=== PATIENT | female | born 1940 | race Two or more races ===

== ENCOUNTER → 2020-07-21 09:06 | Outpatient (BNVA) | payer MEDICARE, SELFPAY | PROVIDERS: PCP Internal Medicine; Referring Provider Internal Medicine; Visit Provider Nurse Practitioner | DX: Z13.89 Encounter for screening for other disorder (principal) | CPT/HCPCS: Q3014 ==

== ENCOUNTER → 2020-09-18 08:57 | Outpatient (BNVA) | payer MEDICARE, SELFPAY | PROVIDERS: PCP Internal Medicine; Visit Provider Nurse Practitioner | DX: Z76.89 Persons encountering health services in other specified circumstances (principal) | CPT/HCPCS: Q3014 ==

== ENCOUNTER → 2020-11-06 09:00 | Outpatient (BNVA) | payer MEDICARE, SELFPAY | PROVIDERS: PCP Internal Medicine; Visit Provider Nurse Practitioner | DX: K58.2 Mixed irritable bowel syndrome (principal); R11.2 Nausea with vomiting, unspecified; R10.9 Unspecified abdominal pain; R14.0 Abdominal distension (gaseous); K21.9 Gastro-esophageal reflux disease without esophagitis | CPT/HCPCS: Q3014 ==

== ENCOUNTER → 2021-04-21 08:30 | Outpatient (BNVA) | payer MEDICARE, SELFPAY | PROVIDERS: PCP Internal Medicine; Referring Provider Internal Medicine; Visit Provider Nurse Practitioner | DX: K58.2 Mixed irritable bowel syndrome (principal); K21.9 Gastro-esophageal reflux disease without esophagitis; R10.9 Unspecified abdominal pain; R11.2 Nausea with vomiting, unspecified; R14.0 Abdominal distension (gaseous); R19.00 Intra-abdominal and pelvic swelling, mass and lump, unspecified site | CPT/HCPCS: 99212 ==

== ENCOUNTER 2021-05-06 08:28 | Outpatient (REF) | payer MEDICARE, SELFPAY ==
--- NOTE | ~2021-05-06 | US_ITS ---
EXAMINATION: US ABDOMEN COMPLETE CLINICAL INFORMATION: Abdominal pain. COMPARISON: Most recent abdominal ultrasound dated 01/12/2020. TECHNIQUE: Real-time imaging of the abdominal viscera. FINDINGS: PANCREAS: Normal. ABDOMINAL AORTA: The proximal, mid, and distal segments are normal in caliber. INFERIOR VENA CAVA: Visualized portions are normal. LIVER: The liver is normal in size. The liver contour is normal. There is diffuse increased liver parenchymal echogenicity, consistent with hepatic steatosis. No focal hepatic lesion. There is no intrahepatic biliary duct dilatation seen. GALLBLADDER: Normal. The gallbladder is physiologically distended without evidence of stones, sludge, polyps, wall thickening or pericholecystic fluid. COMMON BILE DUCT: Normal in caliber measuring 0.3 cm in diameter. RIGHT KIDNEY: Normal. No hydronephrosis. No renal calculi or focal parenchymal lesions. The kidney measures 9.8 cm in maximum dimension. LEFT KIDNEY: Upper pole simple-appearing cyst measuring 1.5 cm. Findings are not clinically significant and no follow-up imaging is recommended. This is unchanged when compared to the prior examination. Left midpole stone measuring 0.3 cm, not seen on the prior examination. No left-sided hydronephrosis. The kidney measures 10.3 cm in maximum dimension. SPLEEN: Normal. The spleen measures 10.8 cm in maximum dimension. FREE FLUID: None. US/US abdomen complete IMPRESSION: 1. No cholelithiasis, gallbladder wall thickening, or pericholecystic free fluid to suggest acute cholecystitis. 2. Left midpole renal stone measuring 0.3 cm, not seen on the prior examination. No hydronephrosis.
== END 2021-05-06 08:29 | disposition home or self-care (01) ==
LOC: HO.US 08:28
PROVIDERS: PCP Internal Medicine; Visit Provider Nurse Practitioner
DX: R10.9 Unspecified abdominal pain (principal); N20.0 Calculus of kidney
CPT/HCPCS: 76700

== ENCOUNTER 2021-07-08 02:52 | Emergency (ER) | payer MEDICARE, SELFPAY ==
--- NOTE | ~2021-07-08 | XR_ITS ---
EXAMINATION: XR CHEST CLINICAL INFORMATION: Shortness of breath COMPARISON: 07/27/2019 TECHNIQUE: Frontal view of the chest was obtained. FINDINGS: Normal symmetric lung volumes. No parenchymal consolidation. No pleural effusion. No pneumothorax. Cardiomediastinal silhouette and pulmonary vascularity are within normal limits. No acute osseous abnormalities. XR/XR chest 1V IMPRESSION: Unremarkable examination.
[2021-07-08 03:07] VITALS: BMI 27.9
--- NOTE | 2021-07-08 03:19 | ECG_ITS ---
Test Reason : BACK PAIN Blood Pressure : / mmHG Vent. Rate : 062 BPM Atrial Rate : 062 BPM P-R Int : 152 ms QRS Dur : 074 ms QT Int : 426 ms P-R-T Axes : 059 031 036 degrees QTc Int : 432 ms Normal sinus rhythm Normal ECG When compared with ECG of 27-JUL-2019 09:15, No significant change was found Referred By: Cheryl Pink Electronically Signed By:Faraz Wheeler
[2021-07-08 03:30] VITALS: BP 180/64; PULSE 79; RESP 16; TEMP 36.6; O2SAT 99
--- NOTE | 2021-07-08 03:38 | ED_ITS ---
HPI - General Adult General Chief complaint: General Medical Stated complaint: back pain Time Seen by Provider: 07/08/21 03:15 History of Present Illness HPI narrative: Patient is a 80-year-old female presents today with having shortness of breath. Patient has no history of coronary artery disease. No history of diabetes, hypertension, high cholesterol. No smoking. Patient initially presented with shortness of breath. Then Topamax has no shortness of breath. Patient denies any focal weakness. Denies any change in smell or taste. Positive coughing. Patient states she had her COVID vaccine. Patient denies any abdominal pain. Any focal weakness. No history of heart attacks in the past. No history of blood clots in the past. Related Data Home Medications Medication Instructions Recorded Confirmed albuterol sulfate 90 mcg/actuation 0 mcg INHALATION 09/18/20 aerosol inhaler amlodipine 5 mg tablet 5 mg PO DAILY 09/18/20 aspirin 81 mg tablet,delayed 81 mg PO BEDTIME 09/18/20 release atorvastatin 80 mg tablet 80 mg PO DAILY 09/18/20 blood pressure test kit-large #1 ea 09/18/20 calcium carbonate 600 mg (1,500 1 tab PO 09/18/20 mg)-vitamin D3 400 unit tablet cholecalciferol (vitamin D3) 25 25 mcg PO DAILY 09/18/20 mcg (1,000 unit) tablet cromolyn 4 % eye drops 1 drp OPHTHALMIC (EYE) QID 09/18/20 fluticasone 500 mcg-salmeterol 50 1 ea INHALATION BID 09/18/20 mcg/dose blistr powdr for inhalation fluticasone propionate 50 0 mcg INTRANASAL 09/18/20 mcg/actuation nasal spray,suspension hydrochlorothiazide 25 mg tablet 25 mg PO DAILY 09/18/20 loratadine 10 mg tablet 10 mg PO QAM 09/18/20 metformin 500 mg tablet,extended 1,000 mg PO QAM 09/18/20 release 24 hr metoprolol succinate 100 mg 100 mg PO DAILY 09/18/20 tablet,extended release 24 hr montelukast 10 mg tablet 10 mg PO BEDTIME 09/18/20 tolterodine 4 mg capsule,extended 4 mg PO DAILY 09/18/20 release 24 hr tramadol 50 mg tablet 50 mg PO Q6H PRN 09/18/20 valsartan 320 mg tablet 320 mg PO QAM 09/18/20 Previous Rx's Medication Instructions Recorded methylcellulose (laxative) 500 mg 1,000 mg PO BID 30 Days #120 tab 11/06/20 tablet (Fiber Laxative (methylcellulose)) sucralfate 1 gram tablet (Carafate) 3 g PO .daily @noon #60 tab 04/07/21 dexlansoprazole 60 mg 60 mg PO QPM #30 cap 06/22/21 capsule,biphase delayed release (Dexilant) Allergies Allergy/AdvReac Type Severity Reaction Status Date / Time nortriptyline AdvReac Rash Verified 11/06/20 09:01 Review of Systems Review of Systems: Positive shortness of breath Yes all other systems are reviewed and are negative [facility] Past Medical History Attestation statement: The following information was validated with the patient. Surgical History Hx of colonoscopy Hx of endoscopy Hx of hysterectomy Family History Family History Mother Diabetes Heart problem Asthma Father Diabetes Depression Maternal Grandfather Stomach cancer Family/Other Colon cancer Brother COVID-19 Social History Social History Alcohol intake: current Alcohol intake frequency: does not drink Second Hand Smoke Exposure: No Advance Directives: No Advance Directives Information Provided: No Physical Exam Vital Signs: Vital Signs: Last Vital Signs Temp 97.3 F 07/08/21 04:12 Pulse 62 07/08/21 04:12 Resp 15 07/08/21 04:12 BP 162/72 H 07/08/21 04:12 Pulse Ox 98 07/08/21 04:12 BMI result Body Mass Index 27.9 Appearance: Alert. Oriented X3. No acute distress. Eyes: Pupils equal, round and reactive to light. ENT: Pharynx normal. Neck: Normal inspection. Neck supple. No lymph nodes noted. No crepitus CVS: Normal heart rate and rhythm. Pulses normal. Normal S1 and S2 Respiratory: No respiratory distress. Breath sounds normal. No Wheezing. No rales Abdomen: Soft and nontender. No rigidity. No distention. good BS x4 Skin: Skin warm and dry. Normal skin color. Normal skin turgor. Extremities: No lower extremity edema. Neurovascular intact to all extremities. No Lacerations. No Rash Neuro: Oriented X 3. No motor deficit. No sensory deficit. Moving all extermities. No slurred speech Medical Decision Making MDM Narrative Medical decision making narrative: Patient's EKG showed a sinus pattern heart rate is 75 CT cares QT within normal limits is no acute ST segment elevation noted. Patient's pain is atypical. Cardiac enzyme was negative. No significant risk factors. Even with patient's age being 80 on likely secondary ACS. Heart score is less than 3. Patient's D-dimer was negative. In the setting of low risk patient unlikely to have PE. Patient's chest x-ray did not show any focal infiltrate. Will discharge patient home. In stable condition. Lab Data Result diagrams: 07/08/21 04:04 07/08/21 04:04 Labs: Lab Results 07/08/21 07/08/21 07/08/21 Range/Units 04:04 04:04 04:04 WBC 8.5 (4.8-10.8) X10*3/uL RBC 4.97 (4.20-5.50) X10*6/uL Hgb 14.6 (12.0-16.0) g/dl Hct 43.6 (37.0-47.0) % MCV 87.7 (80.0-98.0) fL MCH 29.4 (27.0-33.0) pg MCHC 33.5 (31.0-35.0) g/dl RDW 13.3 (11.0-16.0) % Plt Count 234 (160-400) X10*3/uL MPV 10.0 (9.4-12.3) fL Immature Gran % (Auto) 0.4 (0.0-0.4) % Neut % (Auto) 64.4 (45-73) % Lymph % (Auto) 21.8 (20-40) % [place] % (Auto) 9.2 (2-11) % Eos % (Auto) 3.8 (0-4) % Baso % (Auto) 0.4 (0-2) % Lymph # (Auto) 1.9 (1.2-4.9) X10*3/uL [place] # (Auto) 0.8 (0.1-1.2) X10*3/uL Eos # (Auto) 0.3 (0.0-0.4) X10*3/uL Baso # (Auto) 0.0 (0.0-0.2) X10*3/uL Abs Immat Gran (auto) 0.03 (0.00-0.03) X10*3/uL Absolute Neuts (auto) 5.5 (2.0-8.3) x10*3/uL Absolute Nucleated RBC 0.000 (0.0-0.012) X10*3/uL Nucleated RBC % (auto) 0.0 (0.0-0.2) /100WBC D-Dimer High Sensitivty < 150 NG/ML Sodium 141 (135-145) mmol/L Potassium 4.1 (3.3-5.1) mmol/L Chloride 105 (96-108) mmol/L Carbon Dioxide 27 (22-29) mmol/L Anion Gap 13 (12-20) BUN 12 (9-16) mg/dL Creatinine 0.81 (0.5-1.4) mg/dL Estim Creat Clear Calc 49.3 Estimated GFR > 60 Random Glucose 183 H (60-115) mg/dL Calcium 9.9 (8.4-10.2) mg/dL Troponin I High Sens (<3.5-17.0) ng/L 07/08/21 Range/Units 04:04 WBC (4.8-10.8) X10*3/uL RBC (4.20-5.50) X10*6/uL Hgb (12.0-16.0) g/dl Hct (37.0-47.0) % MCV (80.0-98.0) fL MCH (27.0-33.0) pg MCHC (31.0-35.0) g/dl RDW (11.0-16.0) % Plt Count (160-400) X10*3/uL MPV (9.4-12.3) fL Immature Gran % (Auto) (0.0-0.4) % Neut % (Auto) (45-73) % Lymph % (Auto) (20-40) % [place] % (Auto) (2-11) % Eos % (Auto) (0-4) % Baso % (Auto) (0-2) % Lymph # (Auto) (1.2-4.9) X10*3/uL [place] # (Auto) (0.1-1.2) X10*3/uL Eos # (Auto) (0.0-0.4) X10*3/uL Baso # (Auto) (0.0-0.2) X10*3/uL Abs Immat Gran (auto) (0.00-0.03) X10*3/uL Absolute Neuts (auto) (2.0-8.3) x10*3/uL Absolute Nucleated RBC (0.0-0.012) X10*3/uL Nucleated RBC % (auto) (0.0-0.2) /100WBC D-Dimer High Sensitivty NG/ML Sodium (135-145) mmol/L Potassium (3.3-5.1) mmol/L Chloride (96-108) mmol/L Carbon Dioxide (22-29) mmol/L Anion Gap (12-20) BUN (9-16) mg/dL Creatinine (0.5-1.4) mg/dL Estim Creat Clear Calc Estimated GFR Random Glucose (60-115) mg/dL Calcium (8.4-10.2) mg/dL Troponin I High Sens < 3.5 (<3.5-17.0) ng/L Discharge Plan Discharge Clinical Impression: Chest pain Patient Disposition: Home, Self-Care Instructions: Chest Pain (ED) Prescriptions: No Action sucralfate [Carafate] 1 gram tablet 3 g PO .daily @noon Qty: 60 RF: 1 Dexilant 60 mg capsule,biphase delayed releas 60 mg PO QPM Qty: 30 RF: 1 Fiber Laxative (methylcellulo) 500 mg tablet 1,000 mg PO BID 30 Days Qty: 120 RF: 6 Referrals: Physician,None [Physician] - 2 days
[2021-07-08 04:09] LABS: Basophils Percent Auto 0.4 % (0-2); Eosinophils Absolute Auto 0.3 X10*3/uL (0.0-0.4); Eosinophils Percent Auto 3.8 % (0-4); Hematocrit 43.6 % (37.0-47.0); Hemoglobin 14.6 g/dl (12.0-16.0); Imm Gran Abs Auto 0.03 X10*3/uL (0.00-0.03); Imm Gran Pct Auto 0.4 % (0.0-0.4); Lymphocytes Absolute Auto 1.9 X10*3/uL (1.2-4.9); Lymphocytes Percent Auto 21.8 % (20-40); MANUAL DIFF FLAG NO; Mean Corpuscular HGB Conc 33.5 g/dl (31.0-35.0); Mean Corpuscular Hemoglobin 29.4 pg (27.0-33.0); Mean Corpuscular Volume 87.7 fL (80.0-98.0); Monocytes Absolute Auto 0.8 X10*3/uL (0.1-1.2); Monocytes Percent Auto 9.2 % (2-11); Neutrophils Absolute Auto 5.5 x10*3/uL (2.0-8.3); Neutrophils Percent Auto 64.4 % (45-73); Platelet Count 234 X10*3/uL (160-400); Red Blood Count 4.97 X10*6/uL (4.20-5.50); Red Cell Distribution Width 13.3 % (11.0-16.0); White Blood Count 8.5 X10*3/uL (4.8-10.8)
[2021-07-08 04:12] VITALS: BP 162/72; PULSE 62; RESP 15; TEMP 36.3; O2SAT 98
[2021-07-08 04:28] LABS: Troponin-I High Sensitivity < 3.5 ng/L (<3.5-17.0)
[2021-07-08 04:30] LABS: Anion Gap 13 (12-20); Blood Urea Nitrogen 12 mg/dL (9-16); Calcium 9.9 mg/dL (8.4-10.2); Carbon Dioxide 27 mmol/L (22-29); Chloride 105 mmol/L (96-108); Creatinine Clr Calc Pharmacy 49.3; Estimated Glomerular Filt Rate > 60; Glucose Random 183 mg/dL (60-115); Potassium 4.1 mmol/L (3.3-5.1); Sodium 141 mmol/L (135-145)
[2021-07-08 04:33] LABS: D Dimer High Sensitivity < 150 NG/ML
--- NOTE | 2021-07-08 05:11 | PC.NURSE ---
I assumed care of this patient upon her arrival with EMS. Since that time she has remained alert and oriented x 3, without chest pain, RR WNL and non-labored resp's, speaking in full sentences. She has remained calm, cooperative and able to evrbalize her needs to staff effectively. SHe has been dischared at this time and she vebalizes an understanding of all DC orders. She ambulated out of the department to the waiting room - independently and steadily - to where her son is waiting for her.
== END 2021-07-08 05:14 | disposition home or self-care (01) ==
LOC: HO.ED 04:49
PROVIDERS: Emergency Provider Emergency Medicine Emergency Medical Services; PCP Internal Medicine
DX: R07.9 Chest pain, unspecified (principal); I25.10 Atherosclerotic heart disease of native coronary artery without angina pectoris
CPT/HCPCS: 36415; 71045; 80048; 84484; 85025; 85379; 93005; 99283; 99284

== ENCOUNTER 2021-08-03 15:00 | Emergency (ER) | payer MEDICARE, SELFPAY ==
--- NOTE | ~2021-08-03 | CT_ITS ---
EXAMINATION: CT ABDOMEN AND PELVIS WITH CONTRAST CLINICAL INFORMATION: mid abd pain etiology? COMPARISON: 02/05/2017 TECHNIQUE: Multidetector volumetric imaging was performed from the superior aspect of the liver through the pubic symphysis following administration of 85 mL Omnipaque 300 intravenous contrast. Sagittal and coronal reformatted images were obtained on the technologist workstation.. This CT examination was performed using dose optimization techniques as appropriate, variously including the following: *Automated exposure control *Adjustment of mA and/or kV according to patient size (this includes techniques or standardized protocols for targeted exams where dose is matched to indication/reason for exam; i.e. extremities or head) *Use of iterative reconstruction technique DLP: 582 mGy-cm FINDINGS: LUNG BASES: Linear scarring or atelectasis bilaterally. Thickening of the distal esophagus incidentally noted. Mild esophagitis cannot be excluded with this appearance LIVER, GALLBLADDER, AND BILIARY TREE: Liver demonstrates mild diffuse fatty infiltration but no focal hepatic lesion nor biliary ductal dilatation. The gallbladder is unremarkable with no evidence of radiopaque gallstones, gallbladder wall thickening, or obvious pericholecystic inflammatory changes. PANCREAS: Unremarkable. SPLEEN: Mildly enlarged measuring 13.5 cm in length ADRENAL GLANDS: Unremarkable. KIDNEYS AND URETERS: Low-attenuation 1.5 cm lesion in the upper pole of the left kidney has been present on prior studies. This measures more than simple fluid density currently. I'm uncertain if this is related to hyperdense/hemorrhagic cysts. This appeared more simple cystic on the ultrasound. Kidneys are otherwise normal in size, shape, and attenuation. No hydronephrosis, hydroureter, or calculi seen. No perinephric stranding. BLADDER: Unremarkable. GASTROINTESTINAL TRACT: Scattered colonic diverticulosis but no evidence for diverticulitis. Normal-appearing appendix in the right lower quadrant. Visualized small bowel unremarkable ABDOMINAL WALL: No significant hernia is appreciated. LYMPHOVASCULAR STRUCTURES: Vascular calcification within the aorta iliac system PELVIC VISCERA: Presumably surgically absent OSSEOUS STRUCTURES: Unremarkable. CT/CT abdomen pelvis w con IMPRESSION: Mild nonspecific thickening of the distal esophagus could be seen in the setting of underlying esophagitis and this could be clinically correlated. Stomach is decompressed and otherwise similar in appearance to the prior 2017 study. Mild chronic appearing changes otherwise as described above.
[2021-08-03 15:10] VITALS: BP 140/78; PULSE 91; O2SAT 98
[2021-08-03 15:50] VITALS: BP 99/78; PULSE 92; RESP 18; TEMP 37.6; O2SAT 97; BMI 27.9
--- NOTE | 2021-08-03 15:55 | ECG_ITS ---
Test Reason : ABDOMINAL PAIN Blood Pressure : / mmHG Vent. Rate : 086 BPM Atrial Rate : 086 BPM P-R Int : 132 ms QRS Dur : 084 ms QT Int : 374 ms P-R-T Axes : 046 011 015 degrees QTc Int : 447 ms Sinus rhythm with occasional Premature ventricular complexes Nonspecific ST and T wave abnormality Abnormal ECG When compared with ECG of 08-JUL-2021 03:41, Premature ventricular complexes are now Present Nonspecific T wave abnormality now evident in Lateral leads Referred By: Generic ED Physician Electronically Signed By:TAYLOR BROUSSARD MD
[2021-08-03 17:15] LABS: MANUAL DIFF FLAG NO
[2021-08-03 17:19] LABS: Basophils Percent Auto 0.2 % (0-2); Hematocrit 44.1 % (37.0-47.0); Imm Gran Abs Auto 0.02 X10*3/uL (0.00-0.03); Imm Gran Pct Auto 0.5 % (0.0-0.4); Lymphocytes Absolute Auto 0.8 X10*3/uL (1.2-4.9); Lymphocytes Percent Auto 18.7 % (20-40); Mean Corpuscular Hemoglobin 29.4 pg (27.0-33.0); Mean Corpuscular Volume 86.3 fL (80.0-98.0); Mean Platelet Volume 10.1 fL (9.4-12.3); Monocytes Absolute Auto 0.3 X10*3/uL (0.1-1.2); Monocytes Percent Auto 6.2 % (2-11); Neutrophils Percent Auto 74.4 % (45-73); Platelet Count 156 X10*3/uL (160-400); Red Blood Count 5.11 X10*6/uL (4.20-5.50); Red Cell Distribution Width 13.4 % (11.0-16.0)
[2021-08-03 17:34] LABS: Alanine Aminotransferase 33 U/L (0-31); Albumin Level 4.1 g/dL (3.5-5.0); Alkaline Phosphatase 70 U/L (39-117); Anion Gap 11 (12-20); Aspartate Amino Transferase 38 U/L (5-31); Bilirubin Total 0.8 mg/dL (0.0-1.0); Blood Urea Nitrogen 11 mg/dL (9-16); Calcium 9.2 mg/dL (8.4-10.2); Carbon Dioxide 29 mmol/L (22-29); Chloride 102 mmol/L (96-108); Creatinine Clr Calc Pharmacy 43.9; Estimated Glomerular Filt Rate 60; Glucose Random 130 mg/dL (60-115); Lipase 47 U/L (8-78); Potassium 3.7 mmol/L (3.3-5.1); Sodium 138 mmol/L (135-145); Total Protein 6.8 g/dL (6.5-8.0)
--- NOTE | 2021-08-03 20:01 | ED_ITS ---
HPI - Abdominal Pain General Chief Complaint: Abdominal Pain Stated Complaint: DIZZY,ABD PAIN X'S 3 DAYS,FULLY VACC PER EMS Time Seen by Provider: 08/03/21 20:01 Source: patient Mode of arrival: ambulatory Limitations: no limitations History of Present Illness HPI narrative: Patient with chronic gastritis on Dexilant 60 mg daily complaining of epigastric pain for last 4- 5 days slight nausea history of same for long time off and on , no melena no vomiting no fever or chills no urinary complaint no fever Related Data Home Medications Medication Instructions Recorded Confirmed albuterol sulfate 90 mcg/actuation 0 mcg INHALATION 09/18/20 aerosol inhaler amlodipine 5 mg tablet 5 mg PO DAILY 09/18/20 aspirin 81 mg tablet,delayed 81 mg PO BEDTIME 09/18/20 release atorvastatin 80 mg tablet 80 mg PO DAILY 09/18/20 blood pressure test kit-large #1 ea 09/18/20 calcium carbonate 600 mg-vitamin 1 tab PO 09/18/20 D3 10 mcg (400 unit) tablet cholecalciferol (vitamin D3) 25 25 mcg PO DAILY 09/18/20 mcg (1,000 unit) tablet cromolyn 4 % eye drops 1 drp OPHTHALMIC (EYE) QID 09/18/20 fluticasone 500 mcg-salmeterol 50 1 ea INHALATION BID 09/18/20 mcg/dose blistr powdr for inhalation fluticasone propionate 50 0 mcg INTRANASAL 09/18/20 mcg/actuation nasal spray,suspension hydrochlorothiazide 25 mg tablet 25 mg PO DAILY 09/18/20 loratadine 10 mg tablet 10 mg PO QAM 09/18/20 metformin 500 mg tablet,extended 1,000 mg PO QAM 09/18/20 release 24 hr metoprolol succinate 100 mg 100 mg PO DAILY 09/18/20 tablet,extended release 24 hr montelukast 10 mg tablet 10 mg PO BEDTIME 09/18/20 tolterodine 4 mg capsule,extended 4 mg PO DAILY 09/18/20 release 24 hr tramadol 50 mg tablet 50 mg PO Q6H PRN 09/18/20 valsartan 320 mg tablet 320 mg PO QAM 09/18/20 Previous Rx's Medication Instructions Recorded methylcellulose (laxative) 500 mg 1,000 mg PO BID 30 Days #120 tab 11/06/20 tablet (Fiber Laxative (methylcellulose)) sucralfate 1 gram tablet (Carafate) 3 g PO .daily @noon #60 tab 04/07/21 dexlansoprazole 60 mg 60 mg PO QPM #30 cap 06/22/21 capsule,biphase delayed release (Dexilant) sucralfate 1 gram tablet 1 g PO TID #90 tab 08/03/21 Allergies Allergy/AdvReac Type Severity Reaction Status Date / Time nortriptyline AdvReac Rash Verified 11/06/20 09:01 Review of Systems Review of Systems Yes all other systems are reviewed and are negative Physical Exam Vital Signs: Vital Signs: Last Vital Signs Temp 99.6 F 08/03/21 15:50 Pulse 92 08/03/21 15:50 Resp 18 08/03/21 15:50 BP 99/78 08/03/21 15:50 Pulse Ox 97 08/03/21 15:50 BMI result Body Mass Index 27.9 Appearance: Alert. Oriented X3. No acute distress. Eyes: No pallor or icterus ENT: Pharynx normal. Oral Mucosa moist Neck: Normal inspection. Neck supple. CVS: Normal heart rate and rhythm. Pulses normal. Respiratory: No respiratory distress. Equal air entry bilateral, no wh eezing/rales/rhonchi Abdomen: Soft , epigastric tenderness no rebound tenderness or guarding Bowel sounds are present, no mass palpable, no CVA tenderness Skin: Skin warm and dry. Normal skin color. Normal skin turgor. Extremities: No lower extremity edema. No calf tenderness Neuro: Oriented X 3. MDM - Abdominal Pain MDM Narrative Medical decision making narrative: Patient with chronic gastritis already been followed by GI never had endoscopy in the past advised to have endoscopy vitals are stable advised to continue Dexilant and add sucralfate Lab Data Attestation: I reviewed the patient's lab results. Result diagrams: 08/03/21 16:53 08/03/21 16:53 Labs: Lab Results 08/03/21 08/03/21 08/03/21 Range/Units 16:53 16:53 20:21 WBC 4.0 L (4.8-10.8) X10*3/uL RBC 5.11 (4.20-5.50) X10*6/uL Hgb 15.0 (12.0-16.0) g/dl Hct 44.1 (37.0-47.0) % MCV 86.3 (80.0-98.0) fL MCH 29.4 (27.0-33.0) pg MCHC 34.0 (31.0-35.0) g/dl RDW 13.4 (11.0-16.0) % Plt Count 156 L D (160-400) X10*3/uL MPV 10.1 (9.4-12.3) fL Immature Gran % (Auto) 0.5 H (0.0-0.4) % Neut % (Auto) 74.4 H (45-73) % Lymph % (Auto) 18.7 L (20-40) % [place] % (Auto) 6.2 (2-11) % Eos % (Auto) 0.0 (0-4) % Baso % (Auto) 0.2 (0-2) % Lymph # (Auto) 0.8 L (1.2-4.9) X10*3/uL [place] # (Auto) 0.3 (0.1-1.2) X10*3/uL Eos # (Auto) 0.0 (0.0-0.4) X10*3/uL Baso # (Auto) 0.0 (0.0-0.2) X10*3/uL Abs Immat Gran (auto) 0.02 (0.00-0.03) X10*3/uL Absolute Neuts (auto) 3.0 (2.0-8.3) x10*3/uL Absolute Nucleated RBC 0.000 (0.0-0.012) X10*3/uL Nucleated RBC % (auto) 0.0 (0.0-0.2) /100WBC Sodium 138 (135-145) mmol/L Potassium 3.7 (3.3-5.1) mmol/L Chloride 102 (96-108) mmol/L Carbon Dioxide 29 (22-29) mmol/L Anion Gap 11 L (12-20) BUN 11 (9-16) mg/dL Creatinine 0.91 (0.5-1.4) mg/dL Estim Creat Clear Calc 43.9 Estimated GFR 60 Random Glucose 130 H (60-115) mg/dL Calcium 9.2 D (8.4-10.2) mg/dL Total Bilirubin 0.8 (0.0-1.0) mg/dL AST 38 H (5-31) U/L ALT 33 H (0-31) U/L Alkaline Phosphatase 70 (39-117) U/L Total Protein 6.8 (6.5-8.0) g/dL Albumin 4.1 (3.5-5.0) g/dL Lipase 47 (8-78) U/L Urine Color YELLOW Urine Appearance CLEAR Urine pH 6.0 (5.0-8.0) Ur Specific [place] 1.025 (1.005-1.025) Urine Protein TRACE (NEG-TRACE) MG/DL Urine Glucose (UA) NEG (NEG) MG/DL Urine Ketones 15 (NEG) MG/DL Urine Blood 3+ H (NEG) Urine Nitrite NEG (NEG) Ur Leukocyte Esterase NEG (NEG) Urine RBC 5-9 H (0) /HPF Urine WBC 0-2 (0-4) /HPF Ur Squamous Epith Cells 1+ /LPF Urine Bacteria TRACE /LPF Urine Mucus 1+ /LPF Discharge Plan Discharge Clinical Impression: GERD (gastroesophageal reflux disease) Qualifiers: Esophagitis presence: with esophagitis Esophagitis bleeding: without hemorrhage Qualified Code(s): K21.00 - Gastro-esophageal reflux disease with esophagitis, without bleeding Patient Disposition: Home, Self-Care Instructions: Gastroesophageal Reflux Disease (ED) Additional Instructions: Continue Dexilant Avoid fried food 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 Start taking sucralfate half an hour before meals Prescriptions: New sucralfate 1 gram tablet 1 g PO TID Qty: 90 RF: 0 No Action sucralfate [Carafate] 1 gram tablet 3 g PO .daily @noon Qty: 60 RF: 1 Dexilant 60 mg capsule,biphase delayed releas 60 mg PO QPM Qty: 30 RF: 1 Fiber Laxative (methylcellulo) 500 mg tablet 1,000 mg PO BID 30 Days Qty: 120 RF: 6 Referrals: Aren Slater MD [Physician] - 2 weeks Interventions: ED Discharge Assessment Last Done: 08/03/21 22:37 Discharge Date/Time: 08/03/21 22:38 [facility] Past Medical History Surgical History Hx of colonoscopy Hx of endoscopy Hx of hysterectomy Family History Family History Mother Diabetes Heart problem Asthma Father Diabetes Depression Maternal Grandfather Stomach cancer Family/Other Colon cancer Brother COVID-19 Social History Social History Alcohol intake: current Alcohol intake frequency: does not drink Second Hand Smoke Exposure: No Advance Directives: No Advance Directives Information Provided: No
[2021-08-03 20:27] LABS: Appearance Urine CLEAR; Color Urine YELLOW; Glucose Urine UA NEG (NEG); Leukocyte Esterase Urine NEG (NEG); Nitrite Urine NEG (NEG); Specific Gravity - Urine 1.025 (1.005-1.025); UACC Culture Trigger NO; Urine Blood 3+ (NEG); Urine Ketones 15 MG/DL (NEG); Urine Protein TRACE MG/DL (NEG-TRACE)
[2021-08-03] MEDS: ondansetron HCL 4 MG/2 ML VIAL IVPUSH (20:32)
[2021-08-03] MEDS: 0.9 % Sodium Chloride 1,000 ML 999 ML IV (20:34)
[2021-08-03] MEDS: Famotidine/PF 20 MG/2 ML VIAL IVPUSH (20:34)
[2021-08-03 20:38] LABS: Bacteria Urine TRACE /LPF; Mucus Urine 1+ /LPF; Squamous Epithelial Cell Urine 1+ /LPF; WBC Urine 0-2 /HPF (0-4)
[2021-08-03] MEDS: iohexoL 350 MG/ML 100 ML INFUS..BTL IV (20:56)
== END 2021-08-03 22:38 | disposition home or self-care (01) ==
PROVIDERS: Emergency Provider Internal Medicine; PCP Internal Medicine
DX: K21.00 Gastro-esophageal reflux disease with esophagitis, without bleeding (principal); R10.13 Epigastric pain; Z79.02 Long term (current) use of antithrombotics/antiplatelets; Z79.82 Long term (current) use of aspirin; Z79.899 Other long term (current) drug therapy
CPT/HCPCS: 36415; 74177; 80053; 81001; 83690; 85025; 93005; 96361; 96374; 96375; 99284; J2405; Q9967

== ENCOUNTER → 2021-12-15 08:04 | Outpatient (BNVA) | payer MEDICARE, SELFPAY | PROVIDERS: PCP Internal Medicine; Referring Provider Internal Medicine; Visit Provider Nurse Practitioner | DX: K21.00 Gastro-esophageal reflux disease with esophagitis, without bleeding (principal); K58.2 Mixed irritable bowel syndrome; R14.0 Abdominal distension (gaseous); R11.2 Nausea with vomiting, unspecified; R10.9 Unspecified abdominal pain; R19.00 Intra-abdominal and pelvic swelling, mass and lump, unspecified site | CPT/HCPCS: 99212 ==

== ENCOUNTER → 2022-01-15 08:19 | Outpatient (BNVA) | payer MEDICARE, SELFPAY | PROVIDERS: PCP Internal Medicine; Visit Provider Nurse Practitioner | DX: K21.00 Gastro-esophageal reflux disease with esophagitis, without bleeding (principal); K58.2 Mixed irritable bowel syndrome; R10.9 Unspecified abdominal pain; R11.2 Nausea with vomiting, unspecified; R74.01 Elevation of levels of liver transaminase levels; R14.0 Abdominal distension (gaseous) | CPT/HCPCS: 99212 ==

== ENCOUNTER → 2022-05-11 08:01 | Outpatient (REF) | payer MEDICARE, SELFPAY ==
--- NOTE | ~2022-05-11 | NM_ITS ---
EXAMINATION: ND RADIONUCLIDE SOLID FOOD GASTRIC EMPTYING 4-HOUR STUDY CLINICAL INFORMATION: Unspecified abdominal pain. COMPARISON: None TECHNIQUE: A standard meal consisting of 4 oz of Egg Beaters brand tagged with 817 microcuries Tc-99m Sulfur Colloid, 8 oz water and 2 slices of toast with jelly was administered orally to the patient. Images were obtained using a dual head gamma camera in the anterior and posterior projections over of the stomach immediately post ingestion and at hourly intervals up to 4 hours post ingestion. The anterior and posterior counts at each time interval were averaged using the geometric mean and expressed as percentage of the immediate post ingestion counts. FINDINGS: There is good visualization of activity in the stomach immediately post ingestion. As the study progresses, there is good clearance of activity from the stomach and visualization of progressively increasing small bowel activity. By the end of the study, there is almost no retention noted in the stomach. Retention in the stomach at each time interval was: 1 hour 78% (normal 37%-90%) 2 hours 73% (normal 30%-60%) 3 hours 60% 4 hours 56% (normal 0%-10%) NM/ND gastric emptying study IMPRESSION: Normal 4-hour solid food gastric emptying study.
== END ==
LOC: HO.NUCMED 08:01
PROVIDERS: Visit Provider Nurse Practitioner
DX: R10.9 Unspecified abdominal pain (principal)
CPT/HCPCS: 78264; A9541

== ENCOUNTER → 2022-07-30 07:53 | Outpatient (BNVA) | payer MEDICARE, SELFPAY | PROVIDERS: PCP Internal Medicine; Visit Provider Nurse Practitioner | DX: K58.2 Mixed irritable bowel syndrome (principal) | CPT/HCPCS: 99212 ==

== ENCOUNTER 2022-08-12 08:44 | Outpatient (REF) | payer MEDICARE, SELFPAY ==
[2022-08-12 08:52] LABS: MANUAL DIFF FLAG NO
[2022-08-12 09:53] LABS: Basophils Percent Auto 0.4 % (0-2); Eosinophils Absolute Auto 0.2 X10*3/uL (0.0-0.4); Eosinophils Percent Auto 2.8 % (0-4); Hematocrit 42.1 % (37.0-47.0); Hemoglobin 13.7 g/dl (12.0-16.0); Imm Gran Abs Auto 0.03 X10*3/uL (0.00-0.03); Imm Gran Pct Auto 0.4 % (0.0-0.4); Lymphocytes Absolute Auto 1.6 X10*3/uL (1.2-4.9); Lymphocytes Percent Auto 21.9 % (20-40); Mean Corpuscular HGB Conc 32.5 g/dl (31.0-35.0); Mean Corpuscular Hemoglobin 28.7 pg (27.0-33.0); Mean Corpuscular Volume 88.3 fL (80.0-98.0); Mean Platelet Volume 10.8 fL (9.4-12.3); Monocytes Absolute Auto 0.5 X10*3/uL (0.1-1.2); Monocytes Percent Auto 6.9 % (2-11); Neutrophils Absolute Auto 4.9 x10*3/uL (2.0-8.3); Neutrophils Percent Auto 67.6 % (45-73); Platelet Count 235 X10*3/uL (160-400); Red Blood Count 4.77 X10*6/uL (4.20-5.50); Red Cell Distribution Width 13.5 % (11.0-16.0); White Blood Count 7.3 X10*3/uL (4.8-10.8)
[2022-08-12 12:22] LABS: Alanine Aminotransferase 20 U/L (0-31); Albumin Level 4.4 g/dL (3.5-5.0); Alkaline Phosphatase 82 U/L (39-117); Anion Gap 8 (12-20); Aspartate Amino Transferase 21 U/L (5-31); Bilirubin Total 0.7 mg/dL (0.0-1.0); Blood Urea Nitrogen 12 mg/dL (9-16); Calcium 9.9 mg/dL (8.4-10.2); Carbon Dioxide 32 mmol/L (22-29); Chloride 103 mmol/L (96-108); Estimated Glomerular Filt Rate > 60; Gamma Glutamyl Transpeptidase 25 U/L (7-33); Glucose Random 127 mg/dL (60-115); Lipase 36 U/L (8-78); Potassium 3.7 mmol/L (3.3-5.1); Sodium 139 mmol/L (135-145); Total Protein 6.9 g/dL (6.5-8.0)
[2022-08-12 12:34] LABS: Amylase 99 U/L (28-100); Ferritin 101 ng/mL (10-250)
[2022-08-13 08:39] LABS: HBS Num1 0.51 mIU/mL (0-7.99); Hepatitis A Antibody IgM 0.15 Index (0-0.79); ~Hepatitis A Antibody IgM Nonreactive (Nonreactive); ~Hepatitis B Surface Antibody NONREACTIVE (Nonreactive)
[2022-08-13 08:40] LABS: HBsAGNum1 0.31 S/CO (0.00-0.99); Hepatitis B Core Antibody Nonreactive (Nonreactive); Hepatitis B Surface Antigen Negative (Negative); ~HepC Num1 0.09 S/CO (0.00-0.79); ~Hepatitis C Antibody Nonreactive (Nonreactive)
[2022-08-16 14:18] LABS: Alpha Fetoprotein 2.2 ng/mL
[2022-08-18 14:58] LABS: Mitochondrial Antibodies NEGATIVE (NEGATIVE)
[2022-08-18 23:04] LABS: Smooth Muscle Antibody <20 U (<20)
== END 2022-08-12 08:45 | disposition home or self-care (01) ==
LOC: HO.LAB 08:44
PROVIDERS: PCP Internal Medicine; Visit Provider Nurse Practitioner
DX: R10.9 Unspecified abdominal pain (principal); R11.2 Nausea with vomiting, unspecified; R74.01 Elevation of levels of liver transaminase levels
CPT/HCPCS: 36415; 80053; 82105; 82150; 82728; 82977; 83690; 85025; 86015; 86255; 86256; 86704; 86706; 86709; 86803; 87340

== ENCOUNTER → 2022-09-09 08:05 | Outpatient (BNVA) | payer MEDICARE, SELFPAY | PROVIDERS: PCP Internal Medicine; Referring Provider Internal Medicine; Visit Provider Nurse Practitioner | DX: R10.9 Unspecified abdominal pain (principal); K21.00 Gastro-esophageal reflux disease with esophagitis, without bleeding; K58.2 Mixed irritable bowel syndrome; R14.0 Abdominal distension (gaseous); R11.2 Nausea with vomiting, unspecified; R74.01 Elevation of levels of liver transaminase levels | CPT/HCPCS: 99212 ==

== ENCOUNTER → 2022-10-19 08:18 | Outpatient (BNVA) | payer MEDICARE, SELFPAY | PROVIDERS: PCP Internal Medicine; Visit Provider Nurse Practitioner | DX: K58.2 Mixed irritable bowel syndrome (principal); K21.00 Gastro-esophageal reflux disease with esophagitis, without bleeding; R11.2 Nausea with vomiting, unspecified; R14.0 Abdominal distension (gaseous); R10.9 Unspecified abdominal pain | CPT/HCPCS: 99212 ==

== ENCOUNTER → 2022-11-11 08:37 | Outpatient (BNVA) | payer MEDICARE, SELFPAY | PROVIDERS: PCP Internal Medicine; Visit Provider Nurse Practitioner | DX: K21.00 Gastro-esophageal reflux disease with esophagitis, without bleeding (principal); K58.2 Mixed irritable bowel syndrome; R14.0 Abdominal distension (gaseous) | CPT/HCPCS: 99212 ==

== ENCOUNTER → 2022-12-16 07:54 | Outpatient (BNVA) | payer MEDICARE, SELFPAY | PROVIDERS: PCP Nurse Practitioner; Referring Provider Nurse Practitioner; Visit Provider Nurse Practitioner | DX: K21.00 Gastro-esophageal reflux disease with esophagitis, without bleeding (principal); K58.2 Mixed irritable bowel syndrome; R10.13 Epigastric pain; R14.0 Abdominal distension (gaseous) | CPT/HCPCS: 99212 ==

== ENCOUNTER 2022-12-22 07:56 | Day surgery (SDC) | payer OTHER, SELFPAY ==
[2022-12-20 11:55] VITALS: BMI 28.0
[2022-12-20 14:46] VITALS: BMI 28.0
--- NOTE | 2022-12-21 10:47 | HO.ANESPROP2 ---
Documented by User: Berkley Leonardo NP 12/21/22 10:49 HPI - Anesthesia Eval Consult details Narrative: 82yo F for Upper Endoscopy PMFSH Active Problems Active Problems: All Active Problems (Updated 12/20/22 @ 14:45 by Katie Galvez, RN) GERD (gastroesophageal reflux disease) (Acute) Irritable bowel syndrome with both constipation and diarrhea (Acute) Abdominal bloating (Acute) Nausea and vomiting (Acute) Abdominal pain (Acute) Lump in the abdomen (Acute) Elevated liver transaminase level (Acute) Abdominal cramping (Acute) Epigastric abdominal pain (Acute) Past Medical History Medical History (Updated 12/20/22 @ 14:45 by Katie Galvez, WENDY) Arthritis Asthma Back pain Diabetes Glaucoma HTN (hypertension) Seasonal allergies Family History Family History Mother Diabetes Heart problem Asthma Father Diabetes Depression Maternal Grandfather Stomach cancer Family/Other Colon cancer Brother COVID-19 Surgical History Surgical History Hx of colonoscopy Hx of endoscopy Hx of hysterectomy Social History Social History Household Members Other:: brother Are you a primary nanny caregiver to a significant other at home: No 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) Alcohol intake: current Alcohol intake frequency: does not drink Patient Tobacco Use Status: Never used Tobacco Second Hand Smoke Exposure: No Meds Allergies Allergy/AdvReac Type Severity Reaction Status Date / Time nortriptyline AdvReac Rash Verified 11/11/22 08:52 Home Medications Medication Instructions Recorded Confirmed Last Taken Type albuterol sulfate 90 mcg/actuation 0 mcg inhalation 09/18/20 Unknown History aerosol inhaler amlodipine 5 mg tablet 5 mg PO DAILY 09/18/20 12/20/22 Unknown History aspirin 81 mg tablet,delayed 81 mg PO BEDTIME 09/18/20 12/20/22 Unknown History release atorvastatin 80 mg tablet 80 mg PO DAILY 09/18/20 12/20/22 Unknown History blood pressure test kit-large #1 ea 09/18/20 Unknown History calcium carbonate 600 mg-vitamin 1 tab PO 09/18/20 Unknown History D3 10 mcg (400 unit) tablet cromolyn 4 % eye drops 1 drp ophthalmic (eye) QID 09/18/20 12/20/22 Unknown History fluticasone 500 mcg-salmeterol 50 1 ea inhalation BID 09/18/20 12/20/22 Unknown History mcg/dose blistr powdr for inhalation fluticasone propionate 50 0 mcg intranasal 09/18/20 Unknown History mcg/actuation nasal spray,suspension hydrochlorothiazide 25 mg tablet 25 mg PO DAILY 09/18/20 12/20/22 Unknown History metformin 500 mg tablet,extended 1,000 mg PO QAM 09/18/20 12/20/22 Unknown History release 24 hr metoprolol succinate 100 mg 100 mg PO DAILY 09/18/20 12/20/22 Unknown History tablet,extended release 24 hr tolterodine 4 mg capsule,extended 4 mg PO DAILY 09/18/20 12/20/22 Unknown History release 24 hr tramadol 50 mg tablet 50 mg PO Q6H PRN Pain 09/18/20 12/20/22 Unknown History valsartan 320 mg tablet 320 mg PO QAM 09/18/20 12/20/22 Unknown History brimonidine 0.2 % eye drops 0 drp ophthalmic (eye) 12/15/21 Unknown History timolol maleate 0.5 % eye drops 1 drp ophthalmic (eye) QAM 12/15/21 12/20/22 Unknown History ketotifen fumarate 0.025 % (0.035 0 drp ophthalmic (eye) 07/30/22 Unknown History %) eye drops lancets 33 gauge (TRUEplus Lancets) #100 ea 07/30/22 Unknown History cholecalciferol (vitamin D3) 25 25 mcg PO DAILY 10/19/22 12/20/22 Unknown History mcg (1,000 unit) tablet diphenhydramine HCl 25 mg tablet 25 mg PO DAILY PRN allergy symptoms 10/19/22 12/20/22 Unknown History loratadine 10 mg tablet 10 mg PO DAILY 10/19/22 12/20/22 Unknown History Exam Exam Date and Time: December 21, 2022 1047 Height,Weight and Vital Signs: Height 5 ft 1 in Weight 67.132 kg Pertinent Lab Results Pertinent Lab Results: Laboratory Tests 08/12/22 08/12/22 08:51 08:51 WBC 7.3 Hgb 13.7 Hct 42.1 Plt Count 235 D Sodium 139 Potassium 3.7 Chloride 103 Carbon Dioxide 32 H BUN 12 Creatinine 0.85 Assessment and Plan Assessment Anesthesia Assessment: Chart Reviewed Documented by User: Matthew Scruggs MD 12/22/22 07:23 [facility] Past Medical History Medical History (Updated 12/20/22 @ 14:45 by Katie Galvez RN) Arthritis Asthma Back pain Diabetes Glaucoma HTN (hypertension) Seasonal allergies Family History Family History Mother Diabetes Heart problem Asthma Father Diabetes Depression Maternal Grandfather Stomach cancer Family/Other Colon cancer Brother COVID-19 Family history of problems with anesthesia: No Surgical History Surgical History Hx of colonoscopy Hx of endoscopy Hx of hysterectomy History of Problems with Anesthesia: No Social History Social History Household Members Other:: brother Are you a primary nanny caregiver to a significant other at home: No 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) Alcohol intake: current Alcohol intake frequency: does not drink Patient Tobacco Use Status: Never used Tobacco Second Hand Smoke Exposure: No Meds Allergies Allergy/AdvReac Type Severity Reaction Status Date / Time nortriptyline AdvReac Rash Verified 11/11/22 08:52 Home Medications Medication Instructions Recorded Confirmed Last Taken Type albuterol sulfate 90 mcg/actuation 0 mcg inhalation 09/18/20 Unknown History aerosol inhaler amlodipine 5 mg tablet 5 mg PO DAILY 09/18/20 12/20/22 Unknown History aspirin 81 mg tablet,delayed 81 mg PO BEDTIME 09/18/20 12/20/22 Unknown History release atorvastatin 80 mg tablet 80 mg PO DAILY 09/18/20 12/20/22 Unknown History blood pressure test kit-large #1 ea 09/18/20 Unknown History calcium carbonate 600 mg-vitamin 1 tab PO 09/18/20 Unknown History D3 10 mcg (400 unit) tablet cromolyn 4 % eye drops 1 drp ophthalmic (eye) QID 09/18/20 12/20/22 Unknown History fluticasone 500 mcg-salmeterol 50 1 ea inhalation BID 09/18/20 12/20/22 Unknown History mcg/dose blistr powdr for inhalation fluticasone propionate 50 0 mcg intranasal 09/18/20 Unknown History mcg/actuation nasal spray,suspension hydrochlorothiazide 25 mg tablet 25 mg PO DAILY 09/18/20 12/20/22 Unknown History metformin 500 mg tablet,extended 1,000 mg PO QAM 09/18/20 12/20/22 Unknown History release 24 hr metoprolol succinate 100 mg 100 mg PO DAILY 09/18/20 12/20/22 Unknown History tablet,extended release 24 hr tolterodine 4 mg capsule,extended 4 mg PO DAILY 09/18/20 12/20/22 Unknown History release 24 hr tramadol 50 mg tablet 50 mg PO Q6H PRN Pain 09/18/20 12/20/22 Unknown History valsartan 320 mg tablet 320 mg PO QAM 09/18/20 12/20/22 Unknown History brimonidine 0.2 % eye drops 0 drp ophthalmic (eye) 12/15/21 Unknown History timolol maleate 0.5 % eye drops 1 drp ophthalmic (eye) QAM 12/15/21 12/20/22 Unknown History ketotifen fumarate 0.025 % (0.035 0 drp ophthalmic (eye) 07/30/22 Unknown History %) eye drops lancets 33 gauge (TRUEplus Lancets) #100 ea 07/30/22 Unknown History cholecalciferol (vitamin D3) 25 25 mcg PO DAILY 10/19/22 12/20/22 Unknown History mcg (1,000 unit) tablet diphenhydramine HCl 25 mg tablet 25 mg PO DAILY PRN allergy symptoms 10/19/22 12/20/22 Unknown History loratadine 10 mg tablet 10 mg PO DAILY 10/19/22 12/20/22 Unknown History Exam Airway Mallampati Class: II TM Dist: >3cm Neck ROM: Limited Heart: rrr Lungs: cta Assessment and Plan Assessment Anesthesia Assessment: Anesthesia Plan Discussed Final Anesthetic Review Family History of Problems with Anesthesia: No History of Problems with Anesthesia: No NPO: Yes ASA Class: III Final Preanesthetic Review: No Changes in Pt Med Stat, Meds/Allgs Chart Reviewed, Consent Obtained/Reviewed and Anes Risks/Benef Reviewed Patient Risk: Intermediate Procedure Risk: Intermediate Anesthetic Plan Anesthetic Plan: MAC: and Agree w/ Assess. and Plan Disposition: Standard PACU
--- NOTE | 2022-12-22 08:26 | PC.NURSE ---
patient fell a week ago at home. slipped and fell backwards. hit head no loc. no blood thinners. md flower aware. no symptoms. patient stated her bun in the back of the head helped her.
[2022-12-22 08:27] LABS: Glucose, Whole Blood 131 mg/dL (60-115)
[2022-12-22] MEDS: Lactated Ringers 1,000 ML 100 ML IVCONT (08:31)
--- NOTE | 2022-12-22 08:45 | MHC.SHP ---
Pre-Procedural Eval Section A Date of Service: 12/22/22 Section B Chief Complaint: Gastro-esophageal reflux disease without esophagit Details of Present Illness: bloating, epigastric pain Relevant Family History (Specify if Yes): No Relevant Social History: None Present Medications: see Short Stay Collaborative assessment Medical History: Significant History (Arthritis Asthma Back pain Diabetes Glaucoma HTN (hypertension) Seasonal allergies) History of Previous Operations: Relevant previous surgery/procedure and date(s) (Hx of colonoscopy Hx of endoscopy Hx of hysterectomy) Allergies: Allergies Allergy/AdvReac Type Severity Reaction Status Date / Time nortriptyline AdvReac Rash Verified 11/11/22 08:52 Review of Systems Sugical H&P ROS: Negative: Constitution, Cardiovascular, Respiratory, Neurological, Psychiatric, Hem-Onc, Allergic/Immunologic, Gastrointestinal, Genitourinary, Musculoskeletal, Integumentary, Endocrine and Eyes/Ears/Nose/Throat Exam Surgical H&P Exam: Normal: HEENT, Normal: Heart, Normal: Lungs, Normal: Extremities, Normal: Abdomen, Normal: Skin and Normal: Neurological Plan Diagnosis/Plan: Unchanged I have reviewed the history and physical and performed a pertinent physical examination on my patient. No changes have occurred unless specified. Time Spent With Patient Time: Total time managing care of this patient today ____ minutes.
--- NOTE | 2022-12-22 08:50 | W.PM.OPN ---
Operative Note Operative Note Date of Service: 12/22/22 Narrative: Procedure Description: EGD Indication: epigastric bloating, pain, reflux Anesthesia: MAC FLEXIBLE TRANSORAL UPPER GASTROINTESTINAL ENDOSCOPY UPPER ENDOSCOPY Consent: Indications for the procedure and potential complications of bleeding, perforation, reaction to medications and missed diagnosis were discussed with the patient and informed consent was obtained. Instrument: Olympus GIF H 190 J mid size upper endoscope Monitoring: Vital signs and clinical assessment, continuous EKG monitoring, Pulse oximetry, Carbon Dioxide monitoring and blood pressure monitoring were done throughout the procedure. Procedure: The patient was placed in the left lateral decubitis position and pre-procedure medications were administered and a bite block was placed. The endoscope was inserted into the mouth and advanced under direct vision to the third part of duodenum. A careful inspection was made as the upper endoscope was withdrawn including a retroflexed examination of the proximal stomach; Findings and interventions are described below. Findings: Larynx:normal Esophagus: GE junction at 37 cm, diaphragm hiatus at 37 cm, bx taken from GEJ, distal and proximal esophagus Stomach: Patchy gastric erythema with scarring. Biopsies were obtained. Grade 2 flap valve on retroflexed examination of the cardia. There was retained food in the stomach. The pyloric outlet seemed tight and was stretched with a balloon to 19 mm. There was a lack of gastric motility Duodenum: Normal bulb and descending duodenum, bx taken Intervention: Biopsies as noted above, balloon dilation Impression/Findings: atrophic gastritis retained food and concern for gastroparesis PLAN: low fat and low fiber diet consider o/p GES does take tramadol few times a week may be contributing also is diabetic
[2022-12-22 09:17] VITALS: BP 137/75; PULSE 72; RESP 16; TEMP 36.2; O2SAT 97
[2022-12-22 09:32] VITALS: BP 145/86; PULSE 81; RESP 16; TEMP 36.3; O2SAT 97
== END 2022-12-22 10:05 | disposition home or self-care (01) ==
PROVIDERS: Visit Provider Internal Medicine Gastroenterology
PROC: 0DJ08ZZ Inspection of Upper Intestinal Tract, Via Natural or Artificial Opening Endoscopic (ICD-10-PCS; CPT 43235; principal; 2022-12-22 09:20)
DX: K21.9 Gastro-esophageal reflux disease without esophagitis (principal); K31.1 Adult hypertrophic pyloric stenosis; K29.40 Chronic atrophic gastritis without bleeding; K31.89 Other diseases of stomach and duodenum; K44.9 Diaphragmatic hernia without obstruction or gangrene; I10 Essential (primary) hypertension; J45.909 Unspecified asthma, uncomplicated; E11.9 Type 2 diabetes mellitus without complications; Z79.84 Long term (current) use of oral hypoglycemic drugs; Z79.51 Long term (current) use of inhaled steroids; Z79.82 Long term (current) use of aspirin; Z79.899 Other long term (current) drug therapy; Z88.8 Allergy status to other drugs, medicaments and biological substances
CPT/HCPCS: 43245; 43239; 82947; 88305; 88342; C1726

== ENCOUNTER → 2023-01-05 09:44 | Outpatient (BNVA) | payer OTHER, SELFPAY | PROVIDERS: Visit Provider Nurse Practitioner ==

== ENCOUNTER 2023-02-04 08:40 | Outpatient (AMB) | payer OTHER, SELFPAY ==
--- NOTE | 2023-02-04 08:42 | A.OFFVIS_ITS ---
Intake Vital Signs 02/04/23 08:44 Height 5 ft 1 in Weight 143 lb 11.862 oz BMI 27.2 BP 106/69 Blood Pressure Location Lt brachial Position Sitting Intake Visit Reasons: S/p egd- Michelle Intake Note: Patient presents to in office visit today in follow up of EGD. Patient underwent EGD on 12/22/[address] Martinez. CC: Patient states she wakes up with nausea some days. Denies other GI symptoms. Plastics Process Hand Required: No Accompanied by: Self / Same As Patient Allergies nortriptyline Adverse Reaction (Verified 02/04/23 08:52) Rash HPI S/p egd- Michelle HPI Details Assessment & Plan (1) Epigastric abdominal pain: ?Code(s): R10.13 - Epigastric pain ?Plan: Australian # declines She still has epigastric pain and nausea that is worse in the morning. The epigastric pain is always after eating. She is limited in what she can tolerate, only eating soups. Taking a regaln qhs did not effect this. She continues on the Dexilant and the famotidine qhs. She also uses carafate. At this point, we will wait until after the EGD to determine any further treatment. We may need to consider changing her PPI or increasing the reglan depending on any further information regarding the underlying cause of the pain. She fell on her stairs and injured her tailbone and is walking with a cane. Keep 6/7 appt after scope. (2) GERD (gastroesophageal reflux disease): ?Code(s): K21.9 - Gastro-esophageal reflux disease without esophagitis ?Qualifiers: ?Esophagitis bleeding:?without hemorrhage??Esophagitis presence:?with esophagitis? Qualified Code(s):?K21.00 - Gastro-esophageal reflux disease with esophagitis, without bleeding (3) Irritable bowel syndrome with both constipation and diarrhea: ?Code(s): K58.2 - Mixed irritable bowel syndrome (4) Abdominal bloating: ?Code(s): R14.0 - Abdominal distension (gaseous). EGD 12/22/22 Findings: Larynx:normal Esophagus: GE junction at 37? cm, diaphragm hiatus at 37 cm, bx taken from GEJ, distal and proximal esophagus Stomach: Patchy gastric erythema with scarring. Biopsies were obtained. Grade 2 flap valve on retroflexed examination of the cardia. There was retained food in the stomach. The pyloric outlet seemed tight and was stretched with a balloon to 19 mm. There was a lack of gastric motility Duodenum: Normal bulb and descending duodenum, bx taken Intervention: Biopsies as noted above, balloon dilation Impression/Findings: atrophic gastritis retained food and concern for gastroparesis PLAN: low fat and low fiber diet consider o/p GES does take tramadol few times a week may be contributing also is diabetic Received: 12/22/22 Diagnosis A. Duodenum, biopsy: Duodenal mucosa within normal limits. B. Stomach, biopsy: Antral-type and oxyntic mucosa with moderate chronic inactive inflammation and intestinal metaplasia; negative for dysplasia; no Helicobacter organisms seen. C. GE junction, biopsy: - Cardiofundic-type mucosa with mild chronic inactive inflammation; no intestinal metaplasia seen. - Squamous mucosa within normal limits. D. Esophagus, distal, biopsy: Squamous mucosa within normal limits; no inflammation seen. E. Esophagus, proximal, biopsy: Squamous epithelium within normal limits; no inflammation seen. TODAY'S VISIT Australian #Declines She tolerated the procedure well. We will increase the reglan to 10mg tid given the findings. It is likely that she has fermentation that is causing continued irritation of the stomach and she has tolerated the Reglan well at the lower dose of 5 mg. She continues on her Dexilant, famotidine, and Carafate. ROV 3 weeks. 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) Alcohol intake: current Alcohol intake frequency: does not drink Patient Tobacco Use Status: Never used Tobacco Second Hand Smoke Exposure: No Review of Systems Const Denies fatigue, Denies fever(s), Denies night sweats, Denies poor appetite and Denies weight loss ENT Reports Normal hearing present, Denies dental pain, Denies dysphagia, Denies hearing loss, Denies mouth pain, Denies odynophagia, Denies throat swelling, Denies tongue swelling and Reports other (Dentition adequate) Card Reports no additional complaints Resp Reports no additional complaints GI Reports abdominal pain, Denies melena, Denies bloating, Denies hematochezia, Denies constipation, Denies GI cramping, Denies dysphagia, Denies excessive flatus, Denies early satiety, Reports heartburn, Reports diarrhea, Reports nausea, Denies odynophagia, Denies vomiting and Denies hematemesis Skin/Breast Denies pruritus, Denies lesions, Denies rash and Denies jaundice Neuro Reports Normal hearing present and Denies Abnormal speech present Endo Denies fatigue Aller/Immun Denies throat swelling and Denies tongue swelling Physical Exam Vital Signs: Last Vital Signs BP 106/69 02/04/23 08:44 BMI result Body Mass Index 27.2 Const General: cooperative, no acute distress, well developed and well groomed Nutritional Appearance: average body habitus and well nourished Orientation/consciousness: oriented to person, oriented to place and oriented to time Limitations: No language barrier HEENT Head: Yes normocephalic and Yes atraumatic Eyes General: appearance normal, both eyes and all related structures Pupils: Equal, round and reactive pupils present Neck Neck: Yes normal visual inspection and Yes no lymphadenopathy Thyroid: Thyroid normal Resp Effort & Inspection: normal respiratory effort and able to speak in complete sentences Auscultation: clear to auscultation bilaterally Cardio Rate: regular rate Rhythm: regular rhythm Heart sounds: Normal, physiologic split S2 sound present Peripheral pulses: radial pulses present and posterior tibial pulses present GI Inspection: No distended and No Abdominal panniculus present Palpation (GI): Soft to palpation, Tenderness to palpation present (GI) in the epigastrum, no guarding, not rigid and No hepatosplenomegaly present Percussion: Yes normal to percussion Auscultation: normal bowel sounds Rectal Exam - Female: deferred Skin General skin exam: no rashes or lesions noted, turgor normal, skin not dry, no jaundice, No spider nevi and no striae Rashes: no rashes Nails: normal Neuro General: oriented to person, oriented to place and oriented to time Cranial nerves: Yes Equal, round and reactive pupils present and Yes Normal hearing present Speech: No Abnormal speech present Extrem General: Yes normal to inspection, No clubbing, No cyanosis and No edema Psych Appearance: grossly normal and well kempt Mental Status: mental status grossly normal Speech and movement: Normal speech and movement present Affect: normal affect Attitude: cooperative Thought process: Normal thought process present and not confabulating Thought content: Normal thought content present Insight: Limited insight present (Psych) Judgement: Limited judgement present (Psych) Results Reviewed Results Reviewed: EGD 12/22/22 Findings: Larynx:normal Esophagus: GE junction at 37? cm, diaphragm hiatus at 37 cm, bx taken from GEJ, distal and proximal esophagus Stomach: Patchy gastric erythema with scarring. Biopsies were obtained. Grade 2 flap valve on retroflexed examination of the cardia. There was retained food in the stomach. The pyloric outlet seemed tight and was stretched with a balloon to 19 mm. There was a lack of gastric motility Duodenum: Normal bulb and descending duodenum, bx taken Intervention: Biopsies as noted above, balloon dilation Impression/Findings: atrophic gastritis retained food and concern for gastroparesis PLAN: low fat and low fiber diet consider o/p GES does take tramadol few times a week may be contributing also is diabetic Received: 12/22/22 Diagnosis A. Duodenum, biopsy: Duodenal mucosa within normal limits. B. Stomach, biopsy: Antral-type and oxyntic mucosa with moderate chronic inactive inflammation and intestinal metaplasia; negative for dysplasia; no Helicobacter organisms seen. C. GE junction, biopsy: - Cardiofundic-type mucosa with mild chronic inactive inflammation; no intestinal metaplasia seen. - Squamous mucosa within normal limits. D. Esophagus, distal, biopsy: Squamous mucosa within normal limits; no inflammation seen. E. Esophagus, proximal, biopsy: Squamous epithelium within normal limits; no inflammation seen. Assessment & Plan Assessment & Plan (1) Delayed gastric emptying: Code(s): K30 - Functional dyspepsia Plan: [place] #Declines She tolerated the procedure well. We will increase the reglan to 10mg tid given the findings. It is likely that she has fermentation that is causing continued irritation of the stomach and she has tolerated the Reglan well at the lower dose of 5 mg. She continues on her Dexilant, famotidine, and Carafate. ROV 3 weeks. (2) GERD (gastroesophageal reflux disease): Code(s): K21.9 - Gastro-esophageal reflux disease without esophagitis Qualifiers: Esophagitis bleeding: without hemorrhage Esophagitis presence: with esophagitis Qualified Code(s): K21.00 - Gastro-esophageal reflux disease with esophagitis, without bleeding (3) Irritable bowel syndrome with both constipation and diarrhea: Code(s): K58.2 - Mixed irritable bowel syndrome Medications: New metoclopramide HCl (Reglan) 10 mg PO .tidac 90 tabs 3RF K30 - Functional dyspepsia Discontinued metoclopramide HCl Discontinued Reason: Doctor's Order 5 mg PO QIDACHS 120 tabs 3RF Coding Level of Care Code Est Pt Level 3 (95204) Diagnoses Delayed gastric emptying K30 GERD (gastroesophageal reflux disease) K21.00 Esophagitis bleeding: without hemorrhage Esophagitis presence: with esophagitis Irritable bowel syndrome with both constipation and diarrhea K58.2
[2023-02-04 08:44] VITALS: BP 106/69; BMI 27.2
== END 2023-02-04 09:32 | disposition home or self-care (01) ==
PROVIDERS: Visit Provider Nurse Practitioner
DX: K30 Functional dyspepsia (principal); K21.00 Gastro-esophageal reflux disease with esophagitis, without bleeding; K58.2 Mixed irritable bowel syndrome
CPT/HCPCS: 99213

== ENCOUNTER → 2023-02-04 08:40 | Outpatient (BNVA) | payer OTHER, SELFPAY | PROVIDERS: Visit Provider Nurse Practitioner | DX: K21.00 Gastro-esophageal reflux disease with esophagitis, without bleeding (principal); K30 Functional dyspepsia; K58.2 Mixed irritable bowel syndrome | CPT/HCPCS: 99212 ==

== ENCOUNTER 2023-02-25 07:58 | Outpatient (AMB) | payer OTHER, SELFPAY ==
--- NOTE | 2023-02-25 08:07 | MHC.OFFVIS ---
Intake Vital Signs 02/25/23 08:38 Height 5 ft 1 in Weight 142 lb 13.753 oz BMI 27.0 BP 140/73 H Blood Pressure Location Lt brachial Position Sitting Pulse 82 Intake Visit Reasons: 3 week follow up Intake Note: Patient presents to in office visit today in follow up of GERD Patient underwent EGD on 12/22/[address] Martinez. CC: Patient c/o nausea, abdominal discomfort, diarrhea two days ago and occasional constipation. Patient reports chocking with liquids and solids. Denies other GI symptoms. 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 We will increase the reglan to 10mg tid given the findings.? It is likely that she has fermentation that is causing continued irritation of the stomach and she has tolerated the Reglan well at the lower dose of 5 mg.? She continues on her Dexilant, famotidine, and Carafate. ROV 3 weeks. (2) GERD (gastroesophageal reflux disease): ?Code(s): K21.9 - Gastro-esophageal reflux disease without esophagitis ?Qualifiers: ?Esophagitis bleeding:?without hemorrhage??Esophagitis presence:?with esophagitis? Qualified Code(s):?K21.00 - Gastro-esophageal reflux disease with esophagitis, without bleeding (3) Irritable bowel syndrome with both constipation and diarrhea: ?Code(s): K58.2 - Mixed irritable bowel syndrome ? ? ? Medications: New metoclopramide HCl (Reglan) 10 mg PO .tidac 90 tabs 3RF K30 - Functional d yspepsia ? Discontinued metoclopramide HCl ?? Discontinued R gwen:? Doctor's O rder 5 mg? PO QIDACHS 1 20 tabs 3RF ? ? TODAY'S VISIT Italian #declines She is tolerating the increased dose of reglan 10mg tid well, but her am nausea still is a problem. She is also c/o bloating, and she is moving her bowels with soft stool, but has multiple BM's with incomplete evacuation. I think she is having gas trapping. She is only taking 1 senna in the morning, I advise her to move it it bedtime and take 2 daily. We will also add a 4th does of reglan at bedtime. She continues on her Dexilant, famotidine, and Carafate. ROV 2 weeks. 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) Alcohol intake: current Alcohol intake frequency: does not drink Patient Tobacco Use Status: Never used Tobacco Second Hand Smoke Exposure: No Advance Directives: No Advance Directives Information Provided: Yes Review of Systems Const Denies fatigue, Denies fever(s), Denies night sweats, Denies poor appetite and Denies weight loss Eyes Details: glasses Reports requires corrective lenses ENT Reports Normal hearing present, Denies dental pain, Denies dysphagia, Denies hearing loss, Denies mouth pain, Denies odynophagia, Denies throat swelling, Denies tongue swelling and Reports other (Dentition adequate) Card Reports no additional complaints Resp Reports no additional complaints GI Denies abdominal pain, Denies melena, Reports bloating, Denies hematochezia, Reports constipation, Denies GI cramping, Denies dysphagia, Denies excessive flatus, Denies early satiety, Reports heartburn, Denies diarrhea, Reports nausea, Denies odynophagia, Denies vomiting and Denies hematemesis Skin/Breast Denies pruritus, Denies lesions, Denies rash and Denies jaundice Neuro Reports Normal hearing present and Denies Abnormal speech present Endo Denies fatigue Aller/Immun Denies throat swelling and Denies tongue swelling Physical Exam Vital Signs: Last Vital Signs Pulse 82 02/25/23 08:38 BP 140/73 H 02/25/23 08:38 BMI result Body Mass Index 27.0 Const General: cooperative, no acute distress, well developed and well groomed Nutritional Appearance: average body habitus and well nourished Orientation/consciousness: oriented to person, oriented to place and oriented to time Limitations: No language barrier HEENT Head: Yes normocephalic and Yes atraumatic Eyes General: appearance normal, both eyes and all related structures Pupils: Equal, round and reactive pupils present Neck Neck: Yes normal visual inspection and Yes no lymphadenopathy Thyroid: Thyroid normal Resp Effort & Inspection: normal respiratory effort and able to speak in complete sentences Auscultation: clear to auscultation bilaterally Cardio Rate: regular rate Rhythm: regular rhythm Heart sounds: Normal, physiologic split S2 sound present Peripheral pulses: radial pulses present and posterior tibial pulses present GI Inspection: No distended and No Abdominal panniculus present Palpation (GI): Soft to palpation, nontender, no guarding, not rigid and No hepatosplenomegaly present Percussion: Yes normal to percussion Auscultation: normal bowel sounds Rectal Exam - Female: deferred Skin General skin exam: no rashes or lesions noted, turgor normal, skin not dry, no jaundice, No spider nevi and no striae Rashes: no rashes Nails: normal Neuro General: oriented to person, oriented to place and oriented to time Cranial nerves: Yes Equal, round and reactive pupils present and Yes Normal hearing present Speech: No Abnormal speech present Extrem General: Yes normal to inspection, No clubbing, No cyanosis and No edema Psych Appearance: grossly normal and well kempt Mental Status: mental status grossly normal Speech and movement: Normal speech and movement present Affect: normal affect Attitude: cooperative Thought process: Normal thought process present and not confabulating Thought content: Normal thought content present Insight: Limited insight present (Psych) Judgement: Limited judgement present (Psych) Assessment & Plan Assessment & Plan (1) Delayed gastric emptying: Code(s): K30 - Functional dyspepsia Plan: Italian #declines She is tolerating the increased dose of reglan 10mg tid well, but her am nausea still is a problem. She is also c/o bloating, and she is moving her bowels with soft stool, but has multiple BM's with incomplete evacuation. I think she is having gas trapping. She is only taking 1 senna in the morning, I advise her to move it it bedtime and take 2 daily. We will also add a 4th does of reglan at bedtime. She continues on her Dexilant, famotidine, and Carafate. ROV 2 weeks. (2) GERD (gastroesophageal reflux disease): Code(s): K21.9 - Gastro-esophageal reflux disease without esophagitis Qualifiers: Esophagitis bleeding: without hemorrhage Esophagitis presence: with esophagitis Qualified Code(s): K21.00 - Gastro-esophageal reflux disease with esophagitis, without bleeding (3) Irritable bowel syndrome with both constipation and diarrhea: Code(s): K58.2 - Mixed irritable bowel syndrome Medications: New sennosides (senna) 17.2 mg (2 x 8.6 mg) PO BEDTIME 60 tabs 6RF constipation Changed From methylcellulose (laxative) 1,000 mg (2 x 500 mg) PO BID 30 days 120 tabs 6RF K58.2 - Mixed irritable bowel syndrome To methylcellulose (laxative) (Fiber Laxative (methylcellulose)) 1,000 mg (2 x 500 mg) PO BID 120 tabs 6RF 30 days K58.2 - Mixed irritable bowel syndrome From metoclopramide HCl 10 mg PO .tidac 90 tabs 3RF K30 - Functional dyspepsia To metoclopramide HCl (Reglan) 10 mg PO QIDACHS 120 tabs 6RF K30 - Functional dyspepsia Discontinued sennosides Discontinued Reason: Doctor's Order 17.2 mg (2 x 8.6 mg) PO BEDTIME 30 days 60 caps 6RF constipation K58.2 - Mixed irritable bowel syndrome Patient Instructions: mMaria Gaetan Por favor, toe 2 de la sen antes de acostarse para mejorar los movimientos intestinales. Adem?s, estoy agregando alyssa cuarta dosis de metoclopramida a la hora de acostarse, por lo que est? tomando eva medicamento en el desayuno, el almuerzo, la geophysical prospecting permit agent y la hora de acostarse. He enviado la fibra a la farmacia por ti. Quiero verte en 2 semanas para estella c?mo funciona esto. Please take 2 of the senna at bedtime for better bowel movements. Also, I am adding a 4th dose of the metoclopramide at bedtime, so you are taking this medicine at breakfast, lunch, supper time and at bedtime. I have resent the fiber to the pharmacy for you. I want to see you in 2 weeks to see how this is working. Coding Level of Care Code Est Pt Level 3 (95944) Diagnoses Delayed gastric emptying K30 GERD (gastroesophageal reflux disease) K21.00 Esophagitis bleeding: without hemorrhage Esophagitis presence: with esophagitis Irritable bowel syndrome with both constipation and diarrhea K58.2
[2023-02-25 08:38] VITALS: BP 140/73; PULSE 82; BMI 27.0
== END 2023-02-25 09:05 | disposition home or self-care (01) ==
PROVIDERS: Visit Provider Nurse Practitioner
DX: K30 Functional dyspepsia (principal); K21.00 Gastro-esophageal reflux disease with esophagitis, without bleeding; K58.2 Mixed irritable bowel syndrome
CPT/HCPCS: 99213

== ENCOUNTER → 2023-02-25 07:58 | Outpatient (BNVA) | payer OTHER, SELFPAY | PROVIDERS: Visit Provider Nurse Practitioner | DX: K30 Functional dyspepsia (principal); K21.00 Gastro-esophageal reflux disease with esophagitis, without bleeding; K58.2 Mixed irritable bowel syndrome | CPT/HCPCS: 99212 ==

== ENCOUNTER 2023-03-07 08:52 | Outpatient (REF) | payer OTHER, SELFPAY ==
[2023-03-07 12:19] LABS: Alanine Aminotransferase 23 U/L (0-31); Albumin Level 4.5 g/dL (3.5-5.0); Alkaline Phosphatase 64 U/L (39-117); Aspartate Amino Transferase 23 U/L (5-31); Bilirubin Direct 0.4 mg/dL (0.0-0.5); Bilirubin Total 0.9 mg/dL (0.0-1.0); Cholesterol 134 mg/dL; HDL Cholesterol 60 mg/dL; LDL Cholesterol Calculated 62 mg/dl; Total Protein 7.3 g/dL (6.5-8.0); Triglycerides 62 mg/dL
== END 2023-03-07 08:53 | disposition home or self-care (01) ==
LOC: HO.HHCL 08:52
PROVIDERS: Visit Provider Internal Medicine
DX: Z00.00 Encounter for general adult medical examination without abnormal findings (principal); E78.00 Pure hypercholesterolemia, unspecified; R31.29 Other microscopic hematuria
CPT/HCPCS: 80061; 80076

== ENCOUNTER 2023-03-11 08:29 | Outpatient (AMB) | payer OTHER, SELFPAY ==
--- NOTE | 2023-03-11 08:34 | A.OFFVIS_ITS ---
Intake Vital Signs 03/11/23 08:37 Height 5 ft 1 in Weight 143 lb BMI 27.0 BP 109/65 Blood Pressure Location Lt brachial Position Sitting Pulse 79 Intake Visit Reasons: 2 week f/u Intake Note: Patient follow up Patient cc: between diarrhea and constipation on and off, abdominal pain, GERD come and go, swallowing problems with liquid and solid also the saliva. 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 She is also c/o bloating, and she is moving her bowels with soft stool, but has multiple BM's with incomplete evacuation. I think she is having gas trapping. She is only taking 1 senna in josephine morning, I advise her to move it it bedtime and take 2 daily. We will aslo add a 4th does of reglan at bedtime. ?Code(s): K30 - Functional dyspepsia (2) GERD (gastroesophageal reflux disease): ?Code(s): K21.9 - Gastro-esophageal reflux disease without esophagitis ?Qualifiers: ?Esophagitis bleeding:?without hemorrhage??Esophagitis presence:?with esophagitis? Qualified Code(s):?K21.00 - Gastro-esophageal reflux disease with esophagitis, without bleeding (3) Irritable bowel syndrome with both constipation and diarrhea: ?Code(s): K58.2 - Mixed irritable bowel syndrome ? ? ? Medications: New sennosides (senna) 17.2 mg (2 x 8.6 m g) PO BEDTIME 60 t abs 6RF constipati on ? ? Changed From metoclopramide HCl (Reglan) 10 mg? PO .tidac 9 0 tabs 3RF K30 - Functional d yspepsia ? To metoclopramide HCl (Reglan) 10 mg PO QIDACHS 1 20 tabs 6RF K30 - Functional d yspepsia ? Refilled methylcellulose (l axative) (Fiber La xative (methylcell ulose)) 1,000 mg (2 x 500 mg) PO BID 120 tab s 6RF 30 days K58.2 - Mixed irri table bowel syndro me ? Discontinued sennosides (senna) ?? Discontinued R gwen:? Doctor's O rder 17.2 mg (2 x 8.6 m g) PO BEDTIME 30 d ays 60 caps 6RF co nstipation K58.2 - Mixed irri table bowel syndro me ?Patient Instructions: mMaria Gaetan Por favor, toe 2 de la sen antes de acostarse para mejorar los movimientos intestinales. Adem?s, estoy agregando alsysa cuarta dosis de metoclopramida a la hora de acostarse, por lo que est? tomando eva medicamento en el desayuno, el almuerzo, la business proposal rep y la hora de acostarse. He enviado la fibra a la farmacia por ti. Quiero verte en 2 semanas para estella c?mo funciona esto. Please take 2 of the senna at bedtime for better bowel movements. Also, I am adding a 4th dose of the metoclopramide at bedtime, so you are taking this medicine at breakfast, lunch, supper time and at bedtime. I have resent the fiber to the pharmacy for you. I want to see you in 2 weeks to see how this is working. TODAY'S VISIT Iraqi #Declines She feels that the current medication and dosing schedule is good for her I am feeling good! She brings me Mo candy! SHE CONTINUES on oral 2 senna at night (she was taking this 1 the morning) in 4 doses of her Reglan 10 mg. Adding the additional dose of bedtime has really helped her and she is feeling quite well now. She also uses fiber for her constipation... Will or ROV 3 months. 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) Alcohol intake: current Alcohol intake frequency: does not drink Patient Tobacco Use Status: Never used Tobacco Second Hand Smoke Exposure: No Review of Systems Const Denies fatigue, Denies fever(s), Denies night sweats, Denies poor appetite and Denies weight loss ENT Reports Normal hearing present, Denies dental pain, Denies dysphagia, Denies hea ring loss, Denies mouth pain, Denies odynophagia, Denies throat swelling, Denies tongue swelling and Reports other (Dentition adequate) Card Reports no additional complaints Resp Reports no additional complaints GI Denies abdominal pain, Denies melena, Denies bloating, Denies hematochezia, Reports constipation, Denies GI cramping, Denies dysphagia, Denies excessive flatus, Denies early satiety, Reports heartburn, Denies diarrhea, Reports nausea, Denies odynophagia, Denies vomiting and Denies hematemesis Skin/Breast Denies pruritus, Denies lesions, Denies rash and Denies jaundice Neuro Reports Normal hearing present and Denies Abnormal speech present Endo Denies fatigue Aller/Immun Denies throat swelling and Denies tongue swelling Physical Exam Vital Signs: Last Vital Signs Pulse 79 03/11/23 08:37 BP 109/65 03/11/23 08:37 BMI result Body Mass Index 27.0 Const General: cooperative, no acute distress, well developed and well groomed Nutritional Appearance: average body habitus and well nourished Orientation/consciousness: oriented to person, oriented to place and oriented to time Limitations: No language barrier HEENT Head: Yes normocephalic and Yes atraumatic Eyes General: appearance normal, both eyes and all related structures Pupils: Equal, round and reactive pupils present Neck Neck: Yes normal visual inspection and Yes no lymphadenopathy Thyroid: Thyroid normal Resp Effort & Inspection: normal respiratory effort and able to speak in complete sentences Auscultation: clear to auscultation bilaterally Cardio Rate: regular rate Rhythm: regular rhythm Heart sounds: Normal, physiologic split S2 sound present Peripheral pulses: radial pulses present and posterior tibial pulses present GI Inspection: No distended and No Abdominal panniculus present Palpation (GI): Soft to palpation, nontender, no guarding, not rigid and No hepatosplenomegaly present Percussion: Yes normal to percussion Auscultation: normal bowel sounds Rectal Exam - Female: deferred Skin General skin exam: no rashes or lesions noted, turgor normal, skin not dry, no jaundice, No spider nevi and no striae Rashes: no rashes Nails: normal Neuro General: oriented to person, oriented to place and oriented to time Cranial nerves: Yes Equal, round and reactive pupils present and Yes Normal hearing present Speech: No Abnormal speech present Extrem General: Yes normal to inspection, No clubbing, No cyanosis and No edema Psych Appearance: grossly normal and well kempt Mental Status: mental status grossly normal Speech and movement: Normal speech and movement present Affect: normal affect Attitude: cooperative Thought process: Normal thought process present and not confabulating Thought content: Normal thought content present Insight: Fair insight present (Psych) Judgement: Fair judgement present (Psych) Assessment & Plan Assessment & Plan (1) Delayed gastric emptying: Code(s): K30 - Functional dyspepsia Plan: Iraqi #Declines She feels that the current medication and dosing schedule is good for her I am feeling good! She brings me Mo candy! SHE CONTINUES on oral 2 senna at night (she was taking this 1 the morning) in 4 doses of her Reglan 10 mg. Adding the additional dose of bedtime has really helped her and she is feeling quite well now. She also uses fiber for her constipation... Will or ROV 3 months. (2) GERD (gastroesophageal reflux disease): Code(s): K21.9 - Gastro-esophageal reflux disease without esophagitis Qualifiers: Esophagitis bleeding: without hemorrhage Esophagitis presence: with esophagitis Qualified Code(s): K21.00 - Gastro-esophageal reflux disease with esophagitis, without bleeding (3) Irritable bowel syndrome with both constipation and diarrhea: Code(s): K58.2 - Mixed irritable bowel syndrome (4) Abdominal bloating: Code(s): R14.0 - Abdominal distension (gaseous) Coding Level of Care Code Est Pt Level 3 (90963) Diagnoses Delayed gastric emptying K30 GERD (gastroesophageal reflux disease) K21.00 Esophagitis bleeding: without hemorrhage Esophagitis presence: with esophagitis Irritable bowel syndrome with both constipation and diarrhea K58.2 Abdominal bloating R14.0
[2023-03-11 08:37] VITALS: BP 109/65; PULSE 79; BMI 27.0
== END 2023-03-11 08:52 | disposition home or self-care (01) ==
PROVIDERS: Visit Provider Nurse Practitioner
DX: K30 Functional dyspepsia (principal); K21.00 Gastro-esophageal reflux disease with esophagitis, without bleeding; K58.2 Mixed irritable bowel syndrome; R14.0 Abdominal distension (gaseous)
CPT/HCPCS: 99213

== ENCOUNTER → 2023-03-11 08:29 | Outpatient (BNVA) | payer OTHER, SELFPAY | PROVIDERS: Visit Provider Nurse Practitioner | DX: K30 Functional dyspepsia (principal); K21.00 Gastro-esophageal reflux disease with esophagitis, without bleeding; K58.2 Mixed irritable bowel syndrome; R14.0 Abdominal distension (gaseous) | CPT/HCPCS: 99212 ==

== ENCOUNTER 2023-03-15 10:48 | Emergency (ER) | payer OTHER, SELFPAY ==
--- NOTE | ~2023-03-15 | CT_ITS ---
EXAMINATION: CT HEAD WITHOUT CONTRAST CLINICAL INFORMATION: Dizziness COMPARISON: 02/03/2017 TECHNIQUE: Contiguous axial imaging was performed from the skull base to vertex without intravenous administration of contrast. This CT examination was performed using dose optimization techniques as appropriate, variously including the following: *Automated exposure control *Adjustment of mA and/or kV according to patient size (this includes techniques or standardized protocols for targeted exams where dose is matched to indication/reason for exam; i.e. extremities or head) *Use of iterative reconstruction technique DLP: 587 mGy-cm FINDINGS: Age-related mild atrophy. Basal ganglia calcifications. No evolving infarct, mass lesion, mass effect, midline shift, hemorrhage or extra-axial fluid collections. Lens extractions have been performed. Sinuses and mastoids are free of disease. Mild leftward nasal septal deviation with spur. Bony structures are intact. Hyperostosis frontalis interna. Soft tissues are unremarkable. CT/CT head/brain wo IV con IMPRESSION: No acute intracranial pathology.
--- NOTE | ~2023-03-15 | XR_ITS ---
EXAMINATION: XR CHEST CLINICAL INFORMATION: Dizziness. COMPARISON: 07/08/2021. TECHNIQUE: Frontal view of the chest was obtained. FINDINGS: The cardiomediastinal silhouette is stable. No vascular congestion or edema. The lungs are well expanded. No consolidation or effusion. No pneumothorax. XR/XR chest 1V IMPRESSION: Stable chest x-ray. No acute cardiopulmonary findings.
[2023-03-15 11:02] VITALS: BP 169/80; PULSE 75; RESP 16; TEMP 36.4; O2SAT 98
--- NOTE | 2023-03-15 11:16 | ECG_ITS ---
Test Reason : FALL Blood Pressure : / mmHG Vent. Rate : 073 BPM Atrial Rate : 073 BPM P-R Int : 148 ms QRS Dur : 082 ms QT Int : 420 ms P-R-T Axes : 056 008 034 degrees QTc Int : 462 ms Normal sinus rhythm Nonspecific T wave abnormality Abnormal ECG When compared with ECG of 03-AUG-2021 16:44, Premature ventricular complexes are no longer Present Referred By: Kareem Hoskins Electronically Signed By:BISHNU MORRIS
--- NOTE | 2023-03-15 11:17 | ED.GENADULT ---
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 Patient had history of fall about 3 months ago patient initially felt fine needed no further testing by her PCP then patient started to have dizziness, palpitation, intermittent chest pain since after the fall, patient currently has no chest pain but complaining now of epigastric pain. No fall, no head injury recently. Patient lives home with her daughter partially functional. Related Data Home Medications Medication Instructions Recorded Confirmed albuterol sulfate 90 mcg/actuation 0 mcg inhalation 09/18/20 aerosol inhaler amlodipine 5 mg tablet 5 mg PO DAILY 09/18/20 12/20/22 aspirin 81 mg tablet,delayed 81 mg PO BEDTIME 09/18/20 12/20/22 release atorvastatin 80 mg tablet 80 mg PO DAILY 09/18/20 12/20/22 blood pressure test kit-large #1 ea 09/18/20 calcium carbonate 600 mg-vitamin 1 tab PO 09/18/20 D3 10 mcg (400 unit) tablet cromolyn 4 % eye drops 1 drp ophthalmic (eye) QID 09/18/20 12/20/22 fluticasone 500 mcg-salmeterol 50 1 ea inhalation BID 09/18/20 12/20/22 mcg/dose blistr powdr for inhalation fluticasone propionate 50 0 mcg intranasal 09/18/20 mcg/actuation nasal spray,suspension hydrochlorothiazide 25 mg tablet 25 mg PO DAILY 09/18/20 12/20/22 metformin 500 mg tablet,extended 1,000 mg PO QAM 09/18/20 12/20/22 release 24 hr metoprolol succinate 100 mg 100 mg PO DAILY 09/18/20 12/20/22 tablet,extended release 24 hr tolterodine 4 mg capsule,extended 4 mg PO DAILY 09/18/20 12/20/22 release 24 hr tramadol 50 mg tablet 50 mg PO Q6H PRN Pain 09/18/20 12/20/22 valsartan 320 mg tablet 320 mg PO QAM 09/18/20 12/20/22 brimonidine 0.2 % eye drops 0 drp ophthalmic (eye) 12/15/21 timolol maleate 0.5 % eye drops 1 drp ophthalmic (eye) QAM 12/15/21 12/20/22 ketotifen fumarate 0.025 % (0.035 0 drp ophthalmic (eye) 07/30/22 %) eye drops lancets 33 gauge (TRUEplus Lancets) #100 ea 07/30/22 cholecalciferol (vitamin D3) 25 25 mcg PO DAILY 10/19/22 12/20/22 mcg (1,000 unit) tablet diphenhydramine HCl 25 mg tablet 25 mg PO DAILY PRN allergy symptoms 10/19/22 12/20/22 loratadine 10 mg tablet 10 mg PO DAILY 10/19/22 12/20/22 meclizine 25 mg tablet 25 mg PO TID dizziness 02/25/23 Previous Rx's Medication Instructions Recorded dexlansoprazole 60 mg 60 mg PO QAM #30 caps 11/11/22 capsule,biphase delayed release (Dexilant) famotidine 40 mg tablet (Pepcid) 40 mg PO BEDTIME #30 tabs 11/11/22 sucralfate 1 gram tablet (Carafate) 2 g PO .daily @noon #60 tabs 11/11/22 imipramine HCl 10 mg tablet 10 mg PO BEDTIME #30 tabs 02/02/23 methylcellulose (laxative) 500 mg 1,000 mg PO BID 30 days #120 tabs 02/25/23 tablet (Fiber Laxative (methylcellulose)) metoclopramide HCl 10 mg tablet 10 mg PO QIDACHS #120 tabs 02/25/23 (Reglan) sennosides 8.6 mg tablet (senna) 17.2 mg PO BEDTIME constipation 02/25/23 #60 tabs Allergies Allergy/AdvReac Type Severity Reaction Status Date / Time nortriptyline AdvReac Rash Verified 03/11/23 08:34 Review of Systems Review of Systems: All other systems are reviewed and are negative Constitutional: Reports as per HPI and Reports no additional constitutional complaints Eyes: Reports as per HPI and Reports no additional eye complaints Reports system reviewed and no additional complaints, except as documented Cardiovascular: Reports as per HPI and Reports no additional cardiovascular complaints Respiratory: Reports as per HPI and Reports no additional respiratory complaints Gastrointestinal: Reports as per HPI and Reports no additional gastrointestinal complaints Genitourinary: Reports no additional female genitourinary complaints Musculoskeletal: Reports no additional musculoskeletal complaints Skin/Breast: Reports system reviewed and no additional complaints, except as docu Psychiatric: Reports no additional psychiatric complaints Endocrine: Reports no additional endocrine complaints Hematologic/Lymphatic: Reports no additional hematologic/lymphatic complaints Allergic/Immunologic: Reports no additional allergic/immunologic complaints Reports system reviewed and no additional complaints, except as documented and Reports Abnormal speech present [facility] Past Medical History Medical History Arthritis Asthma Back pain Diabetes Glaucoma HTN (hypertension) Seasonal allergies Surgical History (Reviewed 03/15/23 @ 11: by Kareem Hoskins MD) Hx of colonoscopy Hx of endoscopy Hx of hysterectomy Family History Family History (Reviewed 03/15/23 @ 11: by Kaerem Hoskins MD) Mother Diabetes Heart problem Asthma Father Diabetes Depression Maternal Grandfather Stomach cancer Family/Other Colon cancer Brother COVID-19 Social History Social History Household Members Other:: brother Are you a primary health care manager to a significant other at home: No Do you presently have visiting nurse or other home services: Yes ([employer]) Alcohol intake: current Alcohol intake frequency: does not drink Patient Tobacco Use Status: Never used Tobacco Second Hand Smoke Exposure: No Advance Directives: No Advance Directives Information Provided: Yes Physical Exam ED Vital Signs: Vital Signs - 24 hr 03/15/23 11:02 03/15/23 11:18 03/15/23 11:55 Temperature 97.5 F 97.4 F Pulse Rate 75 75 74 Respiratory Rate 16 16 Blood Pressure 169/80 H 169/80 H 168/84 H Pulse Oximetry 98 98 Oxygen Delivery Method Room Air Room Air 03/15/23 11:56 03/15/23 11:56 Temperature Pulse Rate 80 82 Respiratory Rate Blood Pressure 169/75 H 164/78 H Pulse Oximetry Oxygen Delivery Method BMI result Body Mass Index 26.6 Vital signs have been reviewed as appeared to be correct. Blood pressure normal. Heart rate normal. Respiration rate normal. Temperature normal. Oxygen saturation normal. Appearance: Alert. Oriented X3. No acute distress. Head: Normal external exam. Normocephalic. Atraumatic. No Spivey signs noted. No raccoon eyes noted Eyes: PERRLA. EOMI. Conjunctiva and sclera normal. Eyelids normal. ENT: TM's Normal. Pharynx normal. Uvula midline. Moist mucous membranes. No trismus noted. No drooling noted. No muffled voice noted. Neck: Normal inspection. Neck supple. FROM. No adenopathy. Thyroid Normal. No meningeal signs. No neck mass noted. CVS: Normal heart rate and rhythm. Heart sound normal. No murmurs noted. Pulses normal throughout. Respiratory: No respiratory distress. Painless inspiration. Breath sounds normal. No wheezes/rales/rhonchi noted. Chest nontender. No accessory muscle usage noted or decreased air movement noted. Abdomen: Soft and nontender. Bowel sounds normal in all 4 quadrants. No distention noted. No organomegaly noted. No visible injury noted. Back: No CVA tenderness. Full range of motion noted. Skin: Skin warm and dry. Normal skin color. Normal skin turgor. No rashes/lesions/lacerations noted. Extremities: No lower extremity edema. Extremities exhibit normal range of motion. Extremities nontender. Neuro: Oriented X 3. Cranial nerve exam: II-XII are grossly intact No motor deficit. No sensory deficit. Reflexes normal. Course Course Course Narrative: 82-year-old female came in for evaluation of nonspecific generalized weakness with dizziness, patient had a remote fall with head injury family were concerned. Patient had unremarkable workup, vital sign is stable, head CT showed no acute intracranial pathology with normal neuro exam. Will discharge the patient with reassurance and follow-up with PCP. Slight hypokalemia patient received oral potassium. Medications Administered Discontinued Medications Generic Name Dose Route Start Last Admin Trade Name Freq PRN Reason Stop Dose Admin Potassium Chloride 40 meq 03/15/23 12:21 03/15/23 13:09 Potassium Chloride Packet 20 Meq Packet PO 03/15/23 12:22 40 meq ONCE ONE Administration Medical Decision Making Differential Diagnosis Differential Diagnoses: The differential diagnosis associated with the presentation includes (Dehydration, hypovolemia, electrolyte abnormality, severe anemia, ACS, intracranial bleed, UTI.) Admission/Observation Consideration of admission/observation: Escalation of care including admission/observation considered Lab Data MDM Lab Attestation statement: I reviewed the patient's lab results. 03/15/23 11:53 03/15/23 11:53 Labs: Lab Results 03/15/23 03/15/23 03/15/23 Range/Units 11:12 11:12 11:53 WBC 8.6 (4.8-10.8) X10*3/uL RBC 5.01 (4.20-5.50) X10*6/uL Hgb 14.8 (12.0-16.0) g/dl Hct 43.1 (37.0-47.0) % MCV 86.0 (80.0-98.0) fL MCH 29.5 (27.0-33.0) pg MCHC 34.3 (31.0-35.0) g/dl RDW 13.4 (11.0-16.0) % Plt Count 253 (160-400) X10*3/uL MPV 9.6 (9.4-12.3) fL Immature Gran % (Auto) 0.2 (0.0-0.4) % Neut % (Auto) 72.4 (45-73) % Lymph % (Auto) 19.2 L (20-40) % [place] % (Auto) 5.8 (2-11) % Eos % (Auto) 2.0 (0-4) % Baso % (Auto) 0.4 (0-2) % Lymph # (Auto) 1.6 (1.2-4.9) X10*3/uL [place] # (Auto) 0.5 (0.1-1.2) X10*3/uL Eos # (Auto) 0.2 (0.0-0.4) X10*3/uL Baso # (Auto) 0.0 (0.0-0.2) X10*3/uL Abs Immat Gran (auto) 0.02 (0.00-0.03) X10*3/uL Absolute Neuts (auto) 6.2 (2.0-8.3) x10*3/uL Absolute Nucleated RBC 0.000 (0.0-0.012) X10*3/uL Nucleated RBC % (auto) 0.0 (0.0-0.2) /100WBC Sodium (135-145) mmol/L Potassium (3.3-5.1) mmol/L Chloride (96-108) mmol/L Carbon Dioxide (22-29) mmol/L Anion Gap (12-20) BUN (9-16) mg/dL Creatinine (0.5-1.4) mg/dL Estim Creat Clear Calc Estimated GFR Random Glucose (60-115) mg/dL Calcium (8.4-10.2) mg/dL Total Bilirubin (0.0-1.0) mg/dL Direct Bilirubin (0.0-0.5) mg/dL AST (5-31) U/L ALT (0-31) U/L Alkaline Phosphatase (39-117) U/L Troponin I High Sens (<3.5-17.0) ng/L Total Protein (6.5-8.0) g/dL Albumin (3.5-5.0) g/dL Lipase (8-78) U/L Urine Color Yellow Cancelled Urine Appearance Clear Cancelled Urine pH 7.0 Cancelled (5.0-9.0) Ur Specific [place] <= 1.005 Cancelled (1.005-1.025) Urine Protein Negative Cancelled (Neg-Trace) mg/dL Urine Glucose (UA) Negative Cancelled (Negative) mg/dL Urine Ketones Negative Cancelled (Negative) mg/dL Urine Blood Negative Cancelled (Negative) Urine Nitrite Negative Cancelled (Negative) Ur Leukocyte Esterase Negative Cancelled (Negative) Urine RBC 0-2 (0-2) /HPF Urine WBC 0-5 (0-5) /HPF Ur Squamous Epith Cells 0-2 (0-2) /HPF Urine Bacteria None Seen (None Seen) Hyaline Casts 0-2 (0-2) /LPF 03/15/23 03/15/23 Range/Units 11:53 11:53 WBC (4.8-10.8) X10*3/uL RBC (4.20-5.50) X10*6/uL Hgb (12.0-16.0) g/dl Hct (37.0-47.0) % MCV (80.0-98.0) fL MCH (27.0-33.0) pg MCHC (31.0-35.0) g/dl RDW (11.0-16.0) % Plt Count (160-400) X10*3/uL MPV (9.4-12.3) fL Immature Gran % (Auto) (0.0-0.4) % Neut % (Auto) (45-73) % Lymph % (Auto) (20-40) % [place] % (Auto) (2-11) % Eos % (Auto) (0-4) % Baso % (Auto) (0-2) % Lymph # (Auto) (1.2-4.9) X10*3/uL [place] # (Auto) (0.1-1.2) X10*3/uL Eos # (Auto) (0.0-0.4) X10*3/uL Baso # (Auto) (0.0-0.2) X10*3/uL Abs Immat Gran (auto) (0.00-0.03) X10*3/uL Absolute Neuts (auto) (2.0-8.3) x10*3/uL Absolute Nucleated RBC (0.0-0.012) X10*3/uL Nucleated RBC % (auto) (0.0-0.2) /100WBC Sodium 142 (135-145) mmol/L Potassium 3.1 L (3.3-5.1) mmol/L Chloride 108 (96-108) mmol/L Carbon Dioxide 25 (22-29) mmol/L Anion Gap 12 (12-20) BUN 9 (9-16) mg/dL Creatinine 0.86 (0.5-1.4) mg/dL Estim Creat Clear Calc 43.9 Estimated GFR > 60 Random Glucose 131 H (60-115) mg/dL Calcium 9.6 (8.4-10.2) mg/dL Total Bilirubin 0.8 (0.0-1.0) mg/dL Direct Bilirubin 0.3 (0.0-0.5) mg/dL AST 22 (5-31) U/L ALT 18 (0-31) U/L Alkaline Phosphatase 67 (39-117) U/L Troponin I High Sens < 2.7 (<3.5-17.0) ng/L Total Protein 7.3 (6.5-8.0) g/dL Albumin 4.5 (3.5-5.0) g/dL Lipase 23 (8-78) U/L Urine Color Urine Appearance Urine pH (5.0-9.0) Ur Specific [place] (1.005-1.025) Urine Protein (Neg-Trace) mg/dL Urine Glucose (UA) (Negative) mg/dL Urine Ketones (Negative) mg/dL Urine Blood (Negative) Urine Nitrite (Negative) Ur Leukocyte Esterase (Negative) Urine RBC (0-2) /HPF Urine WBC (0-5) /HPF Ur Squamous Epith Cells (0-2) /HPF Urine Bacteria (None Seen) Hyaline Casts (0-2) /LPF Independent Interpretation I performed an independent interpretation of an: CT Scan (Head: No acute intracranial pathology.) Radiology Impression Discussion of test interpretation with radiology: I have reviewed the radiologist's reading. (No acute intracranial pathology.) Discharge Plan Discharge Clinical Impression: Episode of generalized weakness, Dizziness Patient Disposition: Home, Self-Care Instructions: Dizziness (ED) Prescriptions: No Action imipramine HCl 10 mg tablet 10 mg PO BEDTIME Qty: 30 3RF cromolyn 4 % drops 1 drp ophthalmic (eye) QID fluticasone propion-salmeterol 500-50 mcg/dose blister with device 1 ea inhalation BID (DME) blood pressure test kit-large Kit See Rx Instructions .ROUTE DIRECTED Qty: 1 Rx Instructions: As directed amlodipine 5 mg tablet 5 mg PO DAILY calcium carbonate-vitamin D3 600 mg(1,500mg) -400 unit tablet 1 tab PO fluticasone propionate 50 mcg/actuation spray,suspension 0 mcg intranasal hydrochlorothiazide 25 mg tablet 25 mg PO DAILY aspirin 81 mg tablet,delayed release (DR/EC) 81 mg PO BEDTIME atorvastatin 80 mg tablet 80 mg PO DAILY tramadol 50 mg tablet 50 mg PO Q6H PRN (Reason: Pain) tolterodine 4 mg capsule,extended release 24hr 4 mg PO DAILY metformin 500 mg tablet extended release 24 hr 1,000 mg PO QAM valsartan 320 mg tablet 320 mg PO QAM metoprolol succinate 100 mg tablet extended release 24 hr 100 mg PO DAILY albuterol sulfate 90 mcg/actuation HFA aerosol inhaler 0 mcg inhalation loratadine 10 mg tablet 10 mg PO DAILY cholecalciferol (vitamin D3) 25 mcg (1,000 unit) tablet 25 mcg PO DAILY brimonidine 0.2 % drops 0 drp ophthalmic (eye) timolol maleate 0.5 % drops 1 drp ophthalmic (eye) QAM (DME) lancets [TRUEplus Lancets] 33 gauge misc See Rx Instructions .ROUTE BID Qty: 100 Rx Instructions: As directed ketotifen fumarate 0.025 % (0.035 %) drops 0 drp ophthalmic (eye) diphenhydramine HCl 25 mg tablet 25 mg PO DAILY PRN (Reason: allergy symptoms) famotidine [Pepcid] 40 mg tablet 40 mg PO BEDTIME Qty: 30 6RF dexlansoprazole [Dexilant] 60 mg capsule,biphase delayed releas 60 mg PO QAM Qty: 30 6RF sucralfate [Carafate] 1 gram tablet 2 g PO .daily @noon Qty: 60 6RF meclizine 25 mg tablet 25 mg PO TID Fiber Laxative(methylcellulos) 500 mg tablet 1,000 mg PO BID 30 Days Qty: 120 6RF metoclopramide HCl [Reglan] 10 mg tablet 10 mg PO QIDACHS Qty: 120 6RF sennosides [senna] 8.6 mg tablet 17.2 mg PO BEDTIME Qty: 60 6RF Referrals: Physician,Unknown J [Primary Care Provider] -
[2023-03-15 11:18] VITALS: BP 159/80; BP 169/80; PULSE 75; PULSE 78; RESP 16; TEMP 36.3; O2SAT 98; O2SAT 99; BMI 26.6
[2023-03-15 11:33] LABS: Appearance Urine Clear; Color Urine Yellow; Glucose Urine UA Negative (Negative); Leukocyte Esterase Urine Negative (Negative); Nitrite Urine Negative (Negative); Specific Gravity - Urine <= 1.005 (1.005-1.025); Urine Blood Negative (Negative); Urine Ketones Negative (Negative); Urine Protein Negative (Neg-Trace)
[2023-03-15 11:38] LABS: Bacteria Urine None Seen (None Seen); Hyaline Casts Urine 0-2 /LPF (0-2); RBC Urine 0-2 /HPF (0-2); Squamous Epithelial Cell Urine 0-2 /HPF (0-2); WBC Urine 0-5 /HPF (0-5)
[2023-03-15 11:55] VITALS: BP 168/84; PULSE 74
[2023-03-15 11:56] VITALS: BP 164/78; BP 169/75; PULSE 80; PULSE 82
[2023-03-15 11:57] LABS: MANUAL DIFF FLAG NO
[2023-03-15 12:01] LABS: Basophils Percent Auto 0.4 % (0-2); Eosinophils Absolute Auto 0.2 X10*3/uL (0.0-0.4); Hematocrit 43.1 % (37.0-47.0); Hemoglobin 14.8 g/dl (12.0-16.0); Imm Gran Abs Auto 0.02 X10*3/uL (0.00-0.03); Imm Gran Pct Auto 0.2 % (0.0-0.4); Lymphocytes Absolute Auto 1.6 X10*3/uL (1.2-4.9); Lymphocytes Percent Auto 19.2 % (20-40); Mean Corpuscular HGB Conc 34.3 g/dl (31.0-35.0); Mean Corpuscular Hemoglobin 29.5 pg (27.0-33.0); Mean Platelet Volume 9.6 fL (9.4-12.3); Monocytes Absolute Auto 0.5 X10*3/uL (0.1-1.2); Monocytes Percent Auto 5.8 % (2-11); Neutrophils Absolute Auto 6.2 x10*3/uL (2.0-8.3); Neutrophils Percent Auto 72.4 % (45-73); Platelet Count 253 X10*3/uL (160-400); Red Blood Count 5.01 X10*6/uL (4.20-5.50); Red Cell Distribution Width 13.4 % (11.0-16.0); White Blood Count 8.6 X10*3/uL (4.8-10.8)
[2023-03-15 12:15] LABS: Alanine Aminotransferase 18 U/L (0-31); Albumin Level 4.5 g/dL (3.5-5.0); Alkaline Phosphatase 67 U/L (39-117); Anion Gap 12 (12-20); Aspartate Amino Transferase 22 U/L (5-31); Bilirubin Direct 0.3 mg/dL (0.0-0.5); Bilirubin Total 0.8 mg/dL (0.0-1.0); Blood Urea Nitrogen 9 mg/dL (9-16); Calcium 9.6 mg/dL (8.4-10.2); Carbon Dioxide 25 mmol/L (22-29); Chloride 108 mmol/L (96-108); Creatinine Clr Calc Pharmacy 43.9; Estimated Glomerular Filt Rate > 60; Glucose Random 131 mg/dL (60-115); Lipase 23 U/L (8-78); Potassium 3.1 mmol/L (3.3-5.1); Sodium 142 mmol/L (135-145); Total Protein 7.3 g/dL (6.5-8.0)
[2023-03-15 12:22] LABS: Troponin-I High Sensitivity < 2.7 ng/L (<3.5-17.0)
[2023-03-15] MEDS: Potassium Chloride Packet 20 MEQ PACKET 40 MEQ PO (13:09)
== END 2023-03-15 13:56 | disposition home or self-care (01) ==
PROVIDERS: Emergency Provider Emergency Medicine
DX: R53.1 Weakness (principal); R42 Dizziness and giddiness; R10.13 Epigastric pain; E11.9 Type 2 diabetes mellitus without complications; I10 Essential (primary) hypertension; Z79.899 Other long term (current) drug therapy; Z79.82 Long term (current) use of aspirin; Z79.84 Long term (current) use of oral hypoglycemic drugs
CPT/HCPCS: 36415; 70450; 71045; 80048; 80076; 81001; 83690; 84484; 85025; 93005; 99284

== ENCOUNTER 2023-03-24 11:14 | Outpatient (REF) | payer OTHER, SELFPAY ==
[2023-03-24 14:13] LABS: Anion Gap 12 (12-20); Blood Urea Nitrogen 12 mg/dL (9-16); Calcium 9.6 mg/dL (8.4-10.2); Carbon Dioxide 24 mmol/L (22-29); Chloride 106 mmol/L (96-108); Estimated Glomerular Filt Rate > 60; Glucose Random 109 mg/dL (60-115); Potassium 3.7 mmol/L (3.3-5.1); Sodium 138 mmol/L (135-145)
== END 2023-03-24 11:15 | disposition home or self-care (01) ==
LOC: HO.HHCL 11:14
PROVIDERS: Visit Provider Internal Medicine
DX: I10 Essential (primary) hypertension (principal)
CPT/HCPCS: 36415; 80048

== ENCOUNTER 2023-03-27 08:54 | Emergency (ER) | payer OTHER, SELFPAY ==
--- NOTE | ~2023-03-27 | CT_ITS ---
EXAMINATION: CT abdomen pelvis wo IV con CLINICAL INFORMATION: Reason for Exam R flank pain COMPARISON: Prior CT August 2021 TECHNIQUE: Multidetector volumetric imaging was performed from the superior aspect of the liver through the pubic symphysis , noncontrasted study. Sagittal and coronal reformatted images were obtained on the technologist's workstation. This CT examination was performed using dose optimization techniques as appropriate, variously including the following: *Automated exposure control *Adjustment of mA and/or kV according to patient size (this includes techniques or standardized protocols for targeted exams where dose is matched to indication/reason for exam; i.e. extremities or head) *Use of iterative reconstruction technique DLP: 495 mGy-cm FINDINGS: LOWER THORAX: Nonspecific mild interstitial groundglass opacification at lower lobe, no dense consolidation or pleural effusion. HEPATOBILIARY: No focal hepatic lesions. No biliary ductal dilatation. GALLBLADDER: Gallbladder unremarkable. SPLEEN: Spleen is normal in size. PANCREAS: No focal mass or ductal dilatation. STOMACH AND GASTROINTESTINAL TRACT: Circumferential wall thickening of the distal esophagus redemonstrated unchanged from prior exam, as previously suggested this could be due to esophagitis or reflux. Nonspecific CT appearance. Stomach is decompressed unopacified. There is no bowel distention or thickening. No CT evidence of appendicitis. There is diverticulosis without evidence of acute diverticulitis. ADRENALS: No adrenal nodules. KIDNEYS/URETERS: No hydronephrosis, stones or solid mass lesions. URINARY BLADDER: Partially decompressed. PELVIC VISCERA: Unremarkable PERITONEUM: No free air or fluid. LYMPH NODES: No lymphadenopathy. VASCULAR:Abdominal aorta normal in size, no aneurysm found. BONES, ABDOMINAL WALL AND SOFT TISSUES: Age-appropriate changes of the spine and skeletal system, no destructive osteolytic or osteosclerotic bone lesion found CT/CT abdomen pelvis wo IV con IMPRESSION: - No CT evidence of kidney stones or hydronephrosis. - Circumferential wall thickening of the distal esophagus unchanged from prior exam, as previously suggested this could be due to esophagitis or reflux. - No CT evidence of acute intra-abdominal process to explain patient's pain symptoms. Normal appendix, no evidence of appendicitis. No kidney stone or hydronephrosis. Mild diverticulosis without evidence of acute diverticulitis.
[2023-03-27 08:58] VITALS: BP 172/85; PULSE 85; RESP 22; TEMP 36.7; O2SAT 98; BMI 27.4
--- NOTE | 2023-03-27 09:26 | PC.NURSE ---
Patient arrived from home with complaints of dizziness, weakness in legs, abdominal pain, and left sided hip pain. States when she is walking she feels like her whole body might give out. States was seen in ER about 3 days ago and was dx with low potassium levels. Reports nausea and diarrhea. x 2 days. Reports pounding in head that has made her eyes hurt. Reports some pain with urination, unsure if she has seen blood in urine.
[2023-03-27 09:31] VITALS: BP 147/88; PULSE 77; RESP 18; TEMP 37.2; O2SAT 99
[2023-03-27 09:46] LABS: Appearance Urine Clear; Color Urine Yellow; Glucose Urine UA Negative (Negative); Leukocyte Esterase Urine Negative (Negative); Nitrite Urine Negative (Negative); PH 7.5 (5.0-9.0); Specific Gravity - Urine <= 1.005 (1.005-1.025); UMIC TRIGGER UACC YES; Urine Blood Trace (Negative); Urine Ketones Negative (Negative); Urine Protein Negative (Neg-Trace)
[2023-03-27 09:53] LABS: Bacteria Urine None Seen (None Seen); Hyaline Casts Urine 0-2 /LPF (0-2); RBC Urine 0-2 /HPF (0-2); Squamous Epithelial Cell Urine 0-2 /HPF (0-2); WBC Urine 0-5 /HPF (0-5)
--- NOTE | 2023-03-27 09:56 | ED.ABDPAIN ---
HPI - Abdominal Pain General Chief Complaint: Abdominal Pain Stated Complaint: R flank pain/Headache/Dizziness Time Seen by Provider: 03/27/23 09:19 Source: patient Mode of arrival: ambulatory Limitations: no limitations History of Present Illness HPI narrative: Patient is an 82 year old female presenting with weakness, abdominal pain and diarrhea x a few days. Patient's family is at the bedside and assist in the history. They state that the patient has been experiencing diarrhea and nausea without vomiting and has not eaten for a few days. She is having pain in her abdomen mostly in the epigastric region as well as back pain. Patient is also concerned for a burning pain with urination. Patient denies alcohol use. Patient denies history of kidney stones, diverticulitis or abdominal surgeries. Patient denies fever, chills, chest pain, shortness of breath. Related Data Home Medications Medication Instructions Recorded Confirmed albuterol sulfate 90 mcg/actuation 0 mcg inhalation 09/18/20 aerosol inhaler amlodipine 5 mg tablet 5 mg PO DAILY 09/18/20 12/20/22 aspirin 81 mg tablet,delayed 81 mg PO BEDTIME 09/18/20 12/20/22 release atorvastatin 80 mg tablet 80 mg PO DAILY 09/18/20 12/20/22 blood pressure test kit-large #1 ea 09/18/20 calcium carbonate 600 mg-vitamin 1 tab PO 09/18/20 D3 10 mcg (400 unit) tablet cromolyn 4 % eye drops 1 drp ophthalmic (eye) QID 09/18/20 12/20/22 fluticasone 500 mcg-salmeterol 50 1 ea inhalation BID 09/18/20 12/20/22 mcg/dose blistr powdr for inhalation fluticasone propionate 50 0 mcg intranasal 09/18/20 mcg/actuation nasal spray,suspension hydrochlorothiazide 25 mg tablet 25 mg PO DAILY 09/18/20 12/20/22 metformin 500 mg tablet,extended 1,000 mg PO QAM 09/18/20 12/20/22 release 24 hr metoprolol succinate 100 mg 100 mg PO DAILY 09/18/20 12/20/22 tablet,extended release 24 hr tolterodine 4 mg capsule,extended 4 mg PO DAILY 09/18/20 12/20/22 release 24 hr tramadol 50 mg tablet 50 mg PO Q6H PRN Pain 09/18/20 12/20/22 valsartan 320 mg tablet 320 mg PO QAM 09/18/20 12/20/22 brimonidine 0.2 % eye drops 0 drp ophthalmic (eye) 12/15/21 timolol maleate 0.5 % eye drops 1 drp ophthalmic (eye) QAM 12/15/21 12/20/22 ketotifen fumarate 0.025 % (0.035 0 drp ophthalmic (eye) 07/30/22 %) eye drops lancets 33 gauge (TRUEplus Lancets) #100 ea 07/30/22 cholecalciferol (vitamin D3) 25 25 mcg PO DAILY 10/19/22 12/20/22 mcg (1,000 unit) tablet diphenhydramine HCl 25 mg tablet 25 mg PO DAILY PRN allergy symptoms 10/19/22 12/20/22 loratadine 10 mg tablet 10 mg PO DAILY 10/19/22 12/20/22 meclizine 25 mg tablet 25 mg PO TID dizziness 02/25/23 Previous Rx's Medication Instructions Recorded dexlansoprazole 60 mg 60 mg PO QAM #30 caps 11/11/22 capsule,biphase delayed release (Dexilant) famotidine 40 mg tablet (Pepcid) 40 mg PO BEDTIME #30 tabs 11/11/22 sucralfate 1 gram tablet (Carafate) 2 g PO .daily @noon #60 tabs 11/11/22 imipramine HCl 10 mg tablet 10 mg PO BEDTIME #30 tabs 02/02/23 methylcellulose (laxative) 500 mg 1,000 mg PO BID 30 days #120 tabs 02/25/23 tablet (Fiber Laxative (methylcellulose)) metoclopramide HCl 10 mg tablet 10 mg PO QIDACHS #120 tabs 02/25/23 (Reglan) sennosides 8.6 mg tablet (senna) 17.2 mg PO BEDTIME constipation 02/25/23 #60 tabs aluminum-mag hydroxide-simethicone 5 ml PO 5XD PRN dyspepsia #355 mL 03/27/23 200 mg-200 mg-20 mg/5 mL oral susp (Maalox Advanced) loperamide 2 mg capsule 2 mg PO Q6H PRN loose stool #20 03/27/23 caps ondansetron 4 mg disintegrating 4 mg PO Q6H PRN nausea and 03/27/23 tablet vomiting #14 tabs Allergies Allergy/AdvReac Type Severity Reaction Status Date / Time nortriptyline AdvReac Rash Verified 03/27/23 08:57 Review of Systems Review of Systems Constitutional : No Weight loss, No Fever, No Chills, No Fatigue, No Malaise ENT/Mouth : No sore throat, No Rhinorrhea Eyes: No Eye Pain, No Swelling, No Redness Cardiovascular : No Chest Pain, No SOB, No Dyspnea on Exertion, No Orthopnea, No Edema, No Palpitations Respiratory : No Cough, No Sputum, No Wheezing Gastrointestinal : + Nausea, diarrhea and abdominal pain, No Vomiting, No Constipation, Pain, No Hematochezia, No Melena Genitourinary : + Dysuria and Urinary Frequency, No Hematuria, Musculoskeletal : No joint pain, No Myalgias, No Joint Swelling Skin : No Skin Lesions, No rash Neuro : + Weakness, No Numbness, No Dizziness, No Headache Psych : No Anxiety/Panic, No Depression Heme/Lymph: No Bruising, No Bleeding,No Lymphadenopathy Endocrine : No Polyuria, No Polydipsia All other systems reviewed and are negative Yes all other systems are reviewed and are negative PMFSH Past Medical History Attestation statement: The following information was validated with the patient. 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) Alcohol intake: never Patient Tobacco Use Status: Never used Tobacco Smoked in Last 30 Days: No Second Hand Smoke Exposure: No Use of substances other than those prescribed or required for medical reasons: No Advance Directives: No Advance Directives Information Provided: Yes Physical Exam ED Vital Signs: Vital Signs - 24 hr 03/27/23 08:58 03/27/23 09:31 03/27/23 11:56 Temperature 98.0 F 98.9 F Pulse Rate 85 77 65 Respiratory Rate 22 H 18 18 Blood Pressure 172/85 H 147/88 H 156/78 H Pulse Oximetry 98 99 98 Oxygen Delivery Method Room Air Room Air Room Air BMI result Body Mass Index 27.4 Vital signs stable Appearance: Alert.? Oriented X3.? No acute distress.? Head: Normocephalic, atraumatic, no step-offs or deformities Eyes: Pupils equal, round and reactive to light.? CVS: Normal heart rate and rhythm.? Pulses normal.? Respiratory: No respiratory distress.? Breath sounds normal.? Abdomen: Soft and nondistended. Tenderness to palpation over the epigastric region.?No rebound tenderness. No an acute abdomen. Skin: Skin warm and dry.? Normal skin color.? Normal skin turgor.? Extremities: No lower extremity edema.? No calf ttp. 5/5 strength to bilateral upper and lower extremities Back: No midline tenderness, no C-spine tenderness, full range of motion, no CVA tenderness bilaterally Neuro: Oriented X 3.? No motor deficit.? No sensory deficit. CN 2-12 intact Course Reevaluation(s) Reevaluation #1: CBC appears to be within normal limits. Chemistry unremarkable no acute findings requiring intervention. Normal lipase. UA clean without infection. CT abdomen pelvis pending. Patient's pain well controlled. Time: 12:42 Reevaluation #2: CT abdomen pelvis with no evidence of kidney stones or hydronephrosis, circumferential wall thickening of distal esophagus unchanged from previous exams likely GERD, patient has history of this will give her Maalox and discharge her home with same, will have her follow-up with GI. Patient reports that pain is essentially gone, daughter at the bedside, verbalizes understanding of results, patient to be discharged home with Zofran, loperamide, Maalox. Educated patient on diagnosis and treatment plan, answered all question, patient verbalizes understanding. At this time patient will be discharged home, advised to return with new or worsening symptoms. Educated on worrisome signs and symptoms and when to return. At this time I feel comfortable discharge home. Time: 13:07 Medical Decision Making Medical Decision Making [facility] Narrative: 9:55 82 year old female with epigastric pain, diarrhea and weakness Exam significant for epigastric tenderness to palpation. No rebound tenderness. Not an acute abdomen. This is likely viral illness vs kidney stone vs peptic ulcer vs irritable bowel syndrome. Unlikely Clostridium difficile or bacterial diarrhea pancreatitis, diverticulitis, obstruction,appendiciits, cholecystitis, cholangitis, acute abdomen, arterial occlusion, perforation or obstruction based on history and physical exam. Will rule out UTI,electrolyte abnormalities. Other differentials include cystitis. History and physical exam not consistent with ACS or dissection Plan: labs, urine, imaging Differential Diagnosis Differential Diagnoses: The differential diagnosis associated with the presentation includes This is likely viral illness vs kidney stone vs peptic ulcer vs irritable bowel syndrome. Unlikely Clostridium difficile or bacterial diarrhea pancreatitis, diverticulitis, obstruction,appendiciits, cholecystitis, cholangitis, acute abdomen, arterial occlusion, perforation or obstruction based on history and physical exam. Will rule out UTI,electrolyte abnormalities. Other differentials include cystitis. History and physical exam not consistent with ACS or dissection Admission/Observation Consideration of admission/observation: Escalation of care including admission/observation considered Not indicated. Lab Data MDM Lab Attestation statement: I reviewed the patient's lab results. 03/27/23 09:58 03/27/23 09:58 Labs: Lab Results 03/27/23 03/27/23 03/27/23 Range/Units 09:41 09:58 09:58 WBC 8.1 (4.8-10.8) X10*3/uL RBC 4.54 (4.20-5.50) X10*6/uL Hgb 13.4 (12.0-16.0) g/dl Hct 39.6 (37.0-47.0) % MCV 87.2 (80.0-98.0) fL MCH 29.5 (27.0-33.0) pg MCHC 33.8 (31.0-35.0) g/dl RDW 12.9 (11.0-16.0) % Plt Count 226 (160-400) X10*3/uL MPV 9.8 (9.4-12.3) fL Immature Gran % (Auto) 0.4 (0.0-0.4) % Neut % (Auto) 72.6 (45-73) % Lymph % (Auto) 18.5 L (20-40) % [place] % (Auto) 6.0 (2-11) % Eos % (Auto) 2.1 (0-4) % Baso % (Auto) 0.4 (0-2) % Lymph # (Auto) 1.5 (1.2-4.9) X10*3/uL [place] # (Auto) 0.5 (0.1-1.2) X10*3/uL Eos # (Auto) 0.2 (0.0-0.4) X10*3/uL Baso # (Auto) 0.0 (0.0-0.2) X10*3/uL Abs Immat Gran (auto) 0.03 (0.00-0.03) X10*3/uL Absolute Neuts (auto) 5.9 (2.0-8.3) x10*3/uL Absolute Nucleated RBC 0.000 (0.0-0.012) X10*3/uL Nucleated RBC % (auto) 0.0 (0.0-0.2) /100WBC Sodium 141 (135-145) mmol/L Potassium 3.7 (3.3-5.1) mmol/L Chloride 109 H (96-108) mmol/L Carbon Dioxide 23 (22-29) mmol/L Anion Gap 13 (12-20) BUN 9 (9-16) mg/dL Creatinine 0.71 (0.5-1.4) mg/dL Estim Creat Clear Calc 54.0 Estimated GFR > 60 Random Glucose 136 H (60-115) mg/dL Calcium 9.7 (8.4-10.2) mg/dL Magnesium 1.9 (1.6-2.6) mg/dL Total Bilirubin 0.7 (0.0-1.0) mg/dL AST 19 (5-31) U/L ALT 18 (0-31) U/L Alkaline Phosphatase 56 (39-117) U/L Total Protein 6.7 (6.5-8.0) g/dL Albumin 4.2 (3.5-5.0) g/dL Lipase 30 (8-78) U/L Urine Color Yellow Urine Appearance Clear Urine pH 7.5 (5.0-9.0) Ur Specific [place] <= 1.005 (1.005-1.025) Urine Protein Negative (Neg-Trace) mg/dL Urine Glucose (UA) Negative (Negative) mg/dL Urine Ketones Negative (Negative) mg/dL Urine Blood Trace H (Negative) Urine Nitrite Negative (Negative) Ur Leukocyte Esterase Negative (Negative) Urine RBC 0-2 (0-2) /HPF Urine WBC 0-5 (0-5) /HPF Ur Squamous Epith Cells 0-2 (0-2) /HPF Urine Bacteria None Seen (None Seen) Hyaline Casts 0-2 (0-2) /LPF Independent Interpretation I performed an independent interpretation of an: CT Scan Radiology Impression Discussion of test interpretation with radiology: I have reviewed the radiologist's reading. Core Measures AMI core measures followed: Yes Measure exclusions: not indicated Medications Administered Discontinued Medications Generic Name Dose Route Start Last Admin Trade Name Freq PRN Reason Stop Dose Admin Morphine Sulfate 15 mg 03/27/23 11:48 03/27/23 11:57 Morphine Sulfate Immed Release 15 Mg Tablet PO 03/27/23 11:49 15 mg ONCE ONE Administration Critical Care Time Critical Care Time Critical Care Time: No Discharge Plan Discharge Clinical Impression: Cystitis, Abdominal pain, Viral illness, Diarrhea, Nausea, GERD (gastroesophageal reflux disease) Patient Disposition: Home, Self-Care Instructions: Gastroesophageal Reflux Disease (ED), Acute Nausea and Vomiting (ED), Acute Diarrhea (ED), Viral Syndrome (ED), Abdominal Pain (ED), Nutrition Tips for Relief of Diarrhea (ED) Additional Instructions: Take your medications as prescribed. If you were prescribed antibiotics today, it is important that you take your medication to their entirety, do not skip any doses, do not finish them early. Follow-up with your primary care provider this week. Return to the emergency department with new or worsening symptoms. Such as fevers, chills, chest pain, shortness of breath, nausea, vomiting, dizziness, headache, vision changes, lethargy In case of emergency call 911 I have sent Zofran to your pharmacy for nausea and vomiting I have sent loperamide to your pharmacy for diarrhea. CT/CT abdomen pelvis wo IV con IMPRESSION: ? - No CT evidence of kidney stones or hydronephrosis. ? - Circumferential wall thickening of the distal esophagus unchanged from prior exam, as previously suggested this could be due to esophagitis or reflux. ? - No CT evidence of acute intra-abdominal process to explain patient's pain symptoms. Normal appendix, no evidence of appendicitis. No kidney stone or hydronephrosis. ? Mild diverticulosis without evidence of acute diverticulitis. Prescriptions: New loperamide 2 mg capsule 2 mg PO Q6H PRN (Reason: loose stool) Qty: 20 0RF ondansetron 4 mg tablet,disintegrating 4 mg PO Q6H PRN (Reason: nausea and vomiting) Qty: 14 0RF alum-mag hydroxide-simeth [Maalox Advanced] 200-200-20 mg/5 mL suspension 5 ml PO 5XD PRN (Reason: dyspepsia) Qty: 355 0RF Rx Instructions: administer between meals and at bedtime No Action imipramine HCl 10 mg tablet 10 mg PO BEDTIME Qty: 30 3RF cromolyn 4 % drops 1 drp ophthalmic (eye) QID fluticasone propion-salmeterol 500-50 mcg/dose blister with device 1 ea inhalation BID (DME) blood pressure test kit-large Kit See Rx Instructions .ROUTE DIRECTED Qty: 1 Rx Instructions: As directed amlodipine 5 mg tablet 5 mg PO DAILY calcium carbonate-vitamin D3 600 mg(1,500mg) -400 unit tablet 1 tab PO fluticasone propionate 50 mcg/actuation spray,suspension 0 mcg intranasal hydrochlorothiazide 25 mg tablet 25 mg PO DAILY aspirin 81 mg tablet,delayed release (DR/EC) 81 mg PO BEDTIME atorvastatin 80 mg tablet 80 mg PO DAILY tramadol 50 mg tablet 50 mg PO Q6H PRN (Reason: Pain) tolterodine 4 mg capsule,extended release 24hr 4 mg PO DAILY metformin 500 mg tablet extended release 24 hr 1,000 mg PO QAM valsartan 320 mg tablet 320 mg PO QAM metoprolol succinate 100 mg tablet extended release 24 hr 100 mg PO DAILY albuterol sulfate 90 mcg/actuation HFA aerosol inhaler 0 mcg inhalation loratadine 10 mg tablet 10 mg PO DAILY cholecalciferol (vitamin D3) 25 mcg (1,000 unit) tablet 25 mcg PO DAILY brimonidine 0.2 % drops 0 drp ophthalmic (eye) timolol maleate 0.5 % drops 1 drp ophthalmic (eye) QAM (DME) lancets [TRUEplus Lancets] 33 gauge misc See Rx Instructions .ROUTE BID Qty: 100 Rx Instructions: As directed ketotifen fumarate 0.025 % (0.035 %) drops 0 drp ophthalmic (eye) diphenhydramine HCl 25 mg tablet 25 mg PO DAILY PRN (Reason: allergy symptoms) famotidine [Pepcid] 40 mg tablet 40 mg PO BEDTIME Qty: 30 6RF dexlansoprazole [Dexilant] 60 mg capsule,biphase delayed releas 60 mg PO QAM Qty: 30 6RF sucralfate [Carafate] 1 gram tablet 2 g PO .daily @noon Qty: 60 6RF meclizine 25 mg tablet 25 mg PO TID Fiber Laxative(methylcellulos) 500 mg tablet 1,000 mg PO BID 30 Days Qty: 120 6RF metoclopramide HCl [Reglan] 10 mg tablet 10 mg PO QIDACHS Qty: 120 6RF sennosides [senna] 8.6 mg tablet 17.2 mg PO BEDTIME Qty: 60 6RF Referrals: Helder Morales MD [Primary Care Provider] - 2 days [facility] [place] [facility] [Provider Group] - 1 day Stand Alone Forms: Work/School Release Interventions: ED Discharge Assessment Last Done: 03/27/23 13:01 Discharge Date/Time: 03/27/23 13:04
[2023-03-27 10:03] LABS: MANUAL DIFF FLAG NO
[2023-03-27 10:04] LABS: Basophils Percent Auto 0.4 % (0-2); Eosinophils Absolute Auto 0.2 X10*3/uL (0.0-0.4); Eosinophils Percent Auto 2.1 % (0-4); Hematocrit 39.6 % (37.0-47.0); Hemoglobin 13.4 g/dl (12.0-16.0); Imm Gran Abs Auto 0.03 X10*3/uL (0.00-0.03); Imm Gran Pct Auto 0.4 % (0.0-0.4); Lymphocytes Absolute Auto 1.5 X10*3/uL (1.2-4.9); Lymphocytes Percent Auto 18.5 % (20-40); Mean Corpuscular HGB Conc 33.8 g/dl (31.0-35.0); Mean Corpuscular Hemoglobin 29.5 pg (27.0-33.0); Mean Corpuscular Volume 87.2 fL (80.0-98.0); Mean Platelet Volume 9.8 fL (9.4-12.3); Monocytes Absolute Auto 0.5 X10*3/uL (0.1-1.2); Neutrophils Absolute Auto 5.9 x10*3/uL (2.0-8.3); Neutrophils Percent Auto 72.6 % (45-73); Platelet Count 226 X10*3/uL (160-400); Red Blood Count 4.54 X10*6/uL (4.20-5.50); Red Cell Distribution Width 12.9 % (11.0-16.0); White Blood Count 8.1 X10*3/uL (4.8-10.8)
[2023-03-27 10:21] LABS: Alanine Aminotransferase 18 U/L (0-31); Albumin Level 4.2 g/dL (3.5-5.0); Alkaline Phosphatase 56 U/L (39-117); Anion Gap 13 (12-20); Aspartate Amino Transferase 19 U/L (5-31); Blood Urea Nitrogen 9 mg/dL (9-16); Calcium 9.7 mg/dL (8.4-10.2); Carbon Dioxide 23 mmol/L (22-29); Chloride 109 mmol/L (96-108); Estimated Glomerular Filt Rate > 60; Glucose Random 136 mg/dL (60-115); Lipase 30 U/L (8-78); Magnesium 1.9 mg/dL (1.6-2.6); Potassium 3.7 mmol/L (3.3-5.1); Sodium 141 mmol/L (135-145); Total Protein 6.7 g/dL (6.5-8.0)
[2023-03-27 10:32] LABS: Bilirubin Total 0.7 mg/dL (0.0-1.0)
[2023-03-27 11:56] VITALS: BP 156/78; PULSE 65; RESP 18; O2SAT 98
[2023-03-27] MEDS: Morphine Sulfate Immed Release 15 MG TABLET PO (11:57)
--- NOTE | 2023-03-27 11:58 | PC.NURSE ---
pt a&ox4, hypertensive, other vss, reporting 8/10 abd pain, pending CT scan results, medicated per MAR. no new orders at this time.
== END 2023-03-27 13:04 | disposition home or self-care (01) ==
PROVIDERS: Physician Assistant; Emergency Provider Emergency Medicine; PCP Internal Medicine
DX: N30.90 Cystitis, unspecified without hematuria (principal); R10.13 Epigastric pain; B34.9 Viral infection, unspecified; R19.7 Diarrhea, unspecified; R11.0 Nausea; K21.9 Gastro-esophageal reflux disease without esophagitis; R53.1 Weakness; E11.8 Type 2 diabetes mellitus with unspecified complications; I10 Essential (primary) hypertension; Z79.899 Other long term (current) drug therapy
CPT/HCPCS: 36415; 74176; 80053; 81001; 83690; 83735; 85025; 99284

== ENCOUNTER 2023-04-12 11:46 | Outpatient (AMB) | payer OTHER, SELFPAY ==
--- NOTE | 2023-04-12 12:22 | A.OFFVIS_ITS ---
Intake Vital Signs 04/12/23 12:24 Height 5 ft 1 in Weight 138 lb 14.259 oz BMI 26.2 BP 133/69 Blood Pressure Location Lt brachial Position Sitting Pulse 63 Intake Visit Reasons: Abdominal pain Intake Note: Patient presents to in office visit today in follow up of abdominal pain. Patient reports she was seen in the hospital since last visit twice for dizziness, diarrhea, and abdominal pain. Patient was started on antacid, ondansetron, and loperamide. Patient continues to c/o abdominal pain, nausea, and occasional diarrhea. Blister Rust Eradicator Required: No Accompanied by: Self / Same As Patient Allergies nortriptyline Adverse Reaction (Verified 04/12/23 12:31) Rash HPI Abdominal pain HPI Details Assessment & Plan (1) Delayed gastric emptying: Code(s): K30 - Functional dyspepsia Plan: Cameroonian #Declines She feels that the current medication and dosing schedule is good for her I am feeling good! She brings me Mo candy! SHE CONTINUES on oral 2 senna at night (she was taking this 1 the morning) in 4 doses of her Reglan 10 mg. Adding the additional dose of bedtime has really helped her and she is feeling quite well now. She also uses fiber for her constipation... Will or ROV 3 months. (2) GERD (gastroesophageal reflux diseas e): Code(s): K21.9 - Gastro-esophageal reflux disease without esophagitis Qualifiers: Esophagitis bleeding: without hemorrhage Esophagitis presence: with esophagitis Qualified Code(s): K21.00 - Gastro-esophageal reflux disease with esophagitis, without bleeding (3) Irritable bowel syndrome with both c onstipation and diarrhea: Code(s): K58.2 - Mixed irritable bowel syndrome (4) Abdominal bloating: Code(s): R14.0 - Abdominal distension (gaseous) TODAY'S VISIT Cameroonian #declines Her dtr is with her today and is helping with the hx and translation. She has been having a lot of stomach aches and nausea, dry heaving and migraines. She is also having diarrhea. This started a few days after she last saw me. The pain mostly happens at about 3am in the middle of the night and wakes her up. It feels like an upset stomach but is relieved Tylenol. The diarrhea is only 2-3 times a month. However review of her medication list so she taking a Mylanta compound and the lumen and component is likely causing the cage will diarrhea. There educated about this as a possible side effect. The nausea is most first thing in the morning. She cannot identify any change in her other chronic medications (however she is very bad knowing her medications) any known sick contacts or any changes in her diet that seem to a precipitated her her change in status. She presented to [place] [facility] twice for pain. They did a CT that showed ? of thickening of distal espohagus (but EGD in November not c/w this) so this is not likely a major contributor. There is ? about medication compliance - ask her to bring all meds to visit in 2 weeks. Also printed med list for her dtr. 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) Alcohol intake: never Patient Tobacco Use Status: Never used Tobacco Second Hand Smoke Exposure: No Review of Systems Const Denies fatigue, Denies fever(s), Reports headache(s), Denies night sweats, Reports poor appetite and Reports weight loss ENT Reports Normal hearing present, Denies dental pain, Denies dysphagia, Reports headache(s), Denies hearing loss, Denies mouth pain, Denies odynophagia, Denies throat swelling, Denies tongue swelling and Reports other (Dentition adequate) Card Reports no additional complaints Resp Reports no additional complaints GI Denies abdominal pain, Denies melena, Reports bloating, Denies hematochezia, Denies constipation, Denies GI cramping, Denies dysphagia, Denies excessive flatus, Denies early satiety, Reports heartburn, Reports diarrhea, Reports nausea, Denies odynophagia, Denies vomiting and Denies hematemesis Skin/Breast Denies pruritus, Denies lesions, Denies rash and Denies jaundice Neuro Reports Normal hearing present, Denies Abnormal speech present and Reports headache(s) Endo Denies fatigue Aller/Immun Denies throat swelling and Denies tongue swelling Physical Exam Vital Signs: Last Vital Signs Pulse 63 04/12/23 12:24 BP 133/69 04/12/23 12:24 BMI result Body Mass Index 26.2 Const General: cooperative, no acute distress, well developed and well groomed Nutritional Appearance: average body habitus and well nourished Orientation/consciousness: oriented to person, oriented to place and oriented to time Limitations: language barrier HEENT Head: Yes normocephalic and Yes atraumatic Eyes General: appearance normal, both eyes and all related structures Pupils: Equal, round and reactive pupils present Neck Neck: Yes normal visual inspection and Yes no lymphadenopathy Thyroid: Thyroid normal Resp Effort & Inspection: normal respiratory effort and able to speak in complete sentences Auscultation: clear to auscultation bilaterally Cardio Rate: regular rate Rhythm: regular rhythm Heart sounds: Normal, physiologic split S2 sound present Peripheral pulses: radial pulses present and posterior tibial pulses present GI Inspection: No distended and No Abdominal panniculus present Palpation (GI): Soft to palpation, nontender, no guarding, not rigid and No hepatosplenomegaly present Percussion: Yes normal to percussion Auscultation: normal bowel sounds Rectal Exam - Female: deferred Skin General skin exam: no rashes or lesions noted, turgor normal, skin not dry, no jaundice, No spider nevi and no striae Rashes: no rashes Nails: normal Neuro General: oriented to person, oriented to place and oriented to time Cranial nerves: Yes Equal, round and reactive pupils present and Yes Normal hearing present Speech: No Abnormal speech present Extrem General: Yes normal to inspection, No clubbing, No cyanosis and No edema Psych Appearance: grossly normal and well kempt Mental Status: mental status grossly normal Speech and movement: Normal speech and movement present Affect: normal affect Attitude: cooperative Thought process: Normal thought process present and not confabulating Thought content: Normal thought content present Insight: Limited insight present (Psych) Judgement: Limited judgement present (Psych) Assessment & Plan Assessment & Plan (1) Delayed gastric emptying: Code(s): K30 - Functional dyspepsia Plan: Cameroonian #declines Her dtr is with her today and is helping with the hx and translation. She has been having a lot of stomach aches and nausea, dry heaving and migraines. She is also having diarrhea. This started a few days after she last saw me. The pain mostly happens at about 3am in the middle of the night and wakes her up. It feels like an upset stomach but is relieved Tylenol. The diarrhea is only 2-3 times a month. However review of her medication list so she taking a Mylanta compound and the lumen and component is likely causing the cage will diarrhea. There educated about this as a possible side effect. The nausea is most first thing in the morning. She cannot identify any change in her other chronic medications (however she is very bad knowing her medications) any known sick contacts or any changes in her diet that seem to a precipitated her her change in status. She presented to the [facility] twice for pain. They did a CT that showed ? of thickening of distal espohagus (but EGD in May not c/w this) so this is not likely a major contributor. There is ? about medication compliance - ask her to bring all meds to visit in 2 weeks. Also printed med list for her dtr. (2) GERD (gastroesophageal reflux disease): Code(s): K21.9 - Gastro-esophageal reflux disease without esophagitis (3) Irritable bowel syndrome with both constipation and diarrhea: Code(s): K58.2 - Mixed irritable bowel syndrome (4) Epigastric abdominal pain: Code(s): R10.13 - Epigastric pain Medications: Refilled imipramine HCl 10 mg PO BEDTIME 30 tabs 6RF R10.9 - Unspecified abdominal pain sennosides (senna) 17.2 mg (2 x 8.6 mg) PO BEDTIME 60 tabs 6RF constipation dexlansoprazole (Dexilant) 60 mg PO QAM 30 caps 6RF metoclopramide HCl (Reglan) 10 mg PO QIDACHS 120 tabs 6RF K30 - Functional dyspepsia sucralfate (Carafate) 2 grams (2 x 1 gram) PO .daily @noon 60 tabs 6RF K58.2 - Mixed irritable bowel syndrome famotidine (Pepcid) 40 mg PO BEDTIME 30 tabs 6RF alum-mag hydroxide-simeth 200-200-20 mg/5 mL (Maalox Advanced) administer between meals and at bedtime 5 mL PO 5XD PRN 355 mL 6RF dyspepsia Coding Level of Care Code Est Pt Level 3 (77094) Diagnoses Delayed gastric emptying K30 GERD (gastroesophageal reflux disease) K21.9 Irritable bowel syndrome with both constipation and diarrhea K58.2 Epigastric abdominal pain R10.13
[2023-04-12 12:24] VITALS: BP 133/69; PULSE 63; BMI 26.2
== END 2023-04-12 13:11 | disposition home or self-care (01) ==
PROVIDERS: PCP Internal Medicine; Visit Provider Nurse Practitioner
DX: K30 Functional dyspepsia (principal); K58.2 Mixed irritable bowel syndrome
CPT/HCPCS: 99213

== ENCOUNTER → 2023-04-12 11:46 | Outpatient (BNVA) | payer OTHER, SELFPAY | PROVIDERS: PCP Internal Medicine; Visit Provider Nurse Practitioner | DX: K30 Functional dyspepsia (principal); K21.9 Gastro-esophageal reflux disease without esophagitis; K58.2 Mixed irritable bowel syndrome; Z79.899 Other long term (current) drug therapy | CPT/HCPCS: 99212 ==

== ENCOUNTER 2023-04-27 09:13 | Outpatient (AMB) | payer OTHER, SELFPAY ==
--- NOTE | 2023-04-27 09:16 | A.OFFVIS_ITS ---
Intake Vital Signs 04/27/23 09:25 Height 5 ft 1 in Intake Visit Reasons: 2 week follow up Intake Note: Pt presents to in office visit today in 2 weeks follow up of GERD and abdominal pain. CC: Patient states she has been feeling so so . Patient states she is having asthma and back pain from arthritis. She reports having regular BMs. Environmental Protection Forester Required: Yes Allergies nortriptyline Adverse Reaction (Verified 04/27/23 09:22) Rash HPI 2 week follow up HPI Details Assessment & Plan (1) Delayed gastric emptying: Code(s): K30 - Functional dyspepsia Plan: Salvadorean #declines Her dtr is with her today and is helping with the hx and translation. She has been having a lot of stomach aches and nausea, dry heaving and migrai kojo. She is also having diarrhea. This started a few days after she last saw me. The pain mostly happens at about 3am in the middle of the night and wakes her up. It feels like an upset stomach but is relieved Tylenol. The diarrhea is only 2-3 times a month. However review of her medication list so she taking a Mylanta compound and the lumen and component is likely causing the cage will diarrhea. There educated about this as a possible side effect. The nausea is most first thing in the morning. She cannot identify any change in her other chronic medications (however she is very bad knowing her medications) any known sick contacts or any changes in her diet that seem to a precipitated her her change in status. She presented [place] [facility] twice for pain. They did a CT that showed ? of thickening of distal espohagus (but EGD in May not c/w this) so this is not likely a major contributor. There is ? about medication compliance - ask her to bring all meds to visit in 2 weeks. Also printed med list for her dtr. (2) GERD (gastroesophageal reflux diseas e): Code(s): K21.9 - Gastro-esophageal reflux disease without esophagitis (3) Irritable bowel syndrome with both c onstipation and diarrhea: Code(s): K58.2 - Mixed irritable bowel syndrome (4) Epigastric abdominal pain: Code(s): R10.13 - Epigastric pain Medications: Refilled imipramine HCl 10 mg PO BEDTIME 30 tabs 6RF R10.9 - Unspecifie d abdominal pain sennosides (senna) 17.2 mg (2 x 8.6 m g) PO BEDTIME 60 t abs 6RF constipati on dexlansoprazole (D exilant) 60 mg PO QAM 30 c aps 6RF metoclopramide HCl (Reglan) 10 mg PO QIDACHS 120 tabs 6RF K30 - Functional d yspepsia sucralfate (Carafa te) 2 grams (2 x 1 gra m) PO .daily @noon 60 tabs 6RF K58.2 - Mixed irri table bowel syndro me famotidine (Pepcid ) 40 mg PO BEDTIME 30 tabs 6RF alum-mag hydroxide -simeth 200-200-20 mg/5 mL (Maalox A dvanced) admini ster between meals and at bedtime 5 mL PO 5XD PRN 3 55 mL 6RF dyspepsi a TODAY'S VISIT Salvadorean #declines She is here today with her daughter who is supportive. In general she is feeling a bit better since we restarted all the medications. However, she continues to have trouble most mornings with pain that starts in the epigastric area that feels like a burning and sometimes spreads across the ribcage. She says that it gets better when she drinks some tea in takes her medications. She has her bowel movements in the morning but this does not seem to affect the pain/discomfort. She continues on her Carafate at noon. I think were going to switch the timing of her Dexilant and her famotidine to try to address the morning symptoms. I want to take the Dexilant at bedtime and will take the famotidine in the morning. This way will get a stronger medication into worst system overnight to try to address acid brash etc.. Her diarrhea is somewhat better since we have got her back on her medications. However, I note that she is taking the 5 mg dose of metoclopramide and not the 10 mg that she is supposed to be taking. I think she had an old bottle at home. She can take 2 of these until she gets the refill at the 10 mg dose. It is possible that this is part of the problem with her morning symptoms as well. Return office visit in 4 weeks to see how she is doing. 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) Alcohol intake: never Patient Tobacco Use Status: Never used Tobacco Second Hand Smoke Exposure: No Review of Systems Const Denies fatigue, Denies fever(s), Denies night sweats, Denies poor appetite and Denies weight loss ENT Reports Normal hearing present, Denies dental pain, Denies dysphagia, Denies hearing loss, Denies mouth pain, Denies odynophagia, Denies throat swelling, Denies tongue swelling and Reports other (Dentition adequate) Card Reports no additional complaints Resp Reports no additional complaints GI Reports abdominal pain, Denies melena, Denies bloating, Denies hematochezia, Denies constipation, Denies GI cramping, Denies dysphagia, Denies excessive flatus, Denies early satiety, Reports heartburn, Reports diarrhea, Reports nausea, Denies odynophagia, Denies vomiting and Denies hematemesis Skin/Breast Denies pruritus, Denies lesions, Denies rash and Denies jaundice Neuro Reports Normal hearing present and Denies Abnormal speech present Endo Denies fatigue Aller/Immun Denies throat swelling and Denies tongue swelling Physical Exam Const General: cooperative, no acute distress, well developed and well groomed Nutritional Appearance: average body habitus and well nourished Orientation/consciousness: oriented to person, oriented to place and oriented to time Limitations: language barrier HEENT Head: Yes normocephalic and Yes atraumatic Eyes General: appearance normal, both eyes and all related structures Pupils: Equal, round and reactive pupils present Neck Neck: Yes normal visual inspection and Yes no lymphadenopathy Thyroid: Thyroid normal Resp Effort & Inspection: normal respiratory effort and able to speak in complete sentences Auscultation: clear to auscultation bilaterally Cardio Rate: regular rate Rhythm: regular rhythm Heart sounds: Normal, physiologic split S2 sound present Peripheral pulses: radial pulses present and posterior tibial pulses present GI Inspection: No distended, No Abdominal panniculus present and Yes obesity Palpation (GI): Soft to palpation, nontender, no guarding, not rigid and No hepatosplenomegaly present Percussion: Yes normal to percussion Auscultation: normal bowel sounds Rectal Exam - Female: deferred Skin General skin exam: no rashes or lesions noted, turgor normal, skin not dry, no jaundice, No spider nevi and no striae Rashes: no rashes Nails: normal Neuro General: oriented to person, oriented to place and oriented to time Cranial nerves: Yes Equal, round and reactive pupils present and Yes Normal hearing present Speech: No Abnormal speech present Extrem General: Yes normal to inspection, No clubbing, No cyanosis and No edema Psych Appearance: grossly normal and well kempt Mental Status: mental status grossly normal Speech and movement: Normal speech and movement present Affect: normal affect Attitude: cooperative Thought process: Normal thought process present and not confabulating Thought content: Normal thought content present Insight: Limited insight present (Psych) and Poor insight present (Psych) Judgement: Limited judgement present (Psych) and Poor judgement present (Psych) Assessment & Plan Assessment & Plan (1) GERD (gastroesophageal reflux disease): Code(s): K21.9 - Gastro-esophageal reflux disease without esophagitis Plan: Salvadorean #declines She is here today with her daughter who is supportive. In general she is feeling a bit better since we restarted all the medications. However, she continues to have trouble most mornings with pain that starts in the epigastric area that feels like a burning and sometimes spreads across the ribcage. She says that it gets better when she drinks some tea in takes her medications. She has her bowel movements in the morning but this does not seem to affect the pain/discomfort. She continues on her Carafate at noon. I think were going to switch the timing of her Dexilant and her famotidine to try to address the morning symptoms. I want to take the Dexilant at bedtime and will take the famotidine in the morning. This way will get a stronger medication into worst system overnight to try to address acid brash etc.. Her diarrhea is somewhat better since we have got her back on her medications. However, I note that she is taking the 5 mg dose of metoclopramide and not the 10 mg that she is supposed to be taking. I think she had an old bottle at home. She can take 2 of these until she gets the refill at the 10 mg dose. It is possible that this is part of the problem with her morning symptoms as well. Return office visit in 4 weeks to see how she is doing. (2) Delayed gastric emptying: Code(s): K30 - Functional dyspepsia (3) Irritable bowel syndrome with both constipation and diarrhea: Code(s): K58.2 - Mixed irritable bowel syndrome Medications: Refilled metoclopramide HCl (Reglan) 10 mg PO QIDACHS 120 tabs 6RF K30 - Functional dyspepsia Discontinued ondansetron Discontinued Reason: Doctor's Order 4 mg PO Q6H PRN 14 tabs 0RF nausea and vomiting Coding Level of Care Code Est Pt Level 3 (83554) Diagnoses GERD (gastroesophageal reflux disease) K21.9 Delayed gastric emptying K30 Irritable bowel syndrome with both constipation and diarrhea K58.2
== END 2023-04-27 09:54 | disposition home or self-care (01) ==
PROVIDERS: PCP Internal Medicine; Visit Provider Nurse Practitioner
DX: K21.9 Gastro-esophageal reflux disease without esophagitis (principal); K30 Functional dyspepsia; K58.2 Mixed irritable bowel syndrome
CPT/HCPCS: 99213

== ENCOUNTER → 2023-04-27 09:13 | Outpatient (BNVA) | payer OTHER, SELFPAY | PROVIDERS: PCP Internal Medicine; Visit Provider Nurse Practitioner | DX: K21.9 Gastro-esophageal reflux disease without esophagitis (principal); K30 Functional dyspepsia; K58.2 Mixed irritable bowel syndrome | CPT/HCPCS: 99212 ==

== ENCOUNTER 2023-05-07 03:45 | Emergency (ER) | payer OTHER, SELFPAY ==
[2023-05-07 03:53] VITALS: BP 151/74; BP 158/90; PULSE 69; PULSE 77; RESP 18; TEMP 36.8; O2SAT 98; BMI 26.6
--- NOTE | 2023-05-07 03:53 | PC.NURSE ---
pt a&ox3. respirations even and unlabored. pt brought in by ambulance reporting shortness of breath, nausea and diarrhea for 2 days. pt reports the inability to eat and drink for 2 days because she has not felt well . in the ambulance the pt reported chest pain, ems gave pt 325mg asprin, pt now reports the pain has slightly gone away. pt lung sounds clear bilaterally. abdomen soft non tender to touch. pt normal sinus on tele 83-86 and sating between 96-98 on RA.
[2023-05-07 04:23] LABS: Alanine Aminotransferase 15 U/L (0-31); Albumin Level 4.2 g/dL (3.5-5.0); Alkaline Phosphatase 63 U/L (39-117); Anion Gap 16 (12-20); Aspartate Amino Transferase 17 U/L (5-31); Bilirubin Total 0.7 mg/dL (0.0-1.0); Blood Urea Nitrogen 10 mg/dL (9-16); Calcium 9.3 mg/dL (8.4-10.2); Carbon Dioxide 21 mmol/L (22-29); Chloride 109 mmol/L (96-108); Estimated Glomerular Filt Rate > 60; Glucose Random 156 mg/dL (60-115); Potassium 3.4 mmol/L (3.3-5.1); Sodium 143 mmol/L (135-145); Total Protein 6.9 g/dL (6.5-8.0)
[2023-05-07 05:36] VITALS: BP 156/72; PULSE 75; RESP 18; TEMP 36.5; O2SAT 97
--- NOTE | 2023-05-07 05:38 | PC.NURSE ---
pt states having anxiety attack, pt hyperventilating at this time. this rn and clarke RN talked pt down. explained to pt to take slow deep breaths. pt came down from anxiety attack after sitting with patient. vss at this time.
--- NOTE | 2023-05-07 05:52 | PC.NURSE ---
pt ambulated to bedside commode without difficulty. denies SOB, chest pain and dizziness. urine obtained and sent at this time.
--- NOTE | 2023-05-07 06:14 | PC.NURSE ---
at bedside discussing pt care.
--- NOTE | 2023-05-07 06:15 | ED.CHESTPAIN ---
HPI - Chest Pain General Chief Complaint: Chest Pain Stated Complaint: sob Time Seen by Provider: 05/07/23 06:02 Source: patient Mode of arrival: EMS Limitations: no limitations History of Present Illness HPI narrative: Patient comes to the emergency room complaining of anxiety. Patient states that sometimes she starts feeling very anxious all of a sudden, then she starts feeling chest pressure, palpitations, and states that the worse is that she can not help but cry. Patient states she is tired of feeling anxious all the time, states that she is very anxious that her anxiety makes her family suffer for her. Patient denies suicidal homicidal ideation. Patient states that she would like to see behavioral health, patient seeking help to get her started on therapy for anxiety. At this time, patient states she has no chest pain no shortness of breath. Patient states that when she is not anxious, she has no chest pain or shortness of breath. Initially, when patient came in, patient stated that she did not know how to explain to EMS how she was feeling, EMS gave her aspirin to 324. Related Data Home Medications Medication Instructions Recorded Confirmed amlodipine 5 mg tablet 5 mg PO DAILY 09/18/20 12/20/22 aspirin 81 mg tablet,delayed 81 mg PO BEDTIME 09/18/20 12/20/22 release atorvastatin 80 mg tablet 80 mg PO DAILY 09/18/20 12/20/22 blood pressure test kit-large #1 ea 09/18/20 calcium carbonate 600 mg-vitamin 1 tab PO 09/18/20 D3 10 mcg (400 unit) tablet cromolyn 4 % eye drops 1 drp ophthalmic (eye) QID 09/18/20 12/20/22 fluticasone 500 mcg-salmeterol 50 1 ea inhalation BID 09/18/20 12/20/22 mcg/dose blistr powdr for inhalation fluticasone propionate 50 0 mcg intranasal 09/18/20 mcg/actuation nasal spray,suspension metformin 500 mg tablet,extended 1,000 mg PO QAM 09/18/20 12/20/22 release 24 hr metoprolol succinate 100 mg 100 mg PO DAILY 09/18/20 12/20/22 tablet,extended release 24 hr tolterodine 4 mg capsule,extended 4 mg PO DAILY 09/18/20 12/20/22 release 24 hr tramadol 50 mg tablet 50 mg PO Q6H PRN Pain 09/18/20 12/20/22 valsartan 320 mg tablet 320 mg PO QAM 09/18/20 12/20/22 brimonidine 0.2 % eye drops 0 drp ophthalmic (eye) 12/15/21 timolol maleate 0.5 % eye drops 1 drp ophthalmic (eye) QAM 12/15/21 12/20/22 ketotifen fumarate 0.025 % (0.035 0 drp ophthalmic (eye) 07/30/22 %) eye drops lancets 33 gauge (TRUEplus Lancets) #100 ea 07/30/22 cholecalciferol (vitamin D3) 25 25 mcg PO DAILY 10/19/22 12/20/22 mcg (1,000 unit) tablet diphenhydramine HCl 25 mg tablet 25 mg PO DAILY PRN allergy symptoms 10/19/22 12/20/22 loratadine 10 mg tablet 10 mg PO DAILY 10/19/22 12/20/22 meclizine 25 mg tablet 25 mg PO TID dizziness 02/25/23 montelukast 10 mg tablet 10 mg PO DAILY 04/12/23 albuterol sulfate 90 mcg/actuation 2 puff inhalation Q6H PRN 04/27/23 aerosol inhaler dicyclomine 10 mg capsule 10 mg PO TID 04/27/23 Previous Rx's Medication Instructions Recorded methylcellulose (laxative) 500 mg 1,000 mg (2 x 500 mg) PO BID 30 02/25/23 tablet (Fiber Laxative days #120 tabs (methylcellulose)) loperamide 2 mg capsule 2 mg PO Q6H PRN loose stool #20 03/27/23 caps aluminum-mag hydroxide-simethicone 5 ml PO 5XD PRN dyspepsia #355 mL 04/12/23 200 mg-200 mg-20 mg/5 mL oral susp (Maalox Advanced) dexlansoprazole 60 mg 60 mg PO QAM #30 caps 04/12/23 capsule,biphase delayed release (Dexilant) famotidine 40 mg tablet (Pepcid) 40 mg PO BEDTIME #30 tabs 04/12/23 imipramine HCl 10 mg tablet 10 mg PO BEDTIME #30 tabs 04/12/23 sennosides 8.6 mg tablet (senna) 17.2 mg (2 x 8.6 mg) PO BEDTIME 04/12/23 constipation #60 tabs sucralfate 1 gram tablet (Carafate) 2 g (2 x 1 gram) PO .daily @noon 04/12/23 #60 tabs metoclopramide HCl 10 mg tablet 10 mg PO QIDACHS #120 tabs 04/27/23 (Reglan) Allergies Allergy/AdvReac Type Severity Reaction Status Date / Time nortriptyline AdvReac Rash Verified 05/07/23 03:52 Review of Systems Review of Systems: Constitutional : No Weight loss, No Fever, No Chills, No Night Sweats, No Fatigue, No Malaise ENT/Mouth : No Hearing loss, No Ear Pain, No Nasal Congestion, No Sinus Pain, No Hoarseness, No sore throat, No Rhinorrhea, No Swallowing Difficulty Eyes: No Eye Pain, No Swelling, No Redness, No Foreign Body, No Discharge, No Vision Changes Cardiovascular : No Chest Pain, No SOB, No Dyspnea on Exertion, No Orthopnea, No Edema, No Palpitations Respiratory : No Cough, No Sputum, No Wheezing, No Smoke Exposure, No Dyspnea Gastrointestinal : No Nausea, No Vomiting, No Diarrhea, No Constipation, No abdominal Pain, No Hematochezia, No Melena Genitourinary : no irregular bleeding, No Dysuria, No Urinary Frequency, No Hematuria, No Urinary Incontinence, No Urgency, No Flank Pain, No Urinary Flow Changes, No Hesitancy Musculoskeletal : No joint pain, No Myalgias, No Joint Swelling Skin : No Skin Lesions, No rash Neuro : No Weakness, No Numbness, No Paresthesias, No Loss of Consciousness, No Dizziness, No Headache Psych : Patient complaining of anxiety, No Depression, No SI/HI/AH/VH, No Social Issues, Heme/Lymph: No Bruising, No Bleeding,No Lymphadenopathy Endocrine : No Polyuria, No Polydipsia, No Temperature Intolerance PMFSH Past Medical History Medical History Seasonal allergies Glaucoma Arthritis Back pain Asthma HTN (hypertension) Diabetes Surgical History Hx of colonoscopy Hx of endoscopy Hx of hysterectomy Family History Family History Mother Diabetes Heart problem Asthma Father Diabetes Depression Maternal Grandfather Stomach cancer Family/Other Colon cancer Brother COVID-19 Social History Social History Household Members Other:: brother Are you a primary child care specialist to a significant other at home: No Do you presently have visiting nurse or 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 Oriented X3. No acute distress. Eyes: Pupils equal, round and reactive to light. ENT: Pharynx normal. Neck: Normal inspection. Neck supple. No lymph nodes noted. No crepitus CVS: Normal heart rate and rhythm. Pulses normal. Normal S1 and S2 Respiratory: No respiratory distress. Breath sounds normal. No Wheezing. No rales Abdomen: Soft and nontender. No rigidity. No distention. Skin: Skin warm and dry. Normal skin color. Normal skin turgor. Extremities: No lower extremity edema. No Lacerations. No Rash Neuro: Oriented X 3. No motor deficit. No sensory deficit. Moving all extremities. No slurred speech. CN 2 through 12 grossly intact Psych: calm, cooperative, anxious, tearful Medical Decision Making Medical Decision Making MDM Narrative: -my interpretation of labs: Normal hematology and chemistry, normal troponin -heart rate 71, no ST segment depression or elevation, no T-wave inversion, QTC 71 -patient requesting to be seen by care team, patient requesting help to get her started with a therapist for help her with anxiety Differential Diagnosis Differential Diagnoses: The differential diagnosis associated with the presentation includes (Anxiety, depression) Admission/Observation Consideration of admission/observation: Escalation of care including admission/observation considered (Patient is under observation, waiting to be seen by the care team) Lab Data MDM Lab Attestation statement: I reviewed the patient's lab results. 05/07/23 03:58 05/07/23 03:58 Labs: Lab Results 05/07/23 05/07/23 05/07/23 Range/Units 03:58 05:21 05:47 WBC 7.0 (4.8-10.8) X10*3/uL RBC 4.74 (4.20-5.50) X10*6/uL Hgb 13.9 (12.0-16.0) g/dl Hct 41.2 (37.0-47.0) % MCV 86.9 (80.0-98.0) fL MCH 29.3 (27.0-33.0) pg MCHC 33.7 (31.0-35.0) g/dl RDW 13.2 (11.0-16.0) % Plt Count 236 (160-400) X10*3/uL MPV 9.8 (9.4-12.3) fL Immature Gran % (Auto) 0.3 (0.0-0.4) % Neut % (Auto) 68.0 (45-73) % Lymph % (Auto) 22.0 (20-40) % [place] % (Auto) 7.1 (2-11) % Eos % (Auto) 2.2 (0-4) % Baso % (Auto) 0.4 (0-2) % Lymph # (Auto) 1.5 (1.2-4.9) X10*3/uL [place] # (Auto) 0.5 (0.1-1.2) X10*3/uL Eos # (Auto) 0.2 (0.0-0.4) X10*3/uL Baso # (Auto) 0.0 (0.0-0.2) X10*3/uL Abs Immat Gran (auto) 0.02 (0.00-0.03) X10*3/uL Absolute Neuts (auto) 4.7 (2.0-8.3) x10*3/uL Absolute Nucleated RBC 0.000 (0.0-0.012) X10*3/uL Nucleated RBC % (auto) 0.0 (0.0-0.2) /100WBC Sodium 143 (135-145) mmol/L Potassium 3.4 (3.3-5.1) mmol/L Chloride 109 H (96-108) mmol/L Carbon Dioxide 21 L (22-29) mmol/L Anion Gap 16 (12-20) BUN 10 (9-16) mg/dL Creatinine 0.74 (0.5-1.4) mg/dL Estim Creat Clear Calc 51.0 Estimated GFR > 60 Random Glucose 156 H (60-115) mg/dL Calcium 9.3 (8.4-10.2) mg/dL Total Bilirubin 0.7 (0.0-1.0) mg/dL AST 17 (5-31) U/L ALT 15 (0-31) U/L Alkaline Phosphatase 63 (39-117) U/L Troponin I High Sens < 2.7 (<3.5-17.0) ng/L Total Protein 6.9 (6.5-8.0) g/dL Albumin 4.2 (3.5-5.0) g/dL Urine Color Yellow Yellow Urine Appearance Clear Clear Urine pH 8.0 7.5 (5.0-9.0) Ur Specific [place] <= 1.005 1.010 (1.005-1.025) Urine Protein Negative Negative (Neg-Trace) mg/dL Urine Glucose (UA) Negative Negative (Negative) mg/dL Urine Ketones Trace Trace (Negative) mg/dL Urine Blood Negative Trace H (Negative) Urine Nitrite Negative Negative (Negative) Ur Leukocyte Esterase Negative Negative (Negative) Urine RBC 3-5 H (0-2) /HPF Urine WBC 0-5 (0-5) /HPF Ur Squamous Epith Cells 0-2 (0-2) /HPF Urine Bacteria None Seen (None Seen) Hyaline Casts 0-2 (0-2) /LPF COVID-19 (VILMA) Negative (Negative) COVID-19 Clin Com See Note Influenza Type A (YANELY) Negative (Negative) Influenza Type B (YANELY) Negative (Negative) Influenza A & B Note See Note Discharge Plan Discharge Clinical Impression: Anxiety Prescriptions: No Action loperamide 2 mg capsule 2 mg PO Q6H PRN (Reason: loose stool) Qty: 20 0RF cromolyn 4 % drops 1 drp ophthalmic (eye) QID fluticasone propion-salmeterol 500-50 mcg/dose blister with device 1 ea inhalation BID (DME) blood pressure test kit-large Kit See Rx Instructions .ROUTE DIRECTED Qty: 1 Rx Instructions: As directed amlodipine 5 mg tablet 5 mg PO DAILY calcium carbonate-vitamin D3 600 mg(1,500mg) -400 unit tablet 1 tab PO fluticasone propionate 50 mcg/actuation spray,suspension 0 mcg intranasal aspirin 81 mg tablet,delayed release (DR/EC) 81 mg PO BEDTIME atorvastatin 80 mg tablet 80 mg PO DAILY tramadol 50 mg tablet 50 mg PO Q6H PRN (Reason: Pain) tolterodine 4 mg capsule,extended release 24hr 4 mg PO DAILY metformin 500 mg tablet extended release 24 hr 1,000 mg PO QAM valsartan 320 mg tablet 320 mg PO QAM metoprolol succinate 100 mg tablet extended release 24 hr 100 mg PO DAILY albuterol sulfate 90 mcg/actuation HFA aerosol inhaler 2 puff inhalation Q6H PRN loratadine 10 mg tablet 10 mg PO DAILY cholecalciferol (vitamin D3) 25 mcg (1,000 unit) tablet 25 mcg PO DAILY brimonidine 0.2 % drops 0 drp ophthalmic (eye) timolol maleate 0.5 % drops 1 drp ophthalmic (eye) QAM (DME) lancets [TRUEplus Lancets] 33 gauge misc See Rx Instructions .ROUTE BID Qty: 100 Rx Instructions: As directed ketotifen fumarate 0.025 % (0.035 %) drops 0 drp ophthalmic (eye) diphenhydramine HCl 25 mg tablet 25 mg PO DAILY PRN (Reason: allergy symptoms) meclizine 25 mg tablet 25 mg PO TID Fiber Laxative(methylcellulos) 500 mg tablet 1,000 mg PO BID 30 Days Qty: 120 6RF montelukast 10 mg tablet 10 mg PO DAILY imipramine HCl 10 mg tablet 10 mg PO BEDTIME Qty: 30 6RF sennosides [senna] 8.6 mg tablet 17.2 mg PO BEDTIME Qty: 60 6RF sucralfate [Carafate] 1 gram tablet 2 g PO .daily @noon Qty: 60 6RF famotidine [Pepcid] 40 mg tablet 40 mg PO BEDTIME Qty: 30 6RF dexlansoprazole [Dexilant] 60 mg capsule,biphase delayed releas 60 mg PO QAM Qty: 30 6RF alum-mag hydroxide-simeth [Maalox Advanced] 200-200-20 mg/5 mL suspension 5 ml PO 5XD PRN (Reason: dyspepsia) Qty: 355 6RF Rx Instructions: administer between meals and at bedtime dicyclomine 10 mg capsule 10 mg PO TID metoclopramide HCl [Reglan] 10 mg tablet 10 mg PO QIDACHS Qty: 120 6RF
[2023-05-07 06:20] VITALS: BP 161/81; PULSE 73; RESP 18; O2SAT 97
[2023-05-07 08:42] VITALS: BP 153/74; PULSE 72; RESP 16; O2SAT 95
--- NOTE | 2023-05-07 10:24 | PC.NURSE ---
called kitchen for breakfast for patient. CARE team meeting with pt now
[2023-05-07 10:29] VITALS: BP 174/71; PULSE 85; RESP 20; O2SAT 97
--- NOTE | 2023-05-07 11:55 | PC.NURSE ---
pt was on way to car with son to go home. Pt made it to the car but began feeling very anxious and yelling. pt brought back into ED 10
--- NOTE | 2023-05-07 11:57 | MHC.CARE ---
CARE Team responded to consult request to speak with this 82 year-old woman regarding recent onset of anxiety and panic attacks. She was lying in bed, room 11 in the Main ED, appeared younger than her stated age, was alert, fully oriented and easily engaged, she maintained eye contact, spoke in [place] with a clear, soft voice. Patient explained that for the last 1.5 months she has been having episodes of pounding heart, racing thoughts and gets scared. She denied any past or present suicidal, homicidal ideation, plan or intention and does not have a history of concerning depression or anxiety. Call to patient?s daughter/UX INTERACTION DESIGNER (currently out of town), she reported that her mother recently started having these panic attacks in the evenings and this is her 5th ED visit for the same, has also been to [facility] without findings. Patient has a good familial support system, she lives with her brother, her son and daughter help with cooking, cleaning, medication and appointments. Spoke to patient?s son who came to pick her up today, he said that his mother has been acting strange in the evenings, becomes confused, scared and panics, encouraged to speak to her PCP for Neurology or [employer] referral. Advised patient's son that a small prescription of Ativan was sent to the pharmacy for emergency only until patient can see her PCP next week and needs to be held and given by family and she should be monitored as it is sedating. Patient is open to therapy referrals, CARE Team will complete on Tuesday and patient can expect a call directly from the agency. Dr. Zamarripa consulted and in agreement with plan.
[2023-05-07 12:03] VITALS: BP 154/93; PULSE 86; RESP 18; O2SAT 96
--- NOTE | 2023-05-07 14:20 | PC.NURSE ---
pt reports feeling better and would like to go home. MEt with , cleared for DC
--- NOTE | 2023-05-09 20:30 | MHC.CARE ---
Tw sent a referral to [facility] on 05/09/23. Please follow up that referral was received
== END 2023-05-07 14:21 | disposition home or self-care (01) ==
PROVIDERS: Emergency Medicine; Emergency Provider Emergency Medicine Emergency Medical Services
DX: F41.9 Anxiety disorder, unspecified (principal); Z11.52 Encounter for screening for COVID-19; E11.9 Type 2 diabetes mellitus without complications; I10 Essential (primary) hypertension; Z79.82 Long term (current) use of aspirin; Z79.899 Other long term (current) drug therapy; Z79.84 Long term (current) use of oral hypoglycemic drugs
CPT/HCPCS: 36415; 80053; 81001; 81003; 82947; 84484; 85025; 87502; 87635; 93005; 99285

== ENCOUNTER 2023-05-12 08:50 | Outpatient (REF) | payer OTHER, SELFPAY | END 2023-05-12 08:51 | disposition home or self-care (01) | LOC: HO.HHCLNP 08:50 | PROVIDERS: Visit Provider Emergency Medicine | DX: R10.13 Epigastric pain (principal); Z11.0 Encounter for screening for intestinal infectious diseases | CPT/HCPCS: 87338 ==

== ENCOUNTER 2023-05-15 08:04 | Emergency (ER) | payer OTHER, SELFPAY ==
--- NOTE | ~2023-05-15 | XR_ITS ---
EXAMINATION: XR CHEST CLINICAL INFORMATION: Chest pain COMPARISON: X-ray 03/15/2023 TECHNIQUE: Frontal view of the chest was obtained. FINDINGS: The cardiomediastinal silhouette is within normal limits. The lungs are well expanded. There is no focal consolidation, edema, or effusion. No pneumothorax. No acute osseous abnormality. XR/XR chest 1V IMPRESSION: No acute cardiopulmonary findings.
--- NOTE | ~2023-05-15 | CT_ITS ---
CT head/brain wo IV con CLINICAL INFORMATION: Reason for Exam headache and dizziness COMPARISON: Prior CT 2017 TECHNIQUE: Department standard protocol. This CT examination was performed using dose optimization techniques as appropriate, variously including the following: *Automated exposure control *Adjustment of mA and/or kV according to patient size (this includes techniques or standardized protocols for targeted exams where dose is matched to indication/reason for exam; i.e. extremities or head) *Use of iterative reconstruction technique DLP: 607 mGy-cm FINDINGS: CEREBRAL HEMISPHERES: There is no evidence of intra-axial or extra-axial mass, hemorrhage or acute infarct. BRAIN PARENCHYMA: Deep white matter and paraventricular hypoattenuation, nonspecific; most likely changes secondary to chronic ischemia due to microvascular angiopathy. SUBDURAL SPACE: No bleed. BASAL GANGLIA AND PINEAL GLAND: Bilateral basal ganglia calcifications probably age related chronic unchanged. VENTRICLES: Symmetric and normal in size. CEREBELLUM AND BRAINSTEM: No space-occupying mass, hemorrhage or acute infarct. CEREBELLOPONTINE ANGLES: No lesion found. ORBITS: No intraorbital mass. VESSELS: Unremarkable SKULL BASE: Unremarkable INCLUDED SINUSES AT SKULL BASE: Clear SKULL AND SKIN: No fracture or bone lesion found. CT/CT head/brain wo IV con IMPRESSION: * Deep white matter and periventricular hypoattenuation, nonspecific; most likely sequela of chronic microvascular angiopathy ischemia. * No CT evidence of intracranial space-occupying mass, bleed or infarct.
--- NOTE | ~2023-05-15 | CT_ITS ---
EXAMINATION: CT abdomen pelvis wo IV con CLINICAL INFORMATION: Reason for Exam LLQ pain, r/o divertculitis COMPARISON: No prior CT available for comparison. TECHNIQUE: Multidetector volumetric imaging was performed from the superior aspect of the liver through the pubic symphysis , noncontrasted study. Sagittal and coronal reformatted images were obtained on the technologist's workstation. This CT examination was performed using dose optimization techniques as appropriate, variously including the following: *Automated exposure control *Adjustment of mA and/or kV according to patient size (this includes techniques or standardized protocols for targeted exams where dose is matched to indication/reason for exam; i.e. extremities or head) *Use of iterative reconstruction technique DLP: 426 mGy-cm FINDINGS: LOWER THORAX: Included lung bases are clear. HEPATOBILIARY: No focal hepatic lesions. No biliary ductal dilatation. GALLBLADDER: Gallbladder unremarkable. SPLEEN: Spleen measures 11.3 x 5.2 cm. PANCREAS: No focal mass or ductal dilatation. STOMACH AND GASTROINTESTINAL TRACT: Stomach is grossly unremarkable. There is no bowel distention or thickening. No CT evidence of appendicitis. There is diverticulosis without evidence of acute diverticulitis. ADRENALS: No adrenal nodules. KIDNEYS/URETERS: There is a tiny 1 mm nonobstructing stone in the left kidney. No hydronephrosis, stones or solid mass lesions. URINARY BLADDER: Partially decompressed. PELVIC VISCERA: Unremarkable PERITONEUM: No free air or fluid. LYMPH NODES: No lymphadenopathy. VASCULAR:Abdominal aorta normal in size, no aneurysm found. BONES, ABDOMINAL WALL AND SOFT TISSUES: Age-appropriate changes of the spine and skeletal system, no destructive osteolytic or osteosclerotic bone lesion found CT/CT abdomen pelvis wo IV con IMPRESSION: Limited CT without contrast. * No CT evidence of acute diverticulitis. No CT evidence of acute intra-abdominal process to explain patient's pain symptoms. * Diverticulosis without evidence of acute diverticulitis. * Tiny 1 mm nonobstructing stone left kidney.
--- NOTE | 2023-05-15 08:18 | ECG_ITS ---
Test Reason : SOB Blood Pressure : / mmHG Vent. Rate : 064 BPM Atrial Rate : 064 BPM P-R Int : 146 ms QRS Dur : 076 ms QT Int : 422 ms P-R-T Axes : 059 007 020 degrees QTc Int : 435 ms Normal sinus rhythm Normal ECG When compared with ECG of 07-MAY-2023 03:53, No significant change was found Referred By: Kareem Hoskins Electronically Signed By:JANE JOHNSON MD
--- NOTE | 2023-05-15 08:19 | ED.GENADULT ---
HPI - General Adult General Chief complaint: General Medical Stated complaint: SOB WHEEZING Time Seen by Provider: 05/15/23 08:17 Source: patient, EMS and roof bolter Mode of arrival: EMS Limitations: no limitations History of Present Illness HPI narrative: 82-year-old female brought in by ambulance for multiple complaints. Patient overall is a limited historian. Headache started 3-4 days ago described as a pressure associated with dizziness, no nausea, no vomiting, no photophobia or blurry vision. Patient also is complaining of chest pain that started yesterday described as a pressure on the chest goes up and down with no radiation, no associations with nausea, vomiting, fever, coughing, or SOB. Patient also is complaining of left lower quadrant abdominal pain for 3 days, pain is localized to the left lower quadrant area with no radiation, no nausea, no vomiting, no diarrhea. No exposure to a sick contact. 10;00 daughter at the bedside now more history was obtained from the daughter, patient has been complaining of headache, chest pain, abdominal pain had several medical evaluation by MD, walk-in clinic, and recently at [facility] ED there was a question of diverticulitis. But patient also has been diagnosed with anxiety, daughter and her brother are taking care of the patient and would like her to be placed to rehab if there is no medical diagnosis for hospitalization because they're overwhelmed by caring for her mother. Related Data Home Medications Medication Instructions Recorded Confirmed amlodipine 5 mg tablet 5 mg PO DAILY 09/18/20 12/20/22 aspirin 81 mg tablet,delayed 81 mg PO BEDTIME 09/18/20 12/20/22 release atorvastatin 80 mg tablet 80 mg PO DAILY 09/18/20 12/20/22 blood pressure test kit-large #1 ea 09/18/20 calcium carbonate 600 mg-vitamin 1 tab PO 09/18/20 D3 10 mcg (400 unit) tablet cromolyn 4 % eye drops 1 drp ophthalmic (eye) QID 09/18/20 12/20/22 fluticasone 500 mcg-salmeterol 50 1 ea inhalation BID 09/18/20 12/20/22 mcg/dose blistr powdr for inhalation fluticasone propionate 50 0 mcg intranasal 09/18/20 mcg/actuation nasal spray,suspension metformin 500 mg tablet,extended 1,000 mg PO QAM 09/18/20 12/20/22 release 24 hr metoprolol succinate 100 mg 100 mg PO DAILY 09/18/20 12/20/22 tablet,extended release 24 hr tolterodine 4 mg capsule,extended 4 mg PO DAILY 09/18/20 12/20/22 release 24 hr tramadol 50 mg tablet 50 mg PO Q6H PRN Pain 09/18/20 12/20/22 valsartan 320 mg tablet 320 mg PO QAM 09/18/20 12/20/22 brimonidine 0.2 % eye drops 0 drp ophthalmic (eye) 12/15/21 timolol maleate 0.5 % eye drops 1 drp ophthalmic (eye) QAM 12/15/21 12/20/22 ketotifen fumarate 0.025 % (0.035 0 drp ophthalmic (eye) 07/30/22 %) eye drops lancets 33 gauge (TRUEplus Lancets) #100 ea 07/30/22 cholecalciferol (vitamin D3) 25 25 mcg PO DAILY 10/19/22 12/20/22 mcg (1,000 unit) tablet diphenhydramine HCl 25 mg tablet 25 mg PO DAILY PRN allergy symptoms 10/19/22 12/20/22 loratadine 10 mg tablet 10 mg PO DAILY 10/19/22 12/20/22 meclizine 25 mg tablet 25 mg PO TID dizziness 02/25/23 montelukast 10 mg tablet 10 mg PO DAILY 04/12/23 albuterol sulfate 90 mcg/actuation 2 puff inhalation Q6H PRN 04/27/23 aerosol inhaler dicyclomine 10 mg capsule 10 mg PO TID 04/27/23 Previous Rx's Medication Instructions Recorded methylcellulose (laxative) 500 mg 1,000 mg (2 x 500 mg) PO BID 30 02/25/23 tablet (Fiber Laxative days #120 tabs (methylcellulose)) loperamide 2 mg capsule 2 mg PO Q6H PRN loose stool #20 03/27/23 caps aluminum-mag hydroxide-simethicone 5 ml PO 5XD PRN dyspepsia #355 mL 04/12/23 200 mg-200 mg-20 mg/5 mL oral susp (Maalox Advanced) dexlansoprazole 60 mg 60 mg PO QAM #30 caps 04/12/23 capsule,biphase delayed release (Dexilant) famotidine 40 mg tablet (Pepcid) 40 mg PO BEDTIME #30 tabs 04/12/23 imipramine HCl 10 mg tablet 10 mg PO BEDTIME #30 tabs 04/12/23 sennosides 8.6 mg tablet (senna) 17.2 mg (2 x 8.6 mg) PO BEDTIME 04/12/23 constipation #60 tabs sucralfate 1 gram tablet (Carafate) 2 g (2 x 1 gram) PO .daily @noon 04/12/23 #60 tabs metoclopramide HCl 10 mg tablet 10 mg PO QIDACHS #120 tabs 04/27/23 (Reglan) lorazepam 0.5 mg tablet (Ativan) 0.25 mg (1/2 x 0.5 mg) PO BEDTIME 05/07/23 PRN anxiety #5 tabs Allergies Allergy/AdvReac Type Severity Reaction Status Date / Time nortriptyline AdvReac Rash Verified 05/15/23 09:43 Review of Systems Review of Systems: All other systems are reviewed and are negative Constitutional: Reports as per HPI and Reports no additional constitutional complaints Eyes: Reports as per HPI and Reports no additional eye complaints Reports system reviewed and no additional complaints, except as documented Cardiovascular: Reports as per HPI and Reports no additional cardiovascular complaints Respiratory: Reports as per HPI and Reports no additional respiratory complaints Gastrointestinal: Reports as per HPI and Reports no additional gastrointestinal complaints Genitourinary: Reports no additional female genitourinary complaints Musculoskeletal: Reports no additional musculoskeletal complaints Skin/Breast: Reports system reviewed and no additional complaints, except as docu Psychiatric: Reports no additional psychiatric complaints Endocrine: Reports no additional endocrine complaints Hematologic/Lymphatic: Reports no additional hematologic/lymphatic complaints Allergic/Immunologic: Reports no additional allergic/immunologic complaints Reports system reviewed and no additional complaints, except as documented and Reports Abnormal speech present [facility] Past Medical History Medical History Seasonal allergies Glaucoma Arthritis Back pain Asthma HTN (hypertension) Diabetes Surgical History Hx of endoscopy Hx of colonoscopy Hx of hysterectomy Family History Family History Mother Diabetes Heart problem Asthma Father Diabetes Depression Maternal Grandfather Stomach cancer Family/Other Colon cancer Brother COVID-19 Social History Social History Household Members Other:: brother Are you a primary healthcare risk control consultant to a significant other at home: No Do you presently have visiting nurse or other home services: Yes (PULMONOLOGIST) Alcohol intake: never Patient Tobacco Use Status: Never used Tobacco Second Hand Smoke Exposure: No Advance Directives: No Advance Directives Information Provided: Yes Physical Exam ED Vital Signs: Vital Signs - 24 hr 05/15/23 09:04 05/15/23 09:38 05/15/23 11:11 Temperature 98.4 F 98.4 F 98.0 F Pulse Rate 67 67 68 Respiratory Rate 15 16 12 Blood Pressure 137/69 137/69 150/72 H Pulse Oximetry 91 L 98 98 Oxygen Delivery Method Room Air Room Air Room Air BMI result Body Mass Index 26.3 Vital signs have been reviewed and appear to be correct. Blood pressure elevated. Heart rate normal. Respiratory rate normal. Temperature normal. Oxygen saturation normal. Appearance: Alert. Oriented X3. No acute distress. Head: Normal external exam. Normocephalic. Atraumatic. No Spivey signs noted. No raccoon eyes noted Eyes: PERRLA. EOMI. Conjunctiva and sclera normal. Eyelids normal. ENT: TM's Normal. Pharynx normal. Uvula midline. Moist mucous membranes. No trismus noted. No drooling noted. No muffled voice noted. Neck: Normal inspection. Neck supple. FROM. No adenopathy. Thyroid Normal. No meningeal signs. No neck mass noted. CVS: Normal heart rate and rhythm. Heart sound normal. No murmurs noted. Pulses normal throughout. Respiratory: No respiratory distress. Painless inspiration. Breath sounds normal. No wheezes/rales/rhonchi noted. Chest nontender. No accessory muscle usage noted or decreased air movement noted. Abdomen: Soft and nontender. Bowel sounds normal in all 4 quadrants. No distention noted. No organomegaly noted. No visible injury noted. Back: No CVA tenderness. Full range of motion noted. Skin: Skin warm and dry. Normal skin color. Normal skin turgor. No rashes/lesions/lacerations noted. Extremities: No lower extremity edema. Extremities exhibit normal range of motion. Extremities nontender. Neuro: Oriented X 3. Cranial nerve exam: II-XII are grossly intact No motor deficit. No sensory deficit. Reflexes normal. Course Reevaluation(s) Reevaluation #1: 82-year-old female with known history of anxiety been complaining of generalized weakness with headache, chest pain, abdominal pain patient has been evaluated at 3 different medical facilities with unremarkable workup, family feel distress caring for her and is requesting a short-term facility placement. Headache improved with Tylenol head CT is unremarkable, patient has unremarkable neuro exam. Chest pain with unremarkable workup and chest x-ray. Abdominal pain had CT abdomen and pelvis which show no acute intra-abdominal pathology. Patient's symptoms is more than likely due to anxiety will keep the patient for observation emergency department and case management consultation for placement. Time: 12:37 Medical Decision Making Differential Diagnosis Differential Diagnoses: The differential diagnosis associated with the presentation includes (Intracranial bleed, appendicitis, diverticulitis, colitis, small-bowel obstruction, ACS, CHF, pneumothorax, pneumonia, electrolyte abnormality, severe anemia, UTI.) Admission/Observation Consideration of admission/observation: Escalation of care including admission/observation considered Lab Data MDM Lab Attestation statement: I reviewed the patient's lab results. 05/15/23 09:15 05/15/23 09:15 Labs: Lab Results 05/15/23 05/15/23 Range/Units 09:15 11:09 WBC 7.4 (4.8-10.8) X10*3/uL RBC 4.65 (4.20-5.50) X10*6/uL Hgb 13.7 (12.0-16.0) g/dl Hct 41.3 (37.0-47.0) % MCV 88.8 (80.0-98.0) fL MCH 29.5 (27.0-33.0) pg MCHC 33.2 (31.0-35.0) g/dl RDW 13.1 (11.0-16.0) % Plt Count 253 (160-400) X10*3/uL MPV 10.0 (9.4-12.3) fL Immature Gran % (Auto) 0.1 (0.0-0.4) % Neut % (Auto) 75.6 H (45-73) % Lymph % (Auto) 17.0 L (20-40) % [place] % (Auto) 5.8 (2-11) % Eos % (Auto) 1.1 (0-4) % Baso % (Auto) 0.4 (0-2) % Lymph # (Auto) 1.3 (1.2-4.9) X10*3/uL [place] # (Auto) 0.4 (0.1-1.2) X10*3/uL Eos # (Auto) 0.1 (0.0-0.4) X10*3/uL Baso # (Auto) 0.0 (0.0-0.2) X10*3/uL Abs Immat Gran (auto) 0.01 (0.00-0.03) X10*3/uL Absolute Neuts (auto) 5.6 (2.0-8.3) x10*3/uL Absolute Nucleated RBC 0.000 (0.0-0.012) X10*3/uL Nucleated RBC % (auto) 0.0 (0.0-0.2) /100WBC Sodium 141 (135-145) mmol/L Potassium 3.7 (3.3-5.1) mmol/L Chloride 110 H (96-108) mmol/L Carbon Dioxide 21 L (22-29) mmol/L Anion Gap 14 (12-20) BUN 7 L (9-16) mg/dL Creatinine 0.66 (0.5-1.4) mg/dL Estim Creat Clear Calc 56.9 Estimated GFR > 60 Random Glucose 165 H (60-115) mg/dL Lactic Acid 1.0 (0.5-2.0) mmol/L Calcium 9.4 (8.4-10.2) mg/dL Total Bilirubin 0.8 (0.0-1.0) mg/dL Direct Bilirubin 0.3 (0.0-0.5) mg/dL AST 17 (5-31) U/L ALT 15 (0-31) U/L Alkaline Phosphatase 61 (39-117) U/L B-Natriuretic Peptide 15 (<100) pg/mL Total Protein 6.8 (6.5-8.0) g/dL Albumin 4.2 (3.5-5.0) g/dL Lipase 28 (8-78) U/L Urine Color Yellow Urine Appearance Clear Urine pH 8.0 (5.0-9.0) Ur Specific [place] 1.010 (1.005-1.025) Urine Protein Negative (Neg-Trace) mg/dL Urine Glucose (UA) Negative (Negative) mg/dL Urine Ketones Negative (Negative) mg/dL Urine Blood Negative (Negative) Urine Nitrite Negative (Negative) Ur Leukocyte Esterase Negative (Negative) Influenza Type A (PCR) NEGATIVE (Negative) Influenza Type B (PCR) NEGATIVE (Negative) RSV RNA Qual (PCR) NEGATIVE (Negative) SARS-CoV-2 RNA (RT-PCR) NEGATIVE (Negative) Independent Interpretation I performed an independent interpretation of an: CT Scan (Head/abdomen and pelvis: No acute intracranial pathology, no acute intra-abdominal pathology.) Radiology Impression Discussion of test interpretation with radiology: I have reviewed the radiologist's reading. Discharge Plan Discharge Clinical Impression: Abdominal pain, Headache, Chest pain, Anxiety Patient Disposition: Still a Patient Prescriptions: No Action loperamide 2 mg capsule 2 mg PO Q6H PRN (Reason: loose stool) Qty: 20 0RF lorazepam [Ativan] 0.5 mg tablet 0.25 mg PO BEDTIME PRN (Reason: anxiety) Qty: 5 0RF Rx Instructions: patient may ask for partial fill cromolyn 4 % drops 1 drp ophthalmic (eye) QID fluticasone propion-salmeterol 500-50 mcg/dose blister with device 1 ea inhalation BID (DME) blood pressure test kit-large Kit See Rx Instructions .ROUTE DIRECTED Qty: 1 Rx Instructions: As directed amlodipine 5 mg tablet 5 mg PO DAILY calcium carbonate-vitamin D3 600 mg(1,500mg) -400 unit tablet 1 tab PO fluticasone propionate 50 mcg/actuation spray,suspension 0 mcg intranasal aspirin 81 mg tablet,delayed release (DR/EC) 81 mg PO BEDTIME atorvastatin 80 mg tablet 80 mg PO DAILY tramadol 50 mg tablet 50 mg PO Q6H PRN (Reason: Pain) tolterodine 4 mg capsule,extended release 24hr 4 mg PO DAILY metformin 500 mg tablet extended release 24 hr 1,000 mg PO QAM valsartan 320 mg tablet 320 mg PO QAM metoprolol succinate 100 mg tablet extended release 24 hr 100 mg PO DAILY albuterol sulfate 90 mcg/actuation HFA aerosol inhaler 2 puff inhalation Q6H PRN loratadine 10 mg tablet 10 mg PO DAILY cholecalciferol (vitamin D3) 25 mcg (1,000 unit) tablet 25 mcg PO DAILY brimonidine 0.2 % drops 0 drp ophthalmic (eye) timolol maleate 0.5 % drops 1 drp ophthalmic (eye) QAM (DME) lancets [TRUEplus Lancets] 33 gauge misc See Rx Instructions .ROUTE BID Qty: 100 Rx Instructions: As directed ketotifen fumarate 0.025 % (0.035 %) drops 0 drp ophthalmic (eye) diphenhydramine HCl 25 mg tablet 25 mg PO DAILY PRN (Reason: allergy symptoms) meclizine 25 mg tablet 25 mg PO TID Fiber Laxative(methylcellulos) 500 mg tablet 1,000 mg PO BID 30 Days Qty: 120 6RF montelukast 10 mg tablet 10 mg PO DAILY imipramine HCl 10 mg tablet 10 mg PO BEDTIME Qty: 30 6RF sennosides [senna] 8.6 mg tablet 17.2 mg PO BEDTIME Qty: 60 6RF sucralfate [Carafate] 1 gram tablet 2 g PO .daily @noon Qty: 60 6RF famotidine [Pepcid] 40 mg tablet 40 mg PO BEDTIME Qty: 30 6RF dexlansoprazole [Dexilant] 60 mg capsule,biphase delayed releas 60 mg PO QAM Qty: 30 6RF alum-mag hydroxide-simeth [Maalox Advanced] 200-200-20 mg/5 mL suspension 5 ml PO 5XD PRN (Reason: dyspepsia) Qty: 355 6RF Rx Instructions: administer between meals and at bedtime dicyclomine 10 mg capsule 10 mg PO TID metoclopramide HCl [Reglan] 10 mg tablet 10 mg PO QIDACHS Qty: 120 6RF
[2023-05-15 09:04] VITALS: BP 137/69; PULSE 67; RESP 15; TEMP 36.9; O2SAT 91
[2023-05-15 09:23] LABS: MANUAL DIFF FLAG NO
[2023-05-15 09:30] LABS: Basophils Percent Auto 0.4 % (0-2); Eosinophils Absolute Auto 0.1 X10*3/uL (0.0-0.4); Eosinophils Percent Auto 1.1 % (0-4); Hematocrit 41.3 % (37.0-47.0); Hemoglobin 13.7 g/dl (12.0-16.0); Imm Gran Abs Auto 0.01 X10*3/uL (0.00-0.03); Imm Gran Pct Auto 0.1 % (0.0-0.4); Lymphocytes Absolute Auto 1.3 X10*3/uL (1.2-4.9); Mean Corpuscular HGB Conc 33.2 g/dl (31.0-35.0); Mean Corpuscular Hemoglobin 29.5 pg (27.0-33.0); Mean Corpuscular Volume 88.8 fL (80.0-98.0); Monocytes Absolute Auto 0.4 X10*3/uL (0.1-1.2); Monocytes Percent Auto 5.8 % (2-11); Neutrophils Absolute Auto 5.6 x10*3/uL (2.0-8.3); Neutrophils Percent Auto 75.6 % (45-73); Platelet Count 253 X10*3/uL (160-400); Red Blood Count 4.65 X10*6/uL (4.20-5.50); Red Cell Distribution Width 13.1 % (11.0-16.0); White Blood Count 7.4 X10*3/uL (4.8-10.8)
[2023-05-15 09:38] VITALS: BP 137/69; PULSE 67; RESP 16; TEMP 36.9; O2SAT 98; BMI 26.3
[2023-05-15 09:56] LABS: B Type Natriuretic Peptide 15 pg/mL (<100)
[2023-05-15 10:06] LABS: Influenza A PCR NEGATIVE (Negative); Influenza B PCR NEGATIVE (Negative); Resp Syncy Virus RNA Qual PCR NEGATIVE (Negative); SARS COV2 PCR INHOUSE NEGATIVE (Negative)
[2023-05-15 11:11] VITALS: BP 150/72; PULSE 68; RESP 12; TEMP 36.7; O2SAT 98
[2023-05-15 11:13] LABS: Alanine Aminotransferase 15 U/L (0-31); Albumin Level 4.2 g/dL (3.5-5.0); Alkaline Phosphatase 61 U/L (39-117); Anion Gap 14 (12-20); Aspartate Amino Transferase 17 U/L (5-31); Bilirubin Direct 0.3 mg/dL (0.0-0.5); Bilirubin Total 0.8 mg/dL (0.0-1.0); Blood Urea Nitrogen 7 mg/dL (9-16); Calcium 9.4 mg/dL (8.4-10.2); Carbon Dioxide 21 mmol/L (22-29); Chloride 110 mmol/L (96-108); Creatinine Clr Calc Pharmacy 56.9; Estimated Glomerular Filt Rate > 60; Glucose Random 165 mg/dL (60-115); Lipase 28 U/L (8-78); Potassium 3.7 mmol/L (3.3-5.1); Sodium 141 mmol/L (135-145); Total Protein 6.8 g/dL (6.5-8.0)
[2023-05-15 11:20] LABS: Appearance Urine Clear; Color Urine Yellow; Glucose Urine UA Negative (Negative); Leukocyte Esterase Urine Negative (Negative); Nitrite Urine Negative (Negative); Urine Blood Negative (Negative); Urine Ketones Negative (Negative); Urine Protein Negative (Neg-Trace)
[2023-05-15 12:37] LABS: Troponin-I High Sensitivity < 2.7 ng/L (<3.5-17.0)
[2023-05-15] MEDS: LORazepam 1 MG TABLET PO (14:06)
[2023-05-15] MEDS: Acetaminophen 325 MG TABLET 650 MG PO (14:06)
[2023-05-15 14:36] VITALS: BP 146/76; PULSE 68; RESP 11; O2SAT 96
--- NOTE | 2023-05-15 14:40 | MHC.EDTECH ---
-POC 155 rn aware patient given a sandwich and diet stanton niranjan
[2023-05-15 14:46] LABS: Glucose, Whole Blood 155 mg/dL (60-115)
--- NOTE | 2023-05-15 15:11 | MHC.CM.ED ---
Received case management consult from Dr Hoskins. Patient came to the ER due to SOB and wheezing. Work up essentially negative. Patient and family feel patient is too weak to return home and needs STR. Physical therapy eval is pending. Met with patient and daughter, Kanwal, in regards to discharge planning. Uzbek is both patient's and Kanwal's primary language. Both are able to understand and speak Greek. Both are declining an loft patternmaker. Patient lives alone and had no services prior to coming to the ER. PCP verified. Patient received 4 Moderna vaccines. Copy of HCP verified to be on file. Both are aware that physical therapy eval is not available until tomorrow, 05/16. Both agreeable to referral being broadcasted to all facilities within 20 miles of patient's home that are contracted with [facility]. Both are aware patient will remain in ER overnight. Dr Hoskins aware and has been asked to order a diet for patient. Continue to monitor for d/c needs.
--- NOTE | 2023-05-15 17:38 | PC.NURSE ---
pt remains case management patient, dinner tray ordered. daughter left for the night.
[2023-05-15 19:12] VITALS: BP 136/99; PULSE 72; RESP 17; O2SAT 94
--- NOTE | 2023-05-16 00:10 | PC.NURSE ---
pt resting comfortably with eyes closed, L lateral position. breathing even and unlabored, no apparent distress
--- NOTE | 2023-05-16 02:09 | PC.NURSE ---
med rec completed
--- NOTE | 2023-05-16 02:46 | PC.NURSE ---
Pt resting at the bedside. No apparent distress noted. VSS. Ongoing monitoring.
[2023-05-16 04:27] VITALS: BP 148/72; PULSE 72; RESP 16; TEMP 36.6; O2SAT 95
--- NOTE | 2023-05-16 04:46 | PC.NURSE ---
pt c/o abdominal pain 01/08. MD aware. will medicated when orders are placed.
[2023-05-16] MEDS: Acetaminophen 325 MG TABLET 650 MG PO (04:54)
--- NOTE | 2023-05-16 05:49 | PC.NURSE ---
Pt reports increased anxiety and nervousness. Tearful at the bedside. Denies SI/HI at this time. MD notified. Lorazepam ordered.
[2023-05-16] MEDS: LORazepam 0.5 MG TABLET PO ×2 (05:59→17:18)
[2023-05-16 07:29] LABS: Glucose, Whole Blood 155 mg/dL (60-115)
[2023-05-16 07:44] VITALS: BP 152/90; PULSE 78; RESP 16; TEMP 36.6; O2SAT 97
--- NOTE | 2023-05-16 08:33 | PHA.MEDREC ---
Pharmacy Consult ? Medication Reconciliation Pharmacy has completed the medication reconciliation.
[2023-05-16] MEDS: metFORMIN HCl ER 500 MG TAB.ER.24H 1000 MG PO (09:24)
[2023-05-16] MEDS: Omeprazole 40 MG CAPSULE.DR PO (09:26)
[2023-05-16] MEDS: amLODIPine Besylate 5 MG TABLET PO (09:28)
[2023-05-16] MEDS: Calcium + Vitamin D 250 MG TABLET PO ×2 (09:28→21:13)
[2023-05-16] MEDS: Metoprolol Succinate ER 100 MG TAB.ER.24H PO (09:29)
[2023-05-16] MEDS: Metoclopramide HCl 10 MG TABLET PO ×4 (09:33→21:14)
--- NOTE | 2023-05-16 09:59 | MHC.CM.PN ---
Addendum entered by Michelle Gaspar 05/16/23 13:21: PT EVAL INDICATES PT NEEDS STR WITH POSSIBLE TRANSITION TO LTC CM MET WITH PT AND DAUGHTER, SEBASTIAN, AT BEDSIDE THEY BOTH REPORT PT WILL NOT BE GOING TO LTC AND THE PLAN IS TO RETURN HOME AFTER STR FOLLOWING SNFS WERE REVIEWED AND THEY HAVE INDICATED [facility] AND [facility] ARE THE PREFERRED SNFS, IN THAT ORDER UPDATES SENT TO SNFS, AWAITING FINAL BE OFFERS Original Note: PT EVAL SENT TO FOLLOWING SNFS, [facility], AND [facility] [place]. CM ATTEMPTED TO REACH PTS DAUGHTER TO DISCUSS BED OFFERS, NO ANSWER CM WILL DISCUSS WITH PT
[2023-05-16] MEDS: Valsartan 320 MG TABLET PO (11:30)
[2023-05-16] MEDS: Cholecalciferol (Vitamin D3) 25 MCG TABLET PO (11:30)
[2023-05-16] MEDS: hydrOXYzine HCL 25 MG TABLET PO (11:30)
[2023-05-16] MEDS: Brimonidine Tartrate 0.2% Oph 5 ML BOTTLE 1 DROP EYE-BOTH (11:31)
[2023-05-16] MEDS: timoloL maleate 0.5 % Oph Sol 5 ML DRBTL 1 DROP EYE-BOTH (11:31)
[2023-05-16] MEDS: Sucralfate 1 GM TABLET 2 GM PO (13:05)
[2023-05-16] MEDS: Atorvastatin Calcium 80 MG TABLET PO (17:04)
--- NOTE | 2023-05-16 17:35 | MHC.EDTECH ---
Assist patient to reposition onto right side.
--- NOTE | 2023-05-16 20:24 | PC.NURSE ---
Assumed care at 08:30. Patient is alert and oriented x4. Cooperative with care. Some nausea this morning in the middle of medication administration, given her late reglan with effect as scheduled, and medications rescheduled via pharmacy according to the times she takes them at home. Patient reported anxiety x2 today and medicated as per emar with effect. Ate well. Good fluids. Up to commode repeatedly. Communicated with in [place]. Pleasant and cooperative with care. Meds whole with thin liquids one at a time.
[2023-05-16] MEDS: Aspirin Enteric Coated 81 MG TABLET.DR PO (21:13)
[2023-05-16] MEDS: Famotidine 20 MG TABLET 40 MG PO (21:14)
[2023-05-16] MEDS: Montelukast Sodium 10 MG TABLET PO (21:14)
[2023-05-16 22:00] VITALS: BP 138/77; PULSE 64; RESP 16; TEMP 36.2; O2SAT 96
[2023-05-17] MEDS: Omeprazole 40 MG CAPSULE.DR PO (04:29)
[2023-05-17] MEDS: LORazepam 0.5 MG TABLET PO (04:30)
[2023-05-17 05:05] VITALS: BP 128/74; PULSE 70; RESP 17; TEMP 36.4; O2SAT 96
--- NOTE | 2023-05-17 05:59 | PC.NURSE ---
Assumed care of patient at 1900. Patient A&Ox3, able to communicate needs. Patient with multiple trips to the bathroom and utilizing BS, 1 assist with walker. Patient declined some of her night medications, stated there are too many for one time. Restful overnight, prn ativan administered for anxiety at 0430 with good effect.
[2023-05-17 07:29] LABS: Glucose, Whole Blood 141 mg/dL (60-115)
[2023-05-17] MEDS: Cholecalciferol (Vitamin D3) 25 MCG TABLET PO (08:13)
[2023-05-17] MEDS: amLODIPine Besylate 5 MG TABLET PO (08:13)
[2023-05-17] MEDS: NaPROXEN 500 MG TABLET PO (08:13)
[2023-05-17] MEDS: hydroCHLOROthiazide 25 MG TABLET PO (08:13)
[2023-05-17] MEDS: Metoclopramide HCl 10 MG TABLET PO (08:13)
[2023-05-17] MEDS: Calcium + Vitamin D 250 MG TABLET PO (08:13)
[2023-05-17] MEDS: Metoprolol Succinate ER 100 MG TAB.ER.24H PO (08:14)
[2023-05-17] MEDS: metFORMIN HCl ER 500 MG TAB.ER.24H 1000 MG PO (08:14)
[2023-05-17] MEDS: Loratadine 10 MG TABLET PO (08:14)
[2023-05-17] MEDS: Brimonidine Tartrate 0.2% Oph 5 ML BOTTLE 1 DROP EYE-BOTH (08:15)
[2023-05-17] MEDS: timoloL maleate 0.5 % Oph Sol 5 ML DRBTL 1 DROP EYE-BOTH (08:15)
--- NOTE | 2023-05-17 10:13 | MHC.CM.ED ---
Patient remains in ER [facility]. Insurance auth has been obtained by [facility]. Johnathan RILEY booked for 12pm. Med [facility] with chart. Patient, daughter, Tri NGUYEN and Ines GUILLORY. Continue to monitor for d/c needs.
== END 2023-05-17 11:47 ==
PROVIDERS: Emergency Provider Emergency Medicine; PCP Internal Medicine
DX: F41.9 Anxiety disorder, unspecified (principal); R10.32 Left lower quadrant pain; R51.9 Headache, unspecified; R07.9 Chest pain, unspecified; R42 Dizziness and giddiness; Z20.822 Contact with and (suspected) exposure to COVID-19; Z20.828 Contact with and (suspected) exposure to other viral communicable diseases; E11.9 Type 2 diabetes mellitus without complications; I10 Essential (primary) hypertension; Z79.82 Long term (current) use of aspirin; Z79.899 Other long term (current) drug therapy; Z79.84 Long term (current) use of oral hypoglycemic drugs
CPT/HCPCS: 0241U; 36415; 70450; 71045; 74176; 80048; 80076; 81003; 82947; 83605; 83690; 83880; 84484; 85025; 87040; 93005; 97162; 99285

== ENCOUNTER 2023-05-30 13:37 | Emergency (ER) | payer OTHER, SELFPAY ==
--- NOTE | ~2023-05-30 | CT_ITS ---
EXAMINATION: CT HEAD WITHOUT CONTRAST CLINICAL INFORMATION: 82-year-old with acute headache COMPARISON: 05/15/2023 TECHNIQUE: Contiguous axial imaging was performed from the skull base to vertex without intravenous administration of contrast. This CT examination was performed using dose optimization techniques as appropriate, variously including the following: *Automated exposure control *Adjustment of mA and/or kV according to patient size (this includes techniques or standardized protocols for targeted exams where dose is matched to indication/reason for exam; i.e. extremities or head) *Use of iterative reconstruction technique DLP: 558 mGy-cm FINDINGS: There is no evidence of acute intracranial hemorrhage or territorial infarction. Justice to white matter differentiation is well preserved. No abnormal mass effect or midline shift is seen. No extra-axial fluid collections are identified. No hydrocephalus. There is minimal, age related volume loss. There are mild patchy periventricular white matter changes as a sequela of microangiopathy, without interval change. The cerebellar tonsils are well positioned. No acute osseous or soft tissue abnormality. Visualized portions of the orbits are unremarkable. The mastoid air cells and visualized portions of the paranasal sinuses are well aerated. CT/CT head/brain wo IV con IMPRESSION: No acute intracranial pathology without interval change
[2023-05-30 13:51] VITALS: BP 162/84; PULSE 92; O2SAT 98
[2023-05-30 14:01] VITALS: BP 146/82; PULSE 82; RESP 18; TEMP 36.9; O2SAT 97; BMI 26.7
--- NOTE | 2023-05-30 14:18 | ED.HA ---
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 Patient states that she was crying this morning due to her headache, prompting her son to call an ambulance. Her headache is located all over . Additionally endorses anxiety and depression over the last 2 weeks, denies SI or HI. No plan. Denies auditory, visual, and tactile hallucinations. Denies fever, chills, dizziness, Vision changes, scalp tenderness, jaw claudication, neck pain, chest pain, SOB, LE pain/swelling. Patient is a poor historian. Related Data Home Medications Medication Instructions Recorded Confirmed aspirin 81 mg tablet,delayed 81 mg PO BEDTIME 09/18/20 05/30/23 release atorvastatin 80 mg tablet 80 mg PO DAILY 09/18/20 05/30/23 blood pressure test kit-large #1 ea 09/18/20 05/30/23 calcium carbonate 600 mg-vitamin 1 tab PO BID 09/18/20 05/30/23 D3 10 mcg (400 unit) tablet fluticasone 500 mcg-salmeterol 50 1 ea inhalation BID 09/18/20 05/30/23 mcg/dose blistr powdr for inhalation metformin 500 mg tablet,extended 1,000 mg PO QAM 09/18/20 05/30/23 release 24 hr metoprolol succinate 100 mg 100 mg PO DAILY 09/18/20 05/30/23 tablet,extended release 24 hr tolterodine 4 mg capsule,extended 4 mg PO DAILY 09/18/20 05/30/23 release 24 hr valsartan 320 mg tablet 320 mg PO QAM 09/18/20 05/30/23 timolol maleate 0.5 % eye drops 1 drp ophthalmic (eye) QA 12/15/21 05/30/23 lancets 33 gauge (TRUEplus Lancets) #100 ea 07/30/22 05/30/23 cholecalciferol (vitamin D3) 25 25 mcg PO DAILY 10/19/22 05/30/23 mcg (1,000 unit) tablet loratadine 10 mg tablet 10 mg PO DAILY 10/19/22 05/30/23 montelukast 10 mg tablet 10 mg PO DAILY 04/12/23 05/30/23 albuterol sulfate 90 mcg/actuation 2 puff inhalation Q6H PRN Wheezing 04/27/23 05/30/23 aerosol inhaler brimonidine 0.2 % eye drops 1 drp ophthalmic (eye) BID 05/16/23 05/30/23 hydrochlorothiazide 25 mg tablet 25 mg PO QAM 05/16/23 05/30/23 hydroxyzine pamoate 25 mg capsule 25 mg PO BEDTIME PRN anxiety 05/16/23 05/30/23 meloxicam 15 mg tablet 15 mg PO DAILY 05/16/23 05/30/23 metformin 500 mg tablet,extended 500 mg PO DAILY@1700 05/16/23 05/30/23 release 24 hr amlodipine 10 mg tablet 10 mg PO DAILY 05/30/23 05/30/23 dexlansoprazole 60 mg 60 mg PO DAILY@1700 05/30/23 05/30/23 capsule,biphase delayed release (Dexilant) Previous Rx's Medication Instructions Recorded famotidine 40 mg tablet (Pepcid) 40 mg PO BEDTIME #30 tabs 04/12/23 imipramine HCl 10 mg tablet 10 mg PO BEDTIME #30 tabs 04/12/23 sennosides 8.6 mg tablet (senna) 17.2 mg (2 x 8.6 mg) PO BEDTIME 04/12/23 constipation #60 tabs sucralfate 1 gram tablet (Carafate) 2 g (2 x 1 gram) PO .daily @noon 04/12/23 #60 tabs metoclopramide HCl 10 mg tablet 10 mg PO QIDACHS #120 tabs 04/27/23 (Reglan) lorazepam 0.5 mg tablet (Ativan) 0.5 mg PO TID PRN anxiety 3 days 05/17/23 #9 tabs lorazepam 0.5 mg tablet 0.5 mg PO TID PRN anxiety #9 tabs 05/31/23 Allergies Allergy/AdvReac Type Severity Reaction Status Date / Time nortriptyline AdvReac Rash Verified 05/30/23 14:13 Review of Systems Review of Systems: Constitutional: No fever, chills, fatigue, night sweats, weight changes ENT/Mouth: No ear pain, hearing loss, nasal congestion, sinus pain, rhinorrhea, sore throat Eyes: No eye pain, swelling, redness, vision changes, discharge Cardio: No chest pain, palpitations, FREGOSO, orthopnea, peripheral edema Pulm: No SOB, cough, sputum, wheezing, dyspnea, hemoptysis GI: No nausea, vomiting, hematemesis, abdominal pain, diarrhea, constipation, hematochezia, melena : No irregular bleeding, dysuria, frequency, urgency, hesitancy, hematuria, flank pain, urinary flow changes, urinary incontinence or retention MSK: No back pain, neck pain, joint pain, myalgias Skin: No lesions, rashes Neuro: No weakness, numbness, paresthesias, LOC, dizziness, +headache Psych: +anxiety, +depression All other systems reviewed and are negative. [facility] Past Medical History Attestation statement: The following information was validated with the patient. Source: old records reviewed and nursing notes reviewed Medical History Seasonal allergies Glaucoma Arthritis Back pain Asthma HTN (hypertension) Diabetes Surgical History Hx of endoscopy Hx of colonoscopy Hx of hysterectomy Family History Family History Mother Diabetes Heart problem Asthma Father Diabetes Depression Maternal Grandfather Stomach cancer Family/Other Colon cancer Brother COVID-19 Social History Social History Household Members Other:: brother Are you a primary regular senior care provider to a significant other at home: No Do you presently have visiting nurse or other home services: Yes ([employer]) Alcohol intake: never Patient Tobacco Use Status: Never used Tobacco Smoked in Last 30 Days: No Second Hand Smoke Exposure: No Use of substances other than those prescribed or required for medical reasons: No Advance Directives: Yes Advance Directives on File: Yes Advance Directives Date on File: 05/15/23 Physical Exam Vital Signs: Vital Signs: Last Vital Signs Temp 96.8 F 05/31/23 06:00 Pulse 64 05/31/23 08:14 Resp 18 05/31/23 06:00 BP 130/73 05/31/23 08:14 Pulse Ox 93 05/31/23 08:14 O2 Del Method Room Air 05/31/23 06:00 BMI result Body Mass Index 26.7 Vital signs stable Const: General: cooperative, no acute distress, alert and awake Orientation/consciousness: patient oriented x3 Limitations: no limitations HEENT: Other: + No scalp tenderness. No palpable temporal artery. No TMJ. Head: Yes normal to inspection Ears: hearing grossly normal bilaterally General nose exam: Normal external nose present Eyes: General: appearance normal, both eyes and all related structures Conjunctivae: conjunctivae normal Sclerae: sclerae normal Pupils: Equal, round and reactive pupils present Neck: Neck: Yes normal visual inspection and Yes no meningeal signs Resp: Effort & Inspection: normal respiratory effort Auscultation: clear to auscultation bilaterally Cardio: Rate: regular rate Rhythm: regular rhythm Peripheral pulses: radial pulses present and dorsalis pedis present GI: Other: + Abdomen soft, nontender, nondistended, no rebound tenderness or guarding. Normoactive bowel sounds x4. Inspection: Yes normal to inspection : General: Yes no CVA tenderness Back/Spine/Pelvis: Back: no CVA tenderness Skin: General skin exam: no rashes or lesions noted Neuro: Other: Strength 5/5 intact throughout.?Sensation intact to light touch.? Neurovascular intact distally.? General: patient oriented x3, gait normal, moves all extremities and no meningeal signs Cranial nerves: Yes CN's II-XII intact bilaterally and Yes Equal, round and reactive pupils present Extrem: General: Yes normal to inspection, Yes capillary refill normal and Yes no clubbing, cyanosis or edema Course Course Course Narrative: 1600-- Patient's son is now at bedside. He tells me that the patient was recently seen at this hospital pending LTC. She is now back at home where she is unable to care for herself. He tells me that she lives with his uncle who is unable to care for her. He can tell that she has been anxious and depressed since being back home. He states that he and his sister are unable to care for her. He would like a case management consult. > Son is a poor historian as well. > PT/CM ordered. 1646-- Patient signed out to Osmin NERI pending labs/imaging. Reevaluation(s) Reevaluation #1: 05/31/2023 0922: Patient's labs are unremarkable. Patient continued to be followed by CM. 05/31/2023 1117: Patient cleared to go home with resumption of [facility]. Patient's daughter states that the patient needs more of her ativan as her PCP appointment isn't for an additional week. Medications Administered Generic Name Dose Route Start Last Admin Trade Name Freq PRN Reason Stop Dose Admin Amlodipine Besylate 10 mg 05/31/23 09:00 05/31/23 08:38 Amlodipine Besylate 10 Mg Tablet PO 10 mg DAILY DELIO Administration Protocol Atorvastatin Calcium 80 mg 05/31/23 09:00 05/31/23 08:39 Atorvastatin Calcium 80 Mg Tablet PO 80 mg DAILY DELIO Administration Brimonidine Tartrate 1 drop 05/31/23 09:00 05/31/23 10:55 Brimonidine Tartrate 0.2% Oph 5 Ml Bottle EYE-BOTH 1 drop BID DELIO Administration Calcium Carbonate/Cholecalciferol 250 mg 05/31/23 09:00 05/31/23 08:38 Calcium + Vitamin D 250 Mg Tablet PO 250 mg BID DELIO Administration Fluticasone/Vilanterol 1 puff 05/31/23 08:00 05/31/23 10:56 Fluticasone/Vilanterol 200/25 Blst.W.Dev INHALE 1 puff RDAILY DELIO Administration Hydrochlorothiazide 25 mg 05/31/23 09:00 05/31/23 08:39 Hydrochlorothiazide 25 Mg Tablet PO 25 mg DAILY DELIO Administration Protocol Loratadine 10 mg 05/31/23 09:00 05/31/23 08:39 Loratadine 10 Mg Tablet PO 10 mg DAILY DELIO Administration Lorazepam 0.5 mg 05/30/23 22:37 05/31/23 05:05 Lorazepam 0.5 Mg Tablet PO 0.5 mg TID PRN Administration anxiety Metformin HCl 1,000 mg 05/31/23 09:00 05/31/23 08:39 Metformin Hcl Er 500 Mg Tab.Er.24h PO 1,000 mg DAILY DELIO Administration Metoclopramide HCl 10 mg 05/31/23 07:30 05/31/23 08:38 Metoclopramide Hcl 10 Mg Tablet PO 10 mg QIDACHS DELIO Administration Metoprolol Succinate 100 mg 05/31/23 09:00 05/31/23 08:38 Metoprolol Succinate Er 100 Mg Tab.Er.24h PO 100 mg DAILY DELIO Administration Protocol Montelukast Sodium 10 mg 05/31/23 09:00 05/31/23 08:39 Montelukast Sodium 10 Mg Tablet PO 10 mg DAILY DELIO Administration Naproxen 500 mg 05/31/23 09:00 05/31/23 08:39 Naproxen 500 Mg Tablet PO 500 mg BID DELIO Administration Timolol Maleate 1 drop 05/31/23 09:00 05/31/23 10:55 Timolol Maleate 0.5 % Oph Davina 5 Ml Drbtl EYE-BOTH 1 drop DAILY DELIO Administration Tolterodine Tartrate 4 mg 05/31/23 09:00 05/31/23 10:56 Tolterodine Tartrate La 4 Mg Cap.Er.24h PO 4 mg DAILY DELIO Administration Vitamin D 25 mcg 05/31/23 09:00 05/31/23 08:39 Cholecalciferol (Vitamin D3) 25 Mcg Tablet PO 25 mcg DAILY DELIO Administration Discontinued Medications Generic Name Dose Route Start Last Admin Trade Name Freq PRN Reason Stop Dose Admin Acetaminophen 975 mg 05/30/23 15:12 05/30/23 17:29 Acetaminophen 325 Mg Tablet PO 05/30/23 15:13 Not Given ONCE ONE Lorazepam 1 mg 05/30/23 18:29 05/30/23 18:53 Lorazepam 1 Mg Tablet PO 05/30/23 18:30 1 mg ONCE ONE Administration Medical Decision Making Medical Decision Making MDM Narrative: 82-year-old female pmhx significant for GERD, IBS, diabetes, presents to the ED today via EMS for complaint of headache. Vital signs are stable. Patient is nontoxic appearing and in no acute distress. AOx3. No scalp tenderness or palpable temporal artery. PERRLA. Exam is nonfocal. Strength 5/5 throughout. Abdomen is soft, NT/ND, no rebound tenderness or guarding. Normoactive bowel sounds x4. Clinical concern for failure to thrive, anxiety, depression, ROSADO, migraine. Unlikely ICH, CVA/TIA. Unlikely temporal arteritis. Plan at this time is basic labs, imaging, and PT/CM consult. Differential Diagnosis Differential Diagnoses: The differential diagnosis associated with the presentation includes As above. Admission/Observation Patient is PT/case management. Lab Data MDM Lab Attestation statement: I reviewed the patient's lab results. As above. 05/30/23 16:45 05/30/23 16:45 Labs: Lab Results 05/30/23 05/30/23 05/31/23 Range/Units 16:45 16:54 09:19 WBC 7.2 (4.8-10.8) X10*3/uL RBC 4.73 (4.20-5.50) X10*6/uL Hgb 13.7 (12.0-16.0) g/dl Hct 40.5 (37.0-47.0) % MCV 85.6 (80.0-98.0) fL MCH 29.0 (27.0-33.0) pg MCHC 33.8 (31.0-35.0) g/dl RDW 12.4 (11.0-16.0) % Plt Count 217 (160-400) X10*3/uL MPV 9.7 (9.4-12.3) fL Immature Gran % (Auto) 0.4 (0.0-0.4) % Neut % (Auto) 65.5 (45-73) % Lymph % (Auto) 24.9 (20-40) % Burleigh % (Auto) 7.0 (2-11) % Eos % (Auto) 1.8 (0-4) % Baso % (Auto) 0.4 (0-2) % Lymph # (Auto) 1.8 (1.2-4.9) X10*3/uL Burleigh # (Auto) 0.5 (0.1-1.2) X10*3/uL Eos # (Auto) 0.1 (0.0-0.4) X10*3/uL Baso # (Auto) 0.0 (0.0-0.2) X10*3/uL Abs Immat Gran (auto) 0.03 (0.00-0.03) X10*3/uL Absolute Neuts (auto) 4.7 (2.0-8.3) x10*3/uL Absolute Nucleated RBC 0.000 (0.0-0.012) X10*3/uL Nucleated RBC % (auto) 0.0 (0.0-0.2) /100WBC PT 11.7 (11.1-13.3) SEC INR 1.0 (0.9-1.1) Sodium 144 (135-145) mmol/L Potassium 3.5 (3.3-5.1) mmol/L Chloride 105 (96-108) mmol/L Carbon Dioxide 27 (22-29) mmol/L Anion Gap 16 (12-20) BUN 9 (9-16) mg/dL Creatinine 0.73 (0.5-1.4) mg/dL Estim Creat Clear Calc 51.8 Estimated GFR > 60 POC Glucose 152 H (60-115) mg/dL Random Glucose 127 H (60-115) mg/dL Calcium 9.5 (8.4-10.2) mg/dL Magnesium 2.0 (1.6-2.6) mg/dL Total Bilirubin 0.4 (0.0-1.0) mg/dL AST 20 (5-31) U/L ALT 17 (0-31) U/L Alkaline Phosphatase 63 (39-117) U/L Ammonia 23 (13-55) umol/L Troponin I High Sens < 2.7 (<3.5-17.0) ng/L B-Natriuretic Peptide 39 (<100) pg/mL Total Protein 6.8 (6.5-8.0) g/dL Albumin 4.3 (3.5-5.0) g/dL Lipase 33 (8-78) U/L TSH 0.94 (0.32-4.0) uIU/mL Urine Color Yellow Urine Appearance Clear Urine pH 7.0 (5.0-9.0) Ur Specific Gabbs <= 1.005 (1.005-1.025) Urine Protein Negative (Neg-Trace) mg/dL Urine Glucose (UA) Negative (Negative) mg/dL Urine Ketones Negative (Negative) mg/dL Urine Blood Negative (Negative) Urine Nitrite Negative (Negative) Ur Leukocyte Esterase Trace H (Negative) Urine RBC 0-2 (0-2) /HPF Urine WBC 0-5 (0-5) /HPF Ur Squamous Epith Cells 0-2 (0-2) /HPF Urine Bacteria None Seen (None Seen) Hyaline Casts 0-2 (0-2) /LPF COVID-19 (VILMA) Negative (Negative) COVID-19 Clin Com See Note Independent Interpretation I performed an independent interpretation of an: CT Scan Interpretation: CT head/brain without bleed, agree with radiologist's interpretation. Radiology Impression Discussion of test interpretation with radiology: I have reviewed the radiologist's reading. Radiologist Impression: CT head/brain wo IV con IMPRESSION: No acute intracranial pathology without interval change Independent Historian Clinical information obtained from an independent historian. History obtained from or confirmed by: EMS and Other (son) External Record Review External record reviewed: Inpatient record Prescription Management I considered prescription management with: Pain Medication Chronic Conditions Patient?s care impacted by: Diabetes Social Determinants Patient?s care significantly limited by Social Determinants of Health including: Other Social Determinant of Health Critical Care Time Critical Care Time Critical Care Time: No Discharge Plan Discharge Clinical Impression: Weakness Patient Disposition: Home, Self-Care Instructions: Weakness (ED) Additional Instructions: Follow up with your primary care provider. Return to the emergency department immediately if your symptoms worsen or if you develop any dizziness, shortness of breath, difficulty breathing, chest pain, blurry vision, loss of vision, nausea, vomiting, abdominal pain, fever, chills, back pain, or any other complaints. Prescriptions: New lorazepam 0.5 mg tablet 0.5 mg PO TID PRN (Reason: anxiety) Qty: 9 0RF No Action brimonidine 0.2 % drops 1 drp ophthalmic (eye) BID hydroxyzine pamoate 25 mg capsule 25 mg PO BEDTIME PRN (Reason: anxiety) meloxicam 15 mg tablet 15 mg PO DAILY hydrochlorothiazide 25 mg tablet 25 mg PO QAM metformin 500 mg tablet extended release 24 hr 500 mg PO DAILY@1700 lorazepam [Ativan] 0.5 mg tablet 0.5 mg PO TID PRN (Reason: anxiety) 3 Days Qty: 9 0RF dexlansoprazole [Dexilant] 60 mg capsule,biphase delayed releas 60 mg PO DAILY@1700 amlodipine 10 mg tablet 10 mg PO DAILY fluticasone propion-salmeterol 500-50 mcg/dose blister with device 1 ea inhalation BID (DME) blood pressure test kit-large Kit See Rx Instructions .ROUTE DIRECTED Qty: 1 Rx Instructions: As directed calcium carbonate-vitamin D3 600 mg(1,500mg) -400 unit tablet 1 tab PO BID aspirin 81 mg tablet,delayed release (DR/EC) 81 mg PO BEDTIME atorvastatin 80 mg tablet 80 mg PO DAILY tolterodine 4 mg capsule,extended release 24hr 4 mg PO DAILY metformin 500 mg tablet extended release 24 hr 1,000 mg PO QAM valsartan 320 mg tablet 320 mg PO QAM metoprolol succinate 100 mg tablet extended release 24 hr 100 mg PO DAILY albuterol sulfate 90 mcg/actuation HFA aerosol inhaler 2 puff inhalation Q6H PRN (Reason: Wheezing) loratadine 10 mg tablet 10 mg PO DAILY cholecalciferol (vitamin D3) 25 mcg (1,000 unit) tablet 25 mcg PO DAILY timolol maleate 0.5 % drops 1 drp ophthalmic (eye) QAM (DME) lancets [TRUEplus Lancets] 33 gauge misc See Rx Instructions .ROUTE BID Qty: 100 Rx Instructions: As directed montelukast 10 mg tablet 10 mg PO DAILY imipramine HCl 10 mg tablet 10 mg PO BEDTIME Qty: 30 6RF sennosides [senna] 8.6 mg tablet 17.2 mg PO BEDTIME Qty: 60 6RF sucralfate [Carafate] 1 gram tablet 2 g PO .daily @noon Qty: 60 6RF famotidine [Pepcid] 40 mg tablet 40 mg PO BEDTIME Qty: 30 6RF metoclopramide HCl [Reglan] 10 mg tablet 10 mg PO QIDACHS Qty: 120 6RF Referrals: [facility] [Other] (Agency will resume services. ) Helder Morales MD [Primary Care Provider] - Print Language: Rwandan
[2023-05-30 16:51] LABS: MANUAL DIFF FLAG NO
[2023-05-30 16:55] LABS: Basophils Percent Auto 0.4 % (0-2); Eosinophils Absolute Auto 0.1 X10*3/uL (0.0-0.4); Eosinophils Percent Auto 1.8 % (0-4); Hematocrit 40.5 % (37.0-47.0); Hemoglobin 13.7 g/dl (12.0-16.0); Imm Gran Abs Auto 0.03 X10*3/uL (0.00-0.03); Imm Gran Pct Auto 0.4 % (0.0-0.4); Lymphocytes Absolute Auto 1.8 X10*3/uL (1.2-4.9); Lymphocytes Percent Auto 24.9 % (20-40); Mean Corpuscular HGB Conc 33.8 g/dl (31.0-35.0); Mean Corpuscular Volume 85.6 fL (80.0-98.0); Mean Platelet Volume 9.7 fL (9.4-12.3); Monocytes Absolute Auto 0.5 X10*3/uL (0.1-1.2); Neutrophils Absolute Auto 4.7 x10*3/uL (2.0-8.3); Neutrophils Percent Auto 65.5 % (45-73); Platelet Count 217 X10*3/uL (160-400); Red Blood Count 4.73 X10*6/uL (4.20-5.50); Red Cell Distribution Width 12.4 % (11.0-16.0); White Blood Count 7.2 X10*3/uL (4.8-10.8)
[2023-05-30 16:56] LABS: Appearance Urine Clear; Color Urine Yellow; Glucose Urine UA Negative (Negative); Leukocyte Esterase Urine Trace (Negative); Nitrite Urine Negative (Negative); Specific Gravity - Urine <= 1.005 (1.005-1.025); UMIC TRIGGER UACC YES; Urine Blood Negative (Negative); Urine Ketones Negative (Negative); Urine Protein Negative (Neg-Trace)
[2023-05-30 16:58] VITALS: BP 146/75; PULSE 66; RESP 16; O2SAT 94
[2023-05-30 17:00] LABS: Bacteria Urine None Seen (None Seen); Hyaline Casts Urine 0-2 /LPF (0-2); RBC Urine 0-2 /HPF (0-2); Squamous Epithelial Cell Urine 0-2 /HPF (0-2); WBC Urine 0-5 /HPF (0-5)
[2023-05-30 17:01] LABS: Prothrombin Time 11.7 SEC (11.1-13.3)
[2023-05-30 17:07] LABS: Ammonia 23 umol/L (13-55)
[2023-05-30 17:11] LABS: Alanine Aminotransferase 17 U/L (0-31); Albumin Level 4.3 g/dL (3.5-5.0); Alkaline Phosphatase 63 U/L (39-117); Anion Gap 16 (12-20); Aspartate Amino Transferase 20 U/L (5-31); Bilirubin Total 0.4 mg/dL (0.0-1.0); Blood Urea Nitrogen 9 mg/dL (9-16); Calcium 9.5 mg/dL (8.4-10.2); Carbon Dioxide 27 mmol/L (22-29); Chloride 105 mmol/L (96-108); Creatinine Clr Calc Pharmacy 51.8; Estimated Glomerular Filt Rate > 60; Glucose Random 127 mg/dL (60-115); Lipase 33 U/L (8-78); Potassium 3.5 mmol/L (3.3-5.1); Sodium 144 mmol/L (135-145); Total Protein 6.8 g/dL (6.5-8.0)
[2023-05-30 17:16] LABS: B Type Natriuretic Peptide 39 pg/mL (<100)
[2023-05-30 17:21] LABS: Troponin-I High Sensitivity < 2.7 ng/L (<3.5-17.0)
[2023-05-30 17:23] LABS: COVID-19 Test Negative (Negative); IDNOW Serial# BCCEAD1C
[2023-05-30 17:36] LABS: TSH reflex Free T4 0.94 uIU/mL (0.32-4.0)
--- NOTE | 2023-05-30 18:40 | PHA.MEDREC ---
Pharmacy Consult ? Medication Reconciliation Pharmacy has completed the medication reconciliation. Patient is a poor historian. Used medboxes from [facility]. Patient recently discharge 05/17. Utilized discharge packet and claim history to complete med rec. Marilia WillettD
[2023-05-30] MEDS: LORazepam 1 MG TABLET PO (18:53)
[2023-05-30 19:30] VITALS: BP 140/75; PULSE 68; RESP 16; TEMP 36.8; O2SAT 97
--- NOTE | 2023-05-30 19:53 | PC.NURSE ---
pt educated on plan as her and her son had questions about how long they would be here. pt in agreement with plan to see pt/cm tomorrow morning. med rec done by [email or web address] per Osmin GUILLORY request. pt states she feels better with PO ativan given by previous RN. pt/son denies questions/concerns at this time. call manley within reach.
--- NOTE | 2023-05-30 20:07 | PC.NURSE ---
report given to overflow WENDY Bowman.
--- NOTE | 2023-05-30 20:59 | PC.NURSE ---
pt transferred from Main ed to Overflow, denies any complaints, pt was able with 1 max assist to the bed
[2023-05-31] MEDS: LORazepam 0.5 MG TABLET PO (05:05)
--- NOTE | 2023-05-31 05:06 | PC.NURSE ---
pt reported abd pain and anxiety, medicated per MAR
--- NOTE | 2023-05-31 05:56 | PC.NURSE ---
pt was ambulating to BR with 1 max assist, pt c/o dizziness. pt settled in bed pt reported dizziness has resolved
[2023-05-31 06:00] VITALS: BP 130/73; PULSE 64; RESP 18; TEMP 36; O2SAT 93
[2023-05-31 08:14] VITALS: BP 130/73; PULSE 64; O2SAT 93
[2023-05-31] MEDS: amLODIPine Besylate 10 MG TABLET PO (08:38)
[2023-05-31] MEDS: Calcium + Vitamin D 250 MG TABLET PO (08:38)
[2023-05-31] MEDS: Metoprolol Succinate ER 100 MG TAB.ER.24H PO (08:38)
[2023-05-31] MEDS: Metoclopramide HCl 10 MG TABLET PO (08:38)
[2023-05-31] MEDS: hydroCHLOROthiazide 25 MG TABLET PO (08:39)
[2023-05-31] MEDS: NaPROXEN 500 MG TABLET PO (08:39)
[2023-05-31] MEDS: Montelukast Sodium 10 MG TABLET PO (08:39)
[2023-05-31] MEDS: Atorvastatin Calcium 80 MG TABLET PO (08:39)
[2023-05-31] MEDS: metFORMIN HCl ER 500 MG TAB.ER.24H 1000 MG PO (08:39)
[2023-05-31] MEDS: Cholecalciferol (Vitamin D3) 25 MCG TABLET PO (08:39)
[2023-05-31] MEDS: Loratadine 10 MG TABLET PO (08:39)
[2023-05-31 09:36] LABS: Glucose, Whole Blood 152 mg/dL (60-115)
[2023-05-31] MEDS: Brimonidine Tartrate 0.2% Oph 5 ML BOTTLE 1 DROP EYE-BOTH (10:55)
[2023-05-31] MEDS: timoloL maleate 0.5 % Oph Sol 5 ML DRBTL 1 DROP EYE-BOTH (10:55)
[2023-05-31] MEDS: Tolterodine Tartrate LA 4 MG CAP.ER.24H PO (10:56)
[2023-05-31] MEDS: Fluticasone/Vilanterol 200/25 BLST.W.DEV 1 PUFF INHALE (10:56)
--- NOTE | 2023-05-31 11:22 | MHC.CM.ED ---
Received case management consult overnight. Patient came to the ER due to headache. Work up essentially negative. Physical therapy eval completed. Home services are recommended. Met with patient and daughter, Kanwal in regards to discharge planning. Patient lives with her son. Patient was d/c'd from [facility] on 05/26 with [facility]. PCP verified. Copy of HCP verified to be on file. Patient received 4 Moderna vaccines. Patient and Kanwal agreeable to returning home with services. Kanwal requesting prescription for patient's Ativan. Patient's PCP [place];ointment is 06/07. [facility] did not provide enough pills for patient to make it to this appointment. Leeanna GUILLORY aware. Continue to monitor for d/c needs.
== END 2023-05-31 13:34 | disposition home or self-care (01) ==
PROVIDERS: Physician Assistant Medical; Emergency Provider Emergency Medicine; PCP Internal Medicine
DX: R51.9 Headache, unspecified (principal); R53.1 Weakness; R26.2 Difficulty in walking, not elsewhere classified; Z11.52 Encounter for screening for COVID-19; Z20.822 Contact with and (suspected) exposure to COVID-19; Z79.899 Other long term (current) drug therapy
CPT/HCPCS: 36415; 70450; 80053; 81001; 82140; 82947; 83690; 83735; 83880; 84443; 84484; 85025; 85610; 87635; 97161; 99284

== ENCOUNTER 2023-06-01 08:55 | Inpatient (IN) | payer OTHER, SELFPAY ==
[2023-06-01] VITALS (7 sets, daily range): BP systolic 100–170; BP diastolic 56–90; PULSE 66–92; RESP 14–20; TEMP 35.9–36.8; O2SAT 94–98; BMI 25.3
--- NOTE | 2023-06-01 10:32 | ED.GENADULT ---
HPI - General Adult General Chief complaint: Anxiety Stated complaint: ANXIETY,WEAK,NOT EATING X3 DAYS PER EMS Time Seen by Provider: 06/01/23 10:31 Source: patient, EMS, RN notes reviewed and old records reviewed Mode of arrival: EMS History of Present Illness HPI narrative: 82-year-old female with PMHx significant for GERD, IBS, diabetes, discharge from our facility yesterday home with services with Rx for Ativan presenting back to the ED today via EMS c/o increased anxiety/panic attacks, depression, generalized fatigue/weakness and poor p.o. intake. Patient reports does not want to be burden for her family, would like to go to rehab. Daughter states patient cannot care for herself at home, lives with brother who also is unable to care for himself/patient. Reports chronic headaches and nausea. Denies CP/SOB, abdominal pain, diarrhea, vomiting, SI/HI. Patient has outpatient referral for [facility] however has not yet seen therapist or psychiatrist. Of note patient was [facility] . Related Data Home Medications Medication Instructions Recorded Confirmed amlodipine 10 mg tablet 10 mg PO QAM 06/01/23 06/01/23 aspirin 81 mg tablet,delayed 81 mg PO BEDTIME 06/01/23 06/01/23 release atorvastatin 80 mg tablet 80 mg PO QPM 06/01/23 06/01/23 brimonidine 0.2 % eye drops 1 drp ophthalmic (eye) BID 06/01/23 06/01/23 calcium carbonate 600 mg-vitamin 1 tab PO BID 06/01/23 06/01/23 D3 10 mcg (400 unit) tablet cholecalciferol (vitamin D3) 25 25 mcg PO QAM 06/01/23 06/01/23 mcg (1,000 unit) tablet dexlansoprazole 60 mg 60 mg PO QPM 06/01/23 06/01/23 capsule,biphase delayed release famotidine 40 mg tablet 40 mg PO BEDTIME 06/01/23 06/01/23 fluticasone 500 mcg-salmeterol 50 1 ea inhalation BID 06/01/23 06/01/23 mcg/dose blistr powdr for inhalation hydrochlorothiazide 25 mg tablet 25 mg PO QAM 06/01/23 06/01/23 hydroxyzine pamoate 25 mg capsule 25 mg PO BEDTIME PRN anxiety 06/01/23 06/01/23 imipramine HCl 10 mg tablet 10 mg PO BEDTIME 06/01/23 06/01/23 loratadine 10 mg tablet 10 mg PO QAM 06/01/23 06/01/23 meloxicam 15 mg tablet 15 mg PO QAM 06/01/23 06/01/23 metformin 500 mg tablet,extended 500 - 1,000 mg PO BIDWMEAL 06/01/23 06/01/23 release 24 hr metoclopramide HCl 10 mg tablet 10 mg PO QID 06/01/23 06/01/23 metoprolol succinate 100 mg 100 mg PO QAM 06/01/23 06/01/23 tablet,extended release 24 hr montelukast 10 mg tablet 10 mg PO QPM 06/01/23 06/01/23 sennosides 8.6 mg tablet (senna) 17.2 mg PO BEDTIME constipation 06/01/23 06/01/23 sucralfate 1 gram tablet 2 g PO DAILY 06/01/23 06/01/23 tolterodine 4 mg capsule,extended 4 mg PO BEDTIME 06/01/23 06/01/23 release 24 hr valsartan 320 mg tablet 320 mg PO QAM 06/01/23 06/01/23 Allergies Allergy/AdvReac Type Severity Reaction Status Date / Time nortriptyline AdvReac Rash Verified 05/30/23 14:13 Review of Systems Review of Systems: Constitutional: No Fever, No Chills, No Fatigue, No Malaise, +anorexia ENT/Mouth: No Ear Pain, No Nasal Congestion, No sore throat, No Rhinorrhea, No Swallowing Difficulty Eyes: No Eye Pain, No Swelling, No Redness, No Vision Changes Cardiovascular: No Chest Pain, No SOB, No Edema, No Palpitations Respiratory: No Cough, No Sputum, No Dyspnea Gastrointestinal: + Nausea, No Vomiting, No Diarrhea, No Constipation, No Abdominal pain Genitourinary: No Dysuria, No Urinary Frequency, No Hematuria, No Urinary Incontinence/retention, No Flank Pain Musculoskeletal: No joint pain, No Myalgias, No Joint Swelling Skin: No Skin Lesions, No rash Neuro: No Weakness, No Numbness, No Paresthesias, No Loss of Consciousness, No Dizziness, + Headache Psych: + Anxiety/Panic, + Depression, No SI/HI/AH/VH, + Social Issues Yes all other systems are reviewed and are negative Constitutional: Constitutional: Reports as per [facility] Past Medical History Attestation statement: The following information was validated with the patient. 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) Alcohol intake: never Patient Tobacco Use Status: Never used Tobacco Smoked in Last 30 Days: No Second Hand Smoke Exposure: No Use of substances other than those prescribed or required for medical reasons: No Advance Directives: Yes Advance Directives on File: Yes Advance Directives Date on File: 05/15/23 Healthcare Proxy: Yes Guardian: No Physical Exam ED Vital Signs: Vital Signs - 24 hr 06/01/23 09:11 06/01/23 11:05 06/01/23 13:14 Temperature 98.2 F Pulse Rate 71 66 69 Respiratory Rate 14 15 16 Blood Pressure 139/78 124/56 L 152/83 H Pulse Oximetry 98 97 95 Oxygen Delivery Method Room Air Room Air Room Air Oxygen Flow Rate 06/01/23 14:00 Temperature 98 F Pulse Rate 92 Respiratory Rate 17 Blood Pressure 170/90 H Pulse Oximetry Oxygen Delivery Method Room Air Oxygen Flow Rate 95 BMI result Body Mass Index 25.3 Const General: no acute distress Orientation/consciousness: patient oriented x3 Limitations: no limitations HENMT Head: Yes normal to inspection and Yes atraumatic Ears: hearing grossly normal bilaterally General nose exam: Normal external nose present Face and sinus: Yes normal facial exam Eyes General: appearance normal, both eyes and all related structures Pupils: Equal, round and reactive pupils present EOM: EOMs intact bilaterally Neck Neck: Yes normal visual inspection and Yes no meningeal signs Resp Effort & Inspection: normal respiratory effort and no respiratory distress Auscultation: clear to auscultation bilaterally Cardio Rate: regular rate Heart sounds: S1 normal heart sound present and S2 normal heart sound present GI Inspection: Yes normal to inspection Palpation (GI): Soft to palpation, nontender, no guarding and not rigid General: Yes no CVA tenderness Back/Spine/Pelvis Back: no CVA tenderness Skin Rashes: no rashes Wounds: no wounds Neuro General: patient oriented x3, tone normal, moves all extremities, no meningeal signs and no focal motor deficits Cranial nerves: Yes CN's II-XII intact bilaterally and Yes Equal, round and reactive pupils present Extrem General: Yes normal to inspection Psych Affect: Sad affect present and Anxious affect present Thought content: suicidality, no homicidality and no hallucinations Course Course Course Narrative: -labs and UA unremarkable -patient had panic/anxiety attack in the emergency department > medicated with p.o. Ativan. -patient was evaluated by CARE team and now will be inpatient bed search heard physician observation initiated as patient waits for inpatient placement -1630-- ED care transferred to KAHLIL Solorio pending Inpatient bed search Medications Administered Discontinued Medications Generic Name Dose Route Start Last Admin Trade Name Chris PRN Reason Stop Dose Admin Lorazepam 0.5 mg 06/01/23 12:01 06/01/23 12:26 Lorazepam 0.5 Mg Tablet PO 06/01/23 12:02 0.5 mg ONCE ONE Administration Medical Decision Making Medical Decision Making [facility] Narrative: 82-year-old female with PMHx significant for GERD, IBS, diabetes, discharge from our facility yesterday home with services with Rx for Ativan presenting back to the ED today via EMS c/o increased anxiety/panic attacks, depression, generalized fatigue/weakness and poor p.o. intake. On exam vital signs stable, NAD, anxious, tearful on exam nonfocal. Concern for anxiety/panic reaction w/depression vs anorexia. Rule out metabolic abnormalities. Patient denies SI/HI. Low suspicion for CVA/TIA, ACS Plan: Labs, UA, CARE team consult, CM consult Please refer to course for remaining clinical decision making, interpretation of labs/imaging results, and discussions with consultants and/or family members. Differential Diagnosis Differential Diagnoses: The differential diagnosis associated with the presentation includes As above Admission/Observation Consideration of admission/observation: Escalation of care including admission/observation considered Consult Healthcare Provider Management of the patient was discussed with: Behavioral Health Provider Lab Data [facility] Lab Attestation statement: I reviewed the patient's lab results. 06/01/23 11:10 06/01/23 11:10 Labs: Lab Results 06/01/23 06/01/23 Range/Units 10:51 11:10 WBC 8.0 (4.8-10.8) X10*3/uL RBC 4.69 (4.20-5.50) X10*6/uL Hgb 13.8 (12.0-16.0) g/dl Hct 39.9 (37.0-47.0) % MCV 85.1 (80.0-98.0) fL MCH 29.4 (27.0-33.0) pg MCHC 34.6 (31.0-35.0) g/dl RDW 12.7 (11.0-16.0) % Plt Count 220 (160-400) X10*3/uL MPV 9.4 (9.4-12.3) fL Immature Gran % (Auto) 0.2 (0.0-0.4) % Neut % (Auto) 72.5 (45-73) % Lymph % (Auto) 20.2 (20-40) % [place] % (Auto) 5.6 (2-11) % Eos % (Auto) 1.0 (0-4) % Baso % (Auto) 0.5 (0-2) % Lymph # (Auto) 1.6 (1.2-4.9) X10*3/uL [place] # (Auto) 0.5 (0.1-1.2) X10*3/uL Eos # (Auto) 0.1 (0.0-0.4) X10*3/uL Baso # (Auto) 0.0 (0.0-0.2) X10*3/uL Abs Immat Gran (auto) 0.02 (0.00-0.03) X10*3/uL Absolute Neuts (auto) 5.8 (2.0-8.3) x10*3/uL Absolute Nucleated RBC 0.000 (0.0-0.012) X10*3/uL Nucleated RBC % (auto) 0.0 (0.0-0.2) /100WBC Sodium 140 (135-145) mmol/L Potassium 3.8 (3.3-5.1) mmol/L Chloride 106 (96-108) mmol/L Carbon Dioxide 25 (22-29) mmol/L Anion Gap 13 (12-20) BUN 7 L (9-16) mg/dL Creatinine 0.70 (0.5-1.4) mg/dL Estim Creat Clear Calc 52.7 Estimated GFR > 60 POC Glucose 129 H (60-115) mg/dL Random Glucose 141 H (60-115) mg/dL Calcium 9.6 (8.4-10.2) mg/dL Magnesium 1.9 (1.6-2.6) mg/dL Total Bilirubin 0.5 (0.0-1.0) mg/dL Direct Bilirubin 0.2 (0.0-0.5) mg/dL AST 18 (5-31) U/L ALT 17 (0-31) U/L Alkaline Phosphatase 58 (39-117) U/L Total Protein 6.6 (6.5-8.0) g/dL Albumin 4.1 (3.5-5.0) g/dL Urine Color Yellow Urine Appearance Clear Urine pH 7.5 (5.0-9.0) Ur Specific [place] <= 1.005 (1.005-1.025) Urine Protein Negative (Neg-Trace) mg/dL Urine Glucose (UA) Negative (Negative) mg/dL Urine Ketones Negative (Negative) mg/dL Urine Blood Negative (Negative) Urine Nitrite Negative (Negative) Ur Leukocyte Esterase Negative (Negative) Radiology Impression Discussion of test interpretation with radiology: I have reviewed the radiologist's reading. Independent Historian Clinical information obtained from an independent historian. History obtained from or confirmed by: Other (daughter) External Record Review External record reviewed: Inpatient record, Office record, Outpatient record, Prior outpatient labs, Prior outpatient radiology, Primary care record and Outside ED record Tests considered The following testing was considered but not selected: As above Discharge Plan Discharge Clinical Impression: Acute anxiety, Depression, Anorexia Patient Disposition: Admitted As Inpatient
[2023-06-01 10:55] LABS: Glucose, Whole Blood 129 mg/dL (60-115)
[2023-06-01 11:16] LABS: MANUAL DIFF FLAG NO
[2023-06-01 11:17] LABS: Basophils Percent Auto 0.5 % (0-2); Eosinophils Absolute Auto 0.1 X10*3/uL (0.0-0.4); Hematocrit 39.9 % (37.0-47.0); Hemoglobin 13.8 g/dl (12.0-16.0); Imm Gran Abs Auto 0.02 X10*3/uL (0.00-0.03); Imm Gran Pct Auto 0.2 % (0.0-0.4); Lymphocytes Absolute Auto 1.6 X10*3/uL (1.2-4.9); Lymphocytes Percent Auto 20.2 % (20-40); Mean Corpuscular HGB Conc 34.6 g/dl (31.0-35.0); Mean Corpuscular Hemoglobin 29.4 pg (27.0-33.0); Mean Corpuscular Volume 85.1 fL (80.0-98.0); Mean Platelet Volume 9.4 fL (9.4-12.3); Monocytes Absolute Auto 0.5 X10*3/uL (0.1-1.2); Monocytes Percent Auto 5.6 % (2-11); Neutrophils Absolute Auto 5.8 x10*3/uL (2.0-8.3); Neutrophils Percent Auto 72.5 % (45-73); Platelet Count 220 X10*3/uL (160-400); Red Blood Count 4.69 X10*6/uL (4.20-5.50); Red Cell Distribution Width 12.7 % (11.0-16.0)
[2023-06-01 11:20] LABS: Appearance Urine Clear; Color Urine Yellow; Glucose Urine UA Negative (Negative); Leukocyte Esterase Urine Negative (Negative); Nitrite Urine Negative (Negative); PH 7.5 (5.0-9.0); Specific Gravity - Urine <= 1.005 (1.005-1.025); Urine Blood Negative (Negative); Urine Ketones Negative (Negative); Urine Protein Negative (Neg-Trace)
[2023-06-01 11:41] LABS: Alanine Aminotransferase 17 U/L (0-31); Albumin Level 4.1 g/dL (3.5-5.0); Alkaline Phosphatase 58 U/L (39-117); Anion Gap 13 (12-20); Aspartate Amino Transferase 18 U/L (5-31); Bilirubin Direct 0.2 mg/dL (0.0-0.5); Bilirubin Total 0.5 mg/dL (0.0-1.0); Blood Urea Nitrogen 7 mg/dL (9-16); Calcium 9.6 mg/dL (8.4-10.2); Carbon Dioxide 25 mmol/L (22-29); Chloride 106 mmol/L (96-108); Creatinine Clr Calc Pharmacy 52.7; Estimated Glomerular Filt Rate > 60; Glucose Random 141 mg/dL (60-115); Magnesium 1.9 mg/dL (1.6-2.6); Potassium 3.8 mmol/L (3.3-5.1); Sodium 140 mmol/L (135-145); Total Protein 6.6 g/dL (6.5-8.0)
--- NOTE | 2023-06-01 11:53 | MHC.CM.PN ---
CM met with pt, and dtr, they were talking to a member of the care team when I came in. We discussed that pt has just been at [facility] for STR, which she said was fine, but that she did not see anyone there for her anxiety. She would like to return home, but said she needs something for her anxiety. The care team will work with her to get an appt for a provider in the community and to involve psych provider here for DC plan.
[2023-06-01] MEDS: LORazepam 0.5 MG TABLET PO (12:26)
--- NOTE | 2023-06-01 14:24 | PC.NURSE ---
Addendum entered by Cindy Mclain 06/01/23 14:38: med rec confirmed with daughter (Kanwal). Original Note: verified med list off of most recently filled, attempted to contact daughter to verify but no answer at listed phone number.
--- NOTE | 2023-06-01 14:30 | PC.NURSE ---
PT TRANSPORTED FROM THE ER VIA STRETCHER AND PLACED ONTO A HOSP BED.
--- NOTE | 2023-06-01 14:41 | PC.NURSE ---
PT'S DAUGHTER IS AT BEDSIDE.
--- NOTE | 2023-06-01 14:50 | PC.NURSE ---
PT'S DAUGHTER REQUEST/GIVEN, TURKEY SANDWICH, DIET SHIN PAULA AND JELLO FOR PT.
[2023-06-01] MEDS: metFORMIN HCl ER 500 MG TAB.ER.24H 1000 MG PO (15:58)
[2023-06-01] MEDS: amLODIPine Besylate 10 MG TABLET PO (15:58)
[2023-06-01] MEDS: Omeprazole 40 MG CAPSULE.DR PO (15:58)
[2023-06-01 16:52] LABS: Glucose, Whole Blood 159 mg/dL (60-115)
[2023-06-01] MEDS: Metoclopramide HCl 10 MG TABLET PO ×2 (17:26→21:50)
[2023-06-01] MEDS: Tolterodine Tartrate LA 4 MG CAP.ER.24H PO (21:48)
[2023-06-01] MEDS: Sennosides 8.6 MG TABLET 17.2 MG PO (21:49)
[2023-06-01] MEDS: Atorvastatin Calcium 80 MG TABLET PO (21:49)
[2023-06-01] MEDS: metFORMIN HCl ER 500 MG TAB.ER.24H PO (21:49)
[2023-06-01] MEDS: Calcium + Vitamin D 250 MG TABLET 500 MG PO (21:49)
[2023-06-01] MEDS: NaPROXEN 500 MG TABLET PO (21:49)
[2023-06-01] MEDS: Aspirin Enteric Coated 81 MG TABLET.DR PO (21:50)
[2023-06-01] MEDS: Famotidine 20 MG TABLET 40 MG PO (21:50)
[2023-06-01] MEDS: Montelukast Sodium 10 MG TABLET PO (21:50)
[2023-06-01 21:54] LABS: Glucose, Whole Blood 115 mg/dL (60-115)
--- NOTE | 2023-06-01 22:02 | PC.NURSE ---
Meds currently unavailable, for 2100 administration. Call made to pharmacy requesting them.
[2023-06-01] MEDS: Imipramine HCl 10 MG TABLET PO (22:16)
[2023-06-01] MEDS: Brimonidine Tartrate 0.2% Oph 5 ML BOTTLE 1 DROP EYE-BOTH (22:16)
[2023-06-02 03:46] VITALS: BP 125/73; PULSE 90; RESP 16; TEMP 36.2; O2SAT 98
--- NOTE | 2023-06-02 04:30 | PC.NURSE ---
Pt c/o anxiety, requesting medicine. Meds ordered are for bedtime, messaged and sole ruffer Renetta for permission to give bedtime PRN hydroxizine. Awaiting orders
[2023-06-02] MEDS: hydrOXYzine HCL 25 MG TABLET PO ×2 (04:49→21:38)
--- NOTE | 2023-06-02 04:57 | PC.NURSE ---
This RN spoke with meteorologist in charge and ok to give unscheduled dose of PRN hydroxizine
--- NOTE | 2023-06-02 06:48 | PC.NURSE ---
Patient c/o palpitations and pain stating i need aspiring 82 . Patient given aspiring with bedtime medications, explained to patient what aspirin was used for. Patient reporting feeling anxious and feels like hydralazine did not help her. Called to main ED and spoke to KAHLIL Chacon who will order ativan for patient. This RN will administer a prescribed. VSS T97.4, HR:92, RR18, 142/70, O2:95%
[2023-06-02] MEDS: LORazepam 0.5 MG TABLET PO ×2 (07:09→14:15)
[2023-06-02 08:00] LABS: Glucose, Whole Blood 165 mg/dL (60-115)
[2023-06-02 08:05] VITALS: BP 138/76; PULSE 93; RESP 20; TEMP 36.9; O2SAT 96
[2023-06-02] MEDS: Valsartan 320 MG TABLET PO (08:06)
[2023-06-02] MEDS: amLODIPine Besylate 10 MG TABLET PO (08:06)
[2023-06-02] MEDS: metFORMIN HCl ER 500 MG TAB.ER.24H 1000 MG PO (08:06)
[2023-06-02] MEDS: Loratadine 10 MG TABLET PO (08:06)
[2023-06-02] MEDS: hydroCHLOROthiazide 25 MG TABLET PO (08:07)
[2023-06-02] MEDS: Metoprolol Succinate ER 100 MG TAB.ER.24H PO (08:07)
[2023-06-02] MEDS: Cholecalciferol (Vitamin D3) 25 MCG TABLET PO (08:07)
[2023-06-02] MEDS: NaPROXEN 500 MG TABLET PO (08:07)
[2023-06-02] MEDS: Metoclopramide HCl 10 MG TABLET PO ×3 (08:07→16:56)
[2023-06-02] MEDS: Brimonidine Tartrate 0.2% Oph 5 ML BOTTLE 1 DROP EYE-BOTH (08:08)
--- NOTE | 2023-06-02 10:51 | ECG_ITS ---
Test Reason : MED CLEARENCE Blood Pressure : / mmHG Vent. Rate : 079 BPM Atrial Rate : 079 BPM P-R Int : 144 ms QRS Dur : 078 ms QT Int : 390 ms P-R-T Axes : 048 004 042 degrees QTc Int : 447 ms Normal sinus rhythm Normal ECG When compared with ECG of 15-MAY-2023 09:20, No significant change was found Referred By: Ines Willoughby Electronically Signed By:JANE JOHNSON MD
[2023-06-02 11:04] LABS: COVID-19 Test Negative (Negative); IDNOW Serial# 9DB6401D
[2023-06-02] MEDS: Ondansetron ODT 4 MG TAB.RAPDIS TRANSLINGU (11:41)
[2023-06-02 13:34] LABS: Glucose, Whole Blood 125 mg/dL (60-115)
[2023-06-02 14:00] VITALS: BP 130/67; PULSE 73; RESP 18; TEMP 36.6; O2SAT 93
[2023-06-02 16:47] LABS: Glucose, Whole Blood 106 mg/dL (60-115)
[2023-06-02] MEDS: Omeprazole 40 MG CAPSULE.DR PO (16:56)
--- NOTE | 2023-06-02 19:29 | PC.NURSE ---
this rn assumed care of pt. pt resting in hospital bed at this time, denies pain. pt daughter at bedside. pt waiting for [facility] bed at this time.
--- NOTE | 2023-06-02 19:54 | PC.NURSE ---
beronica calhoun RN at bedside to transport pt to floor.
[2023-06-02] MEDS: metFORMIN HCl ER 500 MG TAB.ER.24H PO (21:36)
[2023-06-02] MEDS: Famotidine 20 MG TABLET 40 MG PO (21:36)
[2023-06-02] MEDS: Sennosides 8.6 MG TABLET 17.2 MG PO (21:37)
[2023-06-02] MEDS: traZODone HCL 50 MG TABLET PO (21:37)
[2023-06-02] MEDS: Calcium + Vitamin D 250 MG TABLET 500 MG PO (21:37)
[2023-06-02] MEDS: Montelukast Sodium 10 MG TABLET PO (21:38)
[2023-06-02] MEDS: Acetaminophen 325 MG TABLET 650 MG PO (21:38)
[2023-06-02] MEDS: Atorvastatin Calcium 80 MG TABLET PO (21:38)
[2023-06-02] MEDS: Aspirin Enteric Coated 81 MG TABLET.DR PO (21:39)
[2023-06-02 22:12] VITALS: BP 107/61; PULSE 67; RESP 17; TEMP 36.6; O2SAT 99
--- NOTE | 2023-06-02 23:05 | PC.ADMIT ---
Admission assessment completed through cattle care worker and by reviewing chart. Patient is a 82 year old [place]amb[place] speaking female who arrive on S1 from ED at approximately 200 on 06-02-23. She appears weak and deconditioned, is dressed in a hospital jessie but neatly groomed, not unkempt. She understands a great deal of [place] African but doesn't speak South African well so cnc specialist was used. RN briefly spoke with her daughter Kanwal who is active in her care and was visiting in the ED. Kanwal is available at [phone]. Patient was able to sign admission forms and is a CV on 5 min checks d/t new admit. Her speech is circumstantial, is noted to have mild memory loss. She knew where she was, the year, and the president. Was not able to state the month or day. She is very pleasant, calm, and cooperative. She states she is here for her depression and anxiety which she states are both a 10/10. She states that sometimes she cries and screams at night. Both her and her daughter state she does not sleep. Patient reports that sometimes she likes to be around people and sometimes she doesn't, it all depends on her mood. She states that her appetite is very poor and that sometimes she doesnt eat at all. Her current weight is 132lb. sShe does express pain in her left lower quadrant of her abdomen as well as a headache. She also has chronic back pain. When asked if she has thoughts of hurting herself she reports thoughts of killing her dog. She has a distant history of cutting her left thigh with a glass which was an isolated event according to her. She currently lives with her brother in an apartment. She states that his health is so/so . She reports that sometimes she is able to shower independently. She was recently discharged from [facility] this past , 05/30/23 with referral to [facility] for in home services. She does not know what medications she takes and states Kanwal helps her with her medications. She has 2 pharmacies: [facility] and [facility] in [place]. Patient currently has no dentures and needs soft foods ordered for her menu. She is able to read South African as well and can help with making her decisions. Patient has a difficult time swallowing pills and would prefer them crushed. This publicity writer used [employer]. She has a medical history at [facility] but has not been on the Psych unit. RN explained to her what she can expect and showed her around the unit to make her comfortable. Patient recieved both Hydroxydine and Trazadone and we will monitor her sleep overnight. She ambulates with a cane, is a high falls risk d/t her deconditioning and walker. She is continent of both urine and stool. Her daughter Kanwal is in the visitor book for 11 a.m. tomorrow Tuesday morning.
[2023-06-03] MEDS: NaPROXEN 500 MG TABLET PO ×3 (00:58→20:57)
[2023-06-03] MEDS: Imipramine HCl 10 MG TABLET PO ×2 (00:59→20:57)
[2023-06-03] MEDS: Metoclopramide HCl 10 MG TABLET PO ×5 (00:59→20:57)
[2023-06-03] MEDS: Tolterodine Tartrate LA 4 MG CAP.ER.24H PO ×2 (00:59→20:57)
[2023-06-03 06:50] LABS: Glucose, Whole Blood 137 mg/dL (60-115)
[2023-06-03 07:21] LABS: Glucose, Whole Blood 114 mg/dL (60-115)
[2023-06-03 07:50] VITALS: BP 124/73; PULSE 102; RESP 18; TEMP 36.4; O2SAT 97
[2023-06-03] MEDS: Fluticasone/Vilanterol 200/25 BLST.W.DEV 1 PUFF INHALE (08:18)
[2023-06-03] MEDS: Brimonidine Tartrate 0.2% Oph 5 ML BOTTLE 1 DROP EYE-BOTH (08:19)
[2023-06-03] MEDS: Metoprolol Succinate ER 100 MG TAB.ER.24H PO (08:20)
[2023-06-03] MEDS: Valsartan 320 MG TABLET PO (08:20)
[2023-06-03] MEDS: Calcium + Vitamin D 250 MG TABLET 500 MG PO ×2 (08:21→20:57)
[2023-06-03] MEDS: metFORMIN HCl ER 500 MG TAB.ER.24H 1000 MG PO (08:21)
--- NOTE | 2023-06-03 08:21 | HO.PSYADMNOT ---
HPI Date of Service: 06/03/23 Chief Complaint: SI Sources of Information: patient interviewed, chart reviewed and crisis/core team assessment reviewed HPI Subjective Notes: Ten[place] Warning and Conditional Voluntary Narrative: The patient is an 82-year-old Jordanian female, with were, mother of 4 adult children, living with his elderly brother, self-referred from the emergency room for exacerbation of depression anxiety. She came in complaining of her daughter who provided collateral information to the crisis team. She reported exacerbation of panic attacks, increased dysphoria, lack of energy and poor appetite. The patient was assessed by crisis and transferring to this facility for psychiatric stabilization. On intake interview, the patient reported that she had been struggling with depressive symptoms elicited by depressed mood, anhedonia, lack of energy, feelings of hopelessness and increased anxiety. She adamantly denies suicidal ideation and she was able to contract for safety. During the interview it was noticeable that the patient was only Georgian-speaking, she she looked confused and at times with poor short-term memory. Easily redirectable. She adamantly denies auditory hallucinations, past history of kwaku or any other safety concerns. Even though the patient was a very poor historian due to his cognitive disorder. We discussed risks, benefits, side-effects and alternatives and the patient agreed to continue treatment and contact his family for aftercare. I review her list of medications and she is on Anafranil but she is allergic to TCAs. Past Psychiatric History: Unclear, the patient is a very poor historian apparently she had been following outpatient services and clear prior psychiatric admissions. She adamantly denies past substance abuse. Medical Evaluation Reviewed: Yes [facility] Medical History Seasonal allergies Glaucoma Arthritis Back pain Asthma HTN (hypertension) Diabetes Surgical History Hx of endoscopy Hx of colonoscopy Hx of hysterectomy Family History: Denies Social History: The patient was born and raised in [place], she can from a be family, she came today and I States at age of 25 and she got and raised for Children[employer] and adopted a 51. 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 This moment she lives with his elderly brother in a elderly building. Substance History: Denies Trauma History: Denies Diagnostics Vital Signs (24Hr): Vital Signs - 24 hr 06/02/23 14:00 06/02/23 22:12 06/03/23 07:50 Temperature 97.9 F 97.8 F 97.6 F Pulse Rate 73 67 102 H Respiratory Rate 18 17 18 Blood Pressure 130/67 107/61 124/73 Pulse Oximetry 93 99 97 Oxygen Delivery Method Room Air Room Air Room Air BMI result Body Mass Index 25.3 Labs 06/01/23 11:10 06/03/23 08:26 Labs: Laboratory Results - last 48 hr 06/01/23 06/01/23 06/01/23 10:51 11:10 16:49 WBC 8.0 RBC 4.69 Hgb 13.8 Hct 39.9 MCV 85.1 MCH 29.4 MCHC 34.6 RDW 12.7 Plt Count 220 MPV 9.4 Immature Gran % (Auto) 0.2 Neut % (Auto) 72.5 Lymph % (Auto) 20.2 Moody % (Auto) 5.6 Eos % (Auto) 1.0 Baso % (Auto) 0.5 Lymph # (Auto) 1.6 Moody # (Auto) 0.5 Eos # (Auto) 0.1 Baso # (Auto) 0.0 Abs Immat Gran (auto) 0.02 Absolute Neuts (auto) 5.8 Absolute Nucleated RBC 0.000 Nucleated RBC % (auto) 0.0 Sodium 140 Potassium 3.8 Chloride 106 Carbon Dioxide 25 Anion Gap 13 BUN 7 L Creatinine 0.70 Estim Creat Clear Calc 52.7 Estimated GFR > 60 POC Glucose 129 H 159 H Random Glucose 141 H Calcium 9.6 Magnesium 1.9 Total Bilirubin 0.5 Direct Bilirubin 0.2 AST 18 ALT 17 Alkaline Phosphatase 58 Total Protein 6.6 Albumin 4.1 Urine Color Yellow Urine Appearance Clear Urine pH 7.5 Ur Specific [place] <= 1.005 Urine Protein Negative Urine Glucose (UA) Negative Urine Ketones Negative Urine Blood Negative Urine Nitrite Negative Ur Leukocyte Esterase Negative COVID-19 ([facility]) COVID-19 Clin Com 06/01/23 06/02/23 06/02/23 21:49 07:57 10:42 WBC RBC Hgb Hct MCV MCH MCHC RDW Plt Count MPV Immature Gran % (Auto) Neut % (Auto) Lymph % (Auto) Moody % (Auto) Eos % (Auto) Baso % (Auto) Lymph # (Auto) Moody # (Auto) Eos # (Auto) Baso # (Auto) Abs Immat Gran (auto) Absolute Neuts (auto) Absolute Nucleated RBC Nucleated RBC % (auto) Sodium Potassium Chloride Carbon Dioxide Anion Gap BUN Creatinine Estim Creat Clear Calc Estimated GFR POC Glucose 115 165 H Random Glucose Calcium Magnesium Total Bilirubin Direct Bilirubin AST ALT Alkaline Phosphatase Total Protein Albumin Urine Color Urine Appearance Urine pH Ur Specific [place] Urine Protein Urine Glucose (UA) Urine Ketones Urine Blood Urine Nitrite Ur Leukocyte Esterase COVID-19 ([facility]) Negative COVID-19 [employer] Com See Note 06/02/23 06/02/23 06/02/23 13:29 16:44 19:47 WBC RBC Hgb Hct MCV MCH MCHC RDW Plt Count MPV Immature Gran % (Auto) Neut % (Auto) Lymph % (Auto) Moody % (Auto) Eos % (Auto) Baso % (Auto) Lymph # (Auto) Moody # (Auto) Eos # (Auto) Baso # (Auto) Abs Immat Gran (auto) Absolute Neuts (auto) Absolute Nucleated RBC Nucleated RBC % (auto) Sodium Potassium Chloride Carbon Dioxide Anion Gap BUN Creatinine Estim Creat Clear Calc Estimated GFR POC Glucose 125 H 106 114 Random Glucose Calcium Magnesium Total Bilirubin Direct Bilirubin AST ALT Alkaline Phosphatase Total Protein Albumin Urine Color Urine Appearance Urine pH Ur Specific [place] Urine Protein Urine Glucose (UA) Urine Ketones Urine Blood Urine Nitrite Ur Leukocyte Esterase COVID-19 ([facility]) COVID-[employer] 06/03/23 06:29 WBC RBC Hgb Hct MCV MCH MCHC RDW Plt Count MPV Immature Gran % (Auto) Neut % (Auto) Lymph % (Auto) Moody % (Auto) Eos % (Auto) Baso % (Auto) Lymph # (Auto) Moody # (Auto) Eos # (Auto) Baso # (Auto) Abs Immat Gran (auto) Absolute Neuts (auto) Absolute Nucleated RBC Nucleated RBC % (auto) Sodium Potassium Chloride Carbon Dioxide Anion Gap BUN Creatinine Estim Creat Clear Calc Estimated GFR POC Glucose 137 H Random Glucose Calcium Magnesium Total Bilirubin Direct Bilirubin AST ALT Alkaline Phosphatase Total Protein Albumin Urine Color Urine Appearance Urine pH Ur Specific [place] Urine Protein Urine Glucose (UA) Urine Ketones Urine Blood Urine Nitrite Ur Leukocyte Esterase COVID-19 ([facility]) COVID-19 [employer] Meds/Allergies Meds Home Medications Medication Instructions Recorded Confirmed Type amlodipine 10 mg tablet 10 mg PO QAM 06/01/23 06/01/23 History aspirin 81 mg tablet,delayed 81 mg PO BEDTIME 06/01/23 06/01/23 History release atorvastatin 80 mg tablet 80 mg PO QPM 06/01/23 06/01/23 History brimonidine 0.2 % eye drops 1 drp ophthalmic (eye) BID 06/01/23 06/01/23 History calcium carbonate 600 mg-vitamin 1 tab PO BID 06/01/23 06/01/23 History D3 10 mcg (400 unit) tablet cholecalciferol (vitamin D3) 25 25 mcg PO QAM 06/01/23 06/01/23 History mcg (1,000 unit) tablet dexlansoprazole 60 mg 60 mg PO QPM 06/01/23 06/01/23 History capsule,biphase delayed release famotidine 40 mg tablet 40 mg PO BEDTIME 06/01/23 06/01/23 History fluticasone 500 mcg-salmeterol 50 1 ea inhalation BID 06/01/23 06/01/23 History mcg/dose blistr powdr for inhalation hydrochlorothiazide 25 mg tablet 25 mg PO QAM 06/01/23 06/01/23 History hydroxyzine pamoate 25 mg capsule 25 mg PO BEDTIME PRN anxiety 06/01/23 06/01/23 History imipramine HCl 10 mg tablet 10 mg PO BEDTIME 06/01/23 06/01/23 History loratadine 10 mg tablet 10 mg PO QAM 06/01/23 06/01/23 History meloxicam 15 mg tablet 15 mg PO QAM 06/01/23 06/01/23 History metformin 500 mg tablet,extended 1,000 mg PO DAILY 06/01/23 06/01/23 History release 24 hr metformin 500 mg tablet,extended 500 mg PO BEDTIME 06/01/23 06/01/23 History release 24 hr metoclopramide HCl 10 mg tablet 10 mg PO QID 06/01/23 06/01/23 History metoprolol succinate 100 mg 100 mg PO QAM 06/01/23 06/01/23 History tablet,extended release 24 hr montelukast 10 mg tablet 10 mg PO QPM 06/01/23 06/01/23 History sennosides 8.6 mg tablet (senna) 17.2 mg PO BEDTIME constipation 06/01/23 06/01/23 History sucralfate 1 gram tablet 2 g PO DAILY 06/01/23 06/01/23 History tolterodine 4 mg capsule,extended 4 mg PO BEDTIME 06/01/23 06/01/23 History release 24 hr valsartan 320 mg tablet 320 mg PO QAM 06/01/23 06/01/23 History Allergies Allergies Allergy/AdvReac Type Severity Reaction Status Date / Time nortriptyline AdvReac Rash Verified 05/30/23 14:13 Mental Status Exam Mental Status Exam Patient Appearance: Appropriate Patient Orientation: Person and Situation Level of Consciousness: Awake and Appropriate Patient Behavior: Guarded and Passive Mood Description: Withdrawn Affect Description: Constricted Patient Cognition Impaired: Yes Ability to Follow Directions: Good Speech Pattern: Clear Hallucinations: None Delusions: Not Present Thought Process: Distracted and Linear Thought Content: positive for [place] and positive for Poverty of Content Judgement: Fair Assessment & Plan Assessment & Plan (1) Major depressive disorder: Status: Acute Code(s): F32.9 - Major depressive disorder, single episode, unspecified (2) Neurodegenerative cognitive impairment: Status: Acute Code(s): G31.9 - Degenerative disease of nervous system, unspecified Plan The patient is an elderly [place]ian female with a past history of major depressive disorder a neuro cognitive impairment referred from the emergency room for exacerbation of depression and confusion. She was medically workout, transferring to this facility for psychiatric stabilization. Plan 1. Gather collateral information. The patient is a very poor historian. 2. Continue with regular medications as prescribed. 3. At this moment we are not going to add a 2nd antidepressant since she is on TCA antidepressants. 4. 15 minute checks Patient educated on: diagnosis and therapeutic strategies Reason for continued inpatient stay Substantial Risk for: inability to function, rapid decompensation and med/psych decompensation Statement Statement: I have reviewed the history and physical and performed a pertinent examination on my patient. No changes have occurred unless specified. If the History and Physical was not performed prior to admission, the Hospitalist's service will be consulted for completing the admission physical. Time Spent With Patient Time: Total time managing care of this patient today ___45_ minutes.
[2023-06-03] MEDS: Sucralfate 1 GM TABLET 2 GM PO (08:22)
[2023-06-03] MEDS: Loratadine 10 MG TABLET PO (08:23)
[2023-06-03] MEDS: amLODIPine Besylate 10 MG TABLET PO (08:23)
[2023-06-03] MEDS: Cholecalciferol (Vitamin D3) 25 MCG TABLET PO (08:24)
[2023-06-03] MEDS: hydroCHLOROthiazide 25 MG TABLET PO (08:24)
[2023-06-03 09:06] LABS: Estimated Average Glucose 126 mg/dL
[2023-06-03 09:29] LABS: Alanine Aminotransferase 14 U/L (0-31); Alkaline Phosphatase 61 U/L (39-117); Anion Gap 12 (12-20); Aspartate Amino Transferase 15 U/L (5-31); Bilirubin Total 0.6 mg/dL (0.0-1.0); Blood Urea Nitrogen 15 mg/dL (9-16); Calcium 9.1 mg/dL (8.4-10.2); Carbon Dioxide 24 mmol/L (22-29); Chloride 102 mmol/L (96-108); Cholesterol 134 mg/dL (<200); Creatinine Clr Calc Pharmacy 36.9; Estimated Glomerular Filt Rate 53; Glucose Fasting 201 mg/dL (60-99); HDL Cholesterol 40 mg/dL (>40); LDL Cholesterol Calculated 75 mg/dL (<100); Potassium 3.2 mmol/L (3.3-5.1); Sodium 135 mmol/L (135-145); Total Protein 6.4 g/dL (6.5-8.0); Triglycerides 99 mg/dL (<150)
[2023-06-03 09:47] LABS: Thyroid Stimulating Hormone 0.93 uIU/mL (0.32-4.0)
[2023-06-03 09:49] LABS: Vitamin B12 1083 pg/mL (200-900)
[2023-06-03 13:36] LABS: Glucose, Whole Blood 75 mg/dL (60-115)
[2023-06-03] MEDS: Magnesium Hydrox/Alum Hydrox 30 ML ORAL.SUSP PO (15:23)
[2023-06-03] MEDS: Omeprazole 40 MG CAPSULE.DR PO (16:44)
[2023-06-03 17:00] VITALS: BP 121/64; PULSE 72; RESP 18; TEMP 36.4; O2SAT 96
[2023-06-03] MEDS: Atorvastatin Calcium 80 MG TABLET PO (20:57)
[2023-06-03] MEDS: Sennosides 8.6 MG TABLET 17.2 MG PO (20:57)
[2023-06-03] MEDS: metFORMIN HCl ER 500 MG TAB.ER.24H PO (20:57)
[2023-06-03] MEDS: Montelukast Sodium 10 MG TABLET PO (20:57)
[2023-06-03] MEDS: Famotidine 20 MG TABLET 40 MG PO (20:58)
[2023-06-03] MEDS: Aspirin Enteric Coated 81 MG TABLET.DR PO (20:58)
[2023-06-03 23:40] LABS: Glucose, Whole Blood 109 mg/dL (60-115)
[2023-06-03 23:41] LABS: Glucose, Whole Blood 102 mg/dL (60-115)
[2023-06-03 23:41] LABS: Glucose, Whole Blood 141 mg/dL (60-115)
[2023-06-04 06:51] LABS: Glucose, Whole Blood 111 mg/dL (60-115)
[2023-06-04 08:09] VITALS: BP 150/78; PULSE 84; RESP 18; TEMP 36.3; O2SAT 98
[2023-06-04] MEDS: Valsartan 320 MG TABLET PO (08:19)
[2023-06-04] MEDS: Metoprolol Succinate ER 100 MG TAB.ER.24H PO (08:19)
[2023-06-04] MEDS: Calcium + Vitamin D 250 MG TABLET 500 MG PO ×2 (08:20→21:14)
[2023-06-04] MEDS: NaPROXEN 500 MG TABLET PO ×2 (08:20→21:15)
[2023-06-04] MEDS: metFORMIN HCl ER 500 MG TAB.ER.24H 1000 MG PO (08:21)
[2023-06-04] MEDS: Loratadine 10 MG TABLET PO (08:21)
[2023-06-04] MEDS: hydrOXYzine HCL 25 MG TABLET PO (08:21)
[2023-06-04] MEDS: Sucralfate 1 GM TABLET 2 GM PO (08:21)
[2023-06-04] MEDS: amLODIPine Besylate 10 MG TABLET PO (08:21)
[2023-06-04] MEDS: Cholecalciferol (Vitamin D3) 25 MCG TABLET PO (08:21)
[2023-06-04] MEDS: Metoclopramide HCl 10 MG TABLET PO ×4 (08:21→21:15)
[2023-06-04] MEDS: hydroCHLOROthiazide 25 MG TABLET PO (08:21)
[2023-06-04] MEDS: Fluticasone/Vilanterol 200/25 BLST.W.DEV 1 PUFF INHALE (08:27)
[2023-06-04] MEDS: Brimonidine Tartrate 0.2% Oph 5 ML BOTTLE 1 DROP EYE-BOTH ×2 (08:27→21:24)
--- NOTE | 2023-06-04 08:50 | P.PNPSI_ITS ---
Subjective Subjective Date of Service: 06/04/23 Reason For Visit: SI Subjective Notes: Conditional Voluntary Interim History: The nursing staff reported the patient had been complaining some somatic complaints such as nausea and somatic pains. She took Conrad with for improvement. She looks pleasantly confused and easily redirectable she spent most of the time in her room. On interview the patient looks pleasantly confused I explained that I am discontinue imipramine and start Remeron for depression. Mental Status Exam Mental Status Exam Patient Appearance: Appropriate Patient Orientation: Person and Situation Level of Consciousness: Awake and Appropriate Patient Behavior: Guarded and Passive Mood Description: Withdrawn Affect Description: Constricted Patient Cognition Impaired: Yes Ability to Follow Directions: Good Speech Pattern: Clear Hallucinations: None Delusions: Not Present Thought Process: Distracted and Evasive Thought Content: positive for [place] and positive for Poverty of Content Judgement: Fair Diagnostics Vital Signs (24Hr): Vital Signs - 24 hr 06/03/23 17:00 06/04/23 08:09 Temperature 97.5 F 97.3 F Pulse Rate 72 84 Respiratory Rate 18 18 Blood Pressure 121/64 150/78 H Pulse Oximetry 96 98 Oxygen Delivery Method Room Air Room Air BMI result Body Mass Index 25.3 Labs 06/01/23 11:10 06/03/23 08:26 Labs: Laboratory Results - last 48 hr 06/02/23 06/02/23 06/02/23 10:42 13:29 16:44 Sodium Potassium Chloride Carbon Dioxide Anion Gap BUN Creatinine Estim Creat Clear Calc Estimated GFR POC Glucose 125 H 106 Fasting Glucose Estimat Average Glucose Hemoglobin A1c % Calcium Total Bilirubin AST ALT Alkaline Phosphatase Total Protein Albumin Triglycerides Cholesterol LDL Cholesterol, Calc HDL Cholesterol Vitamin B12 TSH COVID-19 ([facility]) Negative COVID-19 Clin Com See Note 06/02/23 06/03/23 06/03/23 19:47 06:29 08:26 Sodium 135 Potassium 3.2 L Chloride 102 Carbon Dioxide 24 Anion Gap 12 BUN 15 Creatinine 1.00 Estim Creat Clear Calc 36.9 Estimated GFR 53 POC Glucose 114 137 H Fasting Glucose 201 H Estimat Average Glucose 126 Hemoglobin A1c % 6.0 Calcium 9.1 Total Bilirubin 0.6 AST 15 ALT 14 Alkaline Phosphatase 61 Total Protein 6.4 L Albumin 4.0 Triglycerides 99 Cholesterol 134 LDL Cholesterol, Calc 75 HDL Cholesterol 40 L Vitamin B12 1083 H TSH 0.93 COVID-19 ([facility]) COVID-19 Clin Com 06/03/23 06/03/23 06/03/23 13:31 16:52 20:19 Sodium Potassium Chloride Carbon Dioxide Anion Gap BUN Creatinine Estim Creat Clear Calc Estimated GFR POC Glucose 75 109 102 Fasting Glucose Estimat Average Glucose Hemoglobin A1c % Calcium Total Bilirubin AST ALT Alkaline Phosphatase Total Protein Albumin Triglycerides Cholesterol LDL Cholesterol, Calc HDL Cholesterol Vitamin B12 TSH COVID-19 ([facility]) COVID-19 Clin Com 06/03/23 06/04/23 21:47 06:25 Sodium Potassium Chloride Carbon Dioxide Anion Gap BUN Creatinine Estim Creat Clear Calc Estimated GFR POC Glucose 141 H 111 Fasting Glucose Estimat Average Glucose Hemoglobin A1c % Calcium Total Bilirubin AST ALT Alkaline Phosphatase Total Protein Albumin Triglycerides Cholesterol LDL Cholesterol, Calc HDL Cholesterol Vitamin B12 TSH COVID-19 ([facility]) COVID-19 Clin Com Medications Medications Current Medications Acetaminophen (Acetaminophen 325 Mg Tablet) 650 mg PO Q6H PRN PRN Reason: Headache/Pain Mild Scale (1-3) Last Admin: 06/02/23 21:38 Dose: 650 mg Al Hydroxide/Mg Hydroxide (Magnesium Hydrox/Alum Hydrox 30 Ml Oral.Susp) 30 ml PO Q6H PRN PRN Reason: Heartburn/Nausea Last Admin: 06/03/23 15:23 Dose: 30 ml Amlodipine Besylate (Amlodipine Besylate 10 Mg Tablet) 10 mg PO DAILY [facility]; Protocol Last Admin: 06/04/23 08:21 Dose: 10 mg Aspirin (Aspirin Enteric Coated 81 Mg Tablet.Dr) 81 mg PO BEDTIME [facility] Last Admin: 06/03/23 20:58 Dose: 81 mg Atorvastatin Calcium (Atorvastatin Calcium 80 Mg Tablet) 80 mg PO BEDTIME [facility] Last Admin: 06/03/23 20:57 Dose: 80 mg Brimonidine Tartrate (Brimonidine Tartrate 0.2% Oph 5 Ml Bottle) 1 drop EYE- BOTH BID [facility] Last Admin: 06/04/23 08:27 Dose: 1 drop Calcium Carbonate/Cholecalciferol (Calcium + Vitamin D 250 Mg Tablet) 500 mg PO BID [facility] Last Admin: 06/04/23 08:20 Dose: 500 mg Famotidine (Famotidine 20 Mg Tablet) 40 mg PO BEDTIME [facility] Last Admin: 06/03/23 20:58 Dose: 40 mg Fluticasone/Vilanterol (Fluticasone/Vilanterol 200/25 Blst.W.Dev) 1 puff INHALE RDAILY [facility] Last Admin: 06/04/23 08:27 Dose: 1 puff Hydrochlorothiazide (Hydrochlorothiazide 25 Mg Tablet) 25 mg PO DAILY [facility]; Protocol Last Admin: 06/04/23 08:21 Dose: 25 mg Hydroxyzine HCl (Hydroxyzine Hcl 25 Mg Tablet) 25 mg PO BEDTIME PRN PRN Reason: anxiety Last Admin: 06/02/23 04:49 Dose: 25 mg Hydroxyzine HCl (Hydroxyzine Hcl 25 Mg Tablet) 25 mg PO Q6H PRN PRN Reason: Anxiety Last Admin: 06/04/23 08:21 Dose: 25 mg Imipramine HCl (Imipramine Hcl 10 Mg Tablet) 10 mg PO BEDTIME [facility] Last Admin: 06/03/23 20:57 Dose: 10 mg Loratadine (Loratadine 10 Mg Tablet) 10 mg PO DAILY [facility] Last Admin: 06/04/23 08:21 Dose: 10 mg Magnesium Hydroxide (Milk Of Magnesia 30 Ml Oral.Susp) 30 ml PO DAILY PRN PRN Reason: Constipation Metformin HCl (Metformin Hcl Er 500 Mg Tab.Er.24h) 1,000 mg PO DAILY [facility] Last Admin: 06/04/23 08:21 Dose: 1,000 mg Metformin HCl (Metformin Hcl Er 500 Mg Tab.Er.24h) 500 mg PO BEDTIME [facility] Last Admin: 06/03/23 20:57 Dose: 500 mg Metoclopramide HCl (Metoclopramide Hcl 10 Mg Tablet) 10 mg PO QID [facility] Last Admin: 06/04/23 08:21 Dose: 10 mg Metoprolol Succinate (Metoprolol Succinate Er 100 Mg Tab.Er.24h) 100 mg PO DAILY [facility]; Protocol Last Admin: 06/04/23 08:19 Dose: 100 mg Montelukast Sodium (Montelukast Sodium 10 Mg Tablet) 10 mg PO BEDTIME [facility] Last Admin: 06/03/23 20:57 Dose: 10 mg Naproxen (Naproxen 500 Mg Tablet) 500 mg PO BID [facility] Last Admin: 06/04/23 08:20 Dose: 500 mg Omeprazole (Omeprazole 40 Mg Capsule.Dr) 40 mg PO DAILY@1630 [facility] Last Admin: 06/03/23 16:44 Dose: 40 mg Senna (Sennosides 8.6 Mg Tablet) 17.2 mg PO BEDTIME [facility] Last Admin: 06/03/23 20:57 Dose: 17.2 mg Senna (Senna Roby Extract Oral Syrup 15 Ml Syrup) 7.5 ml PO BEDTIME PRN PRN Reason: Constipation Last Admin: 06/01/23 15:59 Dose: 7.5 ml Sucralfate (Sucralfate 1 Gm Tablet) 2 gm PO DAILY [facility] Last Admin: 06/04/23 08:21 Dose: 2 gm Tolterodine Tartrate (Tolterodine Tartrate La 4 Mg Cap.Er.24h) 4 mg PO BEDTIME [facility] Last Admin: 06/03/23 20:57 Dose: 4 mg Trazodone HCl (Trazodone Hcl 50 Mg Tablet) 50 mg PO BEDTIME MRX1 PRN PRN Reason: Insomnia Last Admin: 06/02/23 21:37 Dose: 50 mg Valsartan (Valsartan 320 Mg Tablet) 320 mg PO DAILY [facility]; Protocol Last Admin: 06/04/23 08:19 Dose: 320 mg Vitamin D (Cholecalciferol (Vitamin D3) 25 Mcg Tablet) 25 mcg PO DAILY [facility] Last Admin: 06/04/23 08:21 Dose: 25 mcg Allergies Allergies Allergy/AdvReac Type Severity Reaction Status Date / Time nortriptyline AdvReac Rash Verified 05/30/23 14:13 Assessment & Plan Assessment & Plan (1) Major depressive disorder: Status: Acute Code(s): F32.9 - Major depressive disorder, single episode, unspecified (2) Neurodegenerative cognitive impairment: Status: Acute Code(s): G31.9 - Degenerative disease of nervous system, unspecified Plan The patient is an elderly [place] female with a past history of major depressive disorder a neuro cognitive impairment referred from the emergency room for exacerbation of depression and confusion. She was medically workout, transferring to this facility for psychiatric stabilization. Plan 1. Gather collateral information. The patient is a very poor historian. 2. Continue with regular medications as prescribed. 3. At this moment we are not going to add a 2nd antidepressant since she is on TCA antidepressants. 4. 15 minute checks. 5. We are stopping imipramine tonight and start Remeron 7.5 p.o. q.h.s. to target insomnia and depression. Reason for continued inpatient stay Substantial Risk for: inability to function, rapid decompensation and med/psych decompensation Time Spent With Patient Time: Total time managing care of this patient today ___20_ minutes.
[2023-06-04 15:55] VITALS: BP 138/67; PULSE 76; RESP 18; TEMP 37.4; O2SAT 99
[2023-06-04 15:56] LABS: Glucose, Whole Blood 127 mg/dL (60-115)
--- NOTE | 2023-06-04 15:56 | PC.NURSE ---
patient lowered herself to her knees from standing position slowly on the hallway y, no injury VSS , pt stated my sugar is high or low . blood sugar 127 . Pt sitting in the chair , no distress
[2023-06-04] MEDS: Omeprazole 40 MG CAPSULE.DR PO (16:08)
[2023-06-04 19:40] VITALS: BP 123/59; PULSE 64; RESP 18; TEMP 36.4; O2SAT 95
[2023-06-04] MEDS: Montelukast Sodium 10 MG TABLET PO (21:14)
[2023-06-04] MEDS: Famotidine 20 MG TABLET 40 MG PO (21:14)
[2023-06-04] MEDS: Atorvastatin Calcium 80 MG TABLET PO (21:15)
[2023-06-04] MEDS: Mirtazapine 7.5 MG TABLET PO (21:15)
[2023-06-04] MEDS: Tolterodine Tartrate LA 4 MG CAP.ER.24H PO (21:15)
[2023-06-04] MEDS: metFORMIN HCl ER 500 MG TAB.ER.24H PO (21:15)
[2023-06-04] MEDS: Aspirin Enteric Coated 81 MG TABLET.DR PO (21:15)
[2023-06-05 02:00] LABS: Glucose, Whole Blood 132 mg/dL (60-115)
[2023-06-05 08:14] VITALS: BP 132/64; PULSE 89; RESP 18; TEMP 36.3; O2SAT 97
[2023-06-05] MEDS: Cholecalciferol (Vitamin D3) 25 MCG TABLET PO (08:15)
[2023-06-05] MEDS: Metoprolol Succinate ER 100 MG TAB.ER.24H PO (08:15)
[2023-06-05] MEDS: Calcium + Vitamin D 250 MG TABLET 500 MG PO ×2 (08:15→20:40)
[2023-06-05] MEDS: Sucralfate 1 GM TABLET 2 GM PO (08:15)
[2023-06-05] MEDS: Valsartan 320 MG TABLET PO (08:15)
[2023-06-05] MEDS: amLODIPine Besylate 10 MG TABLET PO (08:15)
[2023-06-05] MEDS: hydroCHLOROthiazide 25 MG TABLET PO (08:16)
[2023-06-05] MEDS: hydrOXYzine HCL 25 MG TABLET PO (08:16)
[2023-06-05] MEDS: metFORMIN HCl ER 500 MG TAB.ER.24H 1000 MG PO (08:16)
[2023-06-05] MEDS: Metoclopramide HCl 10 MG TABLET PO ×4 (08:16→20:42)
[2023-06-05] MEDS: NaPROXEN 500 MG TABLET PO ×2 (08:16→20:40)
[2023-06-05] MEDS: Brimonidine Tartrate 0.2% Oph 5 ML BOTTLE 1 DROP EYE-BOTH ×2 (08:16→20:51)
[2023-06-05] MEDS: Loratadine 10 MG TABLET PO (08:16)
[2023-06-05] MEDS: Fluticasone/Vilanterol 200/25 BLST.W.DEV 1 PUFF INHALE (08:16)
--- NOTE | 2023-06-05 09:53 | HO.PSYCHPN ---
Subjective Subjective Date of Service: 06/05/23 Reason For Visit: SI Subjective Notes: Conditional Voluntary Interim History: The nursing staff reported the patient is alert oriented to person very forgetful but redirectable. Yesterday she was complaining of some attic complained that were addressed with p.r.n. Tylenol. Yesterday her daughter visited. She has been compliant with medications that she slept well last night. On interview the patient denies new symptoms she is pleasantly confused reports depression. We are going to increase Remeron up to 15 mg p.o. q.h.s. tonight. Mental Status Exam Mental Status Exam Patient Appearance: Well Grooomed and Appropriate Patient Orientation: Person and Situation Level of Consciousness: Awake and Appropriate Patient Behavior: Guarded and Passive Mood Description: Calm Affect Description: Withdrawn and Constricted Patient Cognition Impaired: Yes Ability to Follow Directions: Good Speech Pattern: Clear Hallucinations: None Delusions: Not Present Thought Process: Distracted, Evasive and Slowed Thinking Thought Content: positive for [place] and positive for [place] of Content Judgement: Fair Diagnostics Vital Signs (24Hr): Vital Signs - 24 hr 06/04/23 15:55 06/04/23 19:40 Temperature 99.3 F 97.5 F Pulse Rate 76 64 Respiratory Rate 18 18 Blood Pressure 138/67 123/59 L Pulse Oximetry 99 95 Oxygen Delivery Method Room Air Room Air BMI result Body Mass Index 25.3 Labs 06/01/23 11:10 06/03/23 08:26 Labs: Laboratory Results - last 48 hr 06/03/23 06/03/23 06/03/23 13:31 16:52 20:19 POC Glucose 75 109 102 06/03/23 06/04/23 06/04/23 21:47 06:25 15:51 POC Glucose 141 H 111 127 H 06/04/23 20:10 POC Glucose 132 H Medications Medications Current Medications Acetaminophen (Acetaminophen 325 Mg Tablet) 650 mg PO Q6H PRN PRN Reason: Headache/Pain Mild Scale (1-3) Last Admin: 06/02/23 21:38 Dose: 650 mg Al Hydroxide/Mg Hydroxide (Magnesium Hydrox/Alum Hydrox 30 Ml Oral.Susp) 30 ml PO Q6H PRN PRN Reason: Heartburn/Nausea Last Admin: 06/03/23 15:23 Dose: 30 ml Amlodipine Besylate (Amlodipine Besylate 10 Mg Tablet) 10 mg PO DAILY [facility]; Protocol Last Admin: 06/05/23 08:15 Dose: 10 mg Aspirin (Aspirin Enteric Coated 81 Mg Tablet.Dr) 81 mg PO BEDTIME [facility] Last Admin: 06/04/23 21:15 Dose: 81 mg Atorvastatin Calcium (Atorvastatin Calcium 80 Mg Tablet) 80 mg PO BEDTIME [facility] Last Admin: 06/04/23 21:15 Dose: 80 mg Brimonidine Tartrate (Brimonidine Tartrate 0.2% Oph 5 Ml Bottle) 1 drop EYE-BOTH BID [facility] Last Admin: 06/05/23 08:16 Dose: 1 drop Calcium Carbonate/Cholecalciferol (Calcium + Vitamin D 250 Mg Tablet) 500 mg PO BID [facility] Last Admin: 06/05/23 08:15 Dose: 500 mg Famotidine (Famotidine 20 Mg Tablet) 40 mg PO BEDTIME [facility] Last Admin: 06/04/23 21:14 Dose: 40 mg Fluticasone/Vilanterol (Fluticasone/Vilanterol 200/25 Blst.W.Dev) 1 puff INHALE RDAILY [facility] Last Admin: 06/05/23 08:16 Dose: 1 puff Hydrochlorothiazide (Hydrochlorothiazide 25 Mg Tablet) 25 mg PO DAILY [facility]; Protocol Last Admin: 06/05/23 08:16 Dose: 25 mg Hydroxyzine HCl (Hydroxyzine Hcl 25 Mg Tablet) 25 mg PO BEDTIME PRN PRN Reason: anxiety Last Admin: 06/02/23 04:49 Dose: 25 mg Hydroxyzine HCl (Hydroxyzine Hcl 25 Mg Tablet) 25 mg PO Q6H PRN PRN Reason: Anxiety Last Admin: 06/05/23 08:16 Dose: 25 mg Loratadine (Loratadine 10 Mg Tablet) 10 mg PO DAILY [facility] Last Admin: 06/05/23 08:16 Dose: 10 mg Magnesium Hydroxide (Milk Of Magnesia 30 Ml Oral.Susp) 30 ml PO DAILY PRN PRN Reason: Constipation Metformin HCl (Metformin Hcl Er 500 Mg Tab.Er.24h) 1,000 mg PO DAILY [facility] Last Admin: 06/05/23 08:16 Dose: 1,000 mg Metformin HCl (Metformin Hcl Er 500 Mg Tab.Er.24h) 500 mg PO BEDTIME [facility] Last Admin: 06/04/23 21:15 Dose: 500 mg Metoclopramide HCl (Metoclopramide Hcl 10 Mg Tablet) 10 mg PO QID [facility] Last Admin: 06/05/23 08:16 Dose: 10 mg Metoprolol Succinate (Metoprolol Succinate Er 100 Mg Tab.Er.24h) 100 mg PO DAILY [facility]; Protocol Last Admin: 06/05/23 08:15 Dose: 100 mg Mirtazapine (Mirtazapine 7.5 Mg Tablet) 7.5 mg PO BEDTIME [facility] Last Admin: 06/04/23 21:15 Dose: 7.5 mg Montelukast Sodium (Montelukast Sodium 10 Mg Tablet) 10 mg PO BEDTIME [facility] Last Admin: 06/04/23 21:14 Dose: 10 mg Naproxen (Naproxen 500 Mg Tablet) 500 mg PO BID [facility] Last Admin: 06/05/23 08:16 Dose: 500 mg Omeprazole (Omeprazole 40 Mg Capsule.Dr) 40 mg PO DAILY@1630 [facility] Last Admin: 06/04/23 16:08 Dose: 40 mg Senna (Sennosides 8.6 Mg Tablet) 17.2 mg PO BEDTIME [facility] Last Admin: 06/04/23 21:21 Dose: Not Given Senna (Senna [place] Extract Oral Syrup 15 Ml Syrup) 7.5 ml PO BEDTIME PRN PRN Reason: Constipation Last Admin: 06/01/23 15:59 Dose: 7.5 ml Sucralfate (Sucralfate 1 Gm Tablet) 2 gm PO DAILY [facility] Last Admin: 06/05/23 08:15 Dose: 2 gm Tolterodine Tartrate (Tolterodine Tartrate La 4 Mg Cap.Er.24h) 4 mg PO BEDTIME [facility] Last Admin: 06/04/23 21:15 Dose: 4 mg Trazodone HCl (Trazodone Hcl 50 Mg Tablet) 50 mg PO BEDTIME MRX1 PRN PRN Reason: Insomnia Last Admin: 06/02/23 21:37 Dose: 50 mg Valsartan (Valsartan 320 Mg Tablet) 320 mg PO DAILY [facility]; Protocol Last Admin: 06/05/23 08:15 Dose: 320 mg Vitamin D (Cholecalciferol (Vitamin D3) 25 Mcg Tablet) 25 mcg PO DAILY [facility] Last Admin: 06/05/23 08:15 Dose: 25 mcg Allergies Allergies Allergy/AdvReac Type Severity Reaction Status Date / Time nortriptyline AdvReac Rash Verified 05/30/23 14:13 Assessment & Plan Assessment & Plan (1) Major depressive disorder: Status: Acute Code(s): F32.9 - Major depressive disorder, single episode, unspecified (2) Neurodegenerative cognitive impairment: Status: Acute Code(s): G31.9 - Degenerative disease of nervous system, unspecified Plan The patient is an elderly [place]ian female with a past history of major depressive disorder a neuro cognitive impairment referred from the emergency room for exacerbation of depression and confusion. She was medically workout, transferring to this facility for psychiatric stabilization. Plan 1. Gather collateral information. The patient is a very poor historian. 2. Continue with regular medications as prescribed. 3. At this moment we are not going to add a 2nd antidepressant since she is on TCA antidepressants. 4. 15 minute checks. 5. We are stopping imipramine tonight and start Remeron 7.5 p.o. q.h.s. to target insomnia and depression. 6. Remeron increased up to 15 mg p.o. q.h.s. on June 05 Reason for continued inpatient stay Substantial Risk for: inability to function, rapid decompensation and med/psych decompensation Time Spent With Patient Time: Total time managing care of this patient today _20___ minutes.
[2023-06-05] MEDS: Milk of Magnesia 30 ML ORAL.SUSP PO (10:05)
[2023-06-05 11:38] LABS: Glucose, Whole Blood 115 mg/dL (60-115)
[2023-06-05] MEDS: Acetaminophen 325 MG TABLET 650 MG PO (14:40)
[2023-06-05] MEDS: Omeprazole 40 MG CAPSULE.DR PO (16:44)
[2023-06-05 17:02] LABS: Glucose, Whole Blood 97 mg/dL (60-115)
[2023-06-05 18:00] VITALS: BP 131/59; PULSE 64; RESP 16; TEMP 36.3; O2SAT 98
[2023-06-05] MEDS: Aspirin Enteric Coated 81 MG TABLET.DR PO (20:36)
[2023-06-05] MEDS: metFORMIN HCl ER 500 MG TAB.ER.24H PO (20:37)
[2023-06-05] MEDS: Tolterodine Tartrate LA 4 MG CAP.ER.24H PO (20:39)
[2023-06-05] MEDS: Sennosides 8.6 MG TABLET 17.2 MG PO (20:39)
[2023-06-05] MEDS: Mirtazapine 15 MG TABLET PO (20:40)
[2023-06-05] MEDS: Famotidine 20 MG TABLET 40 MG PO (20:41)
[2023-06-05] MEDS: Atorvastatin Calcium 80 MG TABLET PO (20:42)
[2023-06-05] MEDS: Montelukast Sodium 10 MG TABLET PO (20:42)
[2023-06-05 20:58] LABS: Glucose, Whole Blood 126 mg/dL (60-115)
[2023-06-06 07:50] VITALS: BP 134/63; PULSE 73; RESP 16; TEMP 36.6; O2SAT 97
[2023-06-06] MEDS: Metoclopramide HCl 10 MG TABLET PO ×4 (08:54→21:09)
[2023-06-06] MEDS: hydroCHLOROthiazide 25 MG TABLET PO (08:54)
[2023-06-06] MEDS: NaPROXEN 500 MG TABLET PO ×2 (08:54→21:11)
[2023-06-06] MEDS: Cholecalciferol (Vitamin D3) 25 MCG TABLET PO (08:54)
[2023-06-06] MEDS: Sucralfate 1 GM TABLET 2 GM PO (08:54)
[2023-06-06] MEDS: metFORMIN HCl ER 500 MG TAB.ER.24H 1000 MG PO (08:54)
[2023-06-06] MEDS: Calcium + Vitamin D 250 MG TABLET 500 MG PO ×2 (08:54→21:11)
[2023-06-06] MEDS: Metoprolol Succinate ER 100 MG TAB.ER.24H PO (08:55)
[2023-06-06] MEDS: Valsartan 320 MG TABLET PO (08:55)
[2023-06-06] MEDS: Loratadine 10 MG TABLET PO (08:55)
[2023-06-06] MEDS: amLODIPine Besylate 10 MG TABLET PO (08:55)
[2023-06-06] MEDS: Brimonidine Tartrate 0.2% Oph 5 ML BOTTLE 1 DROP EYE-BOTH ×2 (09:04→21:09)
[2023-06-06] MEDS: Fluticasone/Vilanterol 200/25 BLST.W.DEV 1 PUFF INHALE (09:04)
[2023-06-06] MEDS: hydrOXYzine HCL 25 MG TABLET PO (14:26)
--- NOTE | 2023-06-06 14:31 | HO.PSYCHPN ---
Subjective Subjective Date of Service: 06/06/23 Reason For Visit: SI Subjective Notes: Conditional Voluntary Interim History: The nursing staff reported the patient had been compliant with treatment, she had been taking her meds and he states most of the time in her room. The social work manager will schedule a family meeting pretty soon. On interview the patient was on her bed compliant pleasantly confused easily redirectable. Mental Status Exam Mental Status Exam Patient Appearance: Well Grooomed and Appropriate Patient Orientation: Person and Situation Level of Consciousness: Awake and Appropriate Patient Behavior: Guarded and Passive Mood Description: Withdrawn Affect Description: Constricted Patient Cognition Impaired: Yes Ability to Follow Directions: Good Speech Pattern: Clear Hallucinations: None Delusions: Not Present Thought Process: Distracted and Evasive Thought Content: positive for [place] and positive for Circumstantial Judgement: Fair Diagnostics Vital Signs (24Hr): Vital Signs - 24 hr 06/05/23 18:00 06/06/23 07:50 Temperature 97.3 F 97.9 F Pulse Rate 64 73 Respiratory Rate 16 16 Blood Pressure 131/59 L 134/63 Pulse Oximetry 98 97 Oxygen Delivery Method Room Air Room Air BMI result Body Mass Index 25.3 Labs 06/01/23 11:10 06/03/23 08:26 Labs: Laboratory Results - last 48 hr 06/04/23 06/04/23 06/05/23 15:51 20:10 06:36 POC Glucose 127 H 132 H 115 06/05/23 06/05/23 16:55 20:34 POC Glucose 97 126 H Medications Medications Current Medications Acetaminophen (Acetaminophen 325 Mg Tablet) 650 mg PO Q6H PRN PRN Reason: Headache/Pain Mild Scale (1-3) Last Admin: 06/05/23 14:40 Dose: 650 mg Al Hydroxide/Mg Hydroxide (Magnesium Hydrox/Alum Hydrox 30 Ml Oral.Susp) 30 ml PO Q6H PRN PRN Reason: Heartburn/Nausea Last Admin: 06/03/23 15:23 Dose: 30 ml Amlodipine Besylate (Amlodipine Besylate 10 Mg Tablet) 10 mg PO DAILY [facility]; Protocol Last Admin: 06/06/23 08:55 Dose: 10 mg Aspirin (Aspirin Enteric Coated 81 Mg Tablet.) 81 mg PO BEDTIME [facility] Last Admin: 06/05/23 20:36 Dose: 81 mg Atorvastatin Calcium (Atorvastatin Calcium 80 Mg Tablet) 80 mg PO BEDTIME [facility] Last Admin: 06/05/23 20:42 Dose: 80 mg Brimonidine Tartrate (Brimonidine Tartrate 0.2% Oph 5 Ml Bottle) 1 drop EYE-BOTH BID [facility] Last Admin: 06/06/23 09:04 Dose: 1 drop Calcium Carbonate/Cholecalciferol (Calcium + Vitamin D 250 Mg Tablet) 500 mg PO BID [facility] Last Admin: 06/06/23 08:54 Dose: 500 mg Famotidine (Famotidine 20 Mg Tablet) 40 mg PO BEDTIME [facility] Last Admin: 06/05/23 20:41 Dose: 40 mg Fluticasone/Vilanterol (Fluticasone/Vilanterol 200/25 Blst.W.Dev) 1 puff INHALE RDAILY [facility] Last Admin: 06/06/23 09:04 Dose: 1 puff Hydrochlorothiazide (Hydrochlorothiazide 25 Mg Tablet) 25 mg PO DAILY [facility]; Protocol Last Admin: 06/06/23 08:54 Dose: 25 mg Hydroxyzine HCl (Hydroxyzine Hcl 25 Mg Tablet) 25 mg PO BEDTIME PRN PRN Reason: anxiety Last Admin: 06/02/23 04:49 Dose: 25 mg Hydroxyzine HCl (Hydroxyzine Hcl 25 Mg Tablet) 25 mg PO Q6H PRN PRN Reason: Anxiety Last Admin: 06/06/23 14:26 Dose: 25 mg Loratadine (Loratadine 10 Mg Tablet) 10 mg PO DAILY [facility] Last Admin: 06/06/23 08:55 Dose: 10 mg Magnesium Hydroxide (Milk Of Magnesia 30 Ml Oral.Susp) 30 ml PO DAILY PRN PRN Reason: Constipation Last Admin: 06/05/23 10:05 Dose: 30 ml Metformin HCl (Metformin Hcl Er 500 Mg Tab.Er.24h) 1,000 mg PO DAILY [facility] Last Admin: 06/06/23 08:54 Dose: 1,000 mg Metformin HCl (Metformin Hcl Er 500 Mg Tab.Er.24h) 500 mg PO BEDTIME [facility] Last Admin: 06/05/23 20:37 Dose: 500 mg Metoclopramide HCl (Metoclopramide Hcl 10 Mg Tablet) 10 mg PO QID [facility] Last Admin: 06/06/23 13:31 Dose: 10 mg Metoprolol Succinate (Metoprolol Succinate Er 100 Mg Tab.Er.24h) 100 mg PO DAILY [facility]; Protocol Last Admin: 06/06/23 08:55 Dose: 100 mg Mirtazapine (Mirtazapine 15 Mg Tablet) 15 mg PO BEDTIME [facility] Last Admin: 06/05/23 20:40 Dose: 15 mg Montelukast Sodium (Montelukast Sodium 10 Mg Tablet) 10 mg PO BEDTIME [facility] Last Admin: 06/05/23 20:42 Dose: 10 mg Naproxen (Naproxen 500 Mg Tablet) 500 mg PO BID [facility] Last Admin: 06/06/23 08:54 Dose: 500 mg Omeprazole (Omeprazole 40 Mg Capsule.Dr) 40 mg PO DAILY@1630 [facility] Last Admin: 06/05/23 16:44 Dose: 40 mg Senna (Sennosides 8.6 Mg Tablet) 17.2 mg PO BEDTIME [facility] Last Admin: 06/05/23 20:39 Dose: 17.2 mg Senna (Senna [place] Extract Oral Syrup 15 Ml Syrup) 7.5 ml PO BEDTIME PRN PRN Reason: Constipation Last Admin: 06/01/23 15:59 Dose: 7.5 ml Sucralfate (Sucralfate 1 Gm Tablet) 2 gm PO DAILY [facility] Last Admin: 06/06/23 08:54 Dose: 2 gm Tolterodine Tartrate (Tolterodine Tartrate La 4 Mg Cap.Er.24h) 4 mg PO BEDTIME [facility] Last Admin: 06/05/23 20:39 Dose: 4 mg Trazodone HCl (Trazodone Hcl 50 Mg Tablet) 50 mg PO BEDTIME MRX1 PRN PRN Reason: Insomnia Last Admin: 06/02/23 21:37 Dose: 50 mg Valsartan (Valsartan 320 Mg Tablet) 320 mg PO DAILY [facility]; Protocol Last Admin: 06/06/23 08:55 Dose: 320 mg Vitamin D (Cholecalciferol (Vitamin D3) 25 Mcg Tablet) 25 mcg PO DAILY [facility] Last Admin: 06/06/23 08:54 Dose: 25 mcg Allergies Allergies Allergy/AdvReac Type Severity Reaction Status Date / Time nortriptyline AdvReac Rash Verified 05/30/23 14:13 Assessment & Plan Assessment & Plan (1) Major depressive disorder: Status: Acute Code(s): F32.9 - Major depressive disorder, single episode, unspecified (2) Neurodegenerative cognitive impairment: Status: Acute Code(s): G31.9 - Degenerative disease of nervous system, unspecified Plan The patient is an elderly [place]i female with a past history of major depressive disorder a neuro cognitive impairment referred from the emergency room for exacerbation of depression and confusion. She was medically workout, transferring to this facility for psychiatric stabilization. Plan 1. Gather collateral information. The patient is a very poor historian. 2. Continue with regular medications as prescribed. 3. At this moment we are not going to add a 2nd antidepressant since she is on TCA antidepressants. 4. 15 minute checks. 5. We are stopping imipramine tonight and start Remeron 7.5 p.o. q.h.s. to target insomnia and depression. 6. Remeron increased up to 15 mg p.o. q.h.s. on June 05 Reason for continued inpatient stay Substantial Risk for: inability to function, rapid decompensation and med/psych decompensation Time Spent With Patient Time: Total time managing care of this patient today __20__ minutes.
[2023-06-06 15:34] LABS: Glucose, Whole Blood 139 mg/dL (60-115)
[2023-06-06] MEDS: Omeprazole 40 MG CAPSULE.DR PO (16:04)
[2023-06-06 20:13] VITALS: BP 152/79; PULSE 81; RESP 17; TEMP 36; O2SAT 95
[2023-06-06 20:28] LABS: Glucose, Whole Blood 130 mg/dL (60-115)
[2023-06-06] MEDS: Tolterodine Tartrate LA 4 MG CAP.ER.24H PO (21:10)
[2023-06-06] MEDS: Aspirin Enteric Coated 81 MG TABLET.DR PO (21:10)
[2023-06-06] MEDS: Atorvastatin Calcium 80 MG TABLET PO (21:10)
[2023-06-06] MEDS: Montelukast Sodium 10 MG TABLET PO (21:10)
[2023-06-06] MEDS: metFORMIN HCl ER 500 MG TAB.ER.24H PO (21:10)
[2023-06-06] MEDS: Mirtazapine 15 MG TABLET PO (21:10)
[2023-06-06] MEDS: Famotidine 20 MG TABLET 40 MG PO (21:10)
[2023-06-06] MEDS: traZODone HCL 50 MG TABLET PO (21:11)
[2023-06-06] MEDS: Sennosides 8.6 MG TABLET 17.2 MG PO (21:12)
[2023-06-07 07:51] LABS: Glucose, Whole Blood 144 mg/dL (60-115)
[2023-06-07 08:00] VITALS: BP 152/75; PULSE 82; RESP 18; TEMP 36.6; O2SAT 97
[2023-06-07] MEDS: Cholecalciferol (Vitamin D3) 25 MCG TABLET PO (08:36)
[2023-06-07] MEDS: Valsartan 320 MG TABLET PO (08:36)
[2023-06-07] MEDS: Metoclopramide HCl 10 MG TABLET PO ×4 (08:36→20:12)
[2023-06-07] MEDS: NaPROXEN 500 MG TABLET PO ×2 (08:36→20:12)
[2023-06-07] MEDS: Sucralfate 1 GM TABLET 2 GM PO (08:36)
[2023-06-07] MEDS: Metoprolol Succinate ER 100 MG TAB.ER.24H PO (08:37)
[2023-06-07] MEDS: hydroCHLOROthiazide 25 MG TABLET PO (08:37)
[2023-06-07] MEDS: Calcium + Vitamin D 250 MG TABLET 500 MG PO ×2 (08:37→20:12)
[2023-06-07] MEDS: Loratadine 10 MG TABLET PO (08:37)
[2023-06-07] MEDS: metFORMIN HCl ER 500 MG TAB.ER.24H 1000 MG PO (08:37)
[2023-06-07] MEDS: amLODIPine Besylate 10 MG TABLET PO (08:37)
[2023-06-07] MEDS: Fluticasone/Vilanterol 200/25 BLST.W.DEV 1 PUFF INHALE (08:38)
[2023-06-07] MEDS: Brimonidine Tartrate 0.2% Oph 5 ML BOTTLE 1 DROP EYE-BOTH ×2 (08:38→20:11)
--- NOTE | 2023-06-07 12:22 | HO.PSYCHPN ---
Subjective Subjective Date of Service: 06/07/23 Reason For Visit: SI Subjective Notes: Conditional Voluntary Interim History: The nursing staff reported the patient had been somatically preoccupied, talking about regarding his medications. The social media manager reported that she met her daughter yesterday and will have a family meeting tomorrow. On interview the patient denies new symptoms, cooperative and pleasant confused at times but easily redirectable. Mental Status Exam Mental Status Exam Patient Appearance: Well Grooomed and Appropriate Patient Orientation: Person and Situation Level of Consciousness: Awake and Appropriate Mood Description: Calm and Withdrawn Affect Description: Constricted Patient Cognition Impaired: Yes Ability to Follow Directions: Good Speech Pattern: Clear Hallucinations: None Delusions: Not Present Thought Process: Illogical and Distracted Thought Content: positive for [place] and positive for Circumstantial Judgement: Fair Diagnostics Vital Signs (24Hr): Vital Signs - 24 hr 06/06/23 20:13 06/07/23 08:00 Temperature 96.8 F 97.9 F Pulse Rate 81 82 Respiratory Rate 17 18 Blood Pressure 152/79 H 152/75 H Pulse Oximetry 95 97 Oxygen Delivery Method Room Air Room Air BMI result Body Mass Index 25.3 Labs 06/01/23 11:10 06/03/23 08:26 Labs: Laboratory Results - last 48 hr 06/05/23 06/05/23 06/06/23 16:55 20:34 15:30 POC Glucose 97 126 H 139 H 06/06/23 06/07/23 20:11 07:47 POC Glucose 130 H 144 H Medications Medications Current Medications Acetaminophen (Acetaminophen 325 Mg Tablet) 650 mg PO Q6H PRN PRN Reason: Headache/Pain Mild Scale (1-3) Last Admin: 06/05/23 14:40 Dose: 650 mg Al Hydroxide/Mg Hydroxide (Magnesium Hydrox/Alum Hydrox 30 Ml Oral.Susp) 30 ml PO Q6H PRN PRN Reason: Heartburn/Nausea Last Admin: 06/03/23 15:23 Dose: 30 ml Amlodipine Besylate (Amlodipine Besylate 10 Mg Tablet) 10 mg PO DAILY [facility]; Protocol Last Admin: 06/07/23 08:37 Dose: 10 mg Aspirin (Aspirin Enteric Coated 81 Mg Tablet.) 81 mg PO BEDTIME [facility] [place] Last Admin: 06/06/23 21:10 Dose: 81 mg Atorvastatin Calcium (Atorvastatin Calcium 80 Mg Tablet) 80 mg PO BEDTIME [facility] [place] Last Admin: 06/06/23 21:10 Dose: 80 mg Brimonidine Tartrate (Brimonidine Tartrate 0.2% Oph 5 Ml Bottle) 1 drop EYE-BOTH BID [facility] [place] Last Admin: 06/07/23 08:38 Dose: 1 drop Calcium Carbonate/Cholecalciferol (Calcium + Vitamin D 250 Mg Tablet) 500 mg PO BID [facility] [place] Last Admin: 06/07/23 08:37 Dose: 500 mg Famotidine (Famotidine 20 Mg Tablet) 40 mg PO BEDTIME [facility] [place] Last Admin: 06/06/23 21:10 Dose: 40 mg Fluticasone/Vilanterol (Fluticasone/Vilanterol 200/25 Blst.W.Dev) 1 puff INHALE RDAILY [facility] [place] Last Admin: 06/07/23 08:38 Dose: 1 puff Hydrochlorothiazide (Hydrochlorothiazide 25 Mg Tablet) 25 mg PO DAILY [facility] [place]; Protocol Last Admin: 06/07/23 08:37 Dose: 25 mg Hydroxyzine HCl (Hydroxyzine Hcl 25 Mg Tablet) 25 mg PO BEDTIME PRN PRN Reason: anxiety Last Admin: 06/02/23 04:49 Dose: 25 mg Hydroxyzine HCl (Hydroxyzine Hcl 25 Mg Tablet) 25 mg PO Q6H PRN PRN Reason: Anxiety Last Admin: 06/06/23 14:26 Dose: 25 mg Loratadine (Loratadine 10 Mg Tablet) 10 mg PO DAILY [facility] [place] Last Admin: 06/07/23 08:37 Dose: 10 mg Magnesium Hydroxide (Milk Of Magnesia 30 Ml Oral.Susp) 30 ml PO DAILY PRN PRN Reason: Constipation Last Admin: 06/05/23 10:05 Dose: 30 ml Metformin HCl (Metformin Hcl Er 500 Mg Tab.Er.24h) 1,000 mg PO DAILY [facility] [place] Last Admin: 06/07/23 08:37 Dose: 1,000 mg Metformin HCl (Metformin Hcl Er 500 Mg Tab.Er.24h) 500 mg PO BEDTIME [facility] [place] Last Admin: 06/06/23 21:10 Dose: 500 mg Metoclopramide HCl (Metoclopramide Hcl 10 Mg Tablet) 10 mg PO QID [facility] [place] Last Admin: 06/07/23 08:36 Dose: 10 mg Metoprolol Succinate (Metoprolol Succinate Er 100 Mg Tab.Er.24h) 100 mg PO DAILY [facility] [place]; Protocol Last Admin: 06/07/23 08:37 Dose: 100 mg Mirtazapine (Mirtazapine 15 Mg Tablet) 15 mg PO BEDTIME [facility] [place] Last Admin: 06/06/23 21:10 Dose: 15 mg Montelukast Sodium (Montelukast Sodium 10 Mg Tablet) 10 mg PO BEDTIME [facility] [place] Last Admin: 06/06/23 21:10 Dose: 10 mg Naproxen (Naproxen 500 Mg Tablet) 500 mg PO BID [facility] [place] Last Admin: 06/07/23 08:36 Dose: 500 mg Omeprazole (Omeprazole 40 Mg Capsule.Dr) 40 mg PO DAILY@1630 [facility] [place] Last Admin: 06/06/23 16:04 Dose: 40 mg Senna (Sennosides 8.6 Mg Tablet) 17.2 mg PO BEDTIME [facility] [place] Last Admin: 06/06/23 21:12 Dose: 17.2 mg Senna (Senna [place] Extract Oral Syrup 15 Ml Syrup) 7.5 ml PO BEDTIME PRN PRN Reason: Constipation Last Admin: 06/01/23 15:59 Dose: 7.5 ml Sucralfate (Sucralfate 1 Gm Tablet) 2 gm PO DAILY [facility] [place] Last Admin: 06/07/23 08:36 Dose: 2 gm Tolterodine Tartrate (Tolterodine Tartrate La 4 Mg Cap.Er.24h) 4 mg PO BEDTIME [facility] [place] Last Admin: 06/06/23 21:10 Dose: 4 mg Trazodone HCl (Trazodone Hcl 50 Mg Tablet) 50 mg PO BEDTIME MRX1 PRN PRN Reason: Insomnia Last Admin: 06/06/23 21:11 Dose: 50 mg Valsartan (Valsartan 320 Mg Tablet) 320 mg PO DAILY [facility] [place]; Protocol Last Admin: 06/07/23 08:36 Dose: 320 mg Vitamin D (Cholecalciferol (Vitamin D3) 25 Mcg Tablet) 25 mcg PO DAILY [facility] [place] Last Admin: 06/07/23 08:36 Dose: 25 mcg Allergies Allergies Allergy/AdvReac Type Severity Reaction Status Date / Time nortriptyline AdvReac Rash Verified 05/30/23 14:13 Assessment & Plan Assessment & Plan (1) Major depressive disorder: Status: Acute Code(s): F32.9 - Major depressive disorder, single episode, unspecified (2) Neurodegenerative cognitive impairment: Status: Acute Code(s): G31.9 - Degenerative disease of nervous system, unspecified Plan The patient is an elderly [place] female with a past history of major depressive disorder a neuro cognitive impairment referred from the emergency room for exacerbation of depression and confusion. She was medically workout, transferring to this facility for psychiatric stabilization. Plan 1. Gather collateral information. The patient is a very poor historian. 2. Continue with regular medications as prescribed. 3. At this moment we are not going to add a 2nd antidepressant since she is on TCA antidepressants. 4. 15 minute checks. 5. We are stopping imipramine tonight and start Remeron 7.5 p.o. q.h.s. to target insomnia and depression. 6. Remeron increased up to 15 mg p.o. q.h.s. on June 05. 7. Family meeting this week. Reason for continued inpatient stay Substantial Risk for: inability to function, rapid decompensation and med/psych decompensation Time Spent With Patient Time: Total time managing care of this patient today __20__ minutes.
[2023-06-07] MEDS: Omeprazole 40 MG CAPSULE.DR PO (16:26)
[2023-06-07 19:50] VITALS: BP 127/61; PULSE 81; RESP 16; TEMP 36.7; O2SAT 96
[2023-06-07 20:01] LABS: Glucose, Whole Blood 118 mg/dL (60-115)
[2023-06-07] MEDS: Famotidine 20 MG TABLET 40 MG PO (20:11)
[2023-06-07] MEDS: Aspirin Enteric Coated 81 MG TABLET.DR PO (20:11)
[2023-06-07] MEDS: Montelukast Sodium 10 MG TABLET PO (20:11)
[2023-06-07] MEDS: Atorvastatin Calcium 80 MG TABLET PO (20:11)
[2023-06-07] MEDS: Mirtazapine 15 MG TABLET PO (20:12)
[2023-06-07] MEDS: metFORMIN HCl ER 500 MG TAB.ER.24H PO (20:12)
[2023-06-07] MEDS: Tolterodine Tartrate LA 4 MG CAP.ER.24H PO (20:12)
[2023-06-07] MEDS: Sennosides 8.6 MG TABLET 17.2 MG PO (20:12)
[2023-06-07] MEDS: traZODone HCL 50 MG TABLET PO (20:12)
[2023-06-08 06:52] LABS: Glucose, Whole Blood 114 mg/dL (60-115)
[2023-06-08 08:11] VITALS: BP 141/82; PULSE 87; RESP 17; TEMP 36.1; O2SAT 97
[2023-06-08] MEDS: Brimonidine Tartrate 0.2% Oph 5 ML BOTTLE 1 DROP EYE-BOTH ×2 (08:14→21:13)
[2023-06-08] MEDS: Valsartan 320 MG TABLET PO (08:14)
[2023-06-08] MEDS: amLODIPine Besylate 10 MG TABLET PO (08:14)
[2023-06-08] MEDS: Fluticasone/Vilanterol 200/25 BLST.W.DEV 1 PUFF INHALE (08:14)
[2023-06-08] MEDS: Calcium + Vitamin D 250 MG TABLET 500 MG PO ×2 (08:15→21:07)
[2023-06-08] MEDS: Loratadine 10 MG TABLET PO (08:15)
[2023-06-08] MEDS: Metoclopramide HCl 10 MG TABLET PO ×4 (08:15→21:12)
[2023-06-08] MEDS: NaPROXEN 500 MG TABLET PO ×2 (08:15→21:10)
[2023-06-08] MEDS: hydroCHLOROthiazide 25 MG TABLET PO (08:15)
[2023-06-08] MEDS: Cholecalciferol (Vitamin D3) 25 MCG TABLET PO (08:16)
[2023-06-08] MEDS: metFORMIN HCl ER 500 MG TAB.ER.24H 1000 MG PO (08:16)
[2023-06-08] MEDS: Sucralfate 1 GM TABLET 2 GM PO (08:16)
[2023-06-08] MEDS: Metoprolol Succinate ER 100 MG TAB.ER.24H PO (08:16)
--- NOTE | 2023-06-08 11:05 | HO.PSYCHPN ---
Subjective Subjective Date of Service: 06/08/23 Reason For Visit: SI Subjective Notes: Conditional Voluntary Interim History: Pt slept most of the night. Pt reports she is not doing too well. She reports her mood down as she is here in the hospital and can't wait to go to her daughter's house. She denies SI/HI. She reports intermittent stomach pain (seems like she may have hx of gastroparesis/ IBS s/s to DM). No constipation or loose stools. She has been visible on the unit. No behavioral concerns. Family meeting scheduled for tomorrow. Medication Compliance: Yes Review of Systems Review of Systems Constitutional: No Fever, No Chills, No Fatigue, No Malaise, +anorexia ENT/Mouth: No Ear Pain, No Nasal Congestion, No sore throat, No Rhinorrhea, No Swallowing Difficulty Eyes: No Eye Pain, No Swelling, No Redness, No Vision Changes Cardiovascular: No Chest Pain, No SOB, No Edema, No Palpitations Respiratory: No Cough, No Sputum, No Dyspnea Gastrointestinal: + Nausea, No Vomiting, No Diarrhea, No Constipation, No Abdominal pain Genitourinary: No Dysuria, No Urinary Frequency, No Hematuria, No Urinary Incontinence/retention, No Flank Pain Musculoskeletal: No joint pain, No Myalgias, No Joint Swelling Skin: No Skin Lesions, No rash Neuro: No Weakness, No Numbness, No Paresthesias, No Loss of Consciousness, No Dizziness, + Headache Psych: + Anxiety/Panic, + Depression, No SI/HI/AH/VH, + Social Issues Yes all other systems are reviewed and are negative Constitutional: Reports as per HPI Mental Status Exam Mental Status Exam Patient Appearance: Well Grooomed and Appropriate Patient Orientation: Person and Situation Level of Consciousness: Awake and Appropriate Patient Behavior: Guarded and Passive Mood Description: Calm and Withdrawn Affect Description: Constricted Patient Cognition Impaired: Yes Ability to Follow Directions: Good Speech Pattern: Clear Diagnostics Vital Signs (24Hr): Vital Signs - 24 hr 06/07/23 19:50 06/08/23 08:11 Temperature 98.1 F 97 F Pulse Rate 81 87 Respiratory Rate 16 17 Blood Pressure 127/61 141/82 H Pulse Oximetry 96 97 Oxygen Delivery Method Room Air Room Air BMI result Body Mass Index 25.3 Labs 06/01/23 11:10 06/03/23 08:26 Labs: Laboratory Results - last 48 hr 06/06/23 06/06/23 06/07/23 15:30 20:11 07:47 POC Glucose 139 H 130 H 144 H 06/07/23 06/08/23 19:55 06:45 POC Glucose 118 H 114 Medications Medications Current Medications Acetaminophen (Acetaminophen 325 Mg Tablet) 650 mg PO Q6H PRN PRN Reason: Headache/Pain Mild Scale (1-3) Last Admin: 06/05/23 14:40 Dose: 650 mg Al Hydroxide/Mg Hydroxide (Magnesium Hydrox/Alum Hydrox 30 Ml Oral.Susp) 30 ml PO Q6H PRN PRN Reason: Heartburn/Nausea Last Admin: 06/03/23 15:23 Dose: 30 ml Amlodipine Besylate (Amlodipine Besylate 10 Mg Tablet) 10 mg PO DAILY [facility]; Protocol Last Admin: 06/08/23 08:14 Dose: 10 mg Aspirin (Aspirin 81 Mg Tab.Chew) 81 mg PO DAILY [facility] Atorvastatin Calcium (Atorvastatin Calcium 80 Mg Tablet) 80 mg PO BEDTIME [facility] Last Admin: 06/07/23 20:11 Dose: 80 mg Brimonidine Tartrate (Brimonidine Tartrate 0.2% Oph 5 Ml Bottle) 1 drop EYE-BOTH BID [facility] Last Admin: 06/08/23 08:14 Dose: 1 drop Calcium Carbonate/Cholecalciferol (Calcium + Vitamin D 250 Mg Tablet) 500 mg PO BID [facility] Last Admin: 06/08/23 08:15 Dose: 500 mg Famotidine (Famotidine 20 Mg Tablet) 40 mg PO BEDTIME [facility] Last Admin: 06/07/23 20:11 Dose: 40 mg Fluticasone Propionate (Fluticasone Propionate Nasal 16 Gm [place]) 1 spray NOSTRIL-B DAILY [facility] Fluticasone/Vilanterol (Fluticasone/Vilanterol 200/25 Blst.W.Dev) 1 puff INHALE RDAILY [facility] Last Admin: 06/08/23 08:14 Dose: 1 puff Hydrochlorothiazide (Hydrochlorothiazide 25 Mg Tablet) 25 mg PO DAILY [facility]; Protocol Last Admin: 06/08/23 08:15 Dose: 25 mg Hydroxyzine HCl (Hydroxyzine Hcl 25 Mg Tablet) 25 mg PO BEDTIME PRN PRN Reason: anxiety Last Admin: 06/02/23 04:49 Dose: 25 mg Hydroxyzine HCl (Hydroxyzine Hcl 25 Mg Tablet) 25 mg PO Q6H PRN PRN Reason: Anxiety Last Admin: 06/06/23 14:26 Dose: 25 mg Loratadine (Loratadine 10 Mg Tablet) 10 mg PO DAILY [facility] Last Admin: 06/08/23 08:15 Dose: 10 mg Magnesium Hydroxide (Milk Of Magnesia 30 Ml Oral.Susp) 30 ml PO DAILY PRN PRN Reason: Constipation Last Admin: 06/05/23 10:05 Dose: 30 ml Metformin HCl (Metformin Hcl Er 500 Mg Tab.Er.24h) 1,000 mg PO DAILY [facility] Last Admin: 06/08/23 08:16 Dose: 1,000 mg Metformin HCl (Metformin Hcl Er 500 Mg Tab.Er.24h) 500 mg PO BEDTIME [facility] Last Admin: 06/07/23 20:12 Dose: 500 mg Metoclopramide HCl (Metoclopramide Hcl 10 Mg Tablet) 10 mg PO QID [facility] Last Admin: 06/08/23 08:15 Dose: 10 mg Metoprolol Succinate (Metoprolol Succinate Er 100 Mg Tab.Er.24h) 100 mg PO DAILY [facility]; Protocol Last Admin: 06/08/23 08:16 Dose: 100 mg Mirtazapine (Mirtazapine 15 Mg Tablet) 15 mg PO BEDTIME [facility] Last Admin: 06/07/23 20:12 Dose: 15 mg Montelukast Sodium (Montelukast Sodium 10 Mg Tablet) 10 mg PO BEDTIME [facility] Last Admin: 06/07/23 20:11 Dose: 10 mg Naproxen (Naproxen 500 Mg Tablet) 500 mg PO BID [facility] Last Admin: 06/08/23 08:15 Dose: 500 mg Omeprazole (Omeprazole/Na Bicarb Oral Susp 20 Mg/10 Ml Ud Cup) 20 mg PO DAILY@1630 [facility] Senna (Sennosides 8.6 Mg Tablet) 17.2 mg PO BEDTIME [facility] Last Admin: 06/07/23 20:12 Dose: 17.2 mg Senna (Senna [place] Extract Oral Syrup 15 Ml Syrup) 7.5 ml PO BEDTIME PRN PRN Reason: Constipation Last Admin: 06/01/23 15:59 Dose: 7.5 ml Sucralfate (Sucralfate 1 Gm Tablet) 2 gm PO DAILY [facility] Last Admin: 06/08/23 08:16 Dose: 2 gm Tolterodine Tartrate (Tolterodine Tartrate La 4 Mg Cap.Er.24h) 4 mg PO BEDTIME [facility] Last Admin: 06/07/23 20:12 Dose: 4 mg Trazodone HCl (Trazodone Hcl 50 Mg Tablet) 50 mg PO BEDTIME MRX1 PRN PRN Reason: Insomnia Last Admin: 06/07/23 20:12 Dose: 50 mg Valsartan (Valsartan 320 Mg Tablet) 320 mg PO DAILY [facility]; Protocol Last Admin: 06/08/23 08:14 Dose: 320 mg Vitamin D (Cholecalciferol (Vitamin D3) 25 Mcg Tablet) 25 mcg PO DAILY [facility] Last Admin: 06/08/23 08:16 Dose: 25 mcg Allergies Allergies Allergy/AdvReac Type Severity Reaction Status Date / Time nortriptyline AdvReac Rash Verified 05/30/23 14:13 Assessment & Plan Assessment & Plan (1) Major depressive disorder: Status: Acute Code(s): F32.9 - Major depressive disorder, single episode, unspecified (2) Neurodegenerative cognitive impairment: Status: Acute Code(s): G31.9 - Degenerative disease of nervous system, unspecified Plan The patient is an elderly Qat[place] female with a past history of major depressive disorder a neuro cognitive impairment referred from the emergency room for exacerbation of depression and confusion. She was medically workout, transferring to this facility for psychiatric stabilization. Plan 06/08 continue current medications. Reason for continued inpatient stay Substantial Risk for: inability to function Time Spent With Patient Time: Total time managing care of this patient today ____ minutes.
[2023-06-08] MEDS: Fluticasone Propionate Nasal 16 GM SPRAY 1 SPRAY NOSTRIL-B (13:31)
[2023-06-08] MEDS: timoloL maleate 0.5 % Oph Sol 5 ML DRBTL 1 DROP EYE-LEFT (13:36)
[2023-06-08] MEDS: Omeprazole/Na Bicarb Oral Susp 20 MG/10 ML UD Cup PO (16:55)
[2023-06-08 18:00] VITALS: BP 115/60; PULSE 69; RESP 16; TEMP 36.2; O2SAT 97
[2023-06-08 20:56] LABS: Glucose, Whole Blood 101 mg/dL (60-115)
[2023-06-08] MEDS: Tolterodine Tartrate LA 4 MG CAP.ER.24H PO (21:06)
[2023-06-08] MEDS: metFORMIN HCl ER 500 MG TAB.ER.24H PO (21:09)
[2023-06-08] MEDS: traZODone HCL 50 MG TABLET PO (21:10)
[2023-06-08] MEDS: Famotidine 20 MG TABLET 40 MG PO (21:10)
[2023-06-08] MEDS: Atorvastatin Calcium 80 MG TABLET PO (21:11)
[2023-06-08] MEDS: Montelukast Sodium 10 MG TABLET PO (21:11)
[2023-06-08] MEDS: Mirtazapine 15 MG TABLET PO (21:12)
[2023-06-08] MEDS: Sennosides 8.6 MG TABLET 17.2 MG PO (21:12)
[2023-06-09 06:28] LABS: Glucose, Whole Blood 107 mg/dL (60-115)
[2023-06-09 07:00] VITALS: BMI 27.3
[2023-06-09 08:00] VITALS: BP 145/76; PULSE 93; RESP 18; TEMP 36.7; O2SAT 98
[2023-06-09] MEDS: Fluticasone/Vilanterol 200/25 BLST.W.DEV 1 PUFF INHALE (08:08)
[2023-06-09] MEDS: Brimonidine Tartrate 0.2% Oph 5 ML BOTTLE 1 DROP EYE-BOTH ×2 (08:09→20:57)
[2023-06-09] MEDS: Fluticasone Propionate Nasal 16 GM SPRAY 1 SPRAY NOSTRIL-B (08:09)
[2023-06-09] MEDS: Metoclopramide HCl 10 MG TABLET PO ×4 (08:10→20:47)
[2023-06-09] MEDS: Cholecalciferol (Vitamin D3) 25 MCG TABLET PO (08:11)
[2023-06-09] MEDS: Calcium + Vitamin D 250 MG TABLET 500 MG PO ×2 (08:11→20:44)
[2023-06-09] MEDS: Sucralfate 1 GM TABLET 2 GM PO (08:12)
[2023-06-09] MEDS: Valsartan 320 MG TABLET PO (08:13)
[2023-06-09] MEDS: hydroCHLOROthiazide 25 MG TABLET PO (08:13)
[2023-06-09] MEDS: amLODIPine Besylate 10 MG TABLET PO (08:14)
[2023-06-09] MEDS: metFORMIN HCl ER 500 MG TAB.ER.24H 1000 MG PO (08:14)
[2023-06-09] MEDS: Metoprolol Succinate ER 100 MG TAB.ER.24H PO (08:16)
[2023-06-09] MEDS: Loratadine 10 MG TABLET PO (08:17)
[2023-06-09] MEDS: NaPROXEN 500 MG TABLET PO ×2 (08:17→20:43)
[2023-06-09] MEDS: Aspirin 81 MG TAB.CHEW PO (08:18)
[2023-06-09] MEDS: timoloL maleate 0.5 % Oph Sol 5 ML DRBTL 1 DROP EYE-LEFT (08:25)
[2023-06-09 11:47] LABS: Glucose, Whole Blood 97 mg/dL (60-115)
--- NOTE | 2023-06-09 12:38 | P.PNPSI_ITS ---
Subjective Subjective Date of Service: 06/09/23 Reason For Visit: SI Subjective Notes: Conditional Voluntary Interim History: The nursing staff reported the patient had had signs and symptoms of GERD. She had been anxious with some depression but no suicidal ideation. She slept well most of the night. The professor of social work and the team had a family meeting with her 2 adult children. According to the occupational therapist she she scored 5.0 on the Rasheed test. On interview the patient denies new symptoms, working for discharge planning. We will start today Aricept 5 mg p.o. q.h.s. to target dementia Mental Status Exam Mental Status Exam Patient Appearance: Well Grooomed and Appropriate Patient Orientation: Person and Situation Level of Consciousness: Awake and Appropriate Patient Behavior: Guarded and Passive Mood Description: Calm Affect Description: Constricted Patient Cognition Impaired: Yes Ability to Follow Directions: Good Speech Pattern: Clear Hallucinations: None Delusions: Not Present Thought Process: Distracted and Evasive Thought Content: positive for [place] and positive for Circumstantial Judgement: Fair Diagnostics Vital Signs (24Hr): Vital Signs - 24 hr 06/08/23 18:00 06/09/23 08:00 Temperature 97.2 F 98.0 F Pulse Rate 69 93 Respiratory Rate 16 18 Blood Pressure 115/60 145/76 H Pulse Oximetry 97 98 Oxygen Delivery Method Room Air Room Air BMI result Body Mass Index 25.3 Labs 06/01/23 11:10 06/03/23 08:26 Labs: Laboratory Results - last 48 hr 06/07/23 06/08/23 06/08/23 19:55 06:45 20:52 POC Glucose 118 H 114 101 06/09/23 06/09/23 06:19 11:37 POC Glucose 107 97 Medications Medications Current Medications Acetaminophen (Acetaminophen 325 Mg Tablet) 650 mg PO Q6H PRN PRN Reason: Headache/Pain Mild Scale (1-3) Last Admin: 06/05/23 14:40 Dose: 650 mg Al Hydroxide/Mg Hydroxide (Magnesium Hydrox/Alum Hydrox 30 Ml Oral.Susp) 30 ml PO Q6H PRN PRN Reason: Heartburn/Nausea Last Admin: 06/03/23 15:23 Dose: 30 ml Amlodipine Besylate (Amlodipine Besylate 10 Mg Tablet) 10 mg PO DAILY [facility]; Protocol Last Admin: 06/09/23 08:14 Dose: 10 mg Aspirin (Aspirin 81 Mg Tab.Chew) 81 mg PO DAILY [facility] Last Admin: 06/09/23 08:18 Dose: 81 mg Atorvastatin Calcium (Atorvastatin Calcium 80 Mg Tablet) 80 mg PO BEDTIME [facility] Last Admin: 06/08/23 21:11 Dose: 80 mg Brimonidine Tartrate (Brimonidine Tartrate 0.2% Oph 5 Ml Bottle) 1 drop EYE- BOTH BID [facility] Last Admin: 06/09/23 08:09 Dose: 1 drop Calcium Carbonate/Cholecalciferol (Calcium + Vitamin D 250 Mg Tablet) 500 mg PO BID [facility] Last Admin: 06/09/23 08:11 Dose: 500 mg Donepezil HCl (Donepezil Hcl 5 Mg Tablet) 5 mg PO BEDTIME [facility] Famotidine (Famotidine 20 Mg Tablet) 40 mg PO BEDTIME [facility] Last Admin: 06/08/23 21:10 Dose: 40 mg Fluticasone Propionate (Fluticasone Propionate Nasal 16 Gm [place]) 1 spray NOSTRIL-B DAILY [facility] Last Admin: 06/09/23 08:09 Dose: 1 spray Fluticasone/Vilanterol (Fluticasone/Vilanterol 200/25 Blst.W.Dev) 1 puff INHALE RDAILY [facility] Last Admin: 06/09/23 08:08 Dose: 1 puff Hydrochlorothiazide (Hydrochlorothiazide 25 Mg Tablet) 25 mg PO DAILY [facility]; Protocol Last Admin: 06/09/23 08:13 Dose: 25 mg Hydroxyzine HCl (Hydroxyzine Hcl 25 Mg Tablet) 25 mg PO BEDTIME PRN PRN Reason: anxiety Last Admin: 06/02/23 04:49 Dose: 25 mg Hydroxyzine HCl (Hydroxyzine Hcl 25 Mg Tablet) 25 mg PO Q6H PRN PRN Reason: Anxiety Last Admin: 06/06/23 14:26 Dose: 25 mg Loratadine (Loratadine 10 Mg Tablet) 10 mg PO DAILY [facility] Last Admin: 06/09/23 08:17 Dose: 10 mg Magnesium Hydroxide (Milk Of Magnesia 30 Ml Oral.Susp) 30 ml PO DAILY PRN PRN Reason: Constipation Last Admin: 06/05/23 10:05 Dose: 30 ml Metformin HCl (Metformin Hcl Er 500 Mg Tab.Er.24h) 1,000 mg PO DAILY [facility] Last Admin: 06/09/23 08:14 Dose: 1,000 mg Metformin HCl (Metformin Hcl Er 500 Mg Tab.Er.24h) 500 mg PO BEDTIME [facility] Last Admin: 06/08/23 21:09 Dose: 500 mg Metoclopramide HCl (Metoclopramide Hcl 10 Mg Tablet) 10 mg PO QID [facility] Last Admin: 06/09/23 08:10 Dose: 10 mg Metoprolol Succinate (Metoprolol Succinate Er 100 Mg Tab.Er.24h) 100 mg PO DAILY [facility]; Protocol Last Admin: 06/09/23 08:16 Dose: 100 mg Mirtazapine (Mirtazapine 15 Mg Tablet) 15 mg PO BEDTIME [facility] Last Admin: 06/08/23 21:12 Dose: 15 mg Montelukast Sodium (Montelukast Sodium 10 Mg Tablet) 10 mg PO BEDTIME [facility] Last Admin: 06/08/23 21:11 Dose: 10 mg Naproxen (Naproxen 500 Mg Tablet) 500 mg PO BID [facility] Last Admin: 06/09/23 08:17 Dose: 500 mg Omeprazole (Omeprazole/Na Bicarb Oral Susp 20 Mg/10 Ml Ud Cup) 20 mg PO DAILY@1630 [facility] Last Admin: 06/08/23 16:55 Dose: 20 mg Senna (Sennosides 8.6 Mg Tablet) 17.2 mg PO BEDTIME [facility] Last Admin: 06/08/23 21:12 Dose: 17.2 mg Senna (Senna [place] Extract Oral Syrup 15 Ml Syrup) 7.5 ml PO BEDTIME PRN PRN Reason: Constipation Last Admin: 06/01/23 15:59 Dose: 7.5 ml Sucralfate (Sucralfate 1 Gm Tablet) 2 gm PO DAILY [facility] Last Admin: 06/09/23 08:12 Dose: 2 gm Timolol Maleate (Timolol Maleate 0.5 % Oph [place] 5 Ml Drbtl) 1 drop EYE-LEFT DAILY [facility] Last Admin: 06/09/23 08:25 Dose: 1 drop Tolterodine Tartrate (Tolterodine Tartrate La 4 Mg Cap.Er.24h) 4 mg PO BEDTIME [facility] Last Admin: 06/08/23 21:06 Dose: 4 mg Trazodone HCl (Trazodone Hcl 50 Mg Tablet) 50 mg PO BEDTIME MRX1 PRN PRN Reason: Insomnia Last Admin: 06/08/23 21:10 Dose: 50 mg Valsartan (Valsartan 320 Mg Tablet) 320 mg PO DAILY [facility]; Protocol Last Admin: 06/09/23 08:13 Dose: 320 mg Vitamin D (Cholecalciferol (Vitamin D3) 25 Mcg Tablet) 25 mcg PO DAILY [facility] Last Admin: 06/09/23 08:11 Dose: 25 mcg Allergies Allergies Allergy/AdvReac Type Severity Reaction Status Date / Time nortriptyline AdvReac Rash Verified 05/30/23 14:13 Assessment & Plan Assessment & Plan (1) Major depressive disorder: Status: Acute Code(s): F32.9 - Major depressive disorder, single episode, unspecified (2) Neurodegenerative cognitive impairment: Status: Acute Code(s): G31.9 - Degenerative disease of nervous system, unspecified Plan The patient is an elderly [place] female with a past history of major depressive disorder a neuro cognitive impairment referred from the emergency room for exacerbation of depression and confusion. She was medically workout, transferring to this facility for psychiatric stabilization. Plan 1. We stop TCA and start Remeron titrated up to 50 mg p.o. q.h.s.. 2. Start Aricept 5 mg p.o. q.h.s. on June 09. Reason for continued inpatient stay Substantial Risk for: inability to function, rapid decompensation and med/psych decompensation Time Spent With Patient Time: Total time managing care of this patient today __20__ minutes.
[2023-06-09] MEDS: hydrOXYzine HCL 25 MG TABLET PO ×2 (13:52→23:06)
[2023-06-09 17:22] LABS: Glucose, Whole Blood 148 mg/dL (60-115)
[2023-06-09] MEDS: Omeprazole/Na Bicarb Oral Susp 20 MG/10 ML UD Cup PO (17:27)
[2023-06-09 18:00] VITALS: BP 141/63; PULSE 72; RESP 16; TEMP 36.4; O2SAT 94
[2023-06-09] MEDS: Atorvastatin Calcium 80 MG TABLET PO (20:42)
[2023-06-09] MEDS: metFORMIN HCl ER 500 MG TAB.ER.24H PO (20:44)
[2023-06-09] MEDS: Tolterodine Tartrate LA 4 MG CAP.ER.24H PO (20:45)
[2023-06-09] MEDS: Sennosides 8.6 MG TABLET 17.2 MG PO (20:45)
[2023-06-09] MEDS: Donepezil HCl 5 MG TABLET PO (20:45)
[2023-06-09 20:46] LABS: Glucose, Whole Blood 100 mg/dL (60-115)
[2023-06-09] MEDS: traZODone HCL 50 MG TABLET PO ×2 (20:46→23:05)
[2023-06-09] MEDS: Mirtazapine 15 MG TABLET PO (20:46)
[2023-06-09] MEDS: Montelukast Sodium 10 MG TABLET PO (20:46)
[2023-06-09] MEDS: Famotidine 20 MG TABLET 40 MG PO (20:47)
[2023-06-09] MEDS: Magnesium Hydrox/Alum Hydrox 30 ML ORAL.SUSP PO (23:02)
[2023-06-10 06:26] LABS: Glucose, Whole Blood 130 mg/dL (60-115)
[2023-06-10 07:45] VITALS: BP 158/77; PULSE 89; RESP 18; TEMP 36.3; O2SAT 97
[2023-06-10] MEDS: Fluticasone/Vilanterol 200/25 BLST.W.DEV 1 PUFF INHALE (07:59)
[2023-06-10] MEDS: Brimonidine Tartrate 0.2% Oph 5 ML BOTTLE 1 DROP EYE-BOTH ×2 (07:59→21:24)
[2023-06-10] MEDS: Fluticasone Propionate Nasal 16 GM SPRAY 1 SPRAY NOSTRIL-B (07:59)
[2023-06-10] MEDS: Metoprolol Succinate ER 100 MG TAB.ER.24H PO (08:00)
[2023-06-10] MEDS: Valsartan 320 MG TABLET PO (08:01)
[2023-06-10] MEDS: metFORMIN HCl ER 500 MG TAB.ER.24H 1000 MG PO (08:01)
[2023-06-10] MEDS: Sucralfate 1 GM TABLET 2 GM PO (08:02)
[2023-06-10] MEDS: Calcium + Vitamin D 250 MG TABLET 500 MG PO ×2 (08:02→20:59)
[2023-06-10] MEDS: hydroCHLOROthiazide 25 MG TABLET PO (08:02)
[2023-06-10] MEDS: Metoclopramide HCl 10 MG TABLET PO ×4 (08:02→20:59)
[2023-06-10] MEDS: Aspirin 81 MG TAB.CHEW PO (08:02)
[2023-06-10] MEDS: Loratadine 10 MG TABLET PO (08:02)
[2023-06-10] MEDS: Cholecalciferol (Vitamin D3) 25 MCG TABLET PO (08:02)
[2023-06-10] MEDS: NaPROXEN 500 MG TABLET PO ×2 (08:03→21:05)
[2023-06-10] MEDS: amLODIPine Besylate 10 MG TABLET PO (08:03)
[2023-06-10] MEDS: timoloL maleate 0.5 % Oph Sol 5 ML DRBTL 1 DROP EYE-LEFT (08:14)
[2023-06-10 08:20] LABS: Estimated Glomerular Filt Rate > 60
[2023-06-10 10:33] LABS: Glucose, Whole Blood 158 mg/dL (60-115)
--- NOTE | 2023-06-10 14:28 | P.PNPSI_ITS ---
Subjective Subjective Date of Service: 06/10/23 Reason For Visit: SI Subjective Notes: Conditional Voluntary Interim History: The nursing staff reported the patient had been pleasant, anxious mostly of the time in her room. Today on interview the patient reported that she had diarrhea with the new medication most likely due to Aricept. We are going to discontinue it today. Mental Status Exam Mental Status Exam Patient Appearance: Appropriate Patient Orientation: Person and Situation Level of Consciousness: Awake and Appropriate Patient Behavior: Guarded and Passive Mood Description: Withdrawn Affect Description: Constricted Patient Cognition Impaired: Yes Ability to Follow Directions: Good Speech Pattern: Clear Hallucinations: None Delusions: Not Present Thought Process: Distracted Thought Content: positive for [place] and positive for Circumstantial Judgement: Poor Diagnostics Vital Signs (24Hr): Vital Signs - 24 hr 06/09/23 18:00 06/10/23 07:45 Temperature 97.5 F 97.3 F Pulse Rate 72 89 Respiratory Rate 16 18 Blood Pressure 141/63 H 158/77 H Pulse Oximetry 94 97 Oxygen Delivery Method Room Air Room Air BMI result Body Mass Index 27.3 Labs 06/01/23 11:10 06/10/23 07:47 Labs: Laboratory Results - last 48 hr 06/08/23 06/09/23 06/09/23 20:52 06:19 11:37 Creatinine Estim Creat Clear Calc Estimated GFR POC Glucose 101 107 97 06/09/23 06/09/23 06/10/23 17:18 20:05 06:11 Creatinine Estim Creat Clear Calc Estimated GFR POC Glucose 148 H 100 130 H 06/10/23 06/10/23 07:47 10:28 Creatinine 0.78 Estim Creat Clear Calc 49.0 Estimated GFR > 60 POC Glucose 158 H Medications Medications Current Medications Acetaminophen (Acetaminophen 325 Mg Tablet) 650 mg PO Q6H PRN PRN Reason: Headache/Pain Mild Scale (1-3) Last Admin: 06/05/23 14:40 Dose: 650 mg Al Hydroxide/Mg Hydroxide (Magnesium Hydrox/Alum Hydrox 30 Ml Oral.Susp) 30 ml PO Q6H PRN PRN Reason: Heartburn/Nausea Last Admin: 06/09/23 23:02 Dose: 30 ml Amlodipine Besylate (Amlodipine Besylate 10 Mg Tablet) 10 mg PO DAILY [facility]; Protocol Last Admin: 06/10/23 08:03 Dose: 10 mg Aspirin (Aspirin 81 Mg Tab.Chew) 81 mg PO DAILY [facility] Last Admin: 06/10/23 08:02 Dose: 81 mg Atorvastatin Calcium (Atorvastatin Calcium 80 Mg Tablet) 80 mg PO BEDTIME [facility] Last Admin: 06/09/23 20:42 Dose: 80 mg Brimonidine Tartrate (Brimonidine Tartrate 0.2% Oph 5 Ml Bottle) 1 drop EYE- BOTH BID [facility] Last Admin: 06/10/23 07:59 Dose: 1 drop Calcium Carbonate/Cholecalciferol (Calcium + Vitamin D 250 Mg Tablet) 500 mg PO BID [facility] Last Admin: 06/10/23 08:02 Dose: 500 mg Donepezil HCl (Donepezil Hcl 10 Mg Tablet) 10 mg PO BEDTIME [facility] Famotidine (Famotidine 20 Mg Tablet) 40 mg PO BEDTIME [facility] Last Admin: 06/09/23 20:47 Dose: 40 mg Fluticasone Propionate (Fluticasone Propionate Nasal 16 Gm [place]) 1 spray NOSTRIL-B DAILY [facility] Last Admin: 06/10/23 07:59 Dose: 1 spray Fluticasone/Vilanterol (Fluticasone/Vilanterol 200/25 Blst.W.Dev) 1 puff INHALE RDAILY [facility] Last Admin: 06/10/23 07:59 Dose: 1 puff Hydrochlorothiazide (Hydrochlorothiazide 25 Mg Tablet) 25 mg PO DAILY [facility]; Protocol Last Admin: 06/10/23 08:02 Dose: 25 mg Hydroxyzine HCl (Hydroxyzine Hcl 25 Mg Tablet) 25 mg PO BEDTIME PRN PRN Reason: anxiety Last Admin: 06/09/23 23:06 Dose: 25 mg Hydroxyzine HCl (Hydroxyzine Hcl 25 Mg Tablet) 25 mg PO Q6H PRN PRN Reason: Anxiety Last Admin: 06/09/23 13:52 Dose: 25 mg Loratadine (Loratadine 10 Mg Tablet) 10 mg PO DAILY [facility] Last Admin: 06/10/23 08:02 Dose: 10 mg Magnesium Hydroxide (Milk Of Magnesia 30 Ml Oral.Susp) 30 ml PO DAILY PRN PRN Reason: Constipation Last Admin: 06/05/23 10:05 Dose: 30 ml Metformin HCl (Metformin Hcl Er 500 Mg Tab.Er.24h) 1,000 mg PO DAILY [facility] Last Admin: 06/10/23 08:01 Dose: 1,000 mg Metformin HCl (Metformin Hcl Er 500 Mg Tab.Er.24h) 500 mg PO BEDTIME [facility] Last Admin: 06/09/23 20:44 Dose: 500 mg Metoclopramide HCl (Metoclopramide Hcl 10 Mg Tablet) 10 mg PO QID [facility] Last Admin: 06/10/23 12:52 Dose: 10 mg Metoprolol Succinate (Metoprolol Succinate Er 100 Mg Tab.Er.24h) 100 mg PO DAILY [facility]; Protocol Last Admin: 06/10/23 08:00 Dose: 100 mg Mirtazapine (Mirtazapine 15 Mg Tablet) 15 mg PO BEDTIME [facility] Last Admin: 06/09/23 20:46 Dose: 15 mg Montelukast Sodium (Montelukast Sodium 10 Mg Tablet) 10 mg PO BEDTIME [facility] Last Admin: 06/09/23 20:46 Dose: 10 mg Naproxen (Naproxen 500 Mg Tablet) 500 mg PO BID [facility] Last Admin: 06/10/23 08:03 Dose: 500 mg Omeprazole (Omeprazole/Na Bicarb Oral Susp 20 Mg/10 Ml Ud Cup) 20 mg PO DAILY@1630 [facility] Last Admin: 06/09/23 17:27 Dose: 20 mg Senna (Sennosides 8.6 Mg Tablet) 17.2 mg PO BEDTIME [facility] Last Admin: 06/09/23 20:45 Dose: 17.2 mg Senna (Senna [place] Extract Oral Syrup 15 Ml Syrup) 7.5 ml PO BEDTIME PRN PRN Reason: Constipation Last Admin: 06/01/23 15:59 Dose: 7.5 ml Sucralfate (Sucralfate 1 Gm Tablet) 2 gm PO DAILY [facility] Last Admin: 06/10/23 08:02 Dose: 2 gm Timolol Maleate (Timolol Maleate 0.5 % Oph [place] 5 Ml Drbtl) 1 drop EYE-LEFT DAILY [facility] Last Admin: 06/10/23 08:14 Dose: 1 drop Tolterodine Tartrate (Tolterodine Tartrate [place] 4 Mg Cap.Er.24h) 4 mg PO BEDTIME [facility] Last Admin: 06/09/23 20:45 Dose: 4 mg Trazodone HCl (Trazodone Hcl 50 Mg Tablet) 50 mg PO BEDTIME MRX1 PRN PRN Reason: Insomnia Last Admin: 06/09/23 23:05 Dose: 50 mg Valsartan (Valsartan 320 Mg Tablet) 320 mg PO DAILY [facility]; Protocol Last Admin: 06/10/23 08:01 Dose: 320 mg Vitamin D (Cholecalciferol (Vitamin D3) 25 Mcg Tablet) 25 mcg PO DAILY [facility] Last Admin: 06/10/23 08:02 Dose: 25 mcg Allergies Allergies Allergy/AdvReac Type Severity Reaction Status Date / Time nortriptyline AdvReac Rash Verified 05/30/23 14:13 Assessment & Plan Assessment & Plan (1) Major depressive disorder: Status: Acute Code(s): F32.9 - Major depressive disorder, single episode, unspecified (2) Neurodegenerative cognitive impairment: Status: Acute Code(s): G31.9 - Degenerative disease of nervous system, unspecified Plan The patient is an elderly Iranian female with a past history of major depressive disorder a neuro cognitive impairment referred from the emergency room for exacerbation of depression and confusion. She was medically workout, transferring to this facility for psychiatric stabilization. Plan 1. We stop TCA and start Remeron titrated up to 15 mg p.o. q.h.s.. 2. Start Aricept 5 mg p.o. q.h.s. on June 09. We are discontinuing on June 10 due to diarrhea peer Reason for continued inpatient stay Substantial Risk for: inability to function, rapid decompensation and med/psych decompensation Time Spent With Patient Time: Total time managing care of this patient today __20__ minutes.
[2023-06-10] MEDS: Omeprazole/Na Bicarb Oral Susp 20 MG/10 ML UD Cup PO (16:42)
[2023-06-10 18:00] VITALS: BP 115/55; PULSE 65; RESP 17; TEMP 37.1; O2SAT 95
[2023-06-10] MEDS: Tolterodine Tartrate LA 4 MG CAP.ER.24H PO (20:59)
[2023-06-10] MEDS: Mirtazapine 15 MG TABLET PO (20:59)
[2023-06-10] MEDS: Atorvastatin Calcium 80 MG TABLET PO (21:00)
[2023-06-10] MEDS: Montelukast Sodium 10 MG TABLET PO (21:00)
[2023-06-10] MEDS: Sennosides 8.6 MG TABLET 17.2 MG PO (21:00)
[2023-06-10] MEDS: metFORMIN HCl ER 500 MG TAB.ER.24H PO (21:05)
[2023-06-10] MEDS: Famotidine 20 MG TABLET 40 MG PO (21:05)
[2023-06-10 21:48] LABS: Glucose, Whole Blood 115 mg/dL (60-115)
[2023-06-11 06:41] LABS: Glucose, Whole Blood 122 mg/dL (60-115)
[2023-06-11] MEDS: Magnesium Hydrox/Alum Hydrox 30 ML ORAL.SUSP PO (06:41)
[2023-06-11 09:03] VITALS: BP 129/79; PULSE 80; RESP 15; TEMP 36.8; O2SAT 94
[2023-06-11] MEDS: amLODIPine Besylate 10 MG TABLET PO (09:05)
[2023-06-11] MEDS: Valsartan 320 MG TABLET PO (09:05)
[2023-06-11] MEDS: metFORMIN HCl ER 500 MG TAB.ER.24H 1000 MG PO (09:05)
[2023-06-11] MEDS: Metoprolol Succinate ER 100 MG TAB.ER.24H PO (09:06)
[2023-06-11] MEDS: NaPROXEN 500 MG TABLET PO ×2 (09:06→21:02)
[2023-06-11] MEDS: Metoclopramide HCl 10 MG TABLET PO ×4 (09:06→21:02)
[2023-06-11] MEDS: Cholecalciferol (Vitamin D3) 25 MCG TABLET PO (09:06)
[2023-06-11] MEDS: Sucralfate 1 GM TABLET 2 GM PO (09:06)
[2023-06-11] MEDS: Aspirin 81 MG TAB.CHEW PO (09:06)
[2023-06-11] MEDS: hydroCHLOROthiazide 25 MG TABLET PO (09:06)
[2023-06-11] MEDS: Loratadine 10 MG TABLET PO (09:06)
[2023-06-11] MEDS: Calcium + Vitamin D 250 MG TABLET 500 MG PO ×2 (09:06→21:02)
[2023-06-11] MEDS: Fluticasone/Vilanterol 200/25 BLST.W.DEV 1 PUFF INHALE (09:18)
[2023-06-11] MEDS: Brimonidine Tartrate 0.2% Oph 5 ML BOTTLE 1 DROP EYE-BOTH ×2 (09:18→21:01)
[2023-06-11] MEDS: Fluticasone Propionate Nasal 16 GM SPRAY 1 SPRAY NOSTRIL-B (09:18)
[2023-06-11] MEDS: timoloL maleate 0.5 % Oph Sol 5 ML DRBTL 1 DROP EYE-LEFT (09:18)
[2023-06-11] MEDS: Loperamide HCl 2 MG CAPSULE PO (14:24)
[2023-06-11] MEDS: Omeprazole/Na Bicarb Oral Susp 20 MG/10 ML UD Cup PO (16:36)
--- NOTE | 2023-06-11 17:01 | HO.PSYCHPN ---
Subjective Subjective Date of Service: 06/11/23 Reason For Visit: SI Interim History: The nursing staff reported the patient had been pleasant, anxious and spending time in her room. Today on interview the patient reported that she had diarrhea 4 times again today; Aricept discontinue yesterday. Medication Compliance: Yes Side effects from medications: Yes (question of diarreha due to side effect) Attending Groups: No Review of Systems Medical Review of Systems: unchanged Review of Systems Review of Systems Constitutional: No Fever, No Chills, No Fatigue, No Malaise, +anorexia ENT/Mouth: No Ear Pain, No Nasal Congestion, No sore throat, No Rhinorrhea, No Swallowing Difficulty Eyes: No Eye Pain, No Swelling, No Redness, No Vision Changes Cardiovascular: No Chest Pain, No SOB, No Edema, No Palpitations Respiratory: No Cough, No Sputum, No Dyspnea Gastrointestinal: + Nausea, No Vomiting, + Diarrhea, No Constipation, No Abdominal pain Genitourinary: No Dysuria, No Urinary Frequency, No Hematuria, No Urinary Incontinence/retention, No Flank Pain Musculoskeletal: No joint pain, No Myalgias, No Joint Swelling Skin: No Skin Lesions, No rash Neuro: No Weakness, No Numbness, No Paresthesias, No Loss of Consciousness, No Dizziness, + Headache Psych: + Anxiety/Panic, + Depression, No SI/HI/AH/VH, + Social Issues Yes all other systems are reviewed and are negative Constitutional: Reports as per [facility] Mental Status Exam Mental Status Exam Patient Appearance: Appropriate Patient Orientation: Person and Situation Level of Consciousness: Awake and Appropriate Patient Behavior: Guarded and Passive Mood Description: Withdrawn Affect Description: Constricted Patient Cognition Impaired: Yes Ability to Follow Directions: Good Speech Pattern: Clear Thought Process: Goal Oriented Thought Content: positive for Goal Oriented Judgement: Fair Diagnostics Vital Signs (24Hr): Vital Signs - 24 hr 06/10/23 18:00 06/11/23 09:03 Temperature 98.7 F 98.2 F Pulse Rate 65 80 Respiratory Rate 17 15 Blood Pressure 115/55 L 129/79 Pulse Oximetry 95 94 Oxygen Delivery Method Room Air Room Air BMI result Body Mass Index 27.3 Labs 06/01/23 11:10 06/10/23 07:47 Labs: Laboratory Results - last 48 hr 06/09/23 06/09/23 06/10/23 17:18 20:05 06:11 Creatinine Estim Creat Clear Calc Estimated GFR POC Glucose 148 H 100 130 H 06/10/23 06/10/23 06/10/23 07:47 10:28 20:57 Creatinine 0.78 Estim Creat Clear Calc 49.0 Estimated GFR > 60 POC Glucose 158 H 115 06/11/23 06:28 Creatinine Estim Creat Clear Calc Estimated GFR POC Glucose 122 H Medications Medications Current Medications Acetaminophen (Acetaminophen 325 Mg Tablet) 650 mg PO Q6H PRN PRN Reason: Headache/Pain Mild Scale (1-3) Last Admin: 06/05/23 14:40 Dose: 650 mg Al Hydroxide/Mg Hydroxide (Magnesium Hydrox/Alum Hydrox 30 Ml Oral.Susp) 30 ml PO Q6H PRN PRN Reason: Heartburn/Nausea Last Admin: 06/11/23 06:41 Dose: 30 ml Amlodipine Besylate (Amlodipine Besylate 10 Mg Tablet) 10 mg PO DAILY [facility]; Protocol Last Admin: 06/11/23 09:05 Dose: 10 mg Aspirin (Aspirin 81 Mg Tab.Chew) 81 mg PO DAILY [facility] Last Admin: 06/11/23 09:06 Dose: 81 mg Atorvastatin Calcium (Atorvastatin Calcium 80 Mg Tablet) 80 mg PO BEDTIME [facility] Last Admin: 06/10/23 21:00 Dose: 80 mg Brimonidine Tartrate (Brimonidine Tartrate 0.2% Oph 5 Ml Bottle) 1 drop EYE-BOTH BID [facility] Last Admin: 06/11/23 09:18 Dose: 1 drop Calcium Carbonate/Cholecalciferol (Calcium + Vitamin D 250 Mg Tablet) 500 mg PO BID [facility] Last Admin: 06/11/23 09:06 Dose: 500 mg Famotidine (Famotidine 20 Mg Tablet) 40 mg PO BEDTIME [facility] Last Admin: 06/10/23 21:05 Dose: 40 mg Fluticasone Propionate (Fluticasone Propionate Nasal 16 Gm [place]) 1 spray NOSTRIL-B DAILY [facility] Last Admin: 06/11/23 09:18 Dose: 1 spray Fluticasone/Vilanterol (Fluticasone/Vilanterol 200/25 Blst.W.Dev) 1 puff INHALE RDAILY [facility] Last Admin: 06/11/23 09:18 Dose: 1 puff Hydrochlorothiazide (Hydrochlorothiazide 25 Mg Tablet) 25 mg PO DAILY [facility]; Protocol Last Admin: 06/11/23 09:06 Dose: 25 mg Hydroxyzine HCl (Hydroxyzine Hcl 25 Mg Tablet) 25 mg PO BEDTIME PRN PRN Reason: anxiety Last Admin: 06/09/23 23:06 Dose: 25 mg Hydroxyzine HCl (Hydroxyzine Hcl 25 Mg Tablet) 25 mg PO Q6H PRN PRN Reason: Anxiety Last Admin: 06/09/23 13:52 Dose: 25 mg Loperamide HCl (Loperamide Hcl 2 Mg Capsule) 2 mg PO Q4H PRN PRN Reason: Diarrhea Last Admin: 06/11/23 14:24 Dose: 2 mg Loratadine (Loratadine 10 Mg Tablet) 10 mg PO DAILY [facility] Last Admin: 06/11/23 09:06 Dose: 10 mg Magnesium Hydroxide (Milk Of Magnesia 30 Ml Oral.Susp) 30 ml PO DAILY PRN PRN Reason: Constipation Last Admin: 06/05/23 10:05 Dose: 30 ml Metformin HCl (Metformin Hcl Er 500 Mg Tab.Er.24h) 1,000 mg PO DAILY [facility] Last Admin: 06/11/23 09:05 Dose: 1,000 mg Metformin HCl (Metformin Hcl Er 500 Mg Tab.Er.24h) 500 mg PO BEDTIME [facility] Last Admin: 06/10/23 21:05 Dose: 500 mg Metoclopramide HCl (Metoclopramide Hcl 10 Mg Tablet) 10 mg PO QID [facility] Last Admin: 06/11/23 16:36 Dose: 10 mg Metoprolol Succinate (Metoprolol Succinate Er 100 Mg Tab.Er.24h) 100 mg PO DAILY [facility]; Protocol Last Admin: 06/11/23 09:06 Dose: 100 mg Mirtazapine (Mirtazapine 15 Mg Tablet) 15 mg PO BEDTIME [facility] Last Admin: 06/10/23 20:59 Dose: 15 mg Montelukast Sodium (Montelukast Sodium 10 Mg Tablet) 10 mg PO BEDTIME [facility] Last Admin: 06/10/23 21:00 Dose: 10 mg Naproxen (Naproxen 500 Mg Tablet) 500 mg PO BID [facility] Last Admin: 06/11/23 09:06 Dose: 500 mg Omeprazole (Omeprazole/Na Bicarb Oral Susp 20 Mg/10 Ml Ud Cup) 20 mg PO DAILY@1630 [facility] Last Admin: 06/11/23 16:36 Dose: 20 mg Senna (Senna [place] Extract Oral Syrup 15 Ml Syrup) 7.5 ml PO BEDTIME PRN PRN Reason: Constipation Last Admin: 06/01/23 15:59 Dose: 7.5 ml Sucralfate (Sucralfate 1 Gm Tablet) 2 gm PO DAILY [facility] Last Admin: 06/11/23 09:06 Dose: 2 gm Timolol Maleate (Timolol Maleate 0.5 % Oph Davina 5 Ml Drbtl) 1 drop EYE-LEFT DAILY [facility] Last Admin: 06/11/23 09:18 Dose: 1 drop Tolterodine Tartrate (Tolterodine Tartrate La 4 Mg Cap.Er.24h) 4 mg PO BEDTIME [facility] Last Admin: 06/10/23 20:59 Dose: 4 mg Trazodone HCl (Trazodone Hcl 50 Mg Tablet) 50 mg PO BEDTIME MRX1 PRN PRN Reason: Insomnia Last Admin: 06/09/23 23:05 Dose: 50 mg Valsartan (Valsartan 320 Mg Tablet) 320 mg PO DAILY [facility]; Protocol Last Admin: 06/11/23 09:05 Dose: 320 mg Vitamin D (Cholecalciferol (Vitamin D3) 25 Mcg Tablet) 25 mcg PO DAILY [facility] Last Admin: 06/11/23 09:06 Dose: 25 mcg Allergies Allergies Allergy/AdvReac Type Severity Reaction Status Date / Time nortriptyline AdvReac Rash Verified 05/30/23 14:13 Assessment & Plan Assessment & Plan (1) Major depressive disorder: Status: Acute Code(s): F32.9 - Major depressive disorder, single episode, unspecified (2) Neurodegenerative cognitive impairment: Status: Acute Code(s): G31.9 - Degenerative disease of nervous system, unspecified Plan The patient is an elderly Niue[place] female with a past history of major depressive disorder a neuro cognitive impairment referred from the emergency room for exacerbation of depression and confusion. She was medically workout, transferring to this facility for psychiatric stabilization. Plan 1. We stop TCA and start Remeron titrated up to 15 mg p.o. q.h.s.. 2. Start Aricept 5 mg p.o. q.h.s. on June 09. We are discontinuing on June 10 due to diarrhea peer 06/11/23 loperamide prn started for diarrhea and senna schedule d/c she stillhas prn senna Patient educated on: diagnosis, medication risk/benefits, therapeutic strategies and medical condition Informed Consent: understands and further education needed Reason for continued inpatient stay Substantial Risk for: inability to function and rapid decompensation Time Spent With Patient Time: Total time managing care of this patient today ____ minutes.
[2023-06-11 20:00] VITALS: BP 139/67; PULSE 68; RESP 16; TEMP 36.1; O2SAT 96
[2023-06-11 20:34] LABS: Glucose, Whole Blood 108 mg/dL (60-115)
[2023-06-11] MEDS: Atorvastatin Calcium 80 MG TABLET PO (21:02)
[2023-06-11] MEDS: Tolterodine Tartrate LA 4 MG CAP.ER.24H PO (21:02)
[2023-06-11] MEDS: Montelukast Sodium 10 MG TABLET PO (21:02)
[2023-06-11] MEDS: metFORMIN HCl ER 500 MG TAB.ER.24H PO (21:02)
[2023-06-11] MEDS: Mirtazapine 15 MG TABLET PO (21:02)
[2023-06-11] MEDS: traZODone HCL 50 MG TABLET PO (21:02)
[2023-06-11] MEDS: Famotidine 20 MG TABLET 40 MG PO (21:02)
[2023-06-12] MEDS: hydrOXYzine HCL 25 MG TABLET PO (06:11)
[2023-06-12 06:41] LABS: Glucose, Whole Blood 116 mg/dL (60-115)
[2023-06-12 08:41] VITALS: BP 167/86; PULSE 89; RESP 15; TEMP 36.9; O2SAT 97
[2023-06-12] MEDS: Fluticasone Propionate Nasal 16 GM SPRAY 1 SPRAY NOSTRIL-B (08:42)
[2023-06-12] MEDS: Fluticasone/Vilanterol 200/25 BLST.W.DEV 1 PUFF INHALE (08:42)
[2023-06-12] MEDS: timoloL maleate 0.5 % Oph Sol 5 ML DRBTL 1 DROP EYE-LEFT (08:42)
[2023-06-12] MEDS: Brimonidine Tartrate 0.2% Oph 5 ML BOTTLE 1 DROP EYE-BOTH ×2 (08:42→20:44)
[2023-06-12] MEDS: Aspirin 81 MG TAB.CHEW PO (08:44)
[2023-06-12] MEDS: Calcium + Vitamin D 250 MG TABLET 500 MG PO ×2 (08:44→20:44)
[2023-06-12] MEDS: hydroCHLOROthiazide 25 MG TABLET PO (08:44)
[2023-06-12] MEDS: Metoclopramide HCl 10 MG TABLET PO (08:44)
[2023-06-12] MEDS: Valsartan 320 MG TABLET PO (08:45)
[2023-06-12] MEDS: amLODIPine Besylate 10 MG TABLET PO (08:45)
[2023-06-12] MEDS: metFORMIN HCl ER 500 MG TAB.ER.24H 1000 MG PO (08:45)
[2023-06-12] MEDS: Sucralfate 1 GM TABLET 2 GM PO (08:45)
[2023-06-12] MEDS: Loratadine 10 MG TABLET PO (08:45)
[2023-06-12] MEDS: NaPROXEN 500 MG TABLET PO ×2 (08:45→20:44)
[2023-06-12] MEDS: Metoprolol Succinate ER 100 MG TAB.ER.24H PO (08:45)
[2023-06-12] MEDS: Cholecalciferol (Vitamin D3) 25 MCG TABLET PO (08:45)
--- NOTE | 2023-06-12 17:19 | P.PNPSI_ITS ---
Subjective Subjective Date of Service: 06/12/23 Reason For Visit: SI Interim History: The nursing staff reported the patient had been pleasant, anxious and spending time in her room. patient reports no diarrhea today. slightly irritable but cooperative Medication Compliance: Yes Side effects from medications: No Attending Groups: Intermittent Review of Systems Acute medical concerns: No Medical Review of Systems: unchanged Review of Systems Review of Systems Constitutional: No Fever, No Chills, No Fatigue, No Malaise, +anorexia ENT/Mouth: No Ear Pain, No Nasal Congestion, No sore throat, No Rhinorrhea, No Swallowing Difficulty Eyes: No Eye Pain, No Swelling, No Redness, No Vision Changes Cardiovascular: No Chest Pain, No SOB, No Edema, No Palpitations Respiratory: No Cough, No Sputum, No Dyspnea Gastrointestinal: + Nausea, No Vomiting, + Diarrhea, No Constipation, No Abdominal pain Genitourinary: No Dysuria, No Urinary Frequency, No Hematuria, No Urinary Incontinence/retention, No Flank Pain Musculoskeletal: No joint pain, No Myalgias, No Joint Swelling Skin: No Skin Lesions, No rash Neuro: No Weakness, No Numbness, No Paresthesias, No Loss of Consciousness, No Dizziness, + Headache Psych: + Anxiety/Panic, + Depression, No SI/HI/AH/VH, + Social Issues Yes all other systems are reviewed and are negative Constitutional: Reports as per [facility] Mental Status Exam Mental Status Exam Patient Appearance: Appropriate Patient Orientation: Person and Situation Level of Consciousness: Awake and Appropriate Patient Behavior: Guarded and Passive Mood Description: Withdrawn Affect Description: Constricted Patient Cognition Impaired: Yes Ability to Follow Directions: Good Speech Pattern: Clear Judgement: Fair Diagnostics Vital Signs (24Hr): Vital Signs - 24 hr 06/11/23 20:00 06/12/23 08:41 Temperature 97.0 F 98.4 F Pulse Rate 68 89 Respiratory Rate 16 15 Blood Pressure 139/67 167/86 H Pulse Oximetry 96 97 Oxygen Delivery Method Room Air Room Air BMI result Body Mass Index 27.3 Labs 06/01/23 11:10 06/10/23 07:47 Labs: Laboratory Results - last 48 hr 06/10/23 06/11/23 06/11/23 20:57 06:28 20:27 POC Glucose 115 122 H 108 06/12/23 06:36 POC Glucose 116 H Medications Medications Current Medications Acetaminophen (Acetaminophen 325 Mg Tablet) 650 mg PO Q6H PRN PRN Reason: Headache/Pain Mild Scale (1-3) Last Admin: 06/05/23 14:40 Dose: 650 mg Al Hydroxide/Mg Hydroxide (Magnesium Hydrox/Alum Hydrox 30 Ml Oral.Susp) 30 ml PO Q6H PRN PRN Reason: Heartburn/Nausea Last Admin: 06/11/23 06:41 Dose: 30 ml Amlodipine Besylate (Amlodipine Besylate 10 Mg Tablet) 10 mg PO DAILY [facility]; Protocol Last Admin: 06/12/23 08:45 Dose: 10 mg Aspirin (Aspirin 81 Mg Tab.Chew) 81 mg PO DAILY [facility] Last Admin: 06/12/23 08:44 Dose: 81 mg Atorvastatin Calcium (Atorvastatin Calcium 80 Mg Tablet) 80 mg PO BEDTIME [facility] Last Admin: 06/11/23 21:02 Dose: 80 mg Brimonidine Tartrate (Brimonidine Tartrate 0.2% Oph 5 Ml Bottle) 1 drop EYE- BOTH BID [facility] Last Admin: 06/12/23 08:42 Dose: 1 drop Calcium Carbonate/Cholecalciferol (Calcium + Vitamin D 250 Mg Tablet) 500 mg PO BID [facility] Last Admin: 06/12/23 08:44 Dose: 500 mg Famotidine (Famotidine 20 Mg Tablet) 40 mg PO BEDTIME [facility] Last Admin: 06/11/23 21:02 Dose: 40 mg Fluticasone Propionate (Fluticasone Propionate Nasal 16 Gm [place]) 1 spray NOSTRIL-B DAILY [facility] Last Admin: 06/12/23 08:42 Dose: 1 spray Fluticasone/Vilanterol (Fluticasone/Vilanterol 200/25 Blst.W.Dev) 1 puff INHALE RDAILY [facility] Last Admin: 06/12/23 08:42 Dose: 1 puff Hydrochlorothiazide (Hydrochlorothiazide 25 Mg Tablet) 25 mg PO DAILY [facility]; Protocol Last Admin: 06/12/23 08:44 Dose: 25 mg Hydroxyzine HCl (Hydroxyzine Hcl 25 Mg Tablet) 25 mg PO BEDTIME PRN PRN Reason: anxiety Last Admin: 06/09/23 23:06 Dose: 25 mg Hydroxyzine HCl (Hydroxyzine Hcl 25 Mg Tablet) 25 mg PO Q6H PRN PRN Reason: Anxiety Last Admin: 06/12/23 06:11 Dose: 25 mg Loperamide HCl (Loperamide Hcl 2 Mg Capsule) 2 mg PO Q4H PRN PRN Reason: Diarrhea Last Admin: 06/11/23 14:24 Dose: 2 mg Loratadine (Loratadine 10 Mg Tablet) 10 mg PO DAILY [facility] Last Admin: 06/12/23 08:45 Dose: 10 mg Magnesium Hydroxide (Milk Of Magnesia 30 Ml Oral.Susp) 30 ml PO DAILY PRN PRN Reason: Constipation Last Admin: 06/05/23 10:05 Dose: 30 ml Metformin HCl (Metformin Hcl Er 500 Mg Tab.Er.24h) 1,000 mg PO DAILY [facility] Last Admin: 06/12/23 08:45 Dose: 1,000 mg Metformin HCl (Metformin Hcl Er 500 Mg Tab.Er.24h) 500 mg PO BEDTIME [facility] Last Admin: 06/11/23 21:02 Dose: 500 mg Metoclopramide HCl (Metoclopramide Hcl 10 Mg Tablet) 10 mg PO QID [facility] Last Admin: 06/12/23 14:30 Dose: Not Given Metoprolol Succinate (Metoprolol Succinate Er 100 Mg Tab.Er.24h) 100 mg PO DAILY [facility]; Protocol Last Admin: 06/12/23 08:45 Dose: 100 mg Mirtazapine (Mirtazapine 15 Mg Tablet) 15 mg PO BEDTIME [facility] Last Admin: 06/11/23 21:02 Dose: 15 mg Montelukast Sodium (Montelukast Sodium 10 Mg Tablet) 10 mg PO BEDTIME [facility] Last Admin: 06/11/23 21:02 Dose: 10 mg Naproxen (Naproxen 500 Mg Tablet) 500 mg PO BID [facility] Last Admin: 06/12/23 08:45 Dose: 500 mg Omeprazole (Omeprazole/Na Bicarb Oral Susp 20 Mg/10 Ml Ud Cup) 20 mg PO DAILY@1630 [facility] Last Admin: 06/11/23 16:36 Dose: 20 mg Senna (Senna [place] Extract Oral Syrup 15 Ml Syrup) 7.5 ml PO BEDTIME PRN PRN Reason: Constipation Last Admin: 06/01/23 15:59 Dose: 7.5 ml Sucralfate (Sucralfate 1 Gm Tablet) 2 gm PO DAILY [facility] Last Admin: 06/12/23 08:45 Dose: 2 gm Timolol Maleate (Timolol Maleate 0.5 % Oph Davina 5 Ml Drbtl) 1 drop EYE-LEFT DAILY [facility] Last Admin: 06/12/23 08:42 Dose: 1 drop Tolterodine Tartrate (Tolterodine Tartrate La 4 Mg Cap.Er.24h) 4 mg PO BEDTIME [facility] Last Admin: 06/11/23 21:02 Dose: 4 mg Trazodone HCl (Trazodone Hcl 50 Mg Tablet) 50 mg PO BEDTIME MRX1 PRN PRN Reason: Insomnia Last Admin: 06/11/23 21:02 Dose: 50 mg Valsartan (Valsartan 320 Mg Tablet) 320 mg PO DAILY [facility]; Protocol Last Admin: 06/12/23 08:45 Dose: 320 mg Vitamin D (Cholecalciferol (Vitamin D3) 25 Mcg Tablet) 25 mcg PO DAILY [facility] Last Admin: 06/12/23 08:45 Dose: 25 mcg Allergies Allergies Allergy/AdvReac Type Severity Reaction Status Date / Time nortriptyline AdvReac Rash Verified 05/30/23 14:13 Assessment & Plan Assessment & Plan (1) Major depressive disorder: Status: Acute Code(s): F32.9 - Major depressive disorder, single episode, unspecified (2) Neurodegenerative cognitive impairment: Status: Acute Code(s): G31.9 - Degenerative disease of nervous system, unspecified Plan The patient is an elderly [place] female with a past history of major depressive disorder a neuro cognitive impairment referred from the emergency room for exacerbation of depression and confusion. She was medically workout, transferring to this facility for psychiatric stabilization. Plan 1. We stop TCA and start Remeron titrated up to 15 mg p.o. q.h.s.. 2. Start Aricept 5 mg p.o. q.h.s. on June 09. We are discontinuing on June 10 due to diarrhea peer 06/11/23 loperamide prn started for diarrhea and senna schedule d/c she still has prn senna 06/12/23 no changes continue treatment plan Reason for continued inpatient stay Substantial Risk for: inability to function and rapid decompensation Time Spent With Patient Time: Total time managing care of this patient today ____ minutes.
[2023-06-12] MEDS: Omeprazole/Na Bicarb Oral Susp 20 MG/10 ML UD Cup PO (17:30)
[2023-06-12 20:02] VITALS: BP 127/64; PULSE 72; RESP 16; TEMP 36.9; O2SAT 94
[2023-06-12 20:15] LABS: Glucose, Whole Blood 111 mg/dL (60-115)
[2023-06-12] MEDS: metFORMIN HCl ER 500 MG TAB.ER.24H PO (20:44)
[2023-06-12] MEDS: Tolterodine Tartrate LA 4 MG CAP.ER.24H PO (20:44)
[2023-06-12] MEDS: traZODone HCL 50 MG TABLET PO (20:44)
[2023-06-12] MEDS: Mirtazapine 15 MG TABLET PO (20:44)
[2023-06-12] MEDS: Famotidine 20 MG TABLET 40 MG PO (20:44)
[2023-06-12] MEDS: Montelukast Sodium 10 MG TABLET PO (20:44)
[2023-06-12] MEDS: Atorvastatin Calcium 80 MG TABLET PO (20:45)
[2023-06-13] MEDS: Acetaminophen 325 MG TABLET 650 MG PO (05:02)
[2023-06-13] MEDS: Milk of Magnesia 30 ML ORAL.SUSP PO (05:02)
[2023-06-13 06:00] VITALS: BP 155/72; PULSE 88; RESP 16; TEMP 36.7; O2SAT 97
[2023-06-13 06:34] LABS: Glucose, Whole Blood 120 mg/dL (60-115)
[2023-06-13] MEDS: Fluticasone Propionate Nasal 16 GM SPRAY 1 SPRAY NOSTRIL-B (08:37)
[2023-06-13] MEDS: Fluticasone/Vilanterol 200/25 BLST.W.DEV 1 PUFF INHALE (08:38)
[2023-06-13] MEDS: Brimonidine Tartrate 0.2% Oph 5 ML BOTTLE 1 DROP EYE-BOTH ×2 (08:39→21:47)
[2023-06-13] MEDS: Sucralfate 1 GM TABLET 2 GM PO (08:40)
[2023-06-13] MEDS: Calcium + Vitamin D 250 MG TABLET 500 MG PO ×2 (08:40→21:26)
[2023-06-13] MEDS: amLODIPine Besylate 10 MG TABLET PO (08:40)
[2023-06-13] MEDS: Valsartan 320 MG TABLET PO (08:41)
[2023-06-13] MEDS: hydroCHLOROthiazide 25 MG TABLET PO (08:41)
[2023-06-13] MEDS: Aspirin 81 MG TAB.CHEW PO (08:41)
[2023-06-13] MEDS: Metoprolol Succinate ER 100 MG TAB.ER.24H PO (08:41)
[2023-06-13] MEDS: Metoclopramide HCl 10 MG TABLET PO ×2 (08:41→21:28)
[2023-06-13] MEDS: Loratadine 10 MG TABLET PO (08:42)
[2023-06-13] MEDS: metFORMIN HCl ER 500 MG TAB.ER.24H 1000 MG PO (08:42)
[2023-06-13] MEDS: Cholecalciferol (Vitamin D3) 25 MCG TABLET PO (08:42)
[2023-06-13] MEDS: NaPROXEN 500 MG TABLET PO ×2 (08:42→21:27)
[2023-06-13] MEDS: timoloL maleate 0.5 % Oph Sol 5 ML DRBTL 1 DROP EYE-LEFT (08:55)
[2023-06-13 11:19] LABS: Glucose, Whole Blood 141 mg/dL (60-115)
--- NOTE | 2023-06-13 12:50 | HO.PSYCHPN ---
Subjective Subjective Date of Service: 06/13/23 Reason For Visit: SI Subjective Notes: Conditional Voluntary Interim History: The nursing staff reported the patient had been requesting her medications, he had been pleasant, cooperative yesterday he had a visit with her family. She wants to go back home at this moment she denies pain, depressive symptoms and her sleep was okay. On interview the patient denies new symptoms she agreed and discharge tomorrow to her family. Mental Status Exam Mental Status Exam Patient Appearance: Well Grooomed and Appropriate Patient Orientation: Person and Situation Level of Consciousness: Awake and Appropriate Patient Behavior: Guarded and Passive Mood Description: Calm and Constricted Affect Description: Constricted Patient Cognition Impaired: Yes Ability to Follow Directions: Good Speech Pattern: Clear Hallucinations: None Delusions: Not Present Thought Process: Distracted and Linear Thought Content: positive for [place], positive for Circumstantial and positive for Poverty of Content Judgement: Fair Diagnostics Vital Signs (24Hr): Vital Signs - 24 hr 06/12/23 20:02 06/13/23 06:00 Temperature 98.4 F 98.1 F Pulse Rate 72 88 Respiratory Rate 16 16 Blood Pressure 127/64 155/72 H Pulse Oximetry 94 97 Oxygen Delivery Method Room Air Room Air BMI result Body Mass Index 27.3 Labs 06/01/23 11:10 06/10/23 07:47 Labs: Laboratory Results - last 48 hr 06/11/23 06/12/23 06/12/23 20:27 06:36 20:08 POC Glucose 108 116 H 111 06/13/23 06/13/23 06:14 11:14 POC Glucose 120 H 141 H Medications Medications Current Medications Acetaminophen (Acetaminophen 325 Mg Tablet) 650 mg PO Q6H PRN PRN Reason: Headache/Pain Mild Scale (1-3) Last Admin: 06/13/23 05:02 Dose: 650 mg Al Hydroxide/Mg Hydroxide (Magnesium Hydrox/Alum Hydrox 30 Ml Oral.Susp) 30 ml PO Q6H PRN PRN Reason: Heartburn/Nausea Last Admin: 06/11/23 06:41 Dose: 30 ml Amlodipine Besylate (Amlodipine Besylate 10 Mg Tablet) 10 mg PO DAILY [facility]; Protocol Last Admin: 06/13/23 08:40 Dose: 10 mg Aspirin (Aspirin 81 Mg Tab.Chew) 81 mg PO DAILY [facility] Last Admin: 06/13/23 08:41 Dose: 81 mg Atorvastatin Calcium (Atorvastatin Calcium 80 Mg Tablet) 80 mg PO BEDTIME [facility] Last Admin: 06/12/23 20:45 Dose: 80 mg Brimonidine Tartrate (Brimonidine Tartrate 0.2% Oph 5 Ml Bottle) 1 drop EYE-BOTH BID [facility] Last Admin: 06/13/23 08:39 Dose: 1 drop Calcium Carbonate/Cholecalciferol (Calcium + Vitamin D 250 Mg Tablet) 500 mg PO BID [facility] Last Admin: 06/13/23 08:40 Dose: 500 mg Famotidine (Famotidine 20 Mg Tablet) 40 mg PO BEDTIME [facility] Last Admin: 06/12/23 20:44 Dose: 40 mg Fluticasone Propionate (Fluticasone Propionate Nasal 16 Gm [place]) 1 spray NOSTRIL-B DAILY [facility] Last Admin: 06/13/23 08:37 Dose: 1 spray Fluticasone/Vilanterol (Fluticasone/Vilanterol 200/25 Blst.W.Dev) 1 puff INHALE RDAILY [facility] Last Admin: 06/13/23 08:38 Dose: 1 puff Hydrochlorothiazide (Hydrochlorothiazide 25 Mg Tablet) 25 mg PO DAILY [facility]; Protocol Last Admin: 06/13/23 08:41 Dose: 25 mg Hydroxyzine HCl (Hydroxyzine Hcl 25 Mg Tablet) 25 mg PO BEDTIME PRN PRN Reason: anxiety Last Admin: 06/09/23 23:06 Dose: 25 mg Hydroxyzine HCl (Hydroxyzine Hcl 25 Mg Tablet) 25 mg PO Q6H PRN PRN Reason: Anxiety Last Admin: 06/12/23 06:11 Dose: 25 mg Loperamide HCl (Loperamide Hcl 2 Mg Capsule) 2 mg PO Q4H PRN PRN Reason: Diarrhea Last Admin: 06/11/23 14:24 Dose: 2 mg Loratadine (Loratadine 10 Mg Tablet) 10 mg PO DAILY [facility] Last Admin: 06/13/23 08:42 Dose: 10 mg Magnesium Hydroxide (Milk Of Magnesia 30 Ml Oral.Susp) 30 ml PO DAILY PRN PRN Reason: Constipation Last Admin: 06/13/23 05:02 Dose: 30 ml Metformin HCl (Metformin Hcl Er 500 Mg Tab.Er.24h) 1,000 mg PO DAILY [facility] Last Admin: 06/13/23 08:42 Dose: 1,000 mg Metformin HCl (Metformin Hcl Er 500 Mg Tab.Er.24h) 500 mg PO BEDTIME [facility] Last Admin: 06/12/23 20:44 Dose: 500 mg Metoclopramide HCl (Metoclopramide Hcl 10 Mg Tablet) 10 mg PO QID [facility] Last Admin: 06/13/23 08:41 Dose: 10 mg Metoprolol Succinate (Metoprolol Succinate Er 100 Mg Tab.Er.24h) 100 mg PO DAILY [facility]; Protocol Last Admin: 06/13/23 08:41 Dose: 100 mg Mirtazapine (Mirtazapine 15 Mg Tablet) 15 mg PO BEDTIME [facility] Last Admin: 06/12/23 20:44 Dose: 15 mg Montelukast Sodium (Montelukast Sodium 10 Mg Tablet) 10 mg PO BEDTIME [facility] Last Admin: 06/12/23 20:44 Dose: 10 mg Naproxen (Naproxen 500 Mg Tablet) 500 mg PO BID [facility] Last Admin: 06/13/23 08:42 Dose: 500 mg Omeprazole (Omeprazole/Na Bicarb Oral Susp 20 Mg/10 Ml Ud Cup) 20 mg PO DAILY@1630 [facility] Last Admin: 06/12/23 17:30 Dose: 20 mg Senna (Senna [place] Extract Oral Syrup 15 Ml Syrup) 7.5 ml PO BEDTIME PRN PRN Reason: Constipation Last Admin: 06/01/23 15:59 Dose: 7.5 ml Sucralfate (Sucralfate 1 Gm Tablet) 2 gm PO DAILY [facility] Last Admin: 06/13/23 08:40 Dose: 2 gm Timolol Maleate (Timolol Maleate 0.5 % Oph Davina 5 Ml Drbtl) 1 drop EYE-LEFT DAILY [facility] Last Admin: 06/13/23 08:55 Dose: 1 drop Tolterodine Tartrate (Tolterodine Tartrate La 4 Mg Cap.Er.24h) 4 mg PO BEDTIME [facility] Last Admin: 06/12/23 20:44 Dose: 4 mg Trazodone HCl (Trazodone Hcl 50 Mg Tablet) 50 mg PO BEDTIME MRX1 PRN PRN Reason: Insomnia Last Admin: 06/12/23 20:44 Dose: 50 mg Valsartan (Valsartan 320 Mg Tablet) 320 mg PO DAILY [facility]; Protocol Last Admin: 06/13/23 08:41 Dose: 320 mg Vitamin D (Cholecalciferol (Vitamin D3) 25 Mcg Tablet) 25 mcg PO DAILY [facility] Last Admin: 06/13/23 08:42 Dose: 25 mcg Allergies Allergies Allergy/AdvReac Type Severity Reaction Status Date / Time nortriptyline AdvReac Rash Verified 05/30/23 14:13 Assessment & Plan Assessment & Plan (1) Major depressive disorder: Status: Acute Code(s): F32.9 - Major depressive disorder, single episode, unspecified (2) Neurodegenerative cognitive impairment: Status: Acute Code(s): G31.9 - Degenerative disease of nervous system, unspecified (3) Dementia: Status: Acute Code(s): F03.90 - Unspecified dementia, unspecified severity, without behavioral disturbance, psychotic disturbance, mood disturbance, and anxiety Plan The patient is an elderly Kosovan female with a past history of major depressive disorder a neuro cognitive impairment referred from the emergency room for exacerbation of depression and confusion. She was medically workout, transferring to this facility for psychiatric stabilization. Plan 1. We stop TCA and start Remeron titrated up to 15 mg p.o. q.h.s.. 2. Start Aricept 5 mg p.o. q.h.s. on June 09. We are discontinuing on June 10 due to diarrhea as per her report. 3. Discharge tomorrow. Reason for continued inpatient stay Substantial Risk for: inability to function, rapid decompensation and med/psych decompensation Time Spent With Patient Time: Total time managing care of this patient today __20__ minutes.
[2023-06-13 16:26] LABS: Glucose, Whole Blood 94 mg/dL (60-115)
[2023-06-13] MEDS: Omeprazole/Na Bicarb Oral Susp 20 MG/10 ML UD Cup PO (16:37)
[2023-06-13 18:00] VITALS: BP 139/71; PULSE 69; RESP 18; TEMP 36.6; O2SAT 97
[2023-06-13 20:24] LABS: Glucose, Whole Blood 99 mg/dL (60-115)
[2023-06-13] MEDS: traZODone HCL 50 MG TABLET PO (21:26)
[2023-06-13] MEDS: metFORMIN HCl ER 500 MG TAB.ER.24H PO (21:27)
[2023-06-13] MEDS: Mirtazapine 15 MG TABLET PO (21:27)
[2023-06-13] MEDS: Montelukast Sodium 10 MG TABLET PO (21:28)
[2023-06-13] MEDS: Tolterodine Tartrate LA 4 MG CAP.ER.24H PO (21:28)
[2023-06-13] MEDS: Famotidine 20 MG TABLET 40 MG PO (21:28)
[2023-06-13] MEDS: Atorvastatin Calcium 80 MG TABLET PO (21:28)
[2023-06-13] MEDS: hydrOXYzine HCL 25 MG TABLET PO (21:29)
[2023-06-14 06:00] VITALS: BP 142/67; PULSE 75; RESP 18; TEMP 36.6; O2SAT 96
[2023-06-14 07:25] LABS: Glucose, Whole Blood 130 mg/dL (60-115)
[2023-06-14] MEDS: Brimonidine Tartrate 0.2% Oph 5 ML BOTTLE 1 DROP EYE-BOTH (08:14)
[2023-06-14] MEDS: timoloL maleate 0.5 % Oph Sol 5 ML DRBTL 1 DROP EYE-LEFT (08:14)
[2023-06-14] MEDS: Fluticasone/Vilanterol 200/25 BLST.W.DEV 1 PUFF INHALE (08:15)
[2023-06-14] MEDS: Fluticasone Propionate Nasal 16 GM SPRAY 1 SPRAY NOSTRIL-B (08:15)
--- NOTE | 2023-06-14 08:15 | PM.PSYDC ---
DS: Providers Provider Date of Service: 06/14/23 Date of admission: 06/02/23 21:05 Date of discharge: 06/14/23 Primary care physician: Helder Morales MD Consults: 06/01/23 10:55 Consult to Care Team Stat Comment: Reason for consultation: +increasing depression/anxiety, unable to care for self Attending physician on discharge: Canelo Jeff DS: Diagnosis Discharge Diagnosis (1) Major depressive disorder: Status: Acute (2) Neurodegenerative cognitive impairment: Status: Acute (3) Dementia: Status: Acute DS: Medications Discharge Medications Home Medications: Home Medications Medication Instructions Recorded Confirmed amlodipine 10 mg tablet 10 mg PO QAM 06/01/23 06/01/23 aspirin 81 mg tablet,delayed 81 mg PO BEDTIME 06/01/23 06/01/23 release atorvastatin 80 mg tablet 80 mg PO QPM 06/01/23 06/01/23 brimonidine 0.2 % eye drops 1 drp ophthalmic (eye) BID 06/01/23 06/01/23 calcium carbonate 600 mg-vitamin 1 tab PO BID 06/01/23 06/01/23 D3 10 mcg (400 unit) tablet cholecalciferol (vitamin D3) 25 25 mcg PO QAM 06/01/23 06/01/23 mcg (1,000 unit) tablet dexlansoprazole 60 mg 60 mg PO QPM 06/01/23 06/01/23 capsule,biphase delayed release famotidine 40 mg tablet 40 mg PO BEDTIME 06/01/23 06/01/23 fluticasone 500 mcg-salmeterol 50 1 ea inhalation BID 06/01/23 06/01/23 mcg/dose blistr powdr for inhalation hydrochlorothiazide 25 mg tablet 25 mg PO QAM 06/01/23 06/01/23 hydroxyzine pamoate 25 mg capsule 25 mg PO BEDTIME PRN anxiety 06/01/23 06/01/23 imipramine HCl 10 mg tablet 10 mg PO BEDTIME 06/01/23 06/01/23 loratadine 10 mg tablet 10 mg PO QAM 06/01/23 06/01/23 meloxicam 15 mg tablet 15 mg PO QAM 06/01/23 06/01/23 metformin 500 mg tablet,extended 1,000 mg PO DAILY 06/01/23 06/01/23 release 24 hr metformin 500 mg tablet,extended 500 mg PO BEDTIME 06/01/23 06/01/23 release 24 hr metoclopramide HCl 10 mg tablet 10 mg PO QID 06/01/23 06/01/23 metoprolol succinate 100 mg 100 mg PO QAM 06/01/23 06/01/23 tablet,extended release 24 hr montelukast 10 mg tablet 10 mg PO QPM 06/01/23 06/01/23 sennosides 8.6 mg tablet (senna) 17.2 mg PO BEDTIME constipation 06/01/23 06/01/23 sucralfate 1 gram tablet 2 g PO DAILY 06/01/23 06/01/23 tolterodine 4 mg capsule,extended 4 mg PO BEDTIME 06/01/23 06/01/23 release 24 hr valsartan 320 mg tablet 320 mg PO QAM 06/01/23 06/01/23 Mental Status Exam Mental Status Exam Patient Appearance: Well Grooomed and Appropriate Patient Orientation: Person and Situation Level of Consciousness: Awake and Appropriate Patient Behavior: Guarded and Passive Mood Description: Withdrawn Affect Description: Constricted Patient Cognition Impaired: Yes Ability to Follow Directions: Good Speech Pattern: Clear Hallucinations: None Delusions: Not Present Thought Process: Distracted and Linear Thought Content: positive for [place], positive for Circumstantial and positive for Poverty of Content Judgement: Fair Data Data Completed and Pending Completed studies during hospitalization [Text1]: 06/07/23 06/08/23 06/08/23 19:55 06:45 20:52 Creatinine Estim Creat Clear Calc Estimated GFR POC Glucose 118 H 114 101 06/09/23 06/09/23 06/09/23 06:19 11:37 17:18 Creatinine Estim Creat Clear Calc Estimated GFR POC Glucose 107 97 148 H 06/09/23 06/10/23 06/10/23 20:05 06:11 07:47 Creatinine 0.78 Estim Creat Clear Calc 49.0 Estimated GFR > 60 POC Glucose 100 130 H 06/10/23 06/10/23 06/11/23 10:28 20:57 06:28 Creatinine Estim Creat Clear Calc Estimated GFR POC Glucose 158 H 115 122 H 06/11/23 06/12/23 06/12/23 20:27 06:36 20:08 Creatinine Estim Creat Clear Calc Estimated GFR POC Glucose 108 116 H 111 06/13/23 06/13/23 06/13/23 06:14 11:14 16:22 Creatinine Estim Creat Clear Calc Estimated GFR POC Glucose 120 H 141 H 94 06/13/23 06/14/23 20:01 07:20 Creatinine Estim Creat Clear Calc Estimated GFR POC Glucose 99 130 H DS: Summary Hospital Course Hospital Course: The patient is an 82-year-old descent female, living in the community with good social support referred to the emergency room of another hospital with a complaint of exacerbation of depression with suicidal ideation and worsening of her behavior with disorganized thought process. The patient was assessed by crisis and transferring to this facility for psychiatric stabilization. Please see the HPI of the admission note for further details. On intake, the patient was confused, cooperative and pleasant and she admitted that she was feeling very depressed. Apparently she had a past history of major depressive disorder and she was treated in the past with antidepressants in the community but the patient could not remember what she was taking. We review her list of medications and she was on a tree cyclic antidepressant at a very low dose. We discussed risks, benefits, side-effects and alternatives and she agreed to discontinue the tree cyclic and start mirtazapine to target depression. We cross taper it slowly and increase up to 15 mg of Remeron at night with for improvement of her depression and anxiety. While she was in the unit we did cognitive testing and it was clear that the patient suffer from dementia. We tried to started on anti cholinesterase but she could not tolerated she had diarrhea. The patient was able to participate in groups, she was future oriented and since there were no safety concerns discharge planning was discussed. Time spent discussing smoking cessation with patient: 3 to 10 minutes Status at Discharge Cognitive/behavioral status at discharge: At baseline, impaired Functional status at discharge: independent ambulation Overall status at discharge: patient is back to baseline Time Spent with Patient Time attestation: Total time managing care of this patient today __30__ minutes. Discharge Plan Discharge Anticipated Discharge Date/Time: 06/14/23 10:00 Patient Disposition: Home Health Service Discharge Diagnosis: Major depressive disorder recurrent episode severe. Dementia Referrals: Stu [facility] - Psychiatric Prescriber [Other] - 07/06/23 2:30 pm (Appointment - by Telehealth 07/06/2023 @ 2:30pm ) Helder Morales MD [Primary Care Provider] - 06/27/23 2:45 pm Discharge Medications: New trazodone 50 mg Tablet 50 mg PO BEDTIME MRX1 PRN (Reason: Insomnia) 30 Days Qty: 30 0RF mirtazapine 15 mg Tablet 15 mg PO BEDTIME 30 Days Qty: 30 0RF timolol maleate 0.5 % Drops 1 drp ophthalmic-Left DAILY 30 Days Qty: 5 0RF fluticasone propionate 50 mcg/actuation [place],Suspension 1 spray intranasal DAILY 30 Days Qty: 5 0RF fluticasone furoate-vilanterol [Breo Ellipta] 200-25 mcg/dose Blister With Device 1 inh inhalation RDAILY Qty: 60 0RF Continued atorvastatin 80 mg tablet 80 mg PO QPM 30 Days Qty: 30 0RF sennosides [senna] 8.6 mg tablet 17.2 mg PO BEDTIME Qty: 60 0RF tolterodine 4 mg capsule,extended release 24hr 4 mg PO BEDTIME 30 Days Qty: 30 0RF meloxicam 15 mg tablet 15 mg PO QAM 30 Days Qty: 30 0RF sucralfate 1 gram tablet 2 g PO DAILY 30 Days Qty: 60 0RF famotidine 40 mg tablet 40 mg PO BEDTIME 30 Days Qty: 30 0RF metoprolol succinate 100 mg tablet extended release 24 hr 100 mg PO QAM 30 Days Qty: 30 0RF aspirin 81 mg tablet,delayed release (DR/EC) 81 mg PO BEDTIME Qty: 30 0RF amlodipine 10 mg tablet 10 mg PO QAM 30 Days Qty: 30 0RF valsartan 320 mg tablet 320 mg PO QAM 30 Days Qty: 30 0RF brimonidine 0.2 % drops 1 drp ophthalmic (eye) BID 30 Days Qty: 5 0RF montelukast 10 mg tablet 10 mg PO QPM 30 Days Qty: 30 0RF hydrochlorothiazide 25 mg tablet 25 mg PO QAM 30 Days Qty: 30 0RF metformin 500 mg tablet extended release 24 hr 1,000 mg PO DAILY 30 Days Qty: 60 0RF Rx Instructions: TAKE 2 TABLETS BY MOUTH ONCE DAILY IN THE MORNING and TAKE 1 TABLET BY MOUTH EVERY EVENING WITH FOOD metformin 500 mg tablet extended release 24 hr 500 mg PO BEDTIME 30 Days Qty: 30 0RF loratadine 10 mg tablet 10 mg PO QAM Qty: 30 0RF metoclopramide HCl 10 mg tablet 10 mg PO QID 30 Days Qty: 120 0RF hydroxyzine pamoate 25 mg capsule 25 mg PO BEDTIME PRN (Reason: anxiety) 30 Days Qty: 30 0RF cholecalciferol (vitamin D3) 25 mcg (1,000 unit) tablet 25 mcg PO QAM Qty: 30 0RF calcium carbonate-vitamin D3 600 mg-10 mcg (400 unit) tablet 1 tab PO BID Qty: 60 0RF dexlansoprazole 60 mg capsule,biphase delayed releas 60 mg PO QPM Qty: 30 0RF Discontinued fluticasone propion-salmeterol 500-50 mcg/dose blister with device 1 ea INHALATION BID imipramine HCl 10 mg tablet 10 mg PO BEDTIME Discharge Orders: Discharge Order (Routine); Ordered 06/14/23 Ordered By: Canelo Jeff Diet: Advance to usual diet Activity on Discharge: As tolerated Stand Alone Forms: Patient Portal Discharge page Care Plan Goals: Care plan goals achieved in this admission Health Concerns: Continue treatment with primary care physician and outpatient providers. Plan of Treatment: Continue psychiatric treatment by outpatient providers. Assessment: The patient is an elderly [place] female with a past history of major depressive disorder admitted for exacerbation of depression with passive suicidal ideation. Also the patient was diagnosed with dementia when she was in the unit. She was treated with Remeron, we discontinue her tree cyclic antidepressants and she improved, safe to be in the community.
[2023-06-14] MEDS: Valsartan 320 MG TABLET PO (08:16)
[2023-06-14] MEDS: Calcium + Vitamin D 250 MG TABLET 500 MG PO (08:16)
[2023-06-14] MEDS: amLODIPine Besylate 10 MG TABLET PO (08:16)
[2023-06-14] MEDS: Aspirin 81 MG TAB.CHEW PO (08:17)
[2023-06-14] MEDS: Metoprolol Succinate ER 100 MG TAB.ER.24H PO (08:17)
[2023-06-14] MEDS: metFORMIN HCl ER 500 MG TAB.ER.24H 1000 MG PO (08:17)
[2023-06-14] MEDS: Loratadine 10 MG TABLET PO (08:17)
[2023-06-14] MEDS: hydroCHLOROthiazide 25 MG TABLET PO (08:17)
[2023-06-14] MEDS: Sucralfate 1 GM TABLET 2 GM PO (08:17)
[2023-06-14] MEDS: NaPROXEN 500 MG TABLET PO (08:18)
[2023-06-14] MEDS: Cholecalciferol (Vitamin D3) 25 MCG TABLET PO (08:18)
--- NOTE | 2023-06-14 10:51 | PC.NURSE ---
Patient alert and oriented. Expresses readiness for discharge. All instructions reviewed with patient and daughter including medications and follow up appointments. Belongings reviewed and returned. Patient denies pain, SI/HI. Escorted to front of hospital by staff. [ End ]
== END 2023-06-14 10:40 | disposition home health service (06) | DRG 885 ==
LOC: HO.ED 06-02 19:54 → HO.PGERI 06-02 21:26
PROVIDERS: Physician Assistant; Social Worker; Admitting Provider Psychiatry & Neurology Psychiatry; Emergency Provider Emergency Medicine Emergency Medical Services; PCP Internal Medicine; Visit Provider Psychiatry & Neurology Psychiatry
DX: F33.2 Major depressive disorder, recurrent severe without psychotic features (principal); K52.1 Toxic gastroenteritis and colitis; E11.9 Type 2 diabetes mellitus without complications; T44.0X5A Adverse effect of anticholinesterase agents, initial encounter; I10 Essential (primary) hypertension; Z20.822 Contact with and (suspected) exposure to COVID-19; F03.90 Unspecified dementia, unspecified severity, without behavioral disturbance, psychotic disturbance, mood disturbance, and anxiety; Z79.51 Long term (current) use of inhaled steroids; Z79.82 Long term (current) use of aspirin; Z79.84 Long term (current) use of oral hypoglycemic drugs; Z79.899 Other long term (current) drug therapy
CPT/HCPCS: 36415; 80048; 80053; 80061; 80076; 81003; 82565; 82607; 82947; 83036; 83735; 84443; 85025; 87635; 93005; 99285; S9485

== ENCOUNTER → 2023-06-02 21:05 | Outpatient (BNV) | payer OTHER, SELFPAY | PROVIDERS: Admitting Provider Psychiatry & Neurology Psychiatry; Emergency Provider Emergency Medicine Emergency Medical Services; PCP Internal Medicine; Visit Provider Psychiatry & Neurology Psychiatry | DX: F32.2 Major depressive disorder, single episode, severe without psychotic features (principal); G31.9 Degenerative disease of nervous system, unspecified; F03.90 Unspecified dementia, unspecified severity, without behavioral disturbance, psychotic disturbance, mood disturbance, and anxiety | CPT/HCPCS: 90792; 99231; 99232; 99238 ==

== ENCOUNTER 2023-08-04 08:52 | Outpatient (AMB) | payer OTHER, SELFPAY ==
--- NOTE | 2023-08-04 08:59 | MHC.OFFVIS ---
Intake Vital Signs 08/04/23 09:06 Height 5 ft 1 in Weight 130 lb BMI 24.6 BP 134/61 Blood Pressure Location Lt brachial Position Sitting Pulse 63 Intake Visit Reasons: Follow up ED Intake Note: Patient presents to in office visit today in follow up abdominal pain. CC: Patient was seen in the ED on 05/15/23 with c/o abdominal pain Allergies nortriptyline Adverse Reaction (Verified 08/04/23 09:08) Rash HPI Follow up ED HPI Details .Assessment & Plan (1) GERD (gastroesophageal reflux disease): Code(s): K21.9 - Gastro-esophageal reflux disease without esophagitis Plan: Divehi #declines She is here today with her daughter who is supportive. In general she is feeling a bit better since we restarted all the medications. However, she continues to have trouble most mornings with pain that starts in the epigastric area that feels like a burning and sometimes spreads across the ribcage. She says that it gets better when she drinks some tea in takes her medications. She has her bowel movements in the morning but this does not seem to affect the pain/discomfort. She continues on her Carafate at noon. I think were going to switch the timing of her Dexilant and her famotidine to try to address the morning symptoms. I want to take the Dexilant at bedtime and will take the famotidine in the morning. This way will get a stronger medication into worst system overnight to try to address acid brash etc.. Her diarrhea is somewhat better since we have got her back on her medications. However, I note that she is taking the 5 mg dose of metoclopramide and not the 10 mg that she is supposed to be taking. I think she had an old bottle at home. She can take 2 of these until she gets the refill at the 10 mg dose. It is possible that this is part of the problem with her morning symptoms as well. Return office visit in 4 weeks to see how she is doing. (2) Delayed gastric emptying: Code(s): K30 - Functional dyspepsia (3) Irritable bowel syndrome with both constipation and diarrhea: Code(s): K58.2 - Mixed irritable bowel syndrome Medications: Refilled metoclopramide HCl (Reglan) 10 mg PO QIDACHS 120 tabs 6RF K30 - Functional dyspepsia Discontinued ondansetron Discontinued Reason: Doctor's Order 4 mg PO Q6H PRN 14 tabs 0RF nausea and vomiting TODAY'S VISIT Divehi #declines, dtr translates per pt request. Her dementia is progressing, but she is now living with her daughter who is giving her the medications. Her appetite is still variable (likely r/t dementia) but she was recently started on Boost and this is helping. Overall, her GI sx are very well controlled and she IS now on the 10mg reglan. The only change is that they stopped the carafate, which is fine. They ask if she can take miralax instead of senna, and this is fine with me. Apparently, she was recently hospitalized for neuropsych eval for her dementia. ROV 6 mos. PFSH Medical History Seasonal allergies Glaucoma Arthritis Back pain Asthma HTN (hypertension) Diabetes Surgical History Hx of endoscopy Hx of colonoscopy Hx of hysterectomy Family History Mother Diabetes Heart problem Asthma Father Diabetes Depression Maternal Grandfather Stomach cancer Family/Other Colon cancer Brother COVID-19 Social History Household Members: Family and Other Household Members Other:: brother whos health is so so Housing: Unknown / Unable to assess Are you a primary managed care director to a significant other at home: No Do you presently have visiting nurse or other home services: Yes (discharged from [facility] 05/30 with [facility]) Alcohol intake: never Patient Tobacco Use Status: Never used Tobacco e-Cigarette/Vaping Use: Never Used Second Hand Smoke Exposure: No Advance Directives Date on File: 05/15/23 Sexual orientation: Straight/Heterosexual Review of Systems Const Denies fatigue, Denies fever(s), Denies night sweats, Reports poor appetite and Reports weight loss ENT Reports Normal hearing present, Denies dental pain, Denies dysphagia, Denies hearing loss, Denies mouth pain, Denies odynophagia, Denies throat swelling, Denies tongue swelling and Reports other (Dentition adequate) Card Reports no additional complaints Resp Reports no additional complaints GI Denies abdominal pain, Denies melena, Denies bloating, Denies hematochezia, Reports constipation, Denies GI cramping, Denies dysphagia, Denies excessive flatus, Denies early satiety, Reports heartburn, Denies diarrhea, Denies nausea, Denies odynophagia, Denies vomiting and Denies hematemesis Musc Reports abnormal gait and Reports stiffness Skin/Breast Denies pruritus, Denies lesions, Denies rash and Denies jaundice Neuro Reports Normal hearing present, Denies Abnormal speech present, Reports abnormal gait and Reports memory loss Psych Reports memory loss Endo Denies fatigue Aller/Immun Denies throat swelling and Denies tongue swelling Physical Exam Vital Signs: Last Vital Signs Pulse 63 08/04/23 09:06 BP 134/61 08/04/23 09:06 BMI result Body Mass Index 24.6 Const General: cooperative, no acute distress, well developed and well groomed Nutritional Appearance: average body habitus and well nourished Orientation/consciousness: oriented to person, oriented to place and oriented to time Limitations: language barrier and ambulation with walker HEENT Head: Yes normocephalic and Yes atraumatic Eyes General: appearance normal, both eyes and all related structures Pupils: Equal, round and reactive pupils present Neck Neck: Yes normal visual inspection and Yes no lymphadenopathy Thyroid: Thyroid normal Resp Effort & Inspection: normal respiratory effort and able to speak in complete sentences Auscultation: clear to auscultation bilaterally Cardio Rate: regular rate Rhythm: regular rhythm Heart sounds: Normal, physiologic split S2 sound present Peripheral pulses: radial pulses present and posterior tibial pulses present GI Inspection: No distended, No Abdominal panniculus present and Yes obesity Palpation (GI): Soft to palpation, nontender, no guarding and not rigid Percussion: Yes normal to percussion Auscultation: normal bowel sounds Rectal Exam - Female: deferred Skin General skin exam: no rashes or lesions noted, turgor normal, skin not dry, no jaundice, No spider nevi and no striae Rashes: no rashes Nails: normal Neuro General: oriented to person, oriented to place and oriented to time Cranial nerves: Yes Equal, round and reactive pupils present and Yes Normal hearing present Speech: No Abnormal speech present Extrem General: Yes normal to inspection, No clubbing, No cyanosis and No edema Psych Appearance: grossly normal and well kempt Mental Status: other Speech and movement: Normal speech and movement present Affect: normal affect Attitude: cooperative Thought process: Circumstantial thought process present and not confabulating Thought content: Normal thought content present Insight: Limited insight present (Psych) Judgement: Limited judgement present (Psych) Assessment & Plan Assessment & Plan (1) Irritable bowel syndrome with both constipation and diarrhea: Code(s): K58.2 - Mixed irritable bowel syndrome (2) GERD (gastroesophageal reflux disease): Code(s): K21.9 - Gastro-esophageal reflux disease without esophagitis (3) Delayed gastric emptying: Code(s): K30 - Functional dyspepsia Plan Divehi #declines, dtr translates per pt request. Her dementia is progressing, but she is now living with her daughter who is giving her the medications. Her appetite is still variable (likely r/t dementia) but she was recently started on Boost and this is helping. Overall, her GI sx are very well controlled and she IS now on the 10mg reglan. The only change is that they stopped the carafate, which is fine. They ask if she can take miralax instead of senna, and this is fine with me. Apparently, she was recently hospitalized for neuropsych eval for her dementia. ROV 6 mos. Medications: New polyethylene glycol 3350 (Miralax) 17 grams PO DAILY 30 days 510 grams 6RF K58.2 - Mixed irritable bowel syndrome Refilled metoclopramide HCl 10 mg PO QID 30 days 120 tabs 6RF famotidine 40 mg PO BEDTIME 30 days 30 tabs 6RF dexlansoprazole 60 mg PO QPM 30 caps 6RF Discontinued sucralfate Discontinued Reason: Doctor's Order 2 grams (2 x 1 gram) PO DAILY 30 days 60 tabs 0RF On Hold sennosides (senna) Hold Comment: Doctor's Order 17.2 mg (2 x 8.6 mg) PO BEDTIME 60 tabs 0RF constipation Coding Level of Care Code Est Pt Level 3 (14810) Diagnoses Irritable bowel syndrome with both constipation and diarrhea K58.2 GERD (gastroesophageal reflux disease) K21.9 Delayed gastric emptying K30
[2023-08-04 09:06] VITALS: BP 134/61; PULSE 63; BMI 24.6
== END 2023-08-04 10:05 | disposition home or self-care (01) ==
PROVIDERS: PCP Internal Medicine; Visit Provider Nurse Practitioner
DX: K58.2 Mixed irritable bowel syndrome (principal); K21.9 Gastro-esophageal reflux disease without esophagitis; K30 Functional dyspepsia
CPT/HCPCS: 99213

== ENCOUNTER → 2023-08-04 08:52 | Outpatient (BNVA) | payer OTHER, SELFPAY | PROVIDERS: PCP Internal Medicine; Visit Provider Nurse Practitioner | DX: K58.2 Mixed irritable bowel syndrome (principal); K21.9 Gastro-esophageal reflux disease without esophagitis; K30 Functional dyspepsia | CPT/HCPCS: 99212 ==

== ENCOUNTER 2023-08-17 10:43 | Outpatient (REF) | payer OTHER, SELFPAY ==
[2023-08-17 11:00] LABS: MANUAL DIFF FLAG NO
[2023-08-17 11:35] LABS: Basophils Percent Auto 0.2 % (0-2); Eosinophils Absolute Auto 0.1 X10*3/uL (0.0-0.4); Eosinophils Percent Auto 1.3 % (0-4); Hematocrit 42.8 % (37.0-47.0); Hemoglobin 14.1 g/dl (12.0-16.0); Imm Gran Abs Auto 0.03 X10*3/uL (0.00-0.03); Imm Gran Pct Auto 0.3 % (0.0-0.4); Lymphocytes Absolute Auto 1.4 X10*3/uL (1.2-4.9); Lymphocytes Percent Auto 13.5 % (20-40); Mean Corpuscular HGB Conc 32.9 g/dl (31.0-35.0); Mean Corpuscular Hemoglobin 29.1 pg (27.0-33.0); Mean Corpuscular Volume 88.4 fL (80.0-98.0); Mean Platelet Volume 9.7 fL (9.4-12.3); Monocytes Absolute Auto 0.5 X10*3/uL (0.1-1.2); Monocytes Percent Auto 5.1 % (2-11); Neutrophils Absolute Auto 8.3 x10*3/uL (2.0-8.3); Neutrophils Percent Auto 79.6 % (45-73); Platelet Count 264 X10*3/uL (160-400); Red Blood Count 4.84 X10*6/uL (4.20-5.50); Red Cell Distribution Width 13.4 % (11.0-16.0); White Blood Count 10.4 X10*3/uL (4.8-10.8)
[2023-08-17 12:20] LABS: Anion Gap 13 (12-20); Blood Urea Nitrogen 14 mg/dL (9-16); Calcium 9.6 mg/dL (8.4-10.2); Carbon Dioxide 27 mmol/L (22-29); Chloride 105 mmol/L (96-108); Estimated Glomerular Filt Rate > 60; Glucose Random 164 mg/dL (60-115); Potassium 3.5 mmol/L (3.3-5.1); Sodium 141 mmol/L (135-145)
[2023-08-17 12:38] LABS: T4 Thyroxine 7.1 ug/dL (4.5-12.0); Thyroid Stimulating Hormone 1.29 uIU/mL (0.32-4.0)
[2023-08-17 12:42] LABS: Vitamin B12 856 pg/mL (200-900)
== END 2023-08-17 10:44 | disposition home or self-care (01) ==
LOC: HO.LAB 10:43
PROVIDERS: PCP Internal Medicine; Visit Provider Psychiatry & Neurology Neurology
DX: G31.84 Mild cognitive impairment of uncertain or unknown etiology (principal)
CPT/HCPCS: 36415; 80048; 82607; 82746; 84436; 84443; 85025

== ENCOUNTER 2023-09-08 07:26 | Outpatient (REF) | payer OTHER, SELFPAY ==
--- NOTE | ~2023-09-08 | CT_ITS ---
CT HEAD WITHOUT CONTRAST CLINICAL INFORMATION: Mild cognitive impairment. COMPARISON: Head CT 05/30/2023. TECHNIQUE: Contiguous axial imaging was performed from the skull base to vertex without intravenous administration of contrast. This CT examination was performed using dose optimization techniques as appropriate, variously including the following: *Automated exposure control *Adjustment of mA and/or kV according to patient size (this includes techniques or standardized protocols for targeted exams where dose is matched to indication/reason for exam; i.e. extremities or head) *Use of iterative reconstruction technique FINDINGS: There is global cerebral volume loss and there is mild chronic microangiopathy. There is no intracranial hemorrhage, hydrocephalus, extra-axial surface collection, midline shift, or other herniation pattern. Justice to white matter differentiation is diffusely maintained without evidence of an evolved acute territorial infarct. The basilar cisterns are preserved. No significant soft tissue abnormality. No acute osseous abnormality. The paranasal sinuses and the mastoid air cells are well aerated. CT/CT head/brain wo IV con IMPRESSION: No acute intracranial abnormality. There is global cerebral volume loss and there is mild chronic microangiopathy.
== END 2023-09-08 07:27 | disposition home or self-care (01) ==
LOC: HO.CT 07:26
PROVIDERS: PCP Internal Medicine; Visit Provider Psychiatry & Neurology Neurology
DX: G31.84 Mild cognitive impairment of uncertain or unknown etiology (principal)
CPT/HCPCS: 70450

== ENCOUNTER 2024-01-08 08:00 | Emergency (ER) | payer OTHER, SELFPAY ==
--- NOTE | ~2024-01-08 | XR_ITS ---
EXAMINATION: XR CHEST CLINICAL INFORMATION: Cough COMPARISON: None available. TECHNIQUE: 2 views of the chest were obtained. FINDINGS: No significant abnormality is noted involving the heart, lungs, mediastinum, bony thorax or soft tissues. XR/XR chest 2V IMPRESSION: Unremarkable examination.
[2024-01-08 08:09] VITALS: BP 141/68; PULSE 71; RESP 18; TEMP 37.5; O2SAT 98; BMI 23.8
[2024-01-08 09:31] LABS: IDNOW Serial# 58CA691E; Strep A Nucleic Acid Negative (Negative)
--- NOTE | 2024-01-08 09:43 | ED_ITS ---
HPI - General Adult General Chief complaint: Upper Respiratory Symptoms Stated complaint: Difficulty breathing - asthma Time Seen by Provider: 01/08/24 09:04 Source: patient Mode of arrival: ambulatory Limitations: language barrier ( Sinhala-speaking) History of Present Illness HPI narrative: patient is an 83-year-old female who presents to the emergency department with daughter for evaluation. She reports an asthma exacerbation with progressive worsening over the past 5 days. She takes Breo Ellipta daily, unfortunately she has ran out of her albuterol inhaler and albuterol solution. She reports that these were previously being prescribed by an press hand supervisor with whom she does not have another appointment with until April and was unable to get refills. She has been experiencing a nonproductive cough, mild sore throat, shortness of breath. She denies fevers, chills, headache, dizziness, neck pain, chest pain, nausea, vomiting, abdominal pain, numbness or tingling of her extremities. She denies any prior history intubation due to her asthma, and denies any recent Oral steroid usage. Related Data Home Medications ?Medication ?Instructions ?Recorded ?Confirmed escitalopram oxalate 10 mg tablet 10 mg PO DAILY 08/04/23 lorazepam 0.5 mg tablet mg PO 08/04/23 quetiapine 25 mg tablet mg PO 08/04/23 Previous Rx's ?Medication ?Instructions ?Recorded amlodipine 10 mg tablet 10 mg PO QAM 30 days #30 tabs 06/14/23 aspirin 81 mg tablet,delayed 81 mg PO BEDTIME #30 tabs 06/14/23 release atorvastatin 80 mg tablet 80 mg PO QPM 30 days #30 tabs 06/14/23 brimonidine 0.2 % eye drops 1 drp ophthalmic (eye) BID 30 days 06/14/23 #5 mL calcium carbonate 600 mg-vitamin 1 tab PO BID #60 tabs 06/14/23 D3 10 mcg (400 unit) tablet cholecalciferol (vitamin D3) 25 25 mcg PO QAM #30 tabs 06/14/23 mcg (1,000 unit) tablet fluticasone furoate 200 1 inh inhalation RDAILY #60 ea 06/14/23 mcg-vilanterol 25 mcg/dose inhalation powder (Breo Ellipta) fluticasone propionate 50 1 spray intranasal DAILY 30 days 06/14/23 mcg/actuation nasal #5 grams spray,suspension hydrochlorothiazide 25 mg tablet 25 mg PO QAM 30 days #30 tabs 06/14/23 hydroxyzine pamoate 25 mg capsule 25 mg PO BEDTIME PRN anxiety 30 06/14/23 days #30 caps loratadine 10 mg tablet 10 mg PO QAM #30 tabs 06/14/23 meloxicam 15 mg tablet 15 mg PO QAM 30 days #30 tabs 06/14/23 metformin 500 mg tablet,extended 1,000 mg (2 x 500 mg) PO DAILY 30 06/14/23 release 24 hr days #60 tabs metformin 500 mg tablet,extended 500 mg PO BEDTIME 30 days #30 tabs 06/14/23 release 24 hr metoprolol succinate 100 mg 100 mg PO QAM 30 days #30 tabs 06/14/23 tablet,extended release 24 hr mirtazapine 15 mg tablet 15 mg PO BEDTIME 30 days #30 tabs 06/14/23 montelukast 10 mg tablet 10 mg PO QPM 30 days #30 tabs 06/14/23 sennosides 8.6 mg tablet (senna) 17.2 mg (2 x 8.6 mg) PO BEDTIME 06/14/23 constipation #60 tabs timolol maleate 0.5 % eye drops 1 drp ophthalmic-Left DAILY 30 06/14/23 days #5 mL tolterodine 4 mg capsule,extended 4 mg PO BEDTIME 30 days #30 caps 06/14/23 release 24 hr trazodone 50 mg tablet 50 mg PO BEDTIME MRX1 PRN Insomnia 06/14/23 30 days #30 tabs valsartan 320 mg tablet 320 mg PO QAM 30 days #30 tabs 06/14/23 dexlansoprazole 60 mg 60 mg PO QPM #30 caps 08/04/23 capsule,biphase delayed release famotidine 40 mg tablet 40 mg PO BEDTIME 30 days #30 tabs 08/04/23 metoclopramide HCl 10 mg tablet 10 mg PO QID 30 days #120 tabs 08/04/23 polyethylene glycol 3350 17 17 g PO DAILY 30 days #510 grams 08/04/23 gram/dose oral powder (Miralax) albuterol sulfate 2.5 mg/3 mL 2.5 mg (3 mL) inhalation Q4-6H PRN 01/08/24 (0.083 %) solution for nebulization shortness of breath or wheezing #90 mL albuterol sulfate 90 mcg/actuation 2 puff inhalation Q4-6H PRN 01/08/24 aerosol inhaler shortness of breath or wheezing #6.7 grams prednisone 20 mg tablet 40 mg (2 x 20 mg) PO DAILY 4 days 01/08/24 #8 tabs Allergies Allergy/AdvReac Type Severity Reaction Status Date / Time nortriptyline AdvReac Rash Verified 01/08/24 08:14 Review of Systems Review of Systems: Yes all other systems are reviewed and are negative [facility] Past Medical History Attestation statement: The following information was validated with the patient. Source: old records reviewed Medical History Seasonal allergies Glaucoma Arthritis Back pain Asthma HTN (hypertension) Diabetes Surgical History Hx of endoscopy Hx of colonoscopy Hx of hysterectomy Family History Family History Mother Diabetes Heart problem Asthma Father Diabetes Depression Maternal Grandfather Stomach cancer Family/Other Colon cancer Brother COVID-19 Social History Social History Household Members: Family and Other Household Members Other:: brother whos health is so so Housing: Unknown / Unable to assess Are you a primary ambulatory care coordinator to a significant other at home: No Do you presently have visiting nurse or other home services: Yes (discharged from [facility] 05/30 with [facility]) Alcohol intake: never Patient Tobacco Use Status: Never used Tobacco e-Cigarette/Vaping Use: Never Used Second Hand Smoke Exposure: No Advance Directives: Yes Advance Directives on File: Yes Advance Directives Date on File: 05/15/23 Do you have a plan to hurt others: No Plan Sexual orientation: Straight/Heterosexual Physical Exam ED Vital Signs: Vital Signs - 24 hr 01/08/24 08:09 01/08/24 09:48 Temperature 99.5 F Pulse Rate 71 64 Respiratory Rate 18 16 Blood Pressure 141/68 H Pulse Oximetry 98 Oxygen Delivery Method Room Air BMI result Body Mass Index 23.8 Appearance: Alert.?Oriented to person, place and time. No acute distress.?Normal affect. Eyes: Pupils equal, round and reactive to light.? ENT: Pharynx normal.?? Neck: Normal inspection.? Neck supple.?? no JVD CVS: Heart sounds normal. Normal heart rate and rhythm.? Pulses normal.?? Respiratory: No respiratory distress.? Lung sounds with mild expiratory laterally? Abdomen: Soft and non-tender. Normoactive bowel sounds. Skin: Skin warm and dry.? Normal skin color.? Extremities: No lower extremity edema.? No calf ttp? Neuro: Moves all extremities spontaneously. Sensation intact bilaterally. Ambulates with normal steady gait. Medications Administered Discontinued Medications Generic Name Dose Route Start Last Admin Trade Name Freq PRN Reason Stop Dose Admin Albuterol/Ipratropium 3 ml 01/08/24 09:46 01/08/24 09:47 Albuterol/Iprat 2.5/0.5mg 3 Ml Ampul.Neb INHALE 01/08/24 09:47 3 ml ONCE ONE Administration Prednisone 40 mg 01/08/24 09:30 01/08/24 09:53 Prednisone 20 Mg Tablet PO 01/08/24 09:31 40 mg ONCE ONE Administration Medical Decision Making Medical Decision Making MDM Narrative: patient is an 83-year-old female with past medical history of glaucoma, arthritis, asthma, hypertension, diabetes who presents emergency department with reports of asthma exacerbation progressive over the past 5 days, and has ran out of her albuterol inhaler and nebulizer at home. Overall she appears well, nontoxic, afebrile. She is without tachycardia tachypnea or hypoxia. She does have mild expiratory wheezing bilaterally. Daughter is at bedside she requests the patient receive a nebulizer at this time, she will receive albuterol 2.5 mg in addition to prednisone 40 mg orally. CXR is without acute pathology. Ambulatory O2 trial without hypoxia, tachypnea, tachycardia, or dyspnea, noted to have steady gait and reports feeling well. patient at this time stable for discharge home, will send prescription for albuterol inhaler and nebulizer solution to pharmacy of her choice, discussed strict return precautions, all questions answered, outpatient follow-up with primary care provider within 1 week/ press hand supervisor as scheduled. Differential Diagnosis Differential Diagnoses: The differential diagnosis associated with the presentation includes ( see narrative above) Admission/Observation Consideration of admission/observation: Escalation of care including admission/observation considered Lab Data MDM Lab Attestation statement: I reviewed the patient's lab results. strep negative. Labs: Lab Results 01/08/24 Range/Units 09:16 Influenza Type A (PCR) NEGATIVE (Negative) Influenza Type B (PCR) NEGATIVE (Negative) RSV RNA Qual (PCR) NEGATIVE (Negative) SARS-CoV-2 RNA (RT-PCR) NEGATIVE (Negative) S. pyogenes GrpA YANELY Negative (Negative) Independent Interpretation I performed an independent interpretation of an: Plain X-Ray ( no infiltrates or consolidation) Radiology Impression Discussion of test interpretation with radiology: I have reviewed the radiologist's reading. Radiologist Impression: XR/XR chest 2V IMPRESSION: Unremarkable examination. Independent Historian Clinical information obtained from an independent historian. History obtained from or confirmed by: Other ( daughter) External Record Review External record reviewed: Outpatient record Prescription Management I considered prescription management with: Other ( see narrative above) Chronic Conditions Patient?s care impacted by: Diabetes and Other ( asthma) Discharge Plan Discharge Clinical Impression: Asthma exacerbation Patient Disposition: Home, Self-Care Prescriptions: New albuterol sulfate 90 mcg/actuation HFA aerosol inhaler 2 puff inhalation Q4-6H PRN (Reason: shortness of breath or wheezing) Qty: 6.7 0RF albuterol sulfate 2.5 mg /3 mL (0.083 %) solution for nebulization 2.5 mg inhalation Q4-6H PRN (Reason: shortness of breath or wheezing) Qty: 90 0RF prednisone 20 mg tablet 40 mg PO DAILY 4 Days Qty: 8 0RF No Action trazodone 50 mg Tablet 50 mg PO BEDTIME MRX1 PRN (Reason: Insomnia) 30 Days Qty: 30 0RF mirtazapine 15 mg Tablet 15 mg PO BEDTIME 30 Days Qty: 30 0RF timolol maleate 0.5 % Drops 1 drp ophthalmic-Left DAILY 30 Days Qty: 5 0RF fluticasone propionate 50 mcg/actuation [place],Suspension 1 spray intranasal DAILY 30 Days Qty: 5 0RF fluticasone furoate-vilanterol [Breo Ellipta] 200-25 mcg/dose Blister With Device 1 inh inhalation RDAILY Qty: 60 0RF atorvastatin 80 mg tablet 80 mg PO QPM 30 Days Qty: 30 0RF sennosides [senna] 8.6 mg tablet 17.2 mg PO BEDTIME Qty: 60 0RF Hold Instructions: Doctor's Order tolterodine 4 mg capsule,extended release 24hr 4 mg PO BEDTIME 30 Days Qty: 30 0RF meloxicam 15 mg tablet 15 mg PO QAM 30 Days Qty: 30 0RF metoprolol succinate 100 mg tablet extended release 24 hr 100 mg PO QAM 30 Days Qty: 30 0RF aspirin 81 mg tablet,delayed release (DR/EC) 81 mg PO BEDTIME Qty: 30 0RF amlodipine 10 mg tablet 10 mg PO QAM 30 Days Qty: 30 0RF valsartan 320 mg tablet 320 mg PO QAM 30 Days Qty: 30 0RF brimonidine 0.2 % drops 1 drp ophthalmic (eye) BID 30 Days Qty: 5 0RF montelukast 10 mg tablet 10 mg PO QPM 30 Days Qty: 30 0RF hydrochlorothiazide 25 mg tablet 25 mg PO QAM 30 Days Qty: 30 0RF metformin 500 mg tablet extended release 24 hr 1,000 mg PO DAILY 30 Days Qty: 60 0RF Rx Instructions: TAKE 2 TABLETS BY MOUTH ONCE DAILY IN THE MORNING and TAKE 1 TABLET BY MOUTH EVERY EVENING WITH FOOD metformin 500 mg tablet extended release 24 hr 500 mg PO BEDTIME 30 Days Qty: 30 0RF loratadine 10 mg tablet 10 mg PO QAM Qty: 30 0RF hydroxyzine pamoate 25 mg capsule 25 mg PO BEDTIME PRN (Reason: anxiety) 30 Days Qty: 30 0RF cholecalciferol (vitamin D3) 25 mcg (1,000 unit) tablet 25 mcg PO QAM Qty: 30 0RF calcium carbonate-vitamin D3 600 mg-10 mcg (400 unit) tablet 1 tab PO BID Qty: 60 0RF polyethylene glycol 3350 [Miralax] 17 gram/dose powder 17 g PO DAILY 30 Days Qty: 510 6RF metoclopramide HCl 10 mg tablet 10 mg PO QID 30 Days Qty: 120 6RF famotidine 40 mg tablet 40 mg PO BEDTIME 30 Days Qty: 30 6RF dexlansoprazole 60 mg capsule,biphase delayed releas 60 mg PO QPM Qty: 30 6RF quetiapine 25 mg tablet PO lorazepam 0.5 mg tablet PO escitalopram oxalate 10 mg tablet 10 mg PO DAILY Referrals: Helder Morales MD [Primary Care Provider] - Print Language: Sinhala
[2024-01-08] MEDS: Albuterol/Iprat 2.5/0.5MG 3 ML AMPUL.NEB INHALE (09:47)
[2024-01-08 09:48] VITALS: PULSE 64; RESP 16; O2SAT 94
[2024-01-08] MEDS: predniSONE 20 MG TABLET 40 MG PO (09:53)
[2024-01-08 09:59] LABS: Influenza A PCR NEGATIVE (Negative); Influenza B PCR NEGATIVE (Negative); Resp Syncy Virus RNA Qual PCR NEGATIVE (Negative); SARS COV2 PCR INHOUSE NEGATIVE (Negative)
[2024-01-08 11:07] VITALS: BP 139/70; PULSE 68; RESP 20; TEMP 37; O2SAT 96
== END 2024-01-08 11:09 | disposition home or self-care (01) ==
PROVIDERS: Emergency Provider Emergency Medicine; PCP Internal Medicine
DX: J45.901 Unspecified asthma with (acute) exacerbation (principal); I10 Essential (primary) hypertension; E11.9 Type 2 diabetes mellitus without complications
CPT/HCPCS: 0241U; 71046; 87651; 94640; 99283; 99284

== ENCOUNTER 2024-02-17 09:38 | Outpatient (AMB) | payer OTHER, SELFPAY ==
[2024-02-17 09:43] VITALS: BP 85/52; PULSE 64; BMI 25.0
--- NOTE | 2024-02-17 09:43 | A.OFFVIS_ITS ---
Vital Signs 02/17/24 09:43 Height 5 ft 2 in Weight 136 lb 10.986 oz BMI 25.0 BP 85/52 L Blood Pressure Location Rt brachial Position Sitting Pulse 64 Intake Visit Reasons: 6 months follow up Intake Note: Patient presents to in office visit today in follow up abdominal pain. CC: Patient c/o abdominal pain, her daughter states that she believes the patient gets discomfort when she is constipated. Automatic Splicing Machine Operator Required: Yes Automatic Splicing Machine Operator Name: daughter Accompanied by: Daughter Allergies nortriptyline Adverse Reaction (Verified 02/17/24 09:48) Rash HPI HPI 6 months follow up: Details: Assessment & Plan (1) Irritable bowel syndrome with both constipation and diarrhea: Code(s): K58.2 - Mixed irritable bowel syndrome (2) GERD (gastroesophageal reflux disease): Code(s): K21.9 - Gastro-esophageal reflux disease without esophagitis (3) Delayed gastric emptying: Code(s): K30 - Functional dyspepsia Plan Algerian #declines, dtr translates per pt request. Her dementia is progressing, but she is now living with her daughter who is giving her the medications. Her appetite is still variable (likely r/t dementia) but she was recently started on Boost and this is helping. Overall, her GI sx are very well controlled and she IS now on the 10mg reglan. The only change is that they stopped the carafate, which is fine. They ask if she can take miralax instead of senna, and this is fine with me. Apparently, she was recently hospitalized for neuropsych eval for her dementia. ROV 6 mos. Medications: New polyethylene glycol 3350 (Miralax) 17 grams PO DAILY 30 days 510 grams 6RF K58.2 - Mixed irritable bowel syndrome Refilled metoclopramide HCl 10 mg PO QID 30 days 120 tabs 6RF famotidine 40 mg PO BEDTIME 30 days 30 tabs 6RF dexlansoprazole 60 mg PO QPM 30 caps 6RF Discontinued sucralfate Discontinued Reason: Doctor's Order 2 grams (2 x 1 gram) PO DAILY 30 days 60 tabs 0RF On Hold sennosides (senna) Hold Comment: Doctor's Order 17.2 mg (2 x 8.6 mg) PO BEDTIME 60 tabs 0RF constipation TODAY'S VISIT Algerian #dtr translates per pt request She continues to do well. She is on Miralax, reglan, Dexilant and famotdine. She was in the ER for an asthma exacerbation recently. She feels she is now recovering well. ROV 6 mos. [facility] Medical History (Updated 03/15/24 @ 16:54 by LEONARDO Eagle) Epigastric abdominal pain Abdominal cramping Abdominal bloating Abdominal pain Nausea and vomiting Seasonal allergies Glaucoma Arthritis Back pain Asthma HTN (hypertension) Diabetes Surgical History Hx of endoscopy Hx of colonoscopy Hx of hysterectomy Family History Mother Diabetes Heart problem Asthma Father Diabetes Depression Maternal Grandfather Stomach cancer Family/Other Colon cancer Brother COVID-19 Social History Household Members: Family and Other Household Members Other:: brother whos health is so so Housing: Unknown / Unable to assess Are you a primary rn acute care to a significant other at home: No Do you presently have visiting nurse or other home services: Yes (discharged from [facility] 05/30 with [facility]) Alcohol intake: never Patient Tobacco Use Status: Never used Tobacco e-Cigarette/Vaping Use: Never Used Second Hand Smoke Exposure: No Advance Directives Date on File: 05/15/23 Sexual orientation: Straight/Heterosexual Review of Systems Const Denies fatigue, Denies fever(s), Denies night sweats, Denies poor appetite and Denies weight loss ENT Reports Normal hearing present, Denies dysphagia, Denies odynophagia, Denies throat swelling and Denies tongue swelling Card Reports no additional complaints Resp Reports no additional complaints GI Details: Denies abdominal pain, Denies melena, Reports bloating, Denies hematochezia, Reports constipation, Denies GI cramping, Denies dysphagia, Denies excessive flatus, Denies early satiety, Reports heartburn, Denies diarrhea, Denies nausea, Denies odynophagia, Denies vomiting and Denies hematemesis Skin/Breast Denies pruritus, Denies lesions, Denies rash and Denies jaundice Neuro Reports Normal hearing present, Denies Abnormal speech present and Reports memory loss Psych Reports memory loss Endo Denies fatigue Aller/Immun Denies throat swelling and Denies tongue swelling Physical Exam Vital Signs: Last Vital Signs Pulse 64 02/17/24 09:43 BP 85/52 L 02/17/24 09:43 BMI result Body Mass Index 25.0 Const General: cooperative, no acute distress, well developed and well groomed Nutritional Appearance: well nourished and overweight Orientation/consciousness: oriented to person, oriented to place and oriented to time Limitations: language barrier and ambulation with walker HEENT Head: Yes normocephalic and Yes atraumatic Eyes General: appearance normal, both eyes and all related structures Pupils: Equal, round and reactive pupils present Neck Neck: Yes normal visual inspection and Yes no lymphadenopathy Thyroid: Thyroid normal Resp Effort & Inspection: normal respiratory effort and able to speak in complete sentences Auscultation: clear to auscultation bilaterally Cardio Rate: regular rate Rhythm: regular rhythm Heart sounds: Normal, physiologic split S2 sound present Peripheral pulses: radial pulses present and posterior tibial pulses present GI Inspection: No distended and No Abdominal panniculus present Palpation (GI): Soft to palpation, nontender, no guarding, not rigid and No hepatosplenomegaly present Percussion: Yes normal to percussion Auscultation: normal bowel sounds Rectal Exam - Female: deferred Skin General skin exam: no rashes or lesions noted, turgor normal, skin not dry, no jaundice, No spider nevi and no striae Rashes: no rashes Nails: normal Neuro General: oriented to person, oriented to place and oriented to time Cranial nerves: Yes Equal, round and reactive pupils present and Yes Normal hearing present Speech: No Abnormal speech present Extrem General: Yes normal to inspection, No clubbing, No cyanosis and No edema Psych Appearance: grossly normal and well kempt Mental Status: other Speech and movement: Normal speech and movement present Affect: normal affect Attitude: cooperative Thought process: not confabulating and Impoverished thought process present Insight: Poor insight present (Psych) Judgement: Poor judgement present (Psych) Assessment & Plan Assessment & Plan (1) GERD (gastroesophageal reflux disease): Code(s): K21.9 - Gastro-esophageal reflux disease without esophagitis Category: Medical (2) Delayed gastric emptying: Code(s): K30 - Functional dyspepsia Category: Medical (3) Irritable bowel syndrome with both constipation and diarrhea: Code(s): K58.2 - Mixed irritable bowel syndrome Category: Medical (4) Dementia: Code(s): F03.90 - Unspecified dementia, unspecified severity, without behavioral disturbance, psychotic disturbance, mood disturbance, and anxiety Category: Medical Plan Algerian #dtr translates per pt request She continues to do well. She is on Miralax, reglan, Dexilant and famotdine. She was in the ER for an asthma exacerbation recently. She feels she is now recovering well. ROV 6 mos. Medications: Changed From polyethylene glycol 3350 17 grams PO DAILY 30 days 510 grams 6RF K58.2 - Mixed irritable bowel syndrome To polyethylene glycol 3350 (Miralax) 17 grams PO DAILY 510 grams 6RF 30 days K58.2 - Mixed irritable bowel syndrome Refilled famotidine 40 mg PO BEDTIME 30 tabs 6RF dexlansoprazole 60 mg PO QPM 30 caps 6RF metoclopramide HCl 10 mg PO QID 120 tabs 6RF Coding Level of Care Code Est Pt Level 3 (07942) Diagnoses GERD (gastroesophageal reflux disease) K21.9 Delayed gastric emptying K30 Irritable bowel syndrome with both constipation and diarrhea K58.2 Dementia F03.90
== END 2024-02-17 10:21 | disposition home or self-care (01) ==
PROVIDERS: PCP Internal Medicine; Visit Provider Nurse Practitioner
DX: K21.9 Gastro-esophageal reflux disease without esophagitis (principal); K30 Functional dyspepsia; K58.2 Mixed irritable bowel syndrome; F03.90 Unspecified dementia, unspecified severity, without behavioral disturbance, psychotic disturbance, mood disturbance, and anxiety
CPT/HCPCS: 99213

== ENCOUNTER → 2024-02-17 09:38 | Outpatient (BNVA) | payer OTHER, SELFPAY | PROVIDERS: PCP Internal Medicine; Visit Provider Nurse Practitioner | DX: R10.9 Unspecified abdominal pain (principal); K58.2 Mixed irritable bowel syndrome; K21.9 Gastro-esophageal reflux disease without esophagitis; K30 Functional dyspepsia; F03.90 Unspecified dementia, unspecified severity, without behavioral disturbance, psychotic disturbance, mood disturbance, and anxiety | CPT/HCPCS: 99212 ==

== ENCOUNTER 2024-07-24 08:18 | Outpatient (REF) | payer OTHER, SELFPAY ==
[2024-07-24 11:51] LABS: Alanine Aminotransferase 17 U/L (0-31); Albumin Level 4.2 g/dL (3.5-5.0); Alkaline Phosphatase 57 U/L (39-117); Anion Gap 12 (12-20); Aspartate Amino Transferase 22 U/L (5-31); Bilirubin Total 0.5 mg/dL (0.0-1.0); Blood Urea Nitrogen 14 mg/dL (9-16); Calcium 9.3 mg/dL (8.4-10.2); Carbon Dioxide 27 mmol/L (22-29); Chloride 106 mmol/L (96-108); Cholesterol 127 mg/dL (<200); Estimated Glomerular Filt Rate > 60; Glucose Random 142 mg/dL (60-115); HDL Cholesterol 45 mg/dL (>40); LDL Cholesterol Calculated 67 mg/dL (<100); Sodium 141 mmol/L (135-145); Total Protein 6.7 g/dL (6.5-8.0); Triglycerides 79 mg/dL (<150)
== END 2024-07-24 08:19 | disposition home or self-care (01) ==
LOC: HO.HHCL 08:18
PROVIDERS: Visit Provider Internal Medicine
DX: E11.9 Type 2 diabetes mellitus without complications (principal); E78.2 Mixed hyperlipidemia; I10 Essential (primary) hypertension
CPT/HCPCS: 36415; 80053; 80061

== ENCOUNTER 2024-12-21 11:23 | Outpatient (AMB) | payer OTHER, SELFPAY ==
--- NOTE | 2024-12-21 11:24 | A.OFFVIS_ITS ---
Vital Signs 12/21/24 11:30 Height 5 ft 2 in Weight 130 lb 15.273 oz BMI 23.9 BP 120/58 L Blood Pressure Location Lt brachial Position Sitting Pulse 66 Intake Visit Reasons: 6 Follow up r/s 10/18/24 Intake Note: Patient follow up for Delayed gastric emptying. Reports improvement. Denies nausea, diarrhea, vomiting. Patient cc: on and off stomach pains. Takes Tylenol as needed. 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 Accompanied by: daughter Kanwal Allergies nortriptyline Adverse Reaction (Verified 12/21/24 11:33) Rash HPI HPI 6 Follow up r/s 10/18/24: Details: Assessment & Plan (1) GERD (gastroesophageal reflux disease): Code(s): K21.9 - Gastro-esophageal reflux disease without esophagitis Category: Medical (2) Delayed gastric emptying: Code(s): K30 - Functional dyspepsia Category: Medical (3) Irritable bowel syndrome with both constipation and diarrhea: Code(s): K58.2 - Mixed irritable bowel syndrome Category: Medical (4) Dementia: Code(s): F03.90 - Unspecified dementia, unspecified severity, without behavioral disturbance, psychotic disturbance, mood disturbance, and anxiety Category: Medical Plan Ug[place]an #dtr translates per pt request She continues to do well. She is on Miralax, reglan, Dexilant and famotdine. She was in the ER for an asthma exacerbation recently. She feels she is now recovering well. ROV 6 mos. Medications: Changed From polyethylene glycol 3350 17 grams PO DAILY 30 days 510 grams 6RF K58.2 - Mixed irritable bowel syndrome To polyethylene glycol 3350 (Miralax) 17 grams PO DAILY 510 grams 6RF 30 days K58.2 - Mixed irritable bowel syndrome Refilled famotidine 40 mg PO BEDTIME 30 tabs 6RF dexlansoprazole 60 mg PO QPM 30 caps 6RF metoclopramide HCl 10 mg PO QID 120 tabs 6RF TODAYS VISIT Ugandan #daughter translates per patient request She is here today with a family member who is supportive She is on Miralax, reglan, Dexilant and famotdine. Her brother just of stomach cancer, and the pt is reporting stomach pain that is intermittent but not r/t eating and will last for about a minute she can not ID exacerbating factors but her BM's are relieving factor, but the pain does not just happen just around the timing of the BM. It is also relieved with flatulence. SHe has not been getting her senna (we held this because she is having diarrhea), just Miralax but is moving her bowels once a day and they are soft. She had an EGD in 2022 w/o any severe pathology. Her brother was vomiting blood and pooping blood, and he was a big drinker of ETOH. And the patient had an upper endoscopy in 2022 without any severe pathology and her symptoms are really unconvincing for a stomach cancer. Like why she is up-to-date on colonoscopy screenings. Her presentation seems more like gas trapping, and before doing anything too fancy we will start simethicone 125mg qidachs. next avail. [facility] Medical History (Updated 12/21/24 @ 16:53 by LEONARDO Eagle) Lump in the abdomen Irritable bowel syndrome with both constipation and diarrhea Abdominal bloating Epigastric abdominal pain Abdominal cramping Abdominal pain Nausea and vomiting Seasonal allergies Glaucoma Arthritis Back pain Asthma HTN (hypertension) Diabetes Surgical History Hx of endoscopy Hx of colonoscopy Hx of hysterectomy Family History Mother Diabetes Heart problem Asthma Father Diabetes Depression Maternal Grandfather Stomach cancer Family/Other Colon cancer Brother COVID-19 Social History Household Members: Family and Other Household Members Other:: brother whos health is so so Housing: Unknown / Unable to assess Are you a primary healthcare receptionist to a significant other at home: No Do you presently have visiting nurse or other home services: Yes (discharged from [facility] 05/30 with [facility]) Alcohol intake: never Patient Tobacco Use Status: Never used Tobacco e-Cigarette/Vaping Use: Never Used Second Hand Smoke Exposure: No Advance Directives Date on File: 05/15/23 Sexual orientation: Straight/Heterosexual Review of Systems Const Denies fatigue, Denies fever(s), Denies night sweats, Denies poor appetite and Denies weight loss ENT Reports Normal hearing present, Denies dental pain, Denies dysphagia, Denies hearing loss, Denies mouth pain, Denies odynophagia, Denies throat swelling, Denies tongue swelling and Reports other (Dentition adequate) Card Reports no additional complaints Resp Reports no additional complaints GI Details: Reports abdominal pain, Denies melena, Reports bloating, Denies hematochezia, Reports constipation, Denies GI cramping, Denies dysphagia, Denies excessive flatus, Reports early satiety, Reports heartburn, Denies diarrhea, Denies nausea, Denies odynophagia, Denies vomiting and Denies hematemesis Skin/Breast Denies pruritus, Denies lesions, Denies rash and Denies jaundice Neuro Reports Normal hearing present, Denies Abnormal speech present and Reports memory loss Psych Reports memory loss Endo Denies fatigue Aller/Immun Denies throat swelling and Denies tongue swelling Physical Exam Vital Signs: Last Vital Signs Pulse 66 12/21/24 11:30 BP 120/58 L 12/21/24 11:30 BMI result Body Mass Index 23.9 Const General: cooperative, no acute distress, well developed and well groomed Nutritional Appearance: average body habitus and well nourished Orientation/consciousness: oriented to person, oriented to place and oriented to time Limitations: language barrier and other limitations HEENT Head: Yes normocephalic and Yes atraumatic Eyes General: appearance normal, both eyes and all related structures Pupils: Equal, round and reactive pupils present Neck Neck: Yes normal visual inspection and Yes no lymphadenopathy Thyroid: Thyroid normal Resp Effort & Inspection: normal respiratory effort and able to speak in complete sentences Auscultation: clear to auscultation bilaterally Cardio Rate: regular rate Rhythm: regular rhythm Heart sounds: Normal, physiologic split S2 sound present Peripheral pulses: radial pulses present and posterior tibial pulses present GI Inspection: No distended and No Abdominal panniculus present Palpation (GI): Soft to palpation, nontender, no guarding, not rigid and No hepatosplenomegaly present Percussion: Yes normal to percussion Auscultation: normal bowel sounds Rectal Exam - Female: deferred Skin General skin exam: no rashes or lesions noted, turgor normal, skin not dry, no jaundice, No spider nevi and no striae Rashes: no rashes Nails: normal Neuro General: oriented to person, oriented to place and oriented to time Cranial nerves: Yes Equal, round and reactive pupils present and Yes Normal hearing present Speech: No Abnormal speech present Extrem General: Yes normal to inspection, No clubbing, No cyanosis and No edema Psych Appearance: grossly normal and well kempt Mental Status: mental status grossly normal Speech and movement: Normal speech and movement present Affect: normal affect Attitude: cooperative Thought process: Normal thought process present and not confabulating Thought content: Normal thought content present Insight: Limited insight present (Psych) Judgement: Limited judgement present (Psych) Assessment & Plan Assessment & Plan (1) Abdominal bloating: Code(s): R14.0 - Abdominal distension (gaseous) Category: Medical (2) GERD (gastroesophageal reflux disease): Code(s): K21.9 - Gastro-esophageal reflux disease without esophagitis Category: Medical (3) Delayed gastric emptying: Code(s): K30 - Functional dyspepsia Category: Medical (4) Constipation: Code(s): K59.00 - Constipation, unspecified Category: Medical (5) Dementia: Code(s): F03.90 - Unspecified dementia, unspecified severity, without behavioral disturbance, psychotic disturbance, mood disturbance, and anxiety Category: Medical Plan Ug[place]an #daughter translates per patient request She is here today with a family member who is supportive She is on Miralax, reglan, Dexilant and famotdine. Her brother just of stomach cancer, and the pt is reporting stomach pain that is intermittent but not r/t eating and will last for about a minute she can not ID exacerbating factors but her BM's are relieving factor, but the pain does not just happen just around the timing of the BM. It is also relieved with flatulence. SHe has not been getting her senna (we held this because she is having diarrhea), just Miralax but is moving her bowels once a day and they are soft. She had an EGD in 2022 w/o any severe pathology. Her brother was vomiting blood and pooping blood, and he was a big drinker of ETOH. And the patient had an upper endoscopy in 2022 without any severe pathology and her symptoms are really unconvincing for a stomach cancer. Like why she is up-to-date on colonoscopy screenings. Her presentation seems more like gas trapping, and before doing anything too fancy we will start simethicone 125mg qidachs. next avail. Medications: New simethicone (Gas Relief (simethicone)) 125 mg PO QIDACHS PRN 120 tabs 6RF abdominal distention R14.0 - Abdominal distension (gaseous) Refilled dexlansoprazole 60 mg PO QPM 30 caps 6RF famotidine 40 mg PO BEDTIME 30 tabs 6RF metoclopramide HCl 10 mg PO QID 120 tabs 6RF Coding Level of Care Code Est Pt Level 3 (15122) Diagnoses Abdominal bloating R14.0 GERD (gastroesophageal reflux disease) K21.9 Delayed gastric emptying K30 Constipation K59.00 Dementia F03.90
--- OUTSIDE RECORDS SUMMARY | 2024-12-21 11:25 | XMS_ITS | Encounter Summary ---
Author Organization [employer] Address [address] [place] [address] [address] [place] [address] Care Team Providers Care Early Childhood Lead Teacher Name Role Phone Helder Greenfield MD Primary Care Provide r Reason for Visit * Reason Comments Med Refill Encounter Details Date Type Department Care Team ([facility] st Contact Info) Description 11/23/2023 Refill [facility]BILE [facility]INE CLINIC [address], [place] [phone] Helder Greenfield MD [address], [place] [phone] Type 2 diabetes mellitus without complication, unspecified whether longterm insulin use ([facility] Social History Tobacco Use Types Packs/Day Years Used Date Smoking Tobacco: Never Passive Smoke Exposure: Never Smokeless Tobacco: Never Depression Answer Date Recorded Patient Health Questionnaire-9 Score 11 03/15/2023 Housing Stability Answer Date Recorded What is your housing situation today? I have florinda chinchilla 05/16/[address] you li ve. Do you have problems with any of the following? None of the above 05/16/2023 Food Insecurity Answer Date Recorded Within the past 12 months, y ou worried that your food would run out before you got money to buy more: Never True 05/16/2023 Within the past 12 months,th e food you bought just didn't last and you didn't have enough money to get more: Never True Transportation Answer Date Recorded In the past 12 months, has l ack of transportation kept you from medical appts, meetings, work or from getting things needed for daily living? No 05/16/2023 Utilities Answer Date Recorded In the past 12 months, has t he electric, gas, oil or water company threatened to shut off services in your home? No 05/16/2023 Depression Answer Date Recorded Patient Health Questionnaire-2 Score 3 03/15/2023 Comments Unknown Sex and Gender Information Value Date Recorded Sex Assigned at Female 05/31/2022 10:14 AM EDT Legal Sex Female 10:14 AM EDT Gender Identity Female 05/31/2022 10:14 AM EDT Sexual Orientation Straight 05/31/2022 10 :14 AM EDT documented as of this encounter Plan of Treatment Upcoming Encounters Date Type Department Care Team (Late st Contact Info) Description 03/26/2025 9:00 AM EDT Office Visit [facility] MEDICINE [address] [place] [address] Helder Greenfield MD [address] [place] [address] documented as of this encounter Visit Diagnoses Diagnosis Type 2 diabetes mellitus without complication, unspecified whether longterm insulin use ([facility]) documented in this encounter Additional Health Concerns Assessment Noted Time PHQ-9 Depression Total Score: 11 023 9:20 AM EDT documented as of this encounter Care Teams Early Childhood Lead Teacher Relationship Specialty Start Date End Date Helder Greenfield MD [address] [place] [address] PCP - General Internal Medicine 06/03/14 documented as of this encounter
[2024-12-21 11:30] VITALS: BP 120/58; PULSE 66; BMI 23.9
== END 2024-12-21 12:01 | disposition home or self-care (01) ==
LOC: HO.HGI 11:23
PROVIDERS: PCP Internal Medicine; Visit Provider Nurse Practitioner
DX: R14.0 Abdominal distension (gaseous) (principal); K21.9 Gastro-esophageal reflux disease without esophagitis; K30 Functional dyspepsia; K59.00 Constipation, unspecified; F03.90 Unspecified dementia, unspecified severity, without behavioral disturbance, psychotic disturbance, mood disturbance, and anxiety
CPT/HCPCS: 99213

== ENCOUNTER → 2024-12-21 11:23 | Outpatient (BNVA) | payer OTHER, SELFPAY | PROVIDERS: PCP Internal Medicine; Visit Provider Nurse Practitioner | DX: K21.9 Gastro-esophageal reflux disease without esophagitis (principal); K30 Functional dyspepsia; K58.2 Mixed irritable bowel syndrome; R14.0 Abdominal distension (gaseous); F03.90 Unspecified dementia, unspecified severity, without behavioral disturbance, psychotic disturbance, mood disturbance, and anxiety | CPT/HCPCS: 99212 ==

== ENCOUNTER 2025-02-14 10:09 | Outpatient (AMB) | payer OTHER, SELFPAY ==
--- NOTE | 2025-02-14 10:12 | MHC.OFFVIS ---
Vital Signs 02/14/25 10:15 Height 5 ft 2 in Weight 132 lb 4.438 oz BMI 24.2 BP 98/60 Blood Pressure Location Lt brachial Position Sitting Pulse 64 Intake Visit Reasons: GERD mgmt. 2 mos FUV. Intake Note: Maritza presents in the office as a GERD managements Secretary Receptionist Required: Yes Allergies nortriptyline Adverse Reaction (Verified 02/14/25 10:15) Rash HPI HPI GERD mgmt. 2 mos FUV.: Details: Assessment & Plan (1) Abdominal bloating: Code(s): R14.0 - Abdominal distension (gaseous) Category: Medical (2) GERD (gastroesophageal reflux disease): Code(s): K21.9 - Gastro-esophageal reflux disease without esophagitis Category: Medical (3) Delayed gastric emptying: Code(s): K30 - Functional dyspepsia Category: Medical (4) Constipation: Code(s): K59.00 - Constipation, unspecified Category: Medical (5) Dementia: Code(s): F03.90 - Unspecified dementia, unspecified severity, without behavioral disturbance, psychotic disturbance, mood disturbance, and anxiety Category: Medical Plan [place] #daughter translates per patient request She is here today with a family member who is supportive She is on Miralax, reglan, Dexilant and famotdine. Her brother just of stomach cancer, and the pt is reporting stomach pain that is intermittent but not r/t eating and will last for about a minute she can not ID exacerbating factors but her BM's are relieving factor, but the pain does not just happen just around the timing of the BM. It is also relieved with flatulence. SHe has not been getting her senna (we held this because she is having diarrhea), just Miralax but is moving her bowels once a day and they are soft. She had an EGD in 2022 w/o any severe pathology. Her brother was vomiting blood and pooping blood, and he was a big drinker of ETOH. And the patient had an upper endoscopy in 2022 without any severe pathology and her symptoms are really unconvincing for a stomach cancer. Like why she is up-to-date on colonoscopy screenings. Her presentation seems more like gas trapping, and before doing anything too fancy we will start simethicone 125mg qidachs. next avail. Medications: New simethicone (Gas Relief (simethicone)) 125 mg PO QIDACHS PRN 120 tabs 6RF abdominal distention R14.0 - Abdominal distension (gaseous) Refilled dexlansoprazole 60 mg PO QPM 30 caps 6RF famotidine 40 mg PO BEDTIME 30 tabs 6RF metoclopramide HCl 10 mg PO QID 120 tabs 6RF TODAYS VISIT [place] #dtr translates per pt request She is on Miralax, reglan, Dexilant and famotdine.They are buying the simethicone oTC and this helped with the upper abd pain. ROV 6 mos. PFSH Medical History Lump in the abdomen Irritable bowel syndrome with both constipation and diarrhea Abdominal bloating Epigastric abdominal pain Abdominal cramping Abdominal pain Nausea and vomiting Seasonal allergies Glaucoma Arthritis Back pain Asthma HTN (hypertension) Diabetes Surgical History Hx of endoscopy Hx of colonoscopy Hx of hysterectomy Family History Mother Diabetes Heart problem Asthma Father Diabetes Depression Maternal Grandfather Stomach cancer Family/Other Colon cancer Brother COVID-19 Social History Household Members: Family and Other Household Members Other:: brother whos health is so so Housing: Unknown / Unable to assess Are you a primary career education teacher to a significant other at home: No Do you presently have visiting nurse or other home services: Yes (discharged from [facility] 05/30 with [facility]) Alcohol intake: never Patient Tobacco Use Status: Never used Tobacco e-Cigarette/Vaping Use: Never Used Second Hand Smoke Exposure: No Advance Directives Date on File: 05/15/23 Sexual orientation: Straight/Heterosexual Review of Systems Const Denies fatigue, Denies fever(s), Denies night sweats, Denies poor appetite and Denies weight loss ENT Reports Normal hearing present, Denies dental pain, Denies dysphagia, Denies hearing loss, Denies mouth pain, Denies odynophagia, Denies throat swelling, Denies tongue swelling and Reports other (Dentition adequate) Card Reports no additional complaints Resp Reports no additional complaints GI Details: Denies abdominal pain, Denies melena, Denies bloating, Denies hematochezia, Reports constipation, Denies GI cramping, Denies dysphagia, Denies excessive flatus, Denies early satiety, Reports heartburn, Denies diarrhea, Denies nausea, Denies odynophagia, Denies vomiting and Denies hematemesis Skin/Breast Denies pruritus, Denies lesions, Denies rash and Denies jaundice Neuro Reports Normal hearing present, Denies Abnormal speech present and Reports memory loss Psych Reports memory loss Endo Denies fatigue Aller/Immun Denies throat swelling and Denies tongue swelling Physical Exam Vital Signs: Last Vital Signs Pulse 64 02/14/25 10:15 BP 98/60 02/14/25 10:15 BMI result Body Mass Index 24.2 Const General: cooperative, no acute distress, well developed and well groomed Nutritional Appearance: average body habitus and well nourished Orientation/consciousness: oriented to person, oriented to place and oriented to time Limitations: language barrier and other limitations HEENT Head: Yes normocephalic and Yes atraumatic Eyes General: appearance normal, both eyes and all related structures Pupils: Equal, round and reactive pupils present Neck Neck: Yes normal visual inspection and Yes no lymphadenopathy Thyroid: Thyroid normal Resp Effort & Inspection: normal respiratory effort and able to speak in complete sentences Auscultation: clear to auscultation bilaterally Cardio Rate: regular rate Rhythm: regular rhythm Heart sounds: Normal, physiologic split S2 sound present Peripheral pulses: radial pulses present and posterior tibial pulses present GI Inspection: No distended and No Abdominal panniculus present Palpation (GI): Soft to palpation, nontender, no guarding, not rigid and No hepatosplenomegaly present Percussion: Yes normal to percussion Auscultation: normal bowel sounds Rectal Exam - Female: deferred Skin General skin exam: no rashes or lesions noted, turgor normal, skin not dry, no jaundice, No spider nevi and no striae Rashes: no rashes Nails: normal Neuro General: oriented to person, oriented to place and oriented to time Cranial nerves: Yes Equal, round and reactive pupils present and Yes Normal hearing present Speech: No Abnormal speech present Extrem General: Yes normal to inspection, No clubbing, No cyanosis and No edema Psych Appearance: grossly normal and well kempt Mental Status: mental status grossly normal Speech and movement: Normal speech and movement present Affect: normal affect Attitude: cooperative Thought process: not confabulating and Impoverished thought process present Thought content: Normal thought content present Insight: Limited insight present (Psych) Judgement: Limited judgement present (Psych) Assessment & Plan Assessment & Plan (1) Delayed gastric emptying: Code(s): K30 - Functional dyspepsia Category: Medical (2) GERD (gastroesophageal reflux disease): Code(s): K21.9 - Gastro-esophageal reflux disease without esophagitis Category: Medical (3) Abdominal bloating: Code(s): R14.0 - Abdominal distension (gaseous) Category: Medical (4) Constipation: Code(s): K59.00 - Constipation, unspecified Category: Medical Plan [place] #dtr translates per pt request She is on Miralax, reglan, Dexilant and famotidine.They are buying the simethicone oTC and this helped with the upper abd pain. ROV 6 mos. Medications: Refilled famotidine 40 mg PO BEDTIME 30 tabs 6RF metoclopramide HCl 10 mg PO QID 120 tabs 6RF dexlansoprazole 60 mg PO QPM 30 caps 6RF polyethylene glycol 3350 (Miralax) 17 grams PO DAILY 510 grams 6RF 30 days K58.2 - Mixed irritable bowel syndrome Coding Level of Care Code Est Pt Level 3 (97772) Diagnoses Delayed gastric emptying K30 GERD (gastroesophageal reflux disease) K21.9 Abdominal bloating R14.0 Constipation K59.00
[2025-02-14 10:15] VITALS: BP 98/60; PULSE 64; BMI 24.2
--- OUTSIDE RECORDS SUMMARY | 2025-02-14 10:36 | XMS_ITS | Encounter Summary ---
Author Organization [employer] Address [address] [place] [address] [address] [place] [address] Care Team Providers Care Veterinary Technology Instructor Name Role Phone Helder Greenfield MD Primary Care Provide r Reason for Visit * Reason Comments Med Refill Encounter Details Date Type Department Care Team ([facility] st Contact Info) Description 11/23/2023 Refill [facility]BILE [facility]INE CL[facility]IC [address] [place], [place] [phone] Helder Greenfield MD [address] [place], [place] [phone] Type 2 diabetes mellitus without complication, unspecified whether assistant terminal manager insulin use ([facility]) Social History Tobacco Use Types Packs/Day Years [...] Description 03/26/2025 9:00 AM EDT Office Visit [facility] MEDICINE [address] [place] [address] Helder Greenfield MD [address] [place] [address] documented as of this encounter Visit Diagnoses Diagnosis Type 2 diabetes mellitus without complication, unspecified whether assistant terminal manager insulin use ([facility]) documented in this encounter Additional Health Concerns Assessment Noted Time PHQ-9 Depression Total Score: 11 023 9:20 AM EDT documented as of this encounter Care Teams Veterinary Technology Instructor Relationship Specialty Start Date End Date Helder Greenfield MD [address] [place] [address] PCP - General Internal Medicine 06/03/14 documented as of this encounter
--- OUTSIDE RECORDS SUMMARY | 2025-02-14 10:36 | XMS_ITS | Data Portability ---
Author Organization [facility] [employer] [facility], [facility] Address [address] [place] [phone] Care Team Providers Care Rehab Nursing Tech Name Role Phone HIM CCA OTHER Assessment No assessment recorded. Plan of Treatment Reminders Order Date Submit Date Provider Last Modified By Organization Details Last Modified Time Details Appointments None recorded. Lab rapid SARS CoV 2 Ag, QL IA, respiratory specimen [address], [id number] 5 15:40:57 BMP, serum or plasma [address], [id number] 5 15:41:16 Referral None recorded. Procedures None recorded. Surgeries None recorded. Imaging None recorded. Medication Orders ondansetron 4 mg disintegrat ing tablet 2024 [facility]/Pharmacy #[id number], [address] [place], [address], 5 12:13:06 Patient TargetsNo targets recorded. Patient InstructionsNo instructions recorded. Reason for Referral None Reported. Results Created Date Observation Date Name Description Value Unit Range Abnormal Flag Note LastModifiedBy Organization Detail LastModifiedTime Result Notes None recorded. Medical Equipment None Reported. Allergies No known drug allergies Medications Name Sig Start Date Stop Date Status Note LastModified by Organization Details LastModified Time medbox status USE DIRECTED active Not Available Not Available No t Available quetiapine 25 mg tablet TAKE 1-2 TABLET BY MOUTH EVERY MORNING active Not Available Not Available No t Available atorvastatin 80 mg tablet TAKE 1 TABLET BY MOUTH EVERY EVENING active Not Available Not Available No t Available albuterol sulfate 2.5 mg/3 mL (0.083 %) solution for nebulization INHALE 1 VIAL VIA NEBULIZER EVERY 4 TO 6 HOURS NEEDED FOR SHORTNESS OF BREATH OR WHEEZING active Not Available Not Available Not Available trazodone 50 mg tablet TAKE 1 TABLET BY MOUTH EVERYDAY AT BEDTIME active Not Available Not Available No t Available tolterodine ER 4 mg capsule,exte nded release 24 hr TAKE 1 CAPSULE BY MOUTH AT BEDTIME active Not Available Not Available No t Available senna 8.6 mg tablet TAKE 2 TABLETS BY MOUTH EVERY DAY AT BEDTIME FOR CONSTIPATIO N active Not Available Not Available No t Available meloxicam 15 mg tablet TAKE 1 TABLET BY MOUTH EVERY MORNING active Not Available Not Available No t Available famotidine 40 mg tablet TAKE 1 TABLET BY MOUTH AT BEDTIME active Not Available Not Available No t Available prednisone 20 mg tablet TAKE 2 TABLETS BY MOUTH DAILY FOR 4 DAYS, THEN TAKE 1 TABLET DAILY FOR 3 DAYS, THEN TAKE 1/2 TABLET DAILY FOR 2 DAYS active Not Available Not Available No t Available metoprolol succinate ER 100 mg tablet,exten ded release 24 hr TAKE 1 TABLET BY MOUTH EVERY MORNING active Not Available Not Available No t Available aspirin 81 mg tablet,delay ed release TAKE 1 TABLET BY MOUTH AT BEDTIME active Not Available Not Available No t Available lorazepam 0.5 mg tablet PLEASE SEE ATTACHED FOR DETAILED DIRECTIONS active Not Available Not Available N ot Available trazodone 100 mg tablet TAKE 1 TABLET BY MOUTH EVERYDAY AT BEDTIME active Not Available Not Available No t Available meclizine 25 mg tablet TAKE 1 TABLET BY MOUTH THREE TIMES DAILY IN THE MORNING, AT NOON, AND AT BEDTIME NEEDED FOR DIZZINESS active Not Available Not Available No t Available amlodipine 10 mg tablet TAKE 1 TABLET BY MOUTH EVERY MORNING active Not Available Not Available No t Available brimonidine 0.2 % eye drops INSTILL 1 DROP IN BOTH EYES TWICE A DAY TWELVE HOURS APART active Not Available Not Available Not Available montelukast 10 mg tablet TAKE 1 TABLET BY MOUTH EVERY EVENING active Not Available Not Available No t Available mirtazapine 15 mg tablet TAKE 1 TABLET BY MOUTH EVERYDAY AT BEDTIME active Not Available Not Available No t Available azelastine 137 mcg (0.1 %) nasal spray INHALE 1 SPRAY EACH NOSTRIL TWICE DAILY NEEDED active Not Available Not Available No t Available timolol maleate 0.5 % eye drops INSTILL 1 DROP INTO LEFT EYE EVERY MORNING active Not Available Not Available No t Available ondansetron 4 mg disintegrati ng tablet Place 1 tablet 3 times a day by translingua l route as needed for 5 days. 2024 active Not Available Not Available Not Avai lable fluticasone propionate 50 mcg/actuatio n nasal spray,suspen kavya INSTILL 1 SPRAY IN EACH NOSTRIL ONCE DAILY active Not Available Not Available N ot Available metformin ER 500 mg tablet,exten ded release 24 hr TAKE 2 TABLETS BY MOUTH TWICE DAILY IN THE MORNING AND EVENING WITH FOOD active Not Available Not Available No t Available loratadine 10 mg tablet TAKE 1 TABLET BY MOUTH EVERY MORNING active Not Available Not Available No t Available metocloprami de 10 mg tablet TAKE 1 TABLET BY MOUTH FOUR TIMES DAILY active Not Available Not Available Not Available Ventolin HFA 90 mcg/actuatio n aerosol inhaler INHALE 1 PUFF BY MOUTH EVERY 6 HOURS NEEDED FOR WHEEZING active Not Available Not Available No t Available hydroxyzine pamoate 25 mg capsule TAKE 1 CAPSULE BY MOUTH EVERY NIGHT AT BEDTIME & 1 CAPSULE BY MOUTH DAILY NEEDED FOR AGITATION. active Not Available Not Available N ot Available escitalopram 10 mg tablet TAKE 1 TABLET BY MOUTH EVERY DAY active Not Available Not Available No t Available Alcohol Prep Pads USE DIRECTED TWICE DAILY active Not Available Not Available Not Available cholecalcife rol (vitamin D3) 25 mcg (1,000 unit) tablet TAKE 1 TABLET BY MOUTH EVERY MORNING active Not Available Not Available No t Available calcium 600 mg (as carbonate)-v itamin D3 10 mcg (400 unit) tablet TAKE 1 TABLET BY MOUTH TWICE DAILY IN THE MORNING AND IN THE EVENING WITH FOOD active Not Available Not Available No t Available FreeStyle Lite Strips TEST BLOOD SUGAR THREE TIMES DAILY active Not Available Not Available Not Available diclofenac 1 % topical gel APPLY TOPICALLY TO THE AFFECTED AREA(S) TWICE DAILY NEEDED active Not Available Not Available No t Available dexlansopraz ole 60 mg capsule,biph ase delayed release TAKE 1 CAPSULE BY MOUTH EVERY EVENING active Not Available Not Available No t Available ClearLax 17 gram/dose oral powder Mix 17g (1 capful) in 8 ounces of water and take by mouth every day active Not Available Not Available No t Available TRUEplus Lancets 33 gauge TEST BLOOD SUGAR TWICE DAILY active Not Available Not Available No t Available Breo Ellipta 200 mcg-25 mcg/dose powder for inhalation INHALE 1 PUFF BY MOUTH EVERY DAY AT THE SAME TIME RINSE MOUTH AFTER USING active Not Available Not Available Not Available Trelegy Ellipta 200 mcg-62.5 mcg-25 mcg powder for inhalation INHALE 1 PUFF EVERY DAY . RINSE MOUTH AFTER USE active Not Available Not Available No t Available Vitals Date Recorded Body weight Respiratory rate Heart rate Body height Oxygen saturation Oxygen saturation in Arterial blood by Pulse oximetry Body temperature Systolic And Diastolic Provider Name and Address Organization Details Last Updated DateTime 5 01298.8 8 g 16 /min 85 /min 157.48 cm 94 % 94 % 101.1 [degF] 103/64 mm[Hg] Not Available [employer] - production 5 11:12:59 Social History None recorded. Functional Status None recorded. Mental Status None recorded. Family History Nothing Reported. Medical History No medical history recorded. Gynecological HistoryNo gynecological history recorded. Obstetrics History GPAL:G 0 P 0 0 0 0 Past Encounters Encounter ID Performer Location Encounter Start Date Encounter Closed Date Diagnosis/Indication Diagnosis SNOMED-CT Code Diagnosis ICD10 Code Diagnosis Note [id number] Epi Marroquin MD [facility] - [facility] [address] [place] [phone] 08/27/2024 11:12:54 08/28/2024 22:32:38 Acute gastroenteritis 67292676 K52.9 As noted, we were called to see this patient regarding concerns of nausea and vomiting. Evaluation in the field was performed by my intelligence operations colleague, as noted above, I provided real-time direction and supervisio n for this visit. The evaluation revealed reassuring VS other than temp of 101.1 and soft BP with mild diffuse ttp LLQ. Grandson with a cough but nobody else with these sx. Took a zofran and this helped. Not peeing as much as usual. No hx diverticul itis. PCP note reviewed. Impression :Acute gastroente ritis, likely viral given current seasonal epidemics. Plan:BMP given mildly reduce UO and agePending results will give some IV rehydratio n as she preferred thisRx zofran TID x 7 d to be used sparinglyC ounseled on red flags Primary care, considerch rody in call this week. Dispositio n: We discussed the diagnostic uncertaint y of home visits and the risk associated with this. In this case, the patient and I felt this to be an acceptable and reasonable amount of risk given the benefit of avoiding an ED visit. We discussed the need to seek care urgently/e mergently in the setting of any new or worsening serious symptoms, particular ly intractabl e vomiting, hematemesi s. Health Concerns Section Related Observation LastModified by Organization Detai ls LastModified Time None Recorded Concern Status LastModified by Organization Details LastModified Time None Recorded Advance Directives Directive None Recorded Payers Insurance Date Sequence Insurance Name Policy Number Policy Haro Covered Member ID Haro Member ID Guarantor Name 08/27/2024 1 [facility] - DOS ON OR AFTER 2022 - DUAL ELIGIBLE - DETENTION OPTIONS AND ONE CARE (MEDICARE REPLACEMENT/ADV ANTAGE - HMO) Maritza Mcmanus [id number] Maritza Mcmanus Notes Date Note Type Note Provider Name and Address Organization Details Recorded Time 08/27/2024 text/html CRC Nurse Triage Notes (Berna Mccracken - RN): Reason For Request: Patient stomach pain since last night, vomiting, and diarrhea, takes anxiety med's. Patient Reports: Diarrhea no blood in stool; Nausea with or without vomiting Denies: Sharp focal or diffuse abdominal pain Vomiting blood/coffee ground material Bloating, jaundice new onset with pain Nausea and vomiting greater than 2 hours with abdominal pain Tearing pain that radiates to back Food Impaction Vague abdominal pain greater than 24 hours Constipation Chief Complaints: Abdominal pain PMH: Anxiety Disorder, Hypertension, Diabetes Mellitus Type 2, Hyperlipidemia PMH Reviewed at 08/27/2024 - :24 Allergies Reviewed at 08/27/2024 - 09:24 Comments: Newspaper Copy Editor verified the name//address and phone number. Daughter calling for pt. She has abd pain with vomiting and loose stool. She has abd pain all over the abd. She has vomited and loose stool 3 times each. She denies any coffee ground emesis or blood. She does not have confusion. She denies any fever/ chill. She has not had any sick contact. She did have a regular BM this am, she has not had any constipation. She has not been able to eat and drink . She does have a h/o vertigo. She was given SL zofran and was given her anxiety medication. Blood sugar 219 > baseline in the AM Education provided on the response time and the Patient was advised to monitor reported s/s and seek emergency treatment if needed [employer] Organization Information for Mark Bower Business Legal Name: [employer]. Address: [address] [place] [id number], Photoengraving Machine Operator/Tender: Emiliano YINIA No.: [id number] [employer] POC Test Results from [facility] Rapid COVID antigen (11:07:53) COVID: - Rapid influenza antigen (11:07:56) Flu: - iSTAT Chem8+ (11:33:38) Na: 139 mEq/L K: 4.0 mEq/L Cl: 105 mEq/L iCa: 1.09 mmol/L TCO2: 24 mmol/L Glu: 178 mg/dL BUN: 16 mg/dL Crea: 0.6 mg/dL Hct: 43 % Hb: 14.6 g/dL A .................... .................... .................... .................... .................... .................... .................... . [employer] Note From [facility] Bower[facility]. Pt presents with daughter at home. Pt is Thai speaking only so daughter translated. pt had onset of vomiting and diarrhea last night after dinner. About 3 episodes of each estimated. Neither have occurred today. Family is not aware of any sick contacts. V/S taken as listed. Pt febrile with temp of 101.1. Pt swabbed for flu and covid and found to be negative. Daughter have given pt one of her own zofran this morning with reported relief of nausea. Abdomen soft with some slight tenderness left lower quadrant. Contacted [facility] [place] Marroquin who ordered BMP and IV fluids. BMP results sent to [facility]. 1 liter IV LR given. Lungs remained clear after administering fluids. Reviewed red flags for ED. Pt education provided. .................... .................... .................... .................... .................... .................... .................... . [facility] Consulted: Osmin Marroquin .................... .................... .................... .................... .................... .................... .................... . Disposition: Fulfilled Epi Marroquin MD [address] [facility],[address] [facility], [place], [phone], MendorSALOMÓN MALONE 08/28/2024 22:00:26 OBGyn Episode No OBEpisode recorded.
== END 2025-02-14 10:36 | disposition home or self-care (01) ==
LOC: HO.HGI 10:09
PROVIDERS: PCP Internal Medicine; Visit Provider Nurse Practitioner
DX: K30 Functional dyspepsia (principal); K21.9 Gastro-esophageal reflux disease without esophagitis; R14.0 Abdominal distension (gaseous); K59.00 Constipation, unspecified
CPT/HCPCS: 99213

== ENCOUNTER → 2025-02-14 10:09 | Outpatient (BNVA) | payer OTHER, SELFPAY | PROVIDERS: PCP Internal Medicine; Visit Provider Nurse Practitioner | DX: K21.9 Gastro-esophageal reflux disease without esophagitis (principal); K30 Functional dyspepsia; K59.00 Constipation, unspecified; R14.0 Abdominal distension (gaseous) | CPT/HCPCS: 99212 ==

== ENCOUNTER 2025-04-23 08:33 | Outpatient (REF) | payer OTHER, SELFPAY ==
--- OUTSIDE RECORDS SUMMARY | 2025-04-23 09:32 | XMS_ITS | Encounter Summary ---
Author Organization [employer] Address [address] [place] [address] [address] [place] [address] Care Team Providers Care Head Piece Assembler Name Role Phone Helder Greenfield MD Primary Care Provide r Reason for Visit * Reason Comments Med Refill Encounter Details Date Type Department Care Team ([facility] st Contact Info) Description 02/27/2024 Refill [facility] MEDICINE [address] [place], [place] [phone] Helder Greenfield MD [address] [place], [place] [phone] Social History Tobacco Use Types Packs/Day Years Used Date Smoking Tobacco: Never Passive Smoke Exposure: Never Smokeless Tobacco: Never Depression Answer Date Recorded Patient Health Questionnaire-9 Score 2 01/17/2024 Patient Health Questionnaire-9 Score 2 01/17/2024 Last PHQ-9: Questionnaire Data Not on file 0 01/17/2024 Housing Stability Answer Date Recorded What is your housing situation today? I have florinda chinchilla 01/04/[address] you li ve. Do you have problems with any of the following? None of the above 01/04/2024 Food Insecurity Answer Date Recorded Within the past 12 months, y ou worried that your food would run out before you got money to buy more: Never True 01/04/2024 Within the past 12 months,th e food you bought just didn't last and you didn't have enough money to get more: Never True 11/2023 Transportation Answer Date Recorded In the past 12 months, has l ack of transportation kept you from medical appts, meetings, work or from getting things needed for daily living? No 01/04/2024 Utilities Answer Date Recorded In the past 12 months, has t he electric, gas, oil or water company threatened to shut off services in your home? No 01/04/2024 Depression Answer Date Recorded Patient Health Questionnaire-2 Score 1 01/17/2024 Comments Unknown Sex and Gender Information Value Date Recorded Sex Assigned at Female 05/31/2022 10:14 AM EDT Legal Sex Female 10:14 AM EDT Gender Identity Female 05/31/2022 10:14 AM EDT Sexual Orientation Straight 05/31/2022 10 :14 AM EDT documented as of this encounter Plan of Treatment Not on file documented as of this encounter Visit Diagnoses Not on filedocumented in this encounter Additional Health Concerns Assessment Noted Time PHQ-9 Depression Total Score: 2 01/17/20 24 10:33 AM EDT documented as of this encounter Care Teams Head Piece Assembler Relationship Specialty Start Date End Date Helder Greenfield MD [address] [place] [phone] PCP - General Internal Medicine 06/03/14 documented as of this encounter
--- OUTSIDE RECORDS SUMMARY | 2025-04-23 09:32 | XMS_ITS | Encounter Summary ---
Author Organization [employer] Address [address] [place] [address] [address] [place] [address] Care Team Providers Care Building Carpenter Helper Name Role Phone Helder Greenfield MD Primary Care Provide r Reason for Visit * Reason Onset Date Comments Hospital Follow-up 06/13/2023 Encounter Details Date Type Department Care Team ([facility] st Contact Info) Description 06/13/2023 Telephone [facility] MEDICINE [address] [place], [place] [phone] Helder Greenfield MD [address] [place] [address] Hospital Follow-up Social History Tobacco Use Types Packs/Day Years [...] AM EDT documented as of this encounter Miscellaneous Notes * Telephone Encounter - Matilda Alamo - 06/13/2023 1:01 PM EST Tc from [place] [facility] [place] calling to requesting a HDF appointment. Pt was admitted on 06/02 at [facility] [place] and will be discharged on 06/14. Pt was diagnosed with dementia. Please contact [place] for scheduling at [phone] documented in this encounter Plan of Treatment Not on file documented as of this encounter Visit Diagnoses Not on filedocumented in this encounter Additional Health Concerns Assessment Noted Time PHQ-9 Depression Total Score: 11 023 9:20 AM EDT documented as of this encounter Care Teams Building Carpenter Helper Relationship Specialty Start Date End Date Helder Greenfield MD [address] [place] [id number] PCP - General Internal Medicine 06/03/14 documented as of this encounter
--- OUTSIDE RECORDS SUMMARY | 2025-04-23 09:32 | XMS_ITS | Encounter Summary ---
Author Organization [employer] Address [address] [place] [address] [address] [place] [address] Care Team Providers Care Park Guide Name Role Phone Helder Greenfield MD Primary Care Provide r Reason for Visit * Reason Comments Med Refill Encounter Details Date Type Department Care Team (Late st Contact Info) Description 02/28/2023 Refill [facility] [address] [place] [phone] Chani Crespo MD [address] [place] [phone] Social History Tobacco Use Types Packs/Day Years Used Date Smoking Tobacco: Never Passive Smoke Exposure: Never Smokeless Tobacco: Never Comments Unknown Sex and Gender Information Value Date Recorded Sex Assigned at Female 05/31/2022 10:14 AM EDT Legal Sex Female 10:14 AM EDT Gender Identity Female 05/31/2022 10:14 AM EDT Sexual Orientation Straight 05/31/2022 10 :14 AM EDT documented as of this encounter Plan of Treatment Not on file documented as of this encounter Visit Diagnoses Not on filedocumented in this encounter Care Teams Park Guide Relationship Specialty Start Date End Date Helder Greenfield MD [address] [place] [phone] PCP - General Internal Medicine 06/03/14 documented as of this encounter
--- OUTSIDE RECORDS SUMMARY | 2025-04-23 09:32 | XMS_ITS | Encounter Summary ---
Author Organization [employer] Address [address] [place] [address] [address] [place] [address] Care Team Providers Care Valet Runner Name Role Phone Helder Greenfield MD Primary Care Provide r Reason for Visit * Reason Comments Med Refill Encounter Details Date Type Department Care Team (Late st Contact Info) Description 11/27/2024 Refill [facility] MEDICINE [address] [place], [place] [phone] Helder Greenfield MD [address] [place], [place] [phone] Chronic midline low back pain without sciatica Social History Tobacco Use Types Packs/Day Years [...] Recorded Patient Health Questionnaire-2 Score 1 01/17/2024 Internet Access Answer Date Recorded Internet Access Q1 Yes 05/21/2024 Internet Access Q2 Not on file 05/21/2024 Comments Unknown Sex and Gender Information Value Date Recorded Sex Assigned at Female 05/31/2022 10:14 AM EDT Legal Sex Female 10:14 AM EDT Gender Identity Female 05/31/2022 10:14 AM EDT Sexual Orientation Straight 05/31/2022 10 :14 AM EDT documented as of this encounter Plan of Treatment Not on file documented as of this encounter Visit Diagnoses Diagnosis Chronic midline low back pain without sciatica documented in this encounter Additional Health Concerns Assessment Noted Time PHQ-9 Depression Total Score: 2 01/17/20 24 10:33 AM EDT documented as of this encounter Care Teams Valet Runner Relationship Specialty Start Date End Date Helder Greenfield MD [address] [place] [phone] PCP - General Internal Medicine 06/03/14 documented as of this encounter
--- OUTSIDE RECORDS SUMMARY | 2025-04-23 09:32 | XMS_ITS | Encounter Summary ---
Author Organization [employer] Address [address] [place] [address] [address] [place] [address] Care Team Providers Care Small Package And Bundle Sorter Clerk Name Role Phone Helder Greenfield MD Primary Care Provide r Reason for Visit * Reason Comments Med Refill Encounter Details Date Type Department Care Team ([facility] st Contact Info) Description 11/23/2023 Refill [facility] [address] [place], [place] [phone] Helder Greenfield MD [address] [place], [place] [phone] Type 2 diabetes mellitus without complication, unspecified whether termite control service representative insulin use ([facility] Social History Tobacco Use Types Packs/Day Years [...] 2 diabetes mellitus without complication, unspecified whether group home insulin use ([facility]) documented in this encounter Additional Health Concerns Assessment Noted Time PHQ-9 Depression Total Score: 11 023 9:20 AM EDT documented as of this encounter Care Teams Small Package And Bundle Sorter Clerk Relationship Specialty Start Date End Date Helder Greenfield MD [address] [place] [phone] PCP - General Internal Medicine 06/03/14 documented as of this encounter
--- OUTSIDE RECORDS SUMMARY | 2025-04-23 09:32 | XMS_ITS | Encounter Summary ---
Author Organization [employer] Address [address] [place] [address] [address] [place] [address] Care Team Providers Care Inventory Taker Name Role Phone Helder Greenfield MD Primary Care Provide r Reason for Visit * Reason Comments Med Refill Encounter Details Date Type Department Care Team ([facility] st Contact Info) Description 12/21/2024 Refill [facility] MEDICINE [address] [place], [place] [phone] Helder Greenfield MD [address] [place], [place] [phone] Dizziness Social History Tobacco Use Types Packs/Day Years [...] as of this encounter Visit Diagnoses Diagnosis Dizziness Dizziness and giddiness documented in this encounter Additional Health Concerns Assessment Noted Time PHQ-9 Depression Total Score: 2 01/17/20 24 10:33 AM EDT documented as of this encounter Care Teams Inventory Taker Relationship Specialty Start Date End Date Helder Greenfield MD [address] [place] [address] PCP - General Internal Medicine 06/03/14 documented as of this encounter
--- OUTSIDE RECORDS SUMMARY | 2025-04-23 09:32 | XMS_ITS | Encounter Summary ---
Author Organization [employer] Address [address] [place] [address] [address] [place] [address] Care Team Providers Care Shoe Repair Cobbler Name Role Phone Helder Greenfield MD Primary Care Provide r Reason for Visit * Reason Comments Med Refill Encounter Details Date Type Department Care Team (Late st Contact Info) Description 05/04/2023 Refill [facility] [address] [place] [address] Chani Crespo MD [address] [place] [address] Social History Tobacco Use Types Packs/Day Years Used Date Smoking Tobacco: Never Passive Smoke Exposure: Never Smokeless Tobacco: Never Depression Answer Date Recorded Patient Health Questionnaire-9 Score 11 03/15/2023 Depression Answer Date Recorded Patient Health Questionnaire-2 [...] documented as of this encounter Care Teams Shoe Repair Cobbler Relationship Specialty Start Date End Date Helder Greenfield MD [address] [place] [address] PCP - General Internal Medicine 06/03/14 documented as of this encounter
--- OUTSIDE RECORDS SUMMARY | 2025-04-23 09:32 | XMS_ITS | Encounter Summary ---
Author Organization [employer] Address [address] [place] [address] [address] [place] [address] Care Team Providers Care Utility System Repairer Name Role Phone Helder Greenfield MD Primary Care Provide r Encounter Details Date Type Department Care Team ([facility] st Contact Info) Description 08/17/2022 Orders Only [facility] MEDICINE [address] [place], [place] [phone] Sara Henley LPN Social History Tobacco Use Types Packs/Day Years Used Date Smoking Tobacco: Never Assessed Comments Unknown Sex and Gender Information Value [...] on filedocumented in this encounter Care Teams Utility System Repairer Relationship Specialty Start Date End Date Helder Greenfield MD [address] [place] [address] PCP - General Internal Medicine 06/03/14 documented as of this encounter
--- OUTSIDE RECORDS SUMMARY | 2025-04-23 09:32 | XMS_ITS | Encounter Summary ---
Author Organization [email or web address] Address [address] [place] [address] [address] [place] [address] Care Team Providers Care Polymerization Kettle Operator Name Role Phone Helder Greenfiedl MD Primary Care Provide r Reason for Visit * Reason Comments Med Refill Encounter Details Date Type Department Care Team ([facility] st Contact Info) Description 02/27/2024 Refill [facility] MEDICINE [address] [place], [place] [phone] Bibiana Romero MD [address] [place] [address] Social History Tobacco Use Types Packs/Day Years [...] documented as of this encounter Care Teams Polymerization Kettle Operator Relationship Specialty Start Date End Date Helder Greenfield MD [address] [place] [id number] PCP - General Internal Medicine 06/03/14 documented as of this encounter
--- OUTSIDE RECORDS SUMMARY | 2025-04-23 09:32 | XMS_ITS | Encounter Summary ---
Author Organization [employer] Address [address] [place] [address] [address] [place] [address] Care Team Providers Care Dope Maintenance Worker Name Role Phone Helder Greenfield MD Primary Care Provide r Reason for Visit * Reason Comments Med Refill Encounter Details Date Type Department Care Team ([facility] st Contact Info) Description 06/01/[address] [facility] MEDICINE [address] [place], [place] [phone] Chani Crespo MD [address] [place] [address] Social History Tobacco Use Types Packs/Day Years [...] documented as of this encounter Care Teams Dope Maintenance Worker Relationship Specialty Start Date End Date Helder Greenfield MD [address] [place] [address] PCP - General Internal Medicine 06/03/14 documented as of this encounter
--- OUTSIDE RECORDS SUMMARY | 2025-04-23 09:32 | XMS_ITS | Clinical Summary ---
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 Antacid/Antigas 400-400-40 MG/10ML oral suspension TAKE 5 ML BY MOUTH FOR DYSPEPSIA. TAKE BETWEEN MEALS AND AT BEDTIME Active brimonidine (AlphaGAN P) 0.2 % ophthalmic solution PLACE 1 DROP IN EACH EYE TWICE DAILY, 12 HOURS APART Active cromolyn (Opticrom) 4 % ophthalmic solution INSTILL 1 DROP IN THE AFFECTED EYE FOUR TIMES DAILY DIRECTED Active dexlansoprazole (Dexilant) [address] capsule Take 1 capsule by mouth in the evening. Active famotidine (Pepcid) 40 MG tablet Take 1 tablet by mouth at bedtime. Active LORazepam (Ativan) 0.5 MG tablet Take 0.5 mg by mouth if needed in the morning, at noon, and at bedtime. Active senna (Senokot) 8.6 MG tablet TAKE 2 TABLETS BY MOUTH EVERY DAY AT BEDTIME FOR CONSTIPATION Active sucralfate (Carafate) 1 g tablet Take 2 tablets by mouth 1 (one) time each day. AT NOON Active timolol (Timoptic) 0.5 % ophthalmic solution PLACE 1 DROP IN THE LEFT EYE EVERY MORNING Active mirtazapine (Remeron) 15 MG tablet Take 1 tablet by mouth at bedtime. 023 Active traZODone (Desyrel) 50 MG tablet TAKE 1 TABLET BY MOUTH AT BEDTIME. MAY REPEAT ONCE NEEDED FOR FOR SLEEP 023 Active hydrOXYzine pamoate (Vistaril) 25 MG capsule TAKE 1 CAPSULE BY MOUTH AT BEDTIME NEEDED FOR ANXIETY 30 capsule 1 023 Active Diclofenac Sodium 1 % gelIndications:C hronic midline low back pain without sciatica Use affected area Bid PRN 50 g 3 024 Active meloxicam (Mobic) 15 MG tabletIndication s:Chronic midline low back pain without sciatica TAKE 1 TABLET BY MOUTH EVERY MORNING 30 tablet 025 Active albuterol 108 (90 Base) MCG/ACT inhalerIndicatio ns:Moderate persistent asthma with acute exacerbation Inhale 1 puff every 6 (six) hours if needed for wheezing. 18 g 6 025 Active Lancet Device miscIndications: Type 2 diabetes mellitus without complication, without long-term current use of insulin ([facility]) Use daily 1 each 025 Active TRUEplus Lancets 33G misc TEST BLOOD SUGAR TWICE DAILY 100 each 025 Active metoprolol succinate XL (Toprol-XL) 100 MG 24 hr tablet TAKE 1 TABLET BY MOUTH EVERY MORNING 90 tablet 2 025 Active metFORMIN XR (Glucophage-XR) 500 MG 24 hr tabletIndication s:Type 2 diabetes mellitus without complication, unspecified whether intermediate insulin use (CMS/HCC) TAKE 2 TABLETS BY MOUTH TWICE DAILY IN THE MORNING AND EVENING WITH FOOD 360 tablet 2 025 Active FREESTYLE LITE test stripIndications :Type 2 diabetes mellitus without complications ([facility]/HCC) TEST BLOOD SUGAR THREE TIMES DAILY 100 strip 025 Active montelukast (Singulair) 10 MG tablet TAKE 1 TABLET BY MOUTH EVERY EVENING 90 tablet 1 025 Active cholecalciferol (Vitamin D-3) 25 MCG tabletIndication s:Low serum vitamin D TAKE 1 TABLET BY MOUTH EVERY MORNING 90 tablet 1 025 Active Alcohol Swabs (Alcohol Prep) 70 % padsIndications: Type 2 diabetes mellitus without complication, 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 1 kit 025 Active meclizine (Antivert) 25 MG tabletIndication s:Dizziness TAKE 1 TABLET BY MOUTH THREE TIMES DAILY IN THE MORNING, AT NOON, AND AT BEDTIME NEEDED FOR DIZZINESS 30 tablet 3 025 Active Calcium Carb-Cholecalcif jose 600-10 MG-MCG tablet TAKE 1 TABLET BY MOUTH TWICE DAILY IN THE MORNING AND IN THE EVENING WITH FOOD 60 tablet 2 Active aspirin (Aspirin Adult Low Strength) 81 MG EC tablet TAKE 1 TABLET BY MOUTH AT BEDTIME 90 tablet 3 025 Active atorvastatin (Lipitor) 80 MG tablet TAKE 1 TABLET BY MOUTH EVERY EVENING 90 tablet Active tolterodine LA (Detrol LA) 4 MG 24 hr capsule TAKE 1 CAPSULE BY MOUTH AT BEDTIME 90 capsule Active escitalopram (Lexapro) 20 MG tablet Take 20 mg by mouth Once per day. Active hydrOXYzine HCl (Atarax) 25 MG tablet Take 25 mg by mouth if needed at bedtime. Active memantine (Namenda) 5 MG tablet Take 1 tablet by mouth Once per day. Active QUEtiapine (SEROquel) 25 MG tablet Take 25 mg by mouth in the morning. Active Trelegy Ellipta 200-62.5-25 MCG/ACT aerosol powder Inhale 200 mcg Once per day. Active amLODIPine (Norvasc) 10 MG tablet TAKE 1 TABLET BY MOUTH EVERY MORNING 30 tablet 11 Active metoclopramide (Reglan) 10 MG tablet TAKE 1 TABLET BY MOUTH FOUR TIMES DAILY BEFORE MEALS AND AT BEDTIME 023 2024 Discontinued(T herapy completed) amLODIPine (Norvasc) 10 MG tablet TAKE 1 TABLET BY MOUTH EVERY MORNING 30 tablet 11 024 2024 Discontinued Breo Ellipta 200-25 MCG/ACT aerosol powder INHALE 1 PUFF BY MOUTH EVERY DAY AT THE SAME TIME RINSE MOUTH AFTER USING 60 each 5 025 2024 Discontinued(T herapy completed) Active Problems Problem Noted Date Diagnosed Date Overweight (BMI 25.0-29.9) 08/23/2024 Assessment & Plan (08/23/2024 9:09 AM EST): Dietary Recommendations: Fruits, vegetables, whole grains, protein foods, and fat-free or low-fat dairy products are healthy choices. Eat different types of protein foods in your diet. This can include seafood, lean meats, poultry, beans, peas, lentils, nuts, seeds, soy products, and eggs. Limit foods and beverages higher in added sugars, saturated fat, and sodium. Exercise Recommendations: At least 150 minutes of moderate-intensity physical activity per week, or an equivalent combination of moderate- and vigorous-intensity activity Earache symptoms in both ears 05/31/2024 Assessment & Plan (08/23/2024 10:14 AM EST): Exam within normal limits Suggestive of Eustachian tube dysfunction Started on Astelazin nasal spray per clinical exercise specialist Pt referred to ENT Assessment & Plan (05/31/2024 9:47 AM EDT): Exam within normal limits Suggestive of Eustachian tube dysfunction Started on Astelazin nasal spray per clinical exercise specialist Low weight, pediatric, BMI less than 5th percent ile for age 0108/02/2023 Assessment & Plan (08/02/2023 9:41 AM EST): BMI 24 Mild dementia with anxiety 06/21/2023 Assessment & Plan (08/23/2024 9:09 AM EST): Recently diagnosed while in the Hospital for anxiety and depression Did not tolerate anticholinesterase due to diarrhea Is on Mirtazapine for depression Seen by Neurology 08/17/2023, diagnosed with [facility] Dr Ayers. Assessment & Plan (11/08/2023 9:38 AM EDT): Recently diagnosed while in the Hospital for anxiety and depression Did not tolerate anticholinesterase due to diarrhea Is on Mirtazapine for depression Seen by Neurology 08/17/2023, diagnosed with [facility] Dr Ayers, recommended a follow up in March. Assessment & Plan (08/02/2023 9:27 AM EST): Recently diagnosed while in the Hospital for anxiety and depression Did not tolerate anticholinesterase due to diarrhea Is on Mirtazapine for depression Neurology consult scheduled for 08/17/2023 Assessment & Plan (06/21/2023 11:03 AM EST): Recently diagnosed while in the Hospital for anxiety and depression Did not tolerate anticholinesterase due to diarrhea IS on Mirtazapine for depression Plan: Neurology consult Poor appetite 06/21/2023 Assessment & Plan (08/02/2023 9:41 AM EST): Pt with decrease po intake newly diagnosed dementia Needs to supplement intake with boost Increase boost to 3 times a day Assessment & Plan (06/21/2023 11:19 AM EST): Pt with decrease po intake newly diagnosed dementia Needs to supplement intake with boost Low blood potassium 03/24/2023 Assessment & Plan (03/24/2023 10:58 AM EDT): Pt diagnosed with low potassium while in the Hospital with Low K 3.1 (incidental finding while being evaluated for severe headache Plan: DC hydrochlorothiazide Repeat BMP Benign headache 03/24/2023 Assessment & Plan (03/24/2023 11:01 AM EDT): Pt seen in March 15 by [employer], pt c/o severe headache. With a remote Hx of head trauma Intractable. Pt sent to ER for stat CT to r/o chronic subdural hematoma Evaluation in the ER unremarkable included a CT of the brain that was negative. Pt statting she feels perfectly fine now. Etiology ? Migraines ? For now will continue to observe Chronic low back pain 12/23/2022 Assessment & Plan (12/23/2022 8:39 AM EDT): Pt with persistent mid and low back pain pt described it as intensity 7/10 no radiation. Started PT but felt worse. Pt was seen at [facility] 02/20/2019 and they recommended to proceed with an MRI MRI was done 04/2019 and showed: Minimal degenerative disease of the lumbar spine , No spinal canal or foraminal stenosis. No abnormal signal within the conus medullaris. Anxiety 12/23/2022 Assessment & Plan (05/16/2023 11:06 AM EDT): Assessment: Patient with anxiety symptoms and panic attacks. No risk for self harm, SI, and HI. Reason for visit was to assess symptoms and provide support to patient. Symptoms are present in the context of physical pain. Provided psychoeducation around anxiety and panic attacks and how to cope with them. [facility] Provider will begin patient on hydroxyzine 25 mg. provider will complete therapy referral. At this time Maritza Mcmanus meets criteria for Visit Diagnoses: Problem List Items Addressed This Visit Other Depressive disorder Anxiety Patient ready to address current needs Yes Strengths include support from her daughter, son, and enrique PLAN: 1. Follow up with [facility]: Not recommended for follow-up 2. Patient goal is for panic attacks to diminish 3. Behavioral Recommendations a. Utilize coping skills provided b. Comply with medication c. Comply with therapy appointments when established d. Utilize [facility] if symptoms worsen Assessment & Plan (12/23/2022 9:07 AM EDT): Pt used to be under the care of a therapist not any more Has 2 small pet companions that help her cope with her anxiety , she feels safe with them , they bark when someone comes close to the apartment and she feels safe. would like to keep them she benefits from having them in her home Preventative health care 12/23/2022 Assessment & Plan (12/23/2022 9:08 AM EDT): Pap Smear: s/p hysterectomy. Colonoscopy normal 02/13/09. Dr Eulalia molina Primary open angle glaucoma (POAG) of both eyes 04/03/2021 Moderate persistent asthma with acute exacerbati on 09/01/2017 Assessment & Plan (03/26/2025 9:28 AM EDT): On trelegy, , Pro-Air and Singulair. She is under the care of Brandon mcnulty PA-C at [facility]. Receiving Allergy shots monthly Assessment & Plan (08/23/2024 10:11 AM EST): On trelegy, , Pro-Air and Singulair. She is now under the care of Brandon mcnulty PA-C at [facility]. Already scheduled to start her Allergy shots Jun 04 Assessment & Plan (05/31/2024 9:45 AM EDT): On trelegy, , Pro-Air and Singulair. She is now under the care of Brandon mcnulty PA-C at [facility]. Already scheduled to start her Allergy shots Jun 04 Assessment & Plan (01/17/2024 10:52 AM EDT): Recent exacerbation 01/08/2024 seen at [facility] She is doing better now but still wheezing On Advair Diskus, Pro-Air and Singulair. She used to be followed by Dr. Baker (Allergy) . She has not seen them since May 2023 Has appointment 04/11/2024 with Li Lundberg [address] [facility] [place] Plan: On exam she has mild wheezing. I extended her Prednisone bernardo . Counseled about the fact her blood sugar levels might be high while on Prednisone Assessment & Plan (12/23/2022 8:45 AM EDT): No recent exacerbations on Advair Diskus, Pro-Air and Singulair. She is followed by Dr. Baker (Allergy) . Hyperlipidemia 02/04/2015 Assessment & Plan (03/26/2025 9:02 AM EDT): Most recent lipid profile from: Lab Results Component Value Date TRIG 79 07/24/2024 TRIG 62 03/07/2023 CHOL 127 07/24/2024 CHOL 134 03/07/2023 LDLCHOLCAL 67 07/24/2024 LDLCHOLCAL 62 03/07/2023 HDL 45 07/24/2024 HDL 60 03/07/2023 Currently on a regimen of: Lipitor 80 mg po q pm Plan: Continue with current regimen. Repeat Lipid profile prior to next visit advised to try to adhere to a low cholesterol diet, counseled and educated about diet and exercise, Patient encouraged to come up with a personal goal for weight loss. Assessment & Plan (08/23/2024 9:08 AM EST): Most recent lipid profile from: Lab Results Component Value Date TRIG 79 07/24/2024 TRIG 62 03/07/2023 CHOL 127 07/24/2024 CHOL 134 03/07/2023 LDLCHOLCAL 67 07/24/2024 LDLCHOLCAL 62 03/07/2023 HDL 45 07/24/2024 HDL 60 03/07/2023 Currently on a regimen of: Lipitor 80 mg po q pm Plan: Continue with current regimen. advised to try to adhere to a low cholesterol diet, counseled and educated about diet and exercise, Patient encouraged to come up with a personal goal for weight loss. Assessment & Plan (05/31/2024 9:08 AM EDT): Most recent lipid profile from: Lab Results Component Value Date TRIG 62 03/07/2023 CHOL 134 03/07/2023 LDLCHOLCAL 62 03/07/2023 HDL 60 03/07/2023 Currently on a regimen of: Lipitor 80 mg po q pm Plan: Repeat Lipid profile, for now: continue with current regimen. advised to try to adhere to a low cholesterol diet, counseled and educated about diet and exercise, Patient encouraged to come up with a personal goal for weight loss. Assessment & Plan (12/23/2022 8:38 AM EDT): Most recent lipid profile from: 09/07/2021 shows a total cholesterol of: 149 triglycerides of: 108 HDL of: 52 and LDL of: 78 Currently on a regimen of: Lipitor 80 mg po q pm Plan: Repeat Lipid profile, for now: continue with current regimen. advised to try to adhere to a low cholesterol diet, counseled and educated about diet and exercise, Patient encouraged to come up with a personal goal for weight loss. Osteopenia 01/16/2013 Gastroesophageal reflux disease 12/08/2012 Assessment & Plan (03/26/2025 9:03 AM EDT): Pt here for a f/u Under the care of GI, last seen 02/14/2025 EGD in 2022 w/o any severe pathology per GI notes She will continue to follow with them Assessment & Plan (05/31/2024 9:07 AM EDT): Pt here for a f/u Under the care of GI, last seen 02/17/2024 She will continue to follow with them Assessment & Plan (12/23/2022 8:36 AM EDT): Pt here for a f/u Under the care of GI, last seen 2022 She will continue to follow with them Diabetes mellitus type 2, uncomplicated 11/16/19 Assessment & Plan (03/26/2025 9:19 AM EDT): Patient is here for a f/u DM controlled She is on a regimen of: Metformin 500 mg 1 tabs po BID . Hgb A1c 03/26/2025: 6.5 from 6.6 Eye exam done on: 11/02/[address] Vargas (first helper) Microalbumin checked 09/07/2021 was: 1.4 will repeat ( she did not do it) Foot check risk of zero Pt reports compliance with Asa 81 mg po daily Plan: Continue current regimen Pt advised to: adhere to diabetic diet check your blood sugars regularly check your feet on a daily basis Assessment & Plan (12/18/2024 11:33 AM EDT): Patient is here for a f/u DM improving She is on a regimen of: Metformin 500 mg 1 tabs po BID . Hgb A1c 12/18/2024: 6.6 from 6.9 Eye exam done on: 11/02/[address] Vargas (first helper) Microalbumin checked 09/07/2021 was: 1.4 will repeat Foot check risk of zero Pt reports compliance with Asa 81 mg po daily Plan: Continue current regimen Pt advised to: adhere to diabetic diet check your blood sugars regularly check your feet on a daily basis Assessment & Plan (08/23/2024 10:08 AM EST): Patient is here for a f/u DM controlled She is on a regimen of: Metformin 500 mg 1 tabs po BID . Pt's daughter tells me her blood sugar was dropping to much when she was taking 2 tabs po BID. Hgb A1c 08/23/2024: 6.9 Eye exam done on: 11/02/[address] Vargas (first helper) Microalbumin checked 09/07/2021 was: 1.4 Pt on an ARB Foot check risk of zero Pt reports compliance with Asa 81 mg po daily Plan: Continue current regimen Pt advised to: adhere to diabetic diet check your blood sugars regularly check your feet on a daily basis Assessment & Plan (05/31/2024 9:46 AM EDT): Patient is here for a f/u DM controlled Glucometer shows average 136 She is on a regimen of: Metformin 500 mg 1 tab in AM and 2 tabs po at PM Hgb A1c 05/31/2024: 6.8 Eye exam done on: 11/02/[address] Vargas (first helper) Microalbumin checked 09/07/2021 was: 1.4 Pt on an ARB Foot check risk of zero Pt reports compliance with Asa 81 mg po daily Plan: Increase Metformin to 2 tabs po BID Pt advised to: adhere to diabetic diet check your blood sugars regularly check your feet on a daily basis Assessment & Plan (01/17/2024 10:37 AM EDT): Patient is here for a f/u DM controlled Glucometer shows average 158 She is on a regimen of: Metformin 500 mg 1 tab in AM and 2 tabs po at PM Hgb A1c 11/08/2023: 6.8 Eye exam done on: 11/02/[address] Vargas (first helper) Microalbumin checked 09/07/2021 was: 1.4 Pt on an ARB Foot check risk of zero Pt reports compliance with Asa 81 mg po daily Plan: Increase Metformin to 2 tabs po BID Pt advised to: adhere to diabetic diet check your blood sugars regularly check your feet on a daily basis Assessment & Plan (11/08/2023 9:40 AM EDT): Patient is here for a f/u DM controlled Glucometer shows average 161 She is on a regimen of: Metformin 500 mg 1 tab in AM and 2 tabs po at PM Hgb A1c 11/08/2023: 6.8 Eye exam done on: 11/02/[address] Vargas (first helper) Microalbumin checked 09/07/2021 was: 1.4 Pt on an ARB Foot check risk of zero Pt reports compliance with Asa 81 mg po daily Plan: Continue with current regimen Pt advised to: adhere to diabetic diet check your blood sugars regularly check your feet on a daily basis Assessment & Plan (12/23/2022 9:54 AM EDT): Patient is here for a f/u DM controlled Glucometer shows average 172 She is on a regimen of: Metformin 500 mg 1 tab in AM and 2 tabs po at PM Hgb A1c 12/23/2022: 7.1 Eye exam done on: 11/17/[address] Vargas (first helper) Microalbumin checked 09/07/2021 was: 1.4 Pt on an ARB Foot check risk of zero Pt reports compliance with Asa 81 mg po daily Plan: Continue with current regimen Pt advised to: adhere to diabetic diet check your blood sugars regularly check your feet on a daily basis Benign hypertension 08/03/2012 Assessment & Plan (03/26/2025 9:02 AM EDT): Pt here for a f/u BP controlled She is on a regimen of: Norvasc 5 mg po daily, Hctz 25 mg po daily and Toprol XL 100 mg po daily Most recent electrolytes, Bun and Creatinine done on: Lab Results Component Value Date NA 141 07/24/2024 NA 140 06/01/2023 K 4.0 07/24/2024 K 3.8 06/01/2023 CL 106 07/24/2024 CL 106 06/01/2023 BUN 14 07/24/2024 BUN 7 (L) 06/01/2023 CREATININE 0.83 07/24/2024 CREATININE 0.70 06/01/2023 were within normal limits. Plan: continue current regimen. patient advised to adhere to a low sodium diet, encouraged about medication compliance, counseled about weight loss. Assessment & Plan (12/18/2024 11:33 AM EDT): Pt here for a f/u BP controlled She is on a regimen of: Norvasc 5 mg po daily, Hctz 25 mg po daily and Toprol XL 100 mg po daily Most recent electrolytes, Bun and Creatinine done on: Lab Results Component Value Date NA 141 07/24/2024 NA 140 06/01/2023 K 4.0 07/24/2024 K 3.8 06/01/2023 CL 106 07/24/2024 CL 106 06/01/2023 BUN 14 07/24/2024 BUN 7 (L) 06/01/2023 CREATININE 0.83 07/24/2024 CREATININE 0.70 06/01/2023 were within normal limits. Plan: continue current regimen. patient advised to adhere to a low sodium diet, encouraged about medication compliance, counseled about weight loss. Assessment & Plan (08/23/2024 9:07 AM EST): Pt here for a f/u BP controlled She is on a regimen of: Norvasc 5 mg po daily, Hctz 25 mg po daily and Toprol XL 100 mg po daily Pt's daughter told me last visit she had not been taking the Diovan 320 mg po daily, Most recent electrolytes, Bun and Creatinine done on: Lab Results Component Value Date NA 141 07/24/2024 NA 140 06/01/2023 K 4.0 07/24/2024 K 3.8 06/01/2023 CL 106 07/24/2024 CL 106 06/01/2023 BUN 14 07/24/2024 BUN 7 (L) 06/01/2023 CREATININE 0.83 07/24/2024 CREATININE 0.70 06/01/2023 were within normal limits. Plan: continue current regimen. patient advised to adhere to a low sodium diet, encouraged about medication compliance, counseled about weight loss. Assessment & Plan (05/31/2024 9:06 AM EDT): Pt here for a f/u BP controlled She is on a regimen of: Norvasc 5 mg po daily, Hctz 25 mg po daily and Toprol XL 100 mg po daily Pt's daughter tells me she has not been taking the Diovan 320 mg po daily, Most recent electrolytes, Bun and Creatinine done on: Lab Results Component Value Date NA 140 06/01/2023 NA 144 05/30/2023 K 3.8 06/01/2023 K 3.5 05/30/2023 CL 106 06/01/2023 CL 105 05/30/2023 BUN 7 (L) 06/01/2023 BUN 9 05/30/2023 CREATININE 0.70 06/01/2023 CREATININE 0.73 05/30/2023 were within normal limits. Plan: continue current regimen, Repeat BMP patient advised to adhere to a low sodium diet, encouraged about medication compliance, counseled about weight loss. Assessment & Plan (08/02/2023 9:39 AM EST): Pt here for a f/u BP controlled today She is on a regimen of: Norvasc 5 mg po daily, Hctz 25 mg po daily and Toprol XL 100 mg po daily Pt's daughter tells me she has not been taking the Diovan 320 mg po daily, Most recent electrolytes, Bun and Creatinine done on: 06/01/2023 were within normal limits. Plan: continue current regimen patient advised to adhere to a low sodium diet, encouraged about medication compliance, counseled about weight loss. Assessment & Plan (03/24/2023 10:43 AM EDT): Pt here for a f/u BP controlled today She is on a regimen of: Norvasc 5 mg po daily, Diovan 320 mg po daily, Hctz 25 mg po daily and Toprol XL 100 mg po daily Most recent electrolytes, Bun and Creatinine done on: 08/12/2022 were within normal limits. Plan: continue current regimen patient advised to adhere to a low sodium diet, encouraged about medication compliance, counseled about weight loss. Assessment & Plan (12/23/2022 8:35 AM EDT): Pt here for a f/u BP controlled today She is on a regimen of: Norvasc 5 mg po daily, Diovan 320 mg po daily, Hctz 25 mg po daily and Toprol XL 100 mg po daily Most recent electrolytes, Bun and Creatinine done on: 08/12/2022 were within normal limits. Plan: continue current regimen patient advised to adhere to a low sodium diet, encouraged about medication compliance, counseled about weight loss. Microscopic hematuria 03/06/2012 Assessment & Plan (12/23/2022 9:04 AM EDT): H/o hematuria and 2mm stone seen in left kidney on 12/07/13 CT. She is asymptomatic so encouraged increased fluid intake. Depressive disorder 02/22/2012 Assessment & Plan (03/26/2025 9:25 AM EDT): Hx of Hospitalization with depression, anxiety and SI. Under the care of Dr Stu lunsford , last seen last week per her report She is on Escitalopram 20 mg po daily, Quetiapine 25 mg po q AM and hydroxyzine 25 mg po qhs Assessment & Plan (11/08/2023 9:30 AM EDT): Admitted to hospital with depression, anxiety and SI. Seen by psychiatrist who started her on Mirtazapine 15 mg po at bedtime with good results Pt had an appointment with Dr Stu lunsford 07/07/2023 She is on Escitalopram 10 mg po daily He added Quetiapine 25 mg po q AM and hydroxyzine 25 mg po qhs Assessment & Plan (08/02/2023 9:37 AM EST): Admitted to hospital with depression, anxiety and SI. Seen by psychiatrist who started her on Mirtazapine 15 mg po at bedtime with good results Pt had an appointment with Dr Stu lunsford 07/07/2023 She is on Escitalopram 10 mg po daily He added Quetiapine 25 mg po q AM and hydroxyzine 25 mg po qhs Assessment & Plan (06/21/2023 11:13 AM EST): Admitted to hospital with depression, anxiety and SI. Seen by psychiatrist who started her on Mirtazapine 15 mg po at bedtime with good results Pt has an upcoming appointment with Dr Stu lunsford 07/07/2023 Stress incontinence, female 02/22/2012 Assessment & Plan (12/23/2022 9:04 AM EDT): On Detrol LA and Myrbetriq and very well controlled. UDS showed low bladder capacity. Vitamin D deficiency 02/22/2012 Glaucoma 01/19/2012 Assessment & Plan (12/23/2022 9:05 AM EDT): follows with Dr Vargas Encounters Date Type Department Care Team Description 04/08/2025 Telephone [facility] MEDICINE [address] [place] [address] Helder Greenfield MD Medication Question 04/04/2025 Refill [facility] [address] [place] [address] Phoebe Michaels ANP 03/29/2025 Telephone [facility] MEDICINE [address] [place] [address] Helder Greenfield MD June03/26/2025 9:00 AM EDT Office Visit [facility] [address] [place] [address] Helder Greenfield MD Type 2 diabetes mellitus without complication, without long-term current use of insulin ([facility]) (Primary Dx); Benign hypertension; Mixed hyperlipidemia; Depressive disorder; Gastroesophageal reflux disease without esophagitis; Moderate persistent asthma with acute exacerbation 03/26/2025 Travel 03/25/2025 Telephone [facility] MEDICINE [address] [place] [address] Helder Greenfield MD CHART PREP 02/12/2025 Refill [facility] [address] [place] [address] Chani Crespo MD 02/03/2025 Refill [facility] [address] [place] [address] Helder Greenfield MD 02/01/2025 Refill [facility] [address] [facility], [place] [phone] Chani Crespo MD 01/21/2025 Refill [facility] MED[facility] [address] [facility], [place] [phone] Helder Greenfield MD Dizziness from Last 3 Months Immunizations Immunization Administration Dates Next Due Influenza High-dose Quadrivalent Preservative Fr ee 06/01/2022,04/28/2021 Influenza Quadrivalent Adjuvanted 05/25/2023 Influenza injectable quadrivalent preservative f ree 04/26/2019,11/23/2018 Influenza, High Dose Seasonal, Preservative Free 05/31/2024 Influenza, IIV3, injectable 05/01/2012 Influenza, Split (incl. purified surface antigen ) 04/23/2013 Pneumococcal Conjugate PCV 13 11/04/2016 Pneumococcal Polysaccharide PPSV23 08/03/2012, RSV Bivalent 05/17/2024,11/10/2023 TD (adult), 2 Lf tetanus tox oid, preservative free, adsorbed 11/18/2002 Td (adult), 5 Lf tetanus tox oid, preservative free, adsorbed 12/07/2016 Tdap 09/25/2013 Zoster, Recombinant 01/05/2024,11/10/2023 Zoster, live 11/15/2014 Social History Tobacco Use Types Packs/Day Years Used Date Smoking Tobacco: Never Passive Smoke Exposure: Never Smokeless Tobacco: Never Tobacco Cessation:Counseling Given: Not Answered Alcohol Use Standard Drinks/Week Comments Never 0 (1 standard drink = 0.6 oz pur e alcohol) Depression Answer Date Recorded Patient Health Questionnaire-9 Score 5 03/26/2025 Patient Health Questionnaire-9 Score 5 03/26/2025 Last PHQ-9: Questionnaire Data Not on file 0 03/26/2025 Housing Stability Answer Date Recorded What is your housing situation today? I have florinda chinchilla 03/26/[address] you li ve. Do you have problems with any of the following? None of the above 03/26/2025 Food Insecurity Answer Date Recorded Within the past 12 months, y ou worried that your food would run out before you got money to buy more: Never True 03/26/2025 Within the past 12 months,th e food you bought just didn't last and you didn't have enough money to get more: Never True Transportation Answer Date Recorded In the past 12 months, has l ack of transportation kept you from medical appts, meetings, work or from getting things needed for daily living? No 03/26/2025 Utilities Answer Date Recorded In the past 12 months, has t he electric, gas, oil or water company threatened to shut off services in your home? No 03/26/2025 Depression Answer Date Recorded Patient Health Questionnaire-2 Score 1 03/26/2025 Internet Access Answer Date Recorded Internet Access Q1 Yes 05/21/2024 Internet Access Q2 Not on file 05/21/2024 Comments Unknown Sex and Gender Information Value Date Recorded Sex Assigned at Female 05/31/2022 10:14 AM EDT Legal Sex Female 10:14 AM EDT Gender Identity Female 05/31/2022 10:14 AM EDT Sexual Orientation Straight 05/31/2022 10 :14 AM EDT Last Filed Vital Signs Vital Sign Reading Time Taken Comments Blood Pressure 120/66 03/26/2025 9:08 AM EDT Pulse 70 03/26/2025 9:08 AM EDT Temperature 36.4 C (97.6 F) 03/26/2025 9:08 AM EDT Respiratory Rate 19 03/26/2025 9:08 AM EDT Oxygen Saturation 97% 12/18/2024 11:13 AM EDT Inhaled Oxygen Concentration - - Weight 59.6 kg (131 lb 8 oz) 03/26/2025 9:08 AM EDT Height 152.4 cm (5') 03/26/2025 9:08 AM EDT Body Mass Index 25.68 03/26/2025 9:08 AM EDT Plan of Treatment Health Maintenance Due Date Last Done Comments Diabetes: Urine Protein Screening 09/07/2022 09/07/2021, 08/26/2020 COVID-19 Vaccine ( season) 2025 12/16/2021, 07/29/2021, 10/10/2020, Additional history exists Influenza Vaccine (#1) 2025 , 05/25/2023, 06/01/2022, Additional history exists Lipid Panel 07/24/2025 07/24/2024, 08/0 01/2023, 09/07/2021, Additional history exists Diabetes: Foot Exam 08/23/2025 08/23/2024 Diabetes: Hemoglobin A1C 09/26/2025 025, 12/18/2024, 08/23/2024, Additional history exists Eye Exam 11/01/2025 11/02/2023 Alcohol/Substance Use Screening 03/26/2026 03/26/2025 Depression Screening 03/26/2026 03/26/2025, 03/26/20 SDOH Screening 03/26/2026 03/26/2025 Tobacco Screening 03/26/2026 03/26/2025 DTaP/Tdap/Td Vaccines (3 - Td or Tdap) 12/07/2026 12/07/2016, 09/25/2013, 11/18/2002 Pneumococcal Vaccine: 50+ Years Completed 11/04/2016, 08/03/2012, 11/20/2004 Zoster Vaccines Completed 01/05/2024, 10/30, 11/15/2014 RSV Patients and Patients Aged 60 years or older Completed 05/17/2024, 11/10/2023 HIB Vaccines Aged Out No longer eligi ble based on patient's age to complete this topic HPV Vaccines Aged Out No longer eligi ble based on patient's age to complete this topic Hepatitis A Vaccines Aged Out No long er eligible based on patient's age to complete this topic Hepatitis B Vaccines Aged Out No long er eligible based on patient's age to complete this topic IPV Vaccines Aged Out No longer eligi ble based on patient's age to complete this topic Meningococcal B Vaccine Aged Out No l onger eligible based on patient's age to complete this topic Meningococcal Vaccine Aged Out No brandy jennifer eligible based on patient's age to complete this topic RSV under 20 months Aged Out No longe r eligible based on patient's age to complete this topic Rotavirus Vaccines Aged Out No longer eligible based on patient's age to complete this topic Procedures Procedure Name Priority Date/Time Associated Diagnosis Comments POCT GLYCATED HEMOGLOBIN, TOTAL Routine 03/26/2025 9:12 AM EDT Type 2 diabetes mellitus without complication, without long-term current use of insulin ([facility]) POCT GLUCOSE Routine 03/26/2025 9:12 AM EDT Type 2 diabetes mellitus without complication, without long-term current use of insulin ([facility]) LIPID PANEL, STANDARD Routine 07/24/2024 8:19 AM EST Mixed hyperlipidemia ALBUMIN, RANDOM URINE W/CREATININE Routine 09/07/2021 9:07 AM EST from Last 3 Months or Most Recently Relevant to Health Maintenance Results * (ABNORMAL) POCT HGB A1C (03/26/2025 9:12 AM EDT) Hemoglobin A1C 6.5(A) 4.0 - 5.7 % QC Media Lot # [id number] Lot# Expiration Date ,[id number] Blood 03/26/2025 9:12 AM EDT Helder Chiu MD POINT OF CARE TEST EN TER/EDIT ORDERABLES Final Result * POCT Glucose (03/26/2025 9:12 AM EDT) Glucose Blood, POC 199 60 - 200 mg/dL Comment:Random QC Media Lot # [id number] Lot# Expiration Date [id number] Blood Capillary blood specimen / Unknown 03/26/2025 9:12 AM EDT Helder Chiu MD POINT OF CARE TEST EN TER/EDIT ORDERABLES Final Result * Lipid Panel, Standard (07/24/2024 8:19 AM EST) Triglycerides 79 <150 mg/dL [facility] Comment:Desirable Triglyceri de: less than 150 mg/dLBorderline High Triglyceride 150-199 mg/dLHigh Triglyceride: 200-499 mg/dLVery High Triglyceride: greater than or equal to 5OO mg/dL Cholesterol 127 <200 mg/dL [facility] Comment:Desirable Cholestero l: less than 200 mg/dLBorderline High Cholesterol: 200-239 mg/dLHigh Cholesterol: greater than 239 mg/dL LDL Cholesterol Calculated 67 <100 mg/dL [facility] Comment:Desirable LDL: less than 100 mg/dLNear Optimal/Above Optimal LDL: 110- 129 mg/dLBorderline High LDL: 130-159 mg/dLHigh LDL: 160-189 mg/dLVery High LDL: greater than or equal to 190 mg/dL HDL Cholesterol 45 >40 mg/dL [facility] Comment:Desirable HDL: great er than 40 mg/dL Note: This HDL assay may give artificially low results in patients with liver disease. Blood Venous blood specimen / Unknown 07/24/2024 8:19 AM EST 07/24/2024 11:02 AM EST Helder Chiu MD LAB BLOOD ORDERABLES Final Result Performing Organization Address [facility] Co de Phone Number [facility] [address] [place] [phone] * ALBUMIN, RANDOM URINE W/CREATININE (09/07/2021 9:07 AM EST) Microalbumin Urine 1.4 See Note: mg/dL [facility] Comment: Reference Range: Reference Range Not established Microalb/Creat Ratio 20 <30 mcg/mg creat [facility] Comment: The ADA defines abnormalities in albumin excretion as follows: Albuminuria Category Result (mcg/mg creatinine) Normal to Mildly increased <30 Moderately increased 30-299 Severely increased > OR = 300 The ADA recommends that at least two of three specimens collected within a 3-6 month period be abnormal before considering a patient to be within a diagnostic category. Creatinine, Urine 70 20 - 275 mg/dL [facility] 09/07/2021 9:07 AM EST Helder Chiu MD LAB URINE ORDERABLES Final Result [facility] [address] from Last 3 Months or Most Recently Relevant to Health Maintenance Insurance [employer] (HMO D-SNP) [place]ANTLEY [id number] Advance Directives Documents on File Type Date Recorded Patient Remote Sensing Program Manager Expl anation Power of Manager Eligibility 06/21/2023 Health Car e Proxy Care Teams Electronic Parts Designer Relationship Specialty Start Date End Date Helder Greenfield MD [address] [place] [id number] PCP - General Internal Medicine 06/03/14
[2025-04-23 11:35] LABS: MANUAL DIFF FLAG NO
[2025-04-23 11:44] LABS: Hematocrit 42.1 % (37.0-47.0); Hemoglobin 14.3 g/dl (12.0-16.0); Imm Gran Abs Auto 0.03 X10*3/uL (0.00-0.03); Imm Gran Pct Auto 0.5 % (0.0-0.4); Lymphocytes Absolute Auto 1.6 X10*3/uL (1.2-4.9); Mean Corpuscular HGB Conc 34.0 g/dl (31.0-35.0); Mean Corpuscular Hemoglobin 28.8 pg (27.0-33.0); Mean Corpuscular Volume 84.9 fL (80.0-98.0); NRBC Abs Auto 0.000 X10*3/uL (0.0-0.012); NRBC Pct Auto 0.0 /100WBC (0.0-0.2); Platelet Count 279 X10*3/uL (160-400); Red Blood Count 4.96 X10*6/uL (4.20-5.50); White Blood Count 6.3 X10*3/uL (4.8-10.8)
[2025-04-23 13:16] LABS: Anion Gap 12 (12-20)
[2025-04-23 13:20] LABS: Alanine Aminotransferase 28 U/L (0-31); Albumin Level 4.6 g/dL (3.5-5.0); Alkaline Phosphatase 59 U/L (39-117); Aspartate Amino Transferase 30 U/L (5-31); Blood Urea Nitrogen 11 mg/dL (9-16); Calcium 9.5 mg/dL (8.4-10.2); Carbon Dioxide 24 mmol/L (22-29); Chloride 108 mmol/L (96-108); Cholesterol 148 mg/dL (<200); Estimated Glomerular Filt Rate > 60; HDL Cholesterol 38 mg/dL (>40); Potassium 4.1 mmol/L (3.3-5.1); Sodium 140 mmol/L (135-145); Total Protein 7.1 g/dL (6.5-8.0); Triglycerides 98 mg/dL (<150)
[2025-04-23 14:19] LABS: Microalbum/Creatinine Ratio Ur 48.7 ug/mg cr (<30)
== END 2025-04-23 08:34 | disposition home or self-care (01) ==
LOC: HO.HHCL 08:33
PROVIDERS: PCP Internal Medicine; Visit Provider Internal Medicine
DX: I10 Essential (primary) hypertension (principal); E11.9 Type 2 diabetes mellitus without complications; E78.2 Mixed hyperlipidemia
CPT/HCPCS: 36415; 80053; 80061; 82043; 82570; 84443; 85025

== ENCOUNTER 2025-05-07 09:11 | Outpatient (AMB) | payer OTHER, SELFPAY ==
--- NOTE | 2025-05-07 09:23 | MHC.OFFVIS ---
Intake Visit Reasons: 6m f/u Truck Body Builder Required: Yes Truck Body Builder Services: Truck Body Builder Offered & Declined (daughter to translate) Accompanied by: Daughter Allergies nortriptyline Adverse Reaction (Verified 05/07/25 09:24) Rash Medication List - Last Reconciled 05/07/25 by Nakia Grubbs CNP albuterol sulfate 2.5 mg (3 mL) inhalation Q4-6H PRN albuterol sulfate 90 mcg/actuation 2 puffs inhalation Q4-6H PRN amlodipine 10 mg PO QAM 30 days aspirin 81 mg PO BEDTIME atorvastatin 80 mg PO QPM 30 days azelastine intranasal brimonidine 0.2% 1 drp ophthalmic (eye) BID 30 days calcium carbonate-vitamin D3 600 mg-10 mcg (400 unit) 1 tab PO BID cholecalciferol (vitamin D3) 25 mcg PO QAM dexlansoprazole 60 mg PO QPM escitalopram oxalate 20 mg PO DAILY famotidine 40 mg PO BEDTIME fluticasone propionate 50 mcg/actuation 1 spray intranasal DAILY 30 days yklurhhvwnf-prinlhith-ygwronaf 200-62.5-25 mcg (Trelegy Ellipta) inhalation DAILY guselkumab (Tremfya) 200 mg IV Q4W hydroxyzine HCl mg PO lorazepam mg PO meclizine 25 mg PO TID memantine 5 mg PO QAM metformin ER 500 mg PO BEDTIME 30 days metformin ER 1,000 mg PO BID metoclopramide HCl 10 mg PO QID metoprolol succinate ER 100 mg PO QAM 30 days mirtazapine 15 mg PO BEDTIME 30 days montelukast 10 mg PO QPM 30 days polyethylene glycol 3350 (Miralax) 17 grams PO DAILY 30 days quetiapine 25 mg PO DAILY sennosides (senna) 17.2 mg (2 x 8.6 mg) PO BEDTIME Held on 08/04/23. Instructions: Doctor's Order simethicone (Gas Relief (simethicone)) 125 mg PO QIDACHS PRN tezepelumab-ekko (Tezspire) mg subcut timolol maleate 0.5% 1 drp ophthalmic-Left DAILY 30 days tolterodine ER 4 mg PO BEDTIME 30 days trazodone 50 mg PO BEDTIME MRX1 PRN HPI Comments Details: She was doing okay. Memory was about the same. She does not like to leave the house much. She likes to watch TV during the day. No falls. Mood has been okay, but can be still be agitated at times, working with psychiatrist. No hallucinations. Sleep was okay with trazodone 50mg 1-2 tablets at bedtime.? She has forgetfulness, confusion, and agitation. Enjoys watching cartoons.?Multiple medical problems including type 2 diabetes, hypertension, hyperlipidemia, GERD, anxiety and depression. She was first treated for anxiety and depression in her 20s and then lost her psychiatrist and didn't take any medicines for many years still, she started to get progressively more anxiety and depression in summer of 2022. She was hospitalized in the behavioral unit at [facility] and started on multiple medications. She moved in with her daughter in because she needs constant supervision and gets very anxious. Previously, was seeing things that were not there, like vomit. She would get scared and start crying and screaming especially at night, so her daughter had to sleep in the same room for a period of time, but this has stopped. She needs 24-hour supervision. There are no safety issues. [facility] Medical History Lump in the abdomen Irritable bowel syndrome with both constipation and diarrhea Abdominal bloating Epigastric abdominal pain Abdominal cramping Abdominal pain Nausea and vomiting Seasonal allergies Glaucoma Arthritis Back pain Asthma HTN (hypertension) Diabetes Surgical History Hx of endoscopy Hx of colonoscopy Hx of hysterectomy Family History Mother Diabetes Heart problem Asthma Father Diabetes Depression Maternal Grandfather Stomach cancer Family/Other Colon cancer Brother COVID-19 Social History Household Members: Family and Other Household Members Other:: brother whos health is so so Housing: Unknown / Unable to assess Are you a primary healthcare economics consultant to a significant other at home: No Do you presently have visiting nurse or other home services: Yes (discharged from [facility] 05/30 with [facility]) Alcohol intake: never Patient Tobacco Use Status: Never used Tobacco e-Cigarette/Vaping Use: Never Used Second Hand Smoke Exposure: No Advance Directives Date on File: 05/15/23 Sexual orientation: Straight/Heterosexual Review of Systems Const Denies chills, Denies daytime sleepiness, Reports difficulty sleeping, Denies fatigue, Denies fever(s), Denies frequent falls, Reports headache(s), Denies increased appetite, Denies poor appetite, Denies snoring, Denies weakness, Denies weight gain and Denies weight loss Eyes Denies loss of vision ENT Denies vertigo, Reports dizziness, Reports headache(s) and Denies neck pain Card Denies chest pain at rest, Denies chest pain with activity, Denies syncope, Denies leg edema, Denies palpitations, Denies dyspnea and Denies dyspnea on exertion Resp Denies cough, Denies dyspnea, Denies dyspnea on exertion and Denies snoring GI Denies abdominal pain, Denies constipation, Denies heartburn, Denies diarrhea and Denies nausea Denies urinary frequency, Denies urinary incontinence and Denies urinary urgency Musc Denies abnormal gait, Denies back pain, Denies myalgias, Denies arthralgias, Denies neck pain, Reports numbness and Reports tingling Neuro Denies abnormal gait, Denies vertigo, Reports dizziness, Denies syncope, Denies frequent falls, Reports headache(s), Denies lack of coordination, Denies loss of vision, Reports memory loss, Reports numbness, Denies Other visual disturbances, Denies restless legs, Denies seizure-like activity, Reports tingling, Denies paresthesias, Denies tremor(s) and Denies weakness Psych Reports anxiety, Reports depression, Denies auditory hallucinations, Reports memory loss and Denies visual hallucinations Endo Denies fatigue and Denies palpitations Physical Exam Const Other: General Appearance:? normal, in no acute distress. Heart:? S1, S2 normal, no murmurs. Lungs:? clear anteriorly and posteriorly. Musculoskeletal:? normal. Extremities:? no edema. Psych:? alert, as below. Neuro Other: Abnormal Neurological Findings:?MMSE 1630.?She is able to tell me we are on the 4th floor of a hospital, but says the state is [place] (where she lived for many years). Mental Status: alert, as below. Cranial Nerves: Pupils are equal, round, and reactive to light. External ocular muscles are intact. Visual causey are full, no ptosis. Face is symmetrical, no facial weakness or droop. Facial sensations are normal. Tongue protrudes in midline. Palate elevates symmetrically. Shoulder shrugging is normal Motor Examination: Normal muscle tone, bulk and strength. No atrophy or fasciculations. No drift of the extended upper extremities. DTR 2+. Plantars are flexor. Sensory Exam: Normal light touch, temperature, pinprick, vibration, and joint-position sensations. Rhomberg sign is absent. Coordination: No ataxia. No titubation. Gait Exam: Slow and cautious. Cerebellar Signs: Cagpfk-io-jbod is okay. Extrapyramidal System: No tremor, rigidity with normal facial expressions. No bradykinesia. No bradyphrenia. Normal arm swing and posture. No propulsion or retropulsion. Speech: Normal. MMSE Level of Consciousness: Alert. Orientation: Does not know correct year, month, date, day and season. Does not knows correct state, city, or county. Knows correct location and floor. Registration: Able to register 3 objects. Attention: Serial 7's performed accurately to 93. Recall: Able to recall 2 out of 3 objects. Language: Normal spontaneous speech, fluency, repetition, naming, comprehension, reading, and writing. Total Score: 16/30. Results Reviewed Results Reviewed: 08/26/23 EEG- WNL 09/01/23 CT brain global cerebral volume loss and there is mild chronic microangiopathy. Labs are normal. Assessment & Plan Assessment & Plan (1) Alzheimer dementia: Code(s): G30.9 - Alzheimer's disease, unspecified; F02.80 - Dementia in other diseases classified elsewhere, unspecified severity, without behavioral disturbance, psychotic disturbance, mood disturbance, and anxiety Category: Medical Qualifiers: Alzheimer's disease onset: unspecified onset Dementia severity: unspecified severity Dementia behavioral or psychological symptom: with mood disturbance Qualified Code(s): G30.9 - Alzheimer's disease, unspecified; F02.83 - Dementia in other diseases classified elsewhere, unspecified severity, with mood disturbance Plan: Increase memantine 5mg 1 tablet twice a day. Medications: New memantine (Namenda) 5 mg PO BID 180 tabs 1RF 90 days Coding Level of Care Code Est Pt Level 4 (19476) Diagnoses Alzheimer's dementia with mood disturbance, unspecified dementia severity, unspecified timing of dementia onset G30.9; F02.83 Alzheimer's disease onset: unspecified onset Dementia severity: unspecified severity Dementia behavioral or psychological symptom: with mood disturbance
--- OUTSIDE RECORDS SUMMARY | 2025-05-07 10:10 | XMS_ITS | Clinical Summary ---
Author Organization [employer] Address [address] [place] [address] 7[address] [place] [address] Care Team Providers Care Pediatrics Physician Name Role Phone Helder Greenfield MD Primary Care Provide r Allergies No known active allergies Medications * This document contains information received from the source organization and may not represent a complete record from that organization. Antacid/Antigas 400-400-40 MG/10ML oral suspension TAKE 5 ML BY MOUTH FOR DYSPEPSIA. TAKE BETWEEN MEALS AND AT BEDTIME 04/12/20 23 Active brimonidine (AlphaGAN P) 0.2 % ophthalmic solution PLACE 1 DROP IN EACH EYE TWICE DAILY, 12 HOURS APART 04/05/20 23 Active cromolyn (Opticrom) 4 % ophthalmic solution INSTILL 1 DROP IN THE AFFECTED EYE FOUR TIMES DAILY DIRECTED 12/29/19 23 Active dexlansoprazole (Dexilant) [address] capsule Take 1 capsule by mouth in the evening. 05/12/20 23 Active famotidine (Pepcid) 40 MG tablet Take 1 tablet by mouth at bedtime. 05/12/20 23 Active LORazepam (Ativan) 0.5 MG tablet Take 0.5 mg by mouth if needed in the morning, at noon, and at bedtime. 05/31/20 23 Active senna (Senokot) 8.6 MG tablet TAKE 2 TABLETS BY MOUTH EVERY DAY AT BEDTIME FOR CONSTIPATION 05/12/20 23 Active sucralfate (Carafate) 1 g tablet Take 2 tablets by mouth 1 (one) time each day. AT NOON 05/12/20 23 Active timolol (Timoptic) 0.5 % ophthalmic solution PLACE 1 DROP IN THE LEFT EYE EVERY MORNING 05/31/20 Active mirtazapine (Remeron) 15 MG tablet Take 1 tablet by mouth at bedtime. 06/14/20 Active traZODone (Desyrel) 50 MG tablet TAKE 1 TABLET BY MOUTH AT BEDTIME. MAY REPEAT ONCE NEEDED FOR FOR SLEEP 06/14/20 Active hydrOXYzine pamoate (Vistaril) 25 MG capsule TAKE 1 CAPSULE BY MOUTH AT BEDTIME NEEDED FOR ANXIETY 30 capsule 1 07/08/20 23 Active Diclofenac Sodium 1 % gelIndications:Ch ronic midline low back pain without sciatica Use affected area Bid PRN 50 g 3 05/31/20 24 Active meloxicam (Mobic) 15 MG tabletIndications :Chronic midline low back pain without sciatica TAKE 1 TABLET BY MOUTH EVERY MORNING 30 tablet 08/14/19 25 Active albuterol 108 (90 Base) MCG/ACT inhalerIndication s:Moderate persistent asthma with acute exacerbation Inhale 1 puff every 6 (six) hours if needed for wheezing. 18 g 6 08/23/19 25 Active Lancet Device miscIndications:T ype 2 diabetes mellitus without complication, without long-term current use of insulin (HCC) Use daily 1 each 08/23/19 25 Active TRUEplus Lancets 33G misc TEST BLOOD SUGAR TWICE DAILY 100 each 11 08/30/19 25 Active metoprolol succinate XL (Toprol-XL) 100 MG 24 hr tablet TAKE 1 TABLET BY MOUTH EVERY MORNING 90 tablet 2 10/10/19 25 Active metFORMIN XR (Glucophage-XR) 500 MG 24 hr tabletIndications :Type 2 diabetes mellitus without complication, unspecified whether long term care pharmacist insulin use TAKE 2 TABLETS BY MOUTH TWICE DAILY IN THE MORNING AND EVENING WITH FOOD 360 tablet 2 10/10/19 25 Active FREESTYLE LITE test stripIndications: Type 2 diabetes mellitus without complications (HCC) TEST BLOOD SUGAR THREE TIMES DAILY 100 strip 11 11/14/19 25 Active montelukast (Singulair) 10 MG tablet TAKE 1 TABLET BY MOUTH EVERY EVENING 90 tablet 1 12/05/19 25 Active cholecalciferol (Vitamin D-3) 25 MCG tabletIndications :Low serum vitamin D TAKE 1 TABLET BY MOUTH EVERY MORNING 90 tablet 1 12/05/19 25 Active Alcohol Swabs (Alcohol Prep) 70 % padsIndications:T ype 2 diabetes mellitus without complication, unspecified whether shelter insulin use USE DIRECTED TWICE DAILY 100 each 5 12/07/19 25 Active fluticasone (Flonase) 50 MCG/ACT nasal spray INSTILL 1 SPRAY IN EACH NOSTRIL ONCE DAILY 16 g 1 12/08/19 25 Active Blood Glucose Monitoring Suppl (FreeStyle Lite) w/Device kitIndications:Ty pe 2 diabetes mellitus without complication, without long-term current use of insulin (HCC) 1 Device 2 times daily. 1 kit 12/22/19 25 Active meclizine (Antivert) 25 MG tabletIndications :Dizziness TAKE 1 TABLET BY MOUTH THREE TIMES DAILY IN THE MORNING, AT NOON, AND AT BEDTIME NEEDED FOR DIZZINESS 30 tablet 3 01/23/20 25 Active Calcium Carb-Cholecalcife rol 600-10 MG-MCG tablet TAKE 1 TABLET BY MOUTH TWICE DAILY IN THE MORNING AND IN THE EVENING WITH FOOD 60 tablet 2 02/06/20 25 Active aspirin (Aspirin Adult Low Strength) 81 MG EC tablet TAKE 1 TABLET BY MOUTH AT BEDTIME 90 tablet 3 02/06/20 25 Active atorvastatin (Lipitor) 80 MG tablet TAKE 1 TABLET BY MOUTH EVERY EVENING 90 tablet 02/15/20 25 Active tolterodine LA (Detrol LA) 4 MG 24 hr capsule TAKE 1 CAPSULE BY MOUTH AT BEDTIME 90 capsule 02/15/20 25 Active escitalopram (Lexapro) 20 MG tablet Take 20 mg by mouth Once per day. 03/14/20 25 Active hydrOXYzine HCl (Atarax) 25 MG tablet Take 25 mg by mouth if needed at bedtime. 03/18/20 25 Active memantine (Namenda) 5 MG tablet Take 1 tablet by mouth Once per day. 02/15/20 25 Active QUEtiapine (SEROquel) 25 MG tablet Take 25 mg by mouth in the morning. 02/01/20 25 Active Trelegy Ellipta 200-62.5-25 MCG/ACT aerosol powder Inhale 200 mcg Once per day. 03/18/20 25 Active amLODIPine (Norvasc) 10 MG tablet TAKE 1 TABLET BY MOUTH EVERY MORNING 30 tablet 11 04/04/20 25 Active Active Problems Problem Noted Date Diagnosed Date [...] dysfunction Started on Astelazin nasal spray per certified coding specialist Pt referred to ENT Assessment & Plan (05/31/2024 9:47 AM EDT): Exam within normal limits Suggestive of Eustachian tube dysfunction Started on Astelazin nasal spray per certified coding specialist Low weight, pediatric, BMI less than 5th percent ile for age 0108/02/2023 Assessment & Plan (08/02/2023 9:41 AM EST): BMI 24 Mild dementia with anxiety ([facility]/HCC) 06/21/2023 Assessment & Plan (08/23/2024 9:09 AM [...] EDT): Pt seen in March 15 by [employer], pt c/o severe headache. With a remote [...] back pain pt described it as intensity 02/07 no radiation. Started PT but felt worse. Pt was seen at [facility] 02/20/2019 and they recommended to proceed with [...] attacks and how to cope with them. [facility] Provider will begin patient on hydroxyzine 25 mg. provider will complete therapy referral. At this time Maritza Mcmanus meets criteria for Visit Diagnoses: Problem List Items Addressed This Visit Other Depressive disorder Anxiety Patient ready to address current needs Yes Strengths include support from her daughter, son, and enrique PLAN: 1. Follow up with [facility]: Not recommended for follow-up 2. Patient goal [...] PA-C at [facility]. Receiving Allergy shots monthly Assessment & Plan (08/23/2024 10:11 AM EST): On trelegy, , Pro-Air and Singulair. She is now under the care of Brandon mcnulty PA-C at [facility]. Already scheduled to start her Allergy shots Jun 04 Assessment & Plan (05/31/2024 9:45 AM EDT): On trelegy, , Pro-Air and Singulair. She is now under the care of Brandon mcnulty PA-C at [facility]. Already scheduled to start her Allergy shots Jun 04 Assessment & Plan (01/17/2024 10:52 AM EDT): Recent exacerbation 01/08/2024 seen at [facility] She is doing better now but still wheezing On Advair Diskus, Pro-Air and Singulair. She used to be followed by Dr. Baker (Allergy) . She has not seen them since May 2023 Has appointment 04/11/2024 with Li Lundberg [id number] [facility] Plan: On exam she has mild wheezing. [...] exam done on: 11/02/[address] Vargas (veterinary physiologist) Microalbumin checked 09/07/2021 was: 1.4 will repeat [...] exam done on: 11/02/[address] Vargas (veterinary physiologist) Microalbumin checked 09/07/2021 was: 1.4 will repeat [...] exam done on: 11/02/[address] Vargas (veterinary physiologist) Microalbumin checked 09/07/2021 was: 1.4 Pt on [...] exam done on: 11/02/[address] Vargas (veterinary physiologist) Microalbumin checked 09/07/2021 was: 1.4 Pt on [...] exam done on: 11/02/[address] Vargas (veterinary physiologist) Microalbumin checked 09/07/2021 was: 1.4 Pt on [...] exam done on: 11/02/[address] Vargas (veterinary physiologist) Microalbumin checked 09/07/2021 was: 1.4 Pt on [...] exam done on: 11/17/[address] Vargas (veterinary physiologist) Microalbumin checked 09/07/2021 was: 1.4 Pt on [...] Type Department Care Team Description 04/08/2025 Telephone [facility] [address] [place] [address] Helder Greenfield MD Medication Question 04/04/2025 Refill [facility] [address] [place] [address] Phoebe Michaels ANP 03/29/2025 Telephone [facility] [address] [place] [address] Helder Greenfield MD June Recall 03/26/2025 9:00 AM EDT Office Visit [facility] [address] [place] [address] Helder Greenfield MD Type 2 diabetes mellitus without complication, without long-term current use of insulin ([facility]) (Primary Dx); Benign hypertension; Mixed hyperlipidemia; Depressive disorder; Gastroesophageal reflux disease without esophagitis; Moderate persistent asthma with acute exacerbation 03/26/2025 Travel 03/25/2025 Telephone [facility] [address] [place] [address] Helder Greenfield MD CHART PREP 02/12/2025 Refill [facility] [address] [place] [address] Chani Crespo MD from Last 3 Months Immunizations Immunization Administration [...] Health Maintenance Due Date Last Done Comments COVID-19 Vaccine ( season) 2025 12/16/2021, 07/29/2021, 10/10/2020, Additional history exists Influenza Vaccine (#1) 2025 , 05/25/2023, 06/01/2022, Additional history exists Diabetes: Foot Exam 08/23/2025 08/23/2024 Diabetes: Hemoglobin A1C 09/26/2025 025, 12/18/2024, 08/23/2024, Additional history exists Eye Exam 11/01/2025 11/02/2023 Alcohol/Substance Use Screening 03/26/2026 03/26/2025 Depression Screening 03/26/2026 03/26/2025, 03/26/20 SDOH Screening 03/26/2026 03/26/2025 Tobacco Screening 03/26/2026 03/26/2025 Diabetes: Urine Protein Screening 04/23/2026 04/23/2025, 09/07/2021, 08/26/2020 Lipid Panel 04/23/2026 04/23/2025, 07/02, 03/07/2023, Additional history exists DTaP/Tdap/Td Vaccines (3 - Td or Tdap) [...] Procedure Name Priority Date/Time Associated Diagnosis Comments LIPID PANEL, STANDARD Routine 04/23/2025 8:54 AM EDT Mixed hyperlipidemia COMPREHENSIVE METABOLIC PANEL Routine 04/23/2025 8:54 AM EDT Benign hypertension ALBUMIN, RANDOM URINE W/CREATININE Routine 04/23/2025 8:54 AM EDT Type 2 diabetes mellitus without complication, without long-term current use of insulin (CMS/HCC) CBC WITH AUTO DIFFERENTIAL Routine 04/23/2025 8:54 AM EDT Type 2 diabetes mellitus without complication, without long-term current use of insulin (CMS/HCC) TSH W/REFLEX TO FT4 Routine 04/23/2025 8 :54 AM EDT Type 2 diabetes mellitus without complication, without long-term current use of insulin (CMS/HCC) POCT GLYCATED HEMOGLOBIN, TOTAL Routine 03/26/2025 9:12 AM EDT Type 2 diabetes mellitus without complication, without long-term current use of insulin (CMS/HCC) POCT GLUCOSE Routine 03/26/2025 9:12 AM EDT Type 2 diabetes mellitus without complication, without long-term current use of insulin ([facility]) from Last 3 Months Results * TSH with Reflex to Free T4 (04/23/2025 8:54 AM EDT) Pathologist [facility] TSH reflex Free T4 1.46 0.32 - 4.0 uIU/mL [facility] Blood Venous blood specimen / Unknown 04/23/2025 8:54 AM EDT 04/23/2025 11:26 AM EDT Helder Chiu MD LAB BLOOD ORDERABLES Final Result Performing Organization Address [facility] Co de Phone Number [facility] [address] [place] [phone] * (ABNORMAL) Albumin, Random Urine W/Creatinine (04/23/2025 8:54 AM EDT) [facility] Creatinine, Urine 82.03 mg/dL [facility] Microalbumin Urine 40.0 mg/L [facility] Microalbum Creatinine Ratio Ur 48.7(H) <30 ug/mg cr [facility] Comment:Albumin/Creatinine R atio Reference Ranges: Normal: < 30 ug/mg creatinine Microalbuminuria: 30 - 300 ug/mg creatinineClinical Albuminuria: > 300 ug/mg creatinine Urine (Urine, Random) 04/23/2025 8:54 AM EDT 04/23/2025 11:14 AM EDT Helder Chiu MD LAB URINE ORDERABLES Final Result Performing Organization Address [facility] Co de Phone Number [facility] [address] [place] [address] [phone] * (ABNORMAL) CBC auto differential (04/23/2025 8:54 AM EDT) White Blood Count 6.3 4.8 - 10.8 X10*3/uL [facility] Red Blood Count 4.96 4.20 - 5.50 X10*6/uL [facility] Hemoglobin 14.3 12.0 - 16.0 g/dl [facility] Hematocrit 42.1 37.0 - 47.0 % [facility] Mean Corpuscular Volume 84.9 80.0 - 98.0 fL [facility] Mean Corpuscular Hemoglobin 28.8 27.0 - 33.0 pg [facility] Mean Corpuscular HGB Conc 34.0 31.0 - 35.0 g/dl [facility] Red Cell Distribution Width 13.7 11.0 - 16.0 % [facility] Platelet Count 279 160 - 400 X10*3/uL [facility] Mean Platelet Volume 10.0 9.4 - 12.3 fL [facility] Neutrophils Percent Auto 65.4 45 - 73 % [facility] Imm Gran Pct Auto 0.5(H) 0.0 - 0.4 % [facility] Lymphocytes Percent Auto 25.7 20 - 40 % [facility] Monocytes Percent Auto 6.8 2 - 11 % [facility] Eosinophils Percent Auto 1.3 0 - 4 % [facility] Basophils Percent Auto 0.3 0 - 2 % [facility] NRBC Pct Auto 0.0 0.0 - 0.2 /100WBC [facility] Neutrophils Absolute Auto 4.1 2.0 - 8.3 x10*3/uL [facility] Imm Gran Abs Auto 0.03 0.00 - 0.03 X10*3/uL [facility] Lymphocytes Absolute Auto 1.6 1.2 - 4.9 X10*3/uL [facility] Monocytes Absolute Auto 0.4 0.1 - 1.2 X10*3/uL [facility] Eosinophils Absolute Auto 0.1 0.0 - 0.4 X10*3/uL [facility] Basophils Absolute Auto 0.0 0.0 - 0.2 X10*3/uL [facility] NRBC Abs Auto 0.000 0.0 - 0.012 X10*3/uL [facility] Blood Venous blood specimen / Unknown 04/23/2025 8:54 AM EDT 04/23/2025 11:26 AM EDT Helder Chiu MD LAB BLOOD ORDERABLES Final Result Performing Organization Address City/[facility]/ZIP Co de Phone Number [facility] [address] [place] [phone] * (ABNORMAL) Lipid Panel, Standard (04/23/2025 8:54 AM EDT) Triglycerides 98 <150 mg/dL [facility] Comment:Desirable Triglyceri de: less than 150 mg/dLBorderline High Triglyceride 150-199 mg/dLHigh Triglyceride: 200-499 mg/dLVery High Triglyceride: greater than or equal to 5OO mg/dL Cholesterol 148 <200 mg/dL [facility] Comment:Desirable Cholestero l: less than 200 mg/dLBorderline High Cholesterol: 200-239 mg/dLHigh Cholesterol: greater than 239 mg/dL LDL Cholesterol Calculated 91 <100 mg/dL [facility] Comment:Desirable LDL: less than 100 mg/dLNear Optimal/Above Optimal LDL: 110- 129 mg/dLBorderline High LDL: 130-159 mg/dLHigh LDL: 160-189 mg/dLVery High LDL: greater than or equal to 190 mg/dL HDL Cholesterol 38(L) >40 mg/dL [facility] Comment:Desirable HDL: great er than 40 mg/dL Note: This HDL assay may give artificially low results in patients with liver disease. Blood Venous blood specimen / Unknown 04/23/2025 8:54 AM EDT 04/23/2025 11:26 AM EDT Helder Chiu MD LAB BLOOD ORDERABLES Final Result Performing Organization Address City/[facility]/ZIP Co de Phone Number [facility] [address] [place] [phone] * (ABNORMAL) Comprehensive Metabolic Panel (04/23/2025 8:54 AM EDT) Sodium 140 135 - 145 mmol/L [facility] Potassium 4.1 3.3 - 5.1 mmol/L [facility] Chloride 108 96 - 108 mmol/L [facility] Carbon Dioxide 24 22 - 29 mmol/L [facility] Anion Gap 12 12 - 20 [facility] Urea Nitrogen (BUN) 11 9 - 16 mg/dL [facility] Creatinine, Serum 0.68 0.5 - 1.4 mg/dL [facility] Estimated Glomerular Filt Rate >60 [facility] Comment:Chronic Kidney Disea se: Estimated GFR < 60 mL/min/1.02p0Gijvsi Kidney Disease: Estimated GFR < 15 mL/min/1.73m2 Glucose 169(H) 60 - 115 mg/dL [facility] Calcium 9.5 8.4 - 10.2 mg/dL [facility] Bilirubin, Total 0.6 0.0 - 1.0 mg/dL [facility] Aspartate Amino Transferase 30 5 - 31 U/L [facility] Alanine Aminotransferase 28 0 - 31 U/L [facility] Total Protein 7.1 6.5 - 8.0 g/dL [facility] Albumin Level 4.6 3.5 - 5.0 g/dL [facility] Alkaline Phosphatase 59 39 - 117 U/L [facility] Blood Venous blood specimen / Unknown 04/23/2025 8:54 AM EDT 04/23/2025 11:26 AM EDT us Helder Chiu MD LAB BLOOD ORDERABLES Final Result [facility] [address] [place] [phone] * (ABNORMAL) POCT HGB A1C (03/26/2025 9:12 AM EDT) Hemoglobin A1C 6.5(A) 4.0 - 5.7 % QC Media Lot # [id number] Lot# Expiration Date ,[id number] Blood 03/26/2025 9:12 AM EDT Helder Chiu MD POINT OF CARE TEST EN TER/EDIT ORDERABLES Final Result * POCT Glucose (03/26/2025 9:12 AM EDT) Glucose Blood, POC 199 60 - 200 mg/dL Comment:Random QC Media Lot # [id number] Lot# Expiration Date [id number] Blood Capillary blood specimen / Unknown 03/26/2025 9:12 AM EDT Helder Chiu MD POINT OF CARE TEST EN TER/EDIT ORDERABLES Final Result from Last 3 Months Insurance [employer] (O D-SNP) [place] [id number] Advance Directives Documents on File Type Date Recorded Patient Returned Goods Inspector Expl anation Power of Mash Tub Cooker 06/21/2023 Health Car e Proxy Care Teams Pediatrics Physician Relationship Specialty Start Date End Date Helder Greenfield MD [address] [place] [phone] PCP - General Internal Medicine 06/03/14
--- OUTSIDE RECORDS SUMMARY | 2025-05-07 10:10 | XMS_ITS | Encounter Summary ---
Author Organization [email or web address] Address [address] [place] [address] [address] [place] [address] Care Team Providers Care Broadcast Director Operations Name Role Phone Helder Greenfield MD Primary Care Provide r Reason for Visit * Reason Comments Med Refill Encounter Details Date Type Department Care Team (Late st Contact Info) Description 02/28/2023 Refill [facility] [address] [place] [address] [phone] Chani Crespo MD [address] [place] [address] Social History Tobacco Use Types Packs/Day Years [...] on filedocumented in this encounter Care Teams Broadcast Director Operations Relationship Specialty Start Date End Date Helder Greenfield MD [address] [place] [address] [phone] PCP - General Internal Medicine 06/03/14 documented as of this encounter
--- OUTSIDE RECORDS SUMMARY | 2025-05-07 10:10 | XMS_ITS | Encounter Summary ---
Author Organization [employer] Address [address] [place] [address] 7t [place] [address] Care Team Providers Care Senior Oracle Adf Developer Name Role Phone Helder Greenfield MD Primary Care Provide r Encounter Details Date Type Department Care Team ([facility] st Contact Info) Description 08/17/2022 Orders Only [facility] [address] [place], [place] [phone] Sara eHnley LPN Social History Tobacco Use Types Packs/Day [...] on filedocumented in this encounter Care Teams Senior Oracle Adf Developer Relationship Specialty Start Date End Date Helder Greenfield MD [address] [place] [phone] PCP - General Internal Medicine 06/03/14 documented as of this encounter
--- OUTSIDE RECORDS SUMMARY | 2025-05-07 10:10 | XMS_ITS | Encounter Summary ---
Author Organization [employer] Address [address] [place] [address] 7t [place] [address] Care Team Providers Care Sales Trainer Name Role Phone Helder Greenfield MD Primary Care Provide r Reason for Visit * Reason Comments Med Refill Encounter Details Date Type Department Care Team (Late st Contact Info) Description 05/04/2023 Refill [facility] [address] [place] [address] Chani Crespo MD [address] [place] [address] Social History Tobacco Use Types Packs/Day Years [...] documented as of this encounter Care Teams Sales Trainer Relationship Specialty Start Date End Date Helder Greenfield MD [address] [place] [address] PCP - General Internal Medicine 06/03/14 documented as of this encounter
--- OUTSIDE RECORDS SUMMARY | 2025-05-07 10:10 | XMS_ITS | Encounter Summary ---
Author Organization [employer] Address [address] [place] [address] 7t [place] [address] Care Team Providers Care Third Shift Lieutenant Name Role Phone Helder Greenfield MD Primary Care Provide r Reason for Visit * Reason Comments Med Refill Encounter Details Date Type Department Care Team ([facility] st Contact Info) Description 11/23/2023 Refill [facility] [address] [place], [place] [phone] Helder Greenfield MD [address] [place], [place] [phone] Type 2 diabetes mellitus without complication, unspecified whether long term care administrator insulin use ([facility]) Social History Tobacco Use Types Packs/Day [...] without complication, unspecified whether long term care administrator insulin use documented in this encounter Additional Health Concerns Assessment Noted Time PHQ-9 Depression Total Score: 11 023 9:20 AM EDT documented as of this encounter Care Teams Third Shift Lieutenant Relationship Specialty Start Date End Date Helder Greenfield MD [address] [place] [phone] PCP - General Internal Medicine 06/03/14 documented as of this encounter
--- OUTSIDE RECORDS SUMMARY | 2025-05-07 10:10 | XMS_ITS | Encounter Summary ---
Author Organization [employer] Address [address] [place] [address] [address] [place] [address] Care Team Providers Care Cloth Burler Name Role Phone Helder Greenfield MD Primary Care Provide r Reason for Visit * Reason Comments Med Refill Encounter Details Date Type Department Care Team ([facility] st Contact Info) Description 12/21/2024 Refill [facility] [address] [place], [place] [phone] Helder Greenfield MD [address] [place], [place] [phone] Dizziness Social History Tobacco Use Types Packs/Day [...] documented as of this encounter Care Teams Cloth Burler Relationship Specialty Start Date End Date Helder Greenfield MD [address] [place] [address] PCP - General Internal Medicine 06/03/14 documented as of this encounter
--- OUTSIDE RECORDS SUMMARY | 2025-05-07 10:10 | XMS_ITS | Encounter Summary ---
Author Organization [employer] Address [address] [place] [address] [address] [place] [address] Care Team Providers Care Ground Worker Name Role Phone Helder Greenfield MD Primary Care Provide r Reason for Visit * Reason Onset Date Comments Hospital Follow-up 06/13/2023 Encounter Details Date Type Department Care Team ([facility] st Contact Info) Description 06/13/2023 Telephone [facility] [address] [place], [place] [phone] Helder Greenfield MD [address] [place] [address] Hospital Follow-up Social History Tobacco Use Types [...] - 06/13/2023 1:01 PM EST Tc from [place] [facility] calling to requesting a HDF appointment. Pt was admitted on 06/[address] [facility] [place] 06/02 and will be discharged on 06/14. Pt was diagnosed with dementia. Please contact wagner for scheduling at [phone] documented in this encounter Plan of Treatment Not on file documented as of this encounter Visit Diagnoses Not on filedocumented in this encounter Additional Health Concerns Assessment Noted Time PHQ-9 Depression Total Score: 11 023 9:20 AM EDT documented as of this encounter Care Teams Ground Worker Relationship Specialty Start Date End Date Helder Greenfield MD [address] [place] [id number] PCP - General Internal Medicine 06/03/14 documented as of this encounter
--- OUTSIDE RECORDS SUMMARY | 2025-05-07 10:10 | XMS_ITS | Encounter Summary ---
Author Organization [employer] Address [address] [place] [address] [address] [place] [address] Care Team Providers Care Swimming Pool Maintenance Name Role Phone Helder Greenfield MD Primary Care Provide r Reason for Visit * Reason Comments Med Refill Encounter Details Date Type Department Care Team (Late st Contact Info) Description 11/27/2024 Refill [facility] MED[facility]INE [address] [place], [place] [phone] Helder Greenfield MD [address] [place], [place] [phone] Chronic midline low back pain without sciatica [...] documented as of this encounter Care Teams Swimming Pool Maintenance Relationship Specialty Start Date End Date Helder Greenfield MD [address] [place] [id number] PCP - General Internal Medicine 06/03/14 documented as of this encounter
--- OUTSIDE RECORDS SUMMARY | 2025-05-07 10:10 | XMS_ITS | Encounter Summary ---
Author Organization [email or web address] Address [address] [place] [address] [address] [place] [address] Care Team Providers Care Hook Up Driver Name Role Phone Helder Greenfield MD Primary Care Provide r Reason for Visit * Reason Comments Med Refill Encounter Details Date Type Department Care Team (Late st Contact Info) Description 02/27/2024 Refill [facility] MED[facility]INE [address] [place], [place] [phone] Helder Greenfield MD [address] [place], [place] [phone] Social History Tobacco Use Types Packs/Day Years [...] documented as of this encounter Care Teams Hook Up Driver Relationship Specialty Start Date End Date Helder Greenfield MD [address] [place] [id number] PCP - General Internal Medicine 06/03/14 documented as of this encounter
--- OUTSIDE RECORDS SUMMARY | 2025-05-07 10:10 | XMS_ITS | Encounter Summary ---
Author Organization [employer] Address [address] [place] [address] [address] [place] [address] Care Team Providers Care Blankbook Forwarder Name Role Phone Helder Greenfield MD Primary Care Provide r Reason for Visit * Reason Comments Med Refill Encounter Details Date Type Department Care Team ([facility] st Contact Info) Description 06/01/2023 Refill [facility] MED[facility]INE [address] [place], [place] [phone] Chani Crespo MD [address] [place] [address] Social History Tobacco Use Types Packs/Day Years [...] documented as of this encounter Care Teams Blankbook Forwarder Relationship Specialty Start Date End Date Helder Greenfield MD [address] [place] [address] PCP - General Internal Medicine 06/03/14 documented as of this encounter
--- OUTSIDE RECORDS SUMMARY | 2025-05-07 10:10 | XMS_ITS | Encounter Summary ---
Author Organization [employer] Address [address] [place] [address] [address] [place] [address] Care Team Providers Care Computer Operations Supervisor Name Role Phone Helder Greenfield MD Primary Care Provide r Reason for Visit * Reason Comments Med Refill Encounter Details Date Type Department Care Team ([facility] st Contact Info) Description 02/27/[address] [facility] MEDICINE [address] [place], [place] [phone] Bibiana Romero MD [address] [place] [address] Social History Tobacco Use Types Packs/Day Years [...] documented as of this encounter Care Teams Computer Operations Supervisor Relationship Specialty Start Date End Date Helder Greenfield MD [address] [place] [id number] PCP - General Internal Medicine 06/03/14 documented as of this encounter
== END 2025-05-07 09:43 | disposition home or self-care (01) ==
LOC: HO.HSM 09:12
PROVIDERS: PCP Internal Medicine; Visit Provider Registered Nurse
DX: G30.9 Alzheimer's disease, unspecified (principal); F02.83 Dementia in other diseases classified elsewhere, unspecified severity, with mood disturbance
CPT/HCPCS: 99214

== ENCOUNTER → 2025-05-07 09:11 | Outpatient (BNVA) | payer OTHER, SELFPAY | PROVIDERS: PCP Internal Medicine; Visit Provider Registered Nurse | DX: G30.9 Alzheimer's disease, unspecified (principal); F02.83 Dementia in other diseases classified elsewhere, unspecified severity, with mood disturbance | CPT/HCPCS: 99212 ==